=== PATIENT | male | born 1935 | race Caucasian/White ===

== ENCOUNTER 2021-05-23 14:28 | Emergency (ER) | payer MEDICARE ==
[2021-05-23] MEDS ORDERED: ACETAMINOPHEN TAB 500 MG TAB PO STA (16:02)
[2021-05-23 16:37] LABS: Basophils % (A) 0 %; Eosinophils % (A) 0 %; HCT 38.9 % (39.0-53.0); Lymphocytes # (A) 0.2 k/uL (1.0-4.8); Lymphocytes % (A) 3 %; MCH 31.2 pg (25.0-35.0); MCHC 33.5 g/dL (31.0-37.0); MCV 93.1 fL (80.0-100.0); Mean Platelet Volume 7.9; Monocytes # (A) 0.4 k/uL (0-1.0); Monocytes % (A) 5 %; Neutrophils # (A) 7.7 k/uL (1.3-7.7); Neutrophils % (A) 91 %; Platelet Count 190 k/uL (150-450); RBC 4.18 m/uL (4.30-5.90); RDW 13.5 % (11.5-15.5); WBC 8.5 k/uL (3.8-10.6)
--- NOTE | 2021-05-23 16:44 | XR ---
EXAMINATION TYPE: XR chest 2V DATE OF EXAM: 05/23/2021 COMPARISON: NONE TECHNIQUE: PA and lateral views submitted. HISTORY: Weakness and fever FINDINGS: Bilateral patchy infiltrates noted diffusely. Heart size mildly enlarged. Postoperative change involv ing the shoulders. No pneumothorax or pleural effusion. Curvature of the spine with degenerative vargas ges. Atherosclerotic change aorta. IMPRESSION: 1. Bilateral patchy infiltrate correlate for pneumonia
[2021-05-23 16:52] LABS: Appearance,Urine Cloudy (Clear); Bilirubin,Urine 1+ (Negative); Blood,Urine Small (Negative); Color,Urine Yellow; Glucose,Urine (UA) Negative (Negative); Granular Casts,Urine 9 /lpf (0); Hyaline Casts,Urine 4 /lpf (0-2); Ketones,Urine 1+ (Negative); Leukocyte Esterase,Urine Negative (Negative); Mucus,Urine Many /hpf; Nitrite,Urine Negative (Negative); PH, Urine 5.5 (5.0-8.0); Protein,Urine 2+ (Negative); RBC,Urine 2 /hpf (0-5); Squamous Epithelial Cell,Urine 3 /hpf (0-4); WBC,Urine 3 /hpf (0-5)
[2021-05-23 16:53] LABS: Albumin 3.4 g/dL (3.5-5.0); Calcium 9.4 mg/dL (8.4-10.2); Potassium 4.4 mmol/L (3.5-5.1); Total Bilirubin 0.7 mg/dL (0.2-1.3); Total Protein 6.1 g/dL (6.3-8.2)
--- NOTE | 2021-05-23 17:31 | ED ---
General Adult HPI - General Chief complaint: Fever Stated complaint: Weakness, Fever, congestion Source: patient Mode of arrival: wheelchair Limitations: no limitations - History of Present Illness Initial comments: 85-year-old male coming from home for cough, fevers and shortness of breath. Patient has had generalized fatigue over the past couple a days. Daughter states that today she had difficulty getting the patient up and out of bed. He did have recent covid exposure. Patient's is vaccinated in October of this year. He denies any chest pain. No vomiting. Denies diarrhea. No abdominal pain. No other alleviating, precipitating or modifying factors - Related Data Home Medications Medication Instructions Recorded Confirmed Aspirin EC [Ecotrin Low Dose] 81 mg PO DAILY 05/23/21 05/23/21 Atorvastatin [Lipitor] 80 mg PO HS 05/23/21 05/23/21 Cetirizine HCl [Zyrtec] 10 mg PO DAILY 05/23/21 05/23/21 Cholecalciferol (Vitamin D3) 125 mcg PO DAILY 05/23/21 05/23/21 [Vitamin D3 (125 MCG = 5,000 IU)] Clopidogrel [Plavix] 75 mg PO DAILY 05/23/21 05/23/21 Donepezil [Aricept] 10 mg PO HS 05/23/21 05/23/21 Finasteride [Proscar] 5 mg PO DAILY 05/23/21 05/23/21 Rehan Leg Cramp 2 tab PO HS 05/23/21 05/23/21 Pantoprazole [Protonix] 40 mg PO DAILY 05/23/21 05/23/21 Tamsulosin HCl [Flomax] 0.4 mg PO DAILY 05/23/21 05/23/21 Ubidecarenone [Co Q-10] 200 mg PO DAILY 05/23/21 05/23/21 atenoloL [Tenormin] 25 mg PO DAILY 05/23/21 05/23/21 lisinopriL [Zestril] 10 mg PO DAILY 05/23/21 05/23/21 Allergies Allergy/AdvReac Type Severity Reaction Status Date / Time cyclobenzaprine Allergy Anaphylaxis Verified 05/23/21 16:54 Review of Systems ROS Statement: Those systems with pertinent positive or pertinent negative responses have been documented in the HPI. ROS Other: All systems not noted in ROS Statement are negative. Past Medical History Past Medical History: Hyperlipidemia, Hypertension, Myocardial Infarction ([place]), Prostate Disorder History of Any Multi-Drug Resistant Organisms: None Reported Past Surgical History: Heart Catheterization With Stent Past Psychological History: No Psychological Hx Reported Smoking Status: Former smoker Past Alcohol Use History: None Reported Past Drug Use History: None Reported General Exam Limitations: no limitations Course Vital Signs 05/23/21 05/23/21 05/23/21 15:37 18:10 19:30 Temperature 99.5 F 97.7 F Pulse Rate 60 61 62 Respiratory 20 20 18 Rate Blood Pressure 131/58 124/67 111/48 O2 Sat by Pulse 92 L 92 L 90 L Oximetry Medical Decision Making - Medical Decision Making Upon arrival patient was placed in room 14. A thorough history and physical exam is performed. IV is established laboratory studies were conducted. Sodium 133. UA demonstrates 1+ ketones. Covid is detected. Chest x-ray demonstrates bilateral patchy infiltrate. Correlate with pneumonia. I did recommend antibody infusion for which the patient did agree to. He'll be discharged home and asked to follow up with his primary care doctor. Take Tylenol for fever control. Return for any new or worsening symptoms. Did recommend that they purchase a pulse ox machine and return for any O2 sats less than 90%. Patient did maintain his sats while evaluating the ER. He was discharged home in stable condition - Lab Data Result diagrams: 05/23/21 16:24 05/23/21 16:24 Lab Results 05/23/21 05/23/21 05/23/21 Range/Units 16:24 16:24 16:24 WBC 8.5 (3.8-10.6) k/uL RBC 4.18 L (4.30-5.90) m/uL Hgb 13.0 (13.0-17.5) gm/dL Hct 38.9 L (39.0-53.0) % MCV 93.1 (80.0-100.0) fL MCH 31.2 (25.0-35.0) pg MCHC 33.5 (31.0-37.0) g/dL RDW 13.5 (11.5-15.5) % Plt Count 190 (150-450) k/uL MPV 7.9 Neutrophils % 91 % Lymphocytes % 3 % Monocytes % 5 % Eosinophils % 0 % Basophils % 0 % Neutrophils # 7.7 (1.3-7.7) k/uL Lymphocytes # 0.2 L (1.0-4.8) k/uL Monocytes # 0.4 (0-1.0) k/uL Eosinophils # 0.0 (0-0.7) k/uL Basophils # 0.0 (0-0.2) k/uL Sodium (137-145) mmol/L Potassium (3.5-5.1) mmol/L Chloride (98-107) mmol/L Carbon Dioxide (22-30) mmol/L Anion Gap mmol/L BUN (9-20) mg/dL Creatinine (0.66-1.25) mg/dL Est GFR (CKD-EPI)AfAm (>60 ml/min/1.73 sqM) Est GFR (CKD-EPI)NonAf (>60 ml/min/1.73 sqM) Glucose (74-99) mg/dL Plasma Lactic Acid Osmar (0.7-2.0) mmol/L Calcium (8.4-10.2) mg/dL Total Bilirubin (0.2-1.3) mg/dL AST (17-59) U/L ALT (4-49) U/L Alkaline Phosphatase (38-126) U/L Total Protein (6.3-8.2) g/dL Albumin (3.5-5.0) g/dL Urine Color Yellow Urine Appearance Cloudy (Clear) Urine pH 5.5 (5.0-8.0) Ur Specific [place] 1.030 (1.001-1.035) Urine Protein 2+ H (Negative) Urine Glucose (UA) Negative (Negative) Urine Ketones 1+ H (Negative) Urine Blood Small H (Negative) Urine Nitrite Negative (Negative) Urine Bilirubin 1+ H (Negative) Urine Urobilinogen 3.0 (<2.0) mg/dL Ur Leukocyte Esterase Negative (Negative) Urine RBC 2 (0-5) /hpf Urine WBC 3 (0-5) /hpf Ur Squamous Epith Cells 3 (0-4) /hpf Hyaline Casts 4 H (0-2) /lpf Granular Casts 9 (0) /lpf Urine Mucus Many H (None) /hpf Coronavirus (PCR) Detected A (Not Detectd) 05/23/21 05/23/21 Range/Units 16:24 16:24 WBC (3.8-10.6) k/uL RBC (4.30-5.90) m/uL Hgb (13.0-17.5) gm/dL Hct (39.0-53.0) % MCV (80.0-100.0) fL MCH (25.0-35.0) pg MCHC (31.0-37.0) g/dL RDW (11.5-15.5) % Plt Count (150-450) k/uL MPV Neutrophils % % Lymphocytes % % Monocytes % % Eosinophils % % Basophils % % Neutrophils # (1.3-7.7) k/uL Lymphocytes # (1.0-4.8) k/uL Monocytes # (0-1.0) k/uL Eosinophils # (0-0.7) k/uL Basophils # (0-0.2) k/uL Sodium 133 L (137-145) mmol/L Potassium 4.4 (3.5-5.1) mmol/L Chloride 100 (98-107) mmol/L Carbon Dioxide 24 (22-30) mmol/L Anion Gap 9 mmol/L BUN 26 H (9-20) mg/dL Creatinine 1.09 (0.66-1.25) mg/dL Est GFR (CKD-EPI)AfAm 71 (>60 ml/min/1.73 sqM) Est GFR (CKD-EPI)NonAf 62 (>60 ml/min/1.73 sqM) Glucose 132 H (74-99) mg/dL Plasma Lactic Acid Osmar 1.4 (0.7-2.0) mmol/L Calcium 9.4 (8.4-10.2) mg/dL Total Bilirubin 0.7 (0.2-1.3) mg/dL AST 23 (17-59) U/L ALT 14 (4-49) U/L Alkaline Phosphatase 54 (38-126) U/L Total Protein 6.1 L (6.3-8.2) g/dL Albumin 3.4 L (3.5-5.0) g/dL Urine Color Urine Appearance (Clear) Urine pH (5.0-8.0) Ur Specific [place] (1.001-1.035) Urine Protein (Negative) Urine Glucose (UA) (Negative) Urine Ketones (Negative) Urine Blood (Negative) Urine Nitrite (Negative) Urine Bilirubin (Negative) Urine Urobilinogen (<2.0) mg/dL Ur Leukocyte Esterase (Negative) Urine RBC (0-5) /hpf Urine WBC (0-5) /hpf Ur Squamous Epith Cells (0-4) /hpf Hyaline Casts (0-2) /lpf Granular Casts (0) /lpf Urine Mucus (None) /hpf Coronavirus (PCR) (Not Detectd) Disposition Clinical Impression: COVID-19, Fatigue Disposition: HOME SELF-CARE Condition: Stable Instructions (If sedation given, give patient instructions): Coronavirus Disease 2019 (COVID-19) Additional Instructions: Please take Motrin and Tylenol alternating for fever control. Follow-up with your primary care doctor in 2-4 days. Return to the emergency room for any new or worsening symptoms. Please also return if your oxygen saturation falls less than 90% Is patient prescribed a controlled substance at d/c from ED?: No Referrals: Foster Dodd MD [Primary Care Provider] - 1-2 days Time of Disposition: 18:00
[2021-05-23] MEDS ORDERED: BAMLANIVIMAB (EUA) 700 MG, ETESEVIMAB (EUA) 1,400 MG in SODIUM CHLORIDE 0.9% 50 ML IVPB ONE (19:00)
[2021-05-23] MEDS ORDERED: SODIUM CHLORIDE 0.9% 50 ML IVPB ONE (19:00)
[2021-05-23 19:34] VITALS: BP 111/48; PULSE 62; RESP 18; TEMP 97.7
== END 2021-05-23 21:00 | disposition home or self-care (01) ==
LOC: EC 14:28
DX: U07.1 COVID-19 (principal); R53.83 Other fatigue; I10 Essential (primary) hypertension; E78.5 Hyperlipidemia, unspecified; I25.2 Old myocardial infarction; Z79.82 Long term (current) use of aspirin; Z79.02 Long term (current) use of antithrombotics/antiplatelets; Z87.891 Personal history of nicotine dependence
CPT/HCPCS: 99285; 96365; 36415; 80053; 83605; 85025; 81001; 87635; 71046; J3490

== ENCOUNTER 2021-05-24 12:21 | Inpatient (IN) | payer MEDICARE ==
--- NOTE | 2021-05-24 12:40 | ED ---
General Adult HPI - General Chief complaint: Recheck/Abnormal Lab/Rx Stated complaint: Low oxygen Time Seen by Provider: 05/24/21 12:25 Source: EMS Mode of arrival: EMS Limitations: no limitations - History of Present Illness Initial comments: Dictation was produced using tuul dictation software. please excuse any grammatical, word or spelling errors. Chief Complaint: 85-year-old male presents to the emergency department for COVID -19 History of Present Illness: Is a 85-year-old male he was brought in by emergency medical services. Patient was brought to the ER for worsening coronavirus symptoms. EMS reports that patient had no complaints. he reports that he believes he is here because he fell and couldn't get up. He states he fell last night and was too weak to get up. EMS was called by patient's son or [id number] Denies any shortness of breath. Patient states she's been feeling mildly fatigued for the last 3-4 days. Patient tested positive for coronavirus yesterday. He was given monoclonal antibodies and discharged home. Upon EMS arrival patient was hypoxic into the mid 80s on room air. Patient den ies any complaints at this time. He is vaccinated for coronavirus. The ROS documented in this emergency department record has been reviewed and confirmed by me. Those systems with pertinent positive or negative responses have been documented in the HPI. All other systems are other negative and/or noncontributory. PHYSICAL EXAM: General Impression: Alert and oriented x3, not in acute distress HEENT: Normocephalic atraumatic, extra-ocular movements intact, pupils equal and reactive to light bilaterally, mucous membranes moist. Cardiovascular: Heart regular rate and rhythm Chest: Able to complete full sentences, no retractions, no tachypnea Abdomen: abdomen soft, non-tender, non-distended, no organomegaly Musculoskeletal: Pulses present and equal in all extremities, no peripheral edema Motor: no focal deficits noted Neurological: CN II-XII grossly intact, no focal motor or sensory deficits noted Skin: Intact with no visualized rashes Psych: Normal affect and mood ED course: 85-year-old male tested positive for coronavirus yesterday presents to the emergency department for worsening COVID-19 symptoms. He did receive monoclonal antibodies yesterday. EMS reports that patient was hypoxic upon initial evaluation. Vital signs upon arrival shows temperature 100.5, O2 sat of 80% on room air. Patient placed on 4 L nasal cannula with a measurement of 91%. EKG interpretation: Ventricular rate 21, normal sinus rhythm, WI interval 154, QRS 80, QTC 449. No WI prolongation, no QTC prolongation, no ST or T-wave changes noted. No old EKG for comparison Overall, this EKG is unremarkable Laboratory evaluation obtained. CBC, coag panel is unremarkable. D-dimer is 1 .73. Metabolic panel is negative. Slight elevation in inflammatory markers. Trauma workups negative. Computed tomography scan of the head and C-spines unremarkable. Pelvis x-ray chest x-ray shows no acute traumatic injuries. Chest x-ray parenchyma does show interval worsening of lung infiltrates. D- dimer is elevated and CT angioma of the chest was obtained showing no pulmonary embolism. Patient satting well on 2-4 L of nasal cannula. He is reevaluated at bedside at 354. Vitamins stable medical condition. Patient will be admitted for COVID-19, acute hypoxic respiratory failure. Case discussed with Dr. Dodd. Pulmonology will be consulted. - Related Data Home Medications Medication Instructions Recorded Confirmed Aspirin EC [Ecotrin Low Dose] 81 mg PO DAILY 05/23/21 05/24/21 Atorvastatin [Lipitor] 80 mg PO HS 05/23/21 05/24/21 Cetirizine HCl [Zyrtec] 10 mg PO DAILY 05/23/21 05/24/21 Cholecalciferol (Vitamin D3) 125 mcg PO DAILY 05/23/21 05/24/21 [Vitamin D3 (125 MCG = 5,000 IU)] Clopidogrel [Plavix] 75 mg PO DAILY 05/23/21 05/24/21 Donepezil [Aricept] 10 mg PO HS 05/23/21 05/24/21 Finasteride [Proscar] 5 mg PO DAILY 05/23/21 05/24/21 Rehan Leg Cramp 2 tab PO HS 05/23/21 05/24/21 Pantoprazole [Protonix] 40 mg PO DAILY 05/23/21 05/24/21 Tamsulosin HCl [Flomax] 0.4 mg PO DAILY 05/23/21 05/24/21 Ubidecarenone [Co Q-10] 200 mg PO DAILY 05/23/21 05/24/21 atenoloL [Tenormin] 25 mg PO DAILY 05/23/21 05/24/21 lisinopriL [Zestril] 10 mg PO DAILY 05/23/21 05/24/21 Allergies Allergy/AdvReac Type Severity Reaction Status Date / Time cyclobenzaprine Allergy Anaphylaxis Verified 05/24/21 12:31 Review of Systems ROS Statement: Those systems with pertinent positive or pertinent negative responses have been documented in the HPI. ROS Other: All systems not noted in ROS Statement are negative. Past Medical History Past Medical History: Hyperlipidemia, Hypertension, Myocardial Infarction ([place]), Prostate Disorder History of Any Multi-Drug Resistant Organisms: None Reported Past Surgical History: Heart Catheterization With Stent Past Psychological History: No Psychological Hx Reported Smoking Status: Former smoker Past Alcohol Use History: None Reported Past Drug Use History: None Reported General Exam Limitations: no limitations Course Vital Signs 05/24/21 05/24/21 12:27 12:32 Temperature 100.5 F H Pulse Rate 78 Respiratory 18 Rate Blood Pressure 137/65 O2 Sat by Pulse 80 L 91 L Oximetry Medical Decision Making - Lab Data Result diagrams: 05/24/21 12:58 05/24/21 12:58 Lab Results 05/24/21 05/24/21 05/24/21 Range/Units 12:58 12:58 12:58 WBC 9.0 (3.8-10.6) k/uL RBC 4.04 L (4.30-5.90) m/uL Hgb 12.5 L (13.0-17.5) gm/dL Hct 37.6 L (39.0-53.0) % MCV 92.8 (80.0-100.0) fL MCH 30.8 (25.0-35.0) pg MCHC 33.2 (31.0-37.0) g/dL RDW 13.6 (11.5-15.5) % Plt Count 180 (150-450) k/uL MPV 7.9 Neutrophils % 91 % Lymphocytes % 2 % Monocytes % 5 % Eosinophils % 0 % Basophils % 0 % Neutrophils # 8.2 H (1.3-7.7) k/uL Lymphocytes # 0.2 L (1.0-4.8) k/uL Monocytes # 0.4 (0-1.0) k/uL Eosinophils # 0.0 (0-0.7) k/uL Basophils # 0.0 (0-0.2) k/uL PT 10.0 (9.0-12.0) sec INR 0.9 (<1.2) APTT 25.4 (22.0-30.0) sec D-Dimer 1.73 H (<0.60) mg/L FEU Sodium 134 L (137-145) mmol/L Potassium 4.5 (3.5-5.1) mmol/L Chloride 100 (98-107) mmol/L Carbon Dioxide 25 (22-30) mmol/L Anion Gap 9 mmol/L BUN 33 H (9-20) mg/dL Creatinine 1.08 (0.66-1.25) mg/dL Est GFR (CKD-EPI)AfAm 72 (>60 ml/min/1.73 sqM) Est GFR (CKD-EPI)NonAf 62 (>60 ml/min/1.73 sqM) Glucose 157 H (74-99) mg/dL Plasma Lactic Acid Osmar (0.7-2.0) mmol/L Calcium 9.4 (8.4-10.2) mg/dL Magnesium 2.2 (1.6-2.3) mg/dL Total Bilirubin 0.6 (0.2-1.3) mg/dL AST 31 (17-59) U/L ALT 14 (4-49) U/L Alkaline Phosphatase 56 (38-126) U/L Lactate Dehydrogenase 867 H (313-618) U/L C-Reactive Protein 18.4 H (<1.0) mg/dL Total Protein 6.1 L (6.3-8.2) g/dL Albumin 3.4 L (3.5-5.0) g/dL 05/24/21 Range/Units 12:58 WBC (3.8-10.6) k/uL RBC (4.30-5.90) m/uL Hgb (13.0-17.5) gm/dL Hct (39.0-53.0) % MCV (80.0-100.0) fL MCH (25.0-35.0) pg MCHC (31.0-37.0) g/dL RDW (11.5-15.5) % Plt Count (150-450) k/uL MPV Neutrophils % % Lymphocytes % % Monocytes % % Eosinophils % % Basophils % % Neutrophils # (1.3-7.7) k/uL Lymphocytes # (1.0-4.8) k/uL Monocytes # (0-1.0) k/uL Eosinophils # (0-0.7) k/uL Basophils # (0-0.2) k/uL PT (9.0-12.0) sec INR (<1.2) APTT (22.0-30.0) sec D-Dimer (<0.60) mg/L FEU Sodium (137-145) mmol/L Potassium (3.5-5.1) mmol/L Chloride (98-107) mmol/L Carbon Dioxide (22-30) mmol/L Anion Gap mmol/L BUN (9-20) mg/dL Creatinine (0.66-1.25) mg/dL Est GFR (CKD-EPI)AfAm (>60 ml/min/1.73 sqM) Est GFR (CKD-EPI)NonAf (>60 ml/min/1.73 sqM) Glucose (74-99) mg/dL Plasma Lactic Acid Osmar 1.3 (0.7-2.0) mmol/L Calcium (8.4-10.2) mg/dL Magnesium (1.6-2.3) mg/dL Total Bilirubin (0.2-1.3) mg/dL AST (17-59) U/L ALT (4-49) U/L Alkaline Phosphatase (38-126) U/L Lactate Dehydrogenase (313-618) U/L C-Reactive Protein (<1.0) mg/dL Total Protein (6.3-8.2) g/dL Albumin (3.5-5.0) g/dL Critical Care Time Critical Care Time: Yes Total Critical Care Time: 33 Disposition Clinical Impression: COVID-19 Disposition: ADMITTED IP TO THIS [facility] Condition: Critical Referrals: Foster Dodd MD [Primary Care Provider] - 1-2 days
[2021-05-24] MEDS ORDERED: SODIUM CHLORIDE 0.9% 1,000 ML IV STA (13:14)
[2021-05-24] MEDS ORDERED: ACETAMINOPHEN TAB 500 MG TAB PO STA (13:14)
[2021-05-24 13:18] LABS: Basophils % (A) 0 %; Eosinophils % (A) 0 %; HCT 37.6 % (39.0-53.0); HGB 12.5 gm/dL (13.0-17.5); Lymphocytes # (A) 0.2 k/uL (1.0-4.8); Lymphocytes % (A) 2 %; MCH 30.8 pg (25.0-35.0); MCHC 33.2 g/dL (31.0-37.0); MCV 92.8 fL (80.0-100.0); Mean Platelet Volume 7.9; Monocytes # (A) 0.4 k/uL (0-1.0); Monocytes % (A) 5 %; Neutrophils # (A) 8.2 k/uL (1.3-7.7); Neutrophils % (A) 91 %; Platelet Count 180 k/uL (150-450); RBC 4.04 m/uL (4.30-5.90); RDW 13.6 % (11.5-15.5)
[2021-05-24] MEDS ORDERED: DEXAMETHASONE SOD PHOSPHATE 10 MG/ML 1 ML VIAL IV STA (13:28)
--- NOTE | 2021-05-24 13:31 | XR ---
EXAMINATION TYPE: XR chest 1V portable DATE OF EXAM: 05/24/2021 COMPARISON: 05/23/2021 HISTORY: Suspected Covid pneumonia TECHNIQUE: Single frontal view of the chest is obtained. FINDINGS: There has been interval increase in the scattered partially consolidative opacities in bot h lungs consistent with an acute pneumonic infiltrate. The heart size is prominent but the pulmonary vasculature is not congested. There is no pneumothorax or large pleural effusion. There are bilateral shoulder prostheses. IMPRESSION: Interval worsening in the lung infiltrates consistent with an acute inflammatory process . Clinical correlation short-term follow-up to resolution is recommended.
--- NOTE | 2021-05-24 13:33 | XR ---
Pelvis. HISTORY: Fall. COMPARISON: None. TECHNIQUE: Single AP view the pelvis is obtained. FINDINGS: There is mild diffuse osteopenia. There is no fracture or focal intraosseous abnormality. There is mi ld degeneration of the hips bilaterally but no hip dislocation. IMPRESSION: No evidence of acute trauma.
[2021-05-24 13:36] LABS: Albumin 3.4 g/dL (3.5-5.0); Calcium 9.4 mg/dL (8.4-10.2); Magnesium 2.2 mg/dL (1.6-2.3); Potassium 4.5 mmol/L (3.5-5.1); Total Bilirubin 0.6 mg/dL (0.2-1.3); Total Protein 6.1 g/dL (6.3-8.2)
[2021-05-24 13:38] LABS: INR 0.9 (<1.2); Partial Thromboplastin Time 25.4 sec (22.0-30.0)
--- NOTE | 2021-05-24 13:41 | CT ---
EXAMINATION TYPE: CT brain [place] DATE OF EXAM: 05/24/2021 COMPARISON: None HISTORY: fall CT DLP: 1370.8 mGycm Automated exposure control for dose reduction was used. TECHNIQUE: CT scan of the head and cervical spine are performed without contrast. FINDINGS: The ventricles, basal cisterns and sulci over the convexities are markedly enlarged consist ent with marked generalized atrophy. There is no acute intra or extra-axial hemorrhage. No abnormal density is seen throughout the brain parenchyma. The posterior fossa is grossly intact. The intraorbital contents appear normal and symmetric. There are air-fluid levels in the maxillary sinuses and sphenoid sinus consistent with acute pansinus itis. The mastoid air cells are well aerated. The craniovertebral junction relationships are normal. The cervical vertebral segments are normal in height without evidence of compression fracture. There is a 3 to 4 mm anterolisthesis of C4 on C5 and there is marked degenerative disc disease at the C5-6 and C6-7 level. The bony cervical canal is wid tavo patent as are the neuroforamina. There is advanced degeneration of the uncovertebral joints the lower cervical spine. IMPRESSION: 1. There is no acute fracture or dislocation evident in the cervical spine. Significant degenerative changes as described above. 2. No acute intracranial hemorrhage, mass effect, or midline shift is seen. There is marked generaliz ed atrophy and acute sinusitis.
[2021-05-24 13:56] LABS: C Reactive Protein 18.4 mg/dL (<1.0)
--- NOTE | 2021-05-24 15:37 | CT ---
EXAMINATION TYPE: CT angio chest DATE OF EXAM: 05/24/2021 COMPARISON: None HISTORY: Positive d-dimer, Covid + low O2 CT DLP: 358.8 mGycm Automated exposure control for dose reduction was used. CONTRAST: Performed with IV Contrast, patient injected with 100 mL of Isovue 370. Images obtained from the thoracic inlet to the diaphragm with IV contrast. There are 3-D post process ed images. There is extensive interstitial infiltrates throughout both lungs. This is in a patchy distribution i n the upper and lower lobes bilaterally. Thoracic aorta is atheromatous. There is no aneurysm or dissection. Yes in the aorta measures 3.7 cm. There is no evidence of filling defect in the pulmonary arteries. There is no significant pleural flu id. Bony thorax shows some degenerative spur formation. There is mild wedging of T7 vertebra 15%. IMPRESSION: No evidence of pulmonary embolism. Cardiomegaly. Extensive pulmonary interstitial infiltrates. Small pleural effusions.
[2021-05-24] MEDS ORDERED: ONDANSETRON 4 MG/2 ML VIAL IVP PRN (15:47)
[2021-05-24] MEDS ORDERED: NALOXONE 0.4 MG/ML 1 ML VIAL IV PRN (15:47)
[2021-05-24] MEDS: SODIUM CHLORIDE 0.9% 1,000 ML IV SCH (16:49)
[2021-05-25] MEDS: SODIUM CHLORIDE 0.9% 1,000 ML IV SCH ×2 (04:28→13:49)
[2021-05-25] MEDS ORDERED: NON FORMULARY DRUG (Ubidecarenone [Co Q-10] 100 MG Capsule) PO SCH (09:00)
[2021-05-25] MEDS ORDERED: atenoloL 25 MG TAB PO SCH (09:00)
--- NOTE | 2021-05-25 09:37 | P.HPIM ---
History of Present Illness H&P Date: 05/25/21 Chief Complaint: COVID-19 HISTORY OF PRESENT ILLNESS: This is an 85-year-old white [place] male with a previous medical history significant for coronary artery disease status post PCI of the LCx back in 2019, hypertension and hypertensive cardio vascular disease, hyperlipidemia, ALLERGIC rhinitis, enlarged prostate, history of ALLERGIC rhinitis, vascular dementia, patient presented to the emergency department at [facility] yesterday after he was evaluated few days ago with positive Covid 19 infection and he was sent home with supportive care patient was not hypoxemic at that time, patient apparently fell last night and couldn't get up because of generalized weakness he ended up coming back to the hospital with increased shortness breath associated with increased and weakness he became quite hypoxemic with oxygen saturation at 89% on room air so he was admitted to the hospital for evaluation and treatment for COVID-19 pneumonia, patient underwent x-rays of the pelvis that did not show any evidence of acute fracture, patient underwent computed tomography scan of the head in the cervical spine that showed anterolisthesis of C4-C5 and severe degenerative disc disease of C5 C6 C6 and 7, without acute fracture, patient 12-lead EKG did not show evidence of acute ST-T wave changes, chest x-ray initially showed worsening infiltrate this was followed by CTA of the chest because of elevated d-dimer and elevated inflammatory markers and the patient was negative for pulmonary as well as a however it did show significant diffuse interstitial infiltrate suggestive of Covid 19 pneumonia, patient will be started on Remdesivir 200 mg loading dose followed by 100 mg daily for the next 5 days. REVIEW OF SYSTEMS: Constitutional: No documented fever, no chills, no night sweats. No weight change. positive for weakness,positive for fatigue no lethargy. No daytime sleepiness. HEENT: Positive for headache. No blurred vision or double vision, no loss of vision. No loss of Hearing, no ringing in the ears, no dizziness. No nasal drainage or congestion. No epistaxis. No sore throat. Lungs: positive for shortness of breath, positive for cough, no sputum production. No wheezing. Reports dyspnea with activity. Cardiovascular: No chest pain, no lower extremity edema. No palpitations. No paroxysmal nocturnal dyspnea. No orthopnea. No lightheadedness or dizziness. No syncopal episodes. Abdominal: Reports abdominal pain. No nausea, vomiting. No diarrhea. No constipation. No bloody or tarry stools reports loss of appetite. Genitourinary: No dysuria, increased frequency, urgency. No urinary retention. Musculoskeletal: positive for myalgias. No muscle weakness, no gait dysfunction, positive for falls. No back pain. positive for neck pain. Integumentary: No wounds, no lesions. No rash or pruritus. No unusual bruising. No change in hair or nails. Neurologic: No aphasia. No facial droop. No change in mentation. No head injury. No headache. No paralysis. No paresthesia. Psychiatric: No depression. No anxiety. No mood swings. Endocrine: No abnormal blood sugars. No weight change. PAST MEDICAL HISTORY: CAD post-PCI of the LCx in 2019 Hypertension and hypertensive cardio vascular disease. Hyperlipidemia. Enlarged prostate. ALLERGIC rhinitis. Vascular dementia. PAST SURGICAL HISTORY: Bilateral shoulder replacement. Left heart catheterization with PCI of the LCx in 2019 Bilateral cataract surgery. SOCIAL HISTORY: patient is a lifelong nonsmoker he denies any alcohol ingestion no jugular venous. FAMILY HISTORY: Father at age of 40 from gastric cancer mother at the age of 82 from congestive heart failure as well as diabetes mellitus type 2 patient had one brother who at age of 82 from COPD and heart disease one sister alive 75-year-old and patient has one son and one daughter both alive and well. PHYSICAL EXAMINATION: General: 85-year-old male laying down in bed in no apparent distress. HEENT: Head is atraumatic, normocephalic, pupils were equal round reactive to light and recommendation, extraocular muscle movement were intact, sclera nonicteric, conjunctivae were pale, mucous membranes of the mouth are somewhat dry. Neck: Supple, no JVP, normal carotid upstroke bilaterally, no lymphadenopathy. Chest: Decreased breath sounds at the bases, few rhonchi, no extremity wheezes, no chest wall tenderness, no intercostal retractions. Heart: First heart sound is normal, second heart sounds normal, there is systolic ejection murmur 2/6 located in the left sternal border. Abdomen: Soft, nontender, nondistended, positive bowel sounds, there is no hepatosplenomegaly. Extremities: There is no edema no calf tenderness DP +2 bilaterally. Neurologic examination: Patient is awake alert and oriented X 3, cranial nerves II-12 appear grossly intact, muscle power were 5 out of 5 in upper extremities and 5 out of 5 in bilateral lower extremities, deep tendon reflexes normal bilaterally. ASSESSMENT AND PLAN: 1. COVID-19 pneumonia associated with hypoxemia is presenting oxygen sufficient was 89% room air currently on 5 L nasal cannula is 93-94%, start the patient on Decadron 6 mg IV push every day, start the patient on vitamin C 1000 mg every day, start the patient on vitamin D 1000 units once every day as well as zinc 220 mg orally once every day, I will start the patient on Remdesivir 200 mg IV piggyback 1 followed by 100 mg daily for the next 5 days, pulmonary consultation, continue droplet precautions as well as eye protection. 2. Generalized weakness with fall likely related to COVID-19 pneumonia. We will continue with the treatment as in previous paragraph. Physical therapy evaluation. 3. CAD post-PCI of the LCx. Continue patient on aspirin 81 mg once every day, Plavix 75 mg orally once every day, continue atenolol 25 mg orally once every day, continue atorvastatin 80 mg once every day, cardiology consultation. 4. Hypertension and hypertensive cardio vascular disease. Continue patient on atenolol 25 mg orally once every day, lisinopril 10 mg orally once every day, monitor the patient very closely. 5. Hyperlipidemia. Continue patient on atorvastatin 80 mg orally once every day. 6. ALLERGIC rhinitis. Continue Zyrtec 10 mg once every day as well as Flonase nasal spray 1 puff in each nostril twice every day. 7. Vascular dementia. Continue donepezil 10 mg orally once every day. 8. Enlarged prostate. Continue Flomax 0.4 mg orally once every day as well as finasteride 5 mg once every day. 9. DVT prophylaxis. Continue Lovenox 40 mg subcutaneously every 24 hours. 10. GI prophylaxis. Continue Protonix 40 mg every day. 11. Admitted to inpatient. Estimate a length of stay 2 midnights 12. Patient is full code. Past Medical History Past Medical History: Dementia, Hyperlipidemia, Hypertension, Myocardial Infarction ([place]), Prostate Disorder Last Myocardial Infarction Date:: 2016 History of Any Multi-Drug Resistant Organisms: None Reported Past Surgical History: Heart Catheterization With Stent Past Anesthesia/Blood Transfusion Reactions: No Reported Reaction Date of Last Stent Placement:: 2016 Smoking Status: Former smoker Medications and Allergies Home Medications Medication Instructions Recorded Confirmed Type Aspirin EC [Ecotrin Low Dose] 81 mg PO DAILY 05/23/21 05/24/21 History Atorvastatin [Lipitor] 80 mg PO HS 05/23/21 05/24/21 History Cetirizine HCl [Zyrtec] 10 mg PO DAILY 05/23/21 05/24/21 History Cholecalciferol (Vitamin D3) 125 mcg PO DAILY 05/23/21 05/24/21 History [Vitamin D3 (125 MCG = 5,000 IU)] Clopidogrel [Plavix] 75 mg PO DAILY 05/23/21 05/24/21 History Donepezil [Aricept] 10 mg PO HS 05/23/21 05/24/21 History Finasteride [Proscar] 5 mg PO DAILY 05/23/21 05/24/21 History Rehan Leg Cramp 2 tab PO HS 05/23/21 05/24/21 History Pantoprazole [Protonix] 40 mg PO DAILY 05/23/21 05/24/21 History Tamsulosin HCl [Flomax] 0.4 mg PO DAILY 05/23/21 05/24/21 History Ubidecarenone [Co Q-10] 200 mg PO DAILY 05/23/21 05/24/21 History atenoloL [Tenormin] 25 mg PO DAILY 05/23/21 05/24/21 History lisinopriL [Zestril] 10 mg PO DAILY 05/23/21 05/24/21 History Allergies Allergy/AdvReac Type Severity Reaction Status Date / Time cyclobenzaprine Allergy Anaphylaxis Verified 05/24/21 12:31 Physical Exam Vitals: Vital Signs Temp Pulse Pulse Resp BP BP Pulse Ox 05/25/21 05:24 97.8 F 56 L 18 135/66 95 05/25/21 01:44 EDT 97.6 F 49 L 17 125/63 89 L 05/24/21 21:37 98.3 F 55 L 17 116/60 95 05/24/21 20:07 3 L 05/24/21 20:00 63 16 05/24/21 18:49 97.4 F L 51 L 16 103/50 91 L 05/24/21 12:32 91 L 05/24/21 12:27 100.5 F H 78 18 137/65 80 L Intake and Output 05/24/21 05/25/21 05/25/21 23:59 06:59 14:59 Other: Voiding Method # Voids Weight Results CBC & Chem 7: 05/24/21 12:58 05/24/21 12:58 Labs: Abnormal Lab Results - Last 24 Hours (Table) 05/24/21 05/24/21 05/24/21 Range/Units 12:58 12:58 12:58 RBC 4.04 L (4.30-5.90) m/uL Hgb 12.5 L (13.0-17.5) gm/dL Hct 37.6 L (39.0-53.0) % Neutrophils # 8.2 H (1.3-7.7) k/uL Lymphocytes # 0.2 L (1.0-4.8) k/uL D-Dimer 1.73 H (<0.60) mg/L FEU Sodium 134 L (137-145) mmol/L BUN 33 H (9-20) mg/dL Glucose 157 H (74-99) mg/dL Ferritin 472.0 H (22.0-322.0) ng/mL Lactate Dehydrogenase 867 H (313-618) U/L C-Reactive Protein 18.4 H (<1.0) mg/dL Total Protein 6.1 L (6.3-8.2) g/dL Albumin 3.4 L (3.5-5.0) g/dL Procalcitonin (0.02-0.09) ng/mL 05/24/21 Range/Units 12:58 RBC (4.30-5.90) m/uL Hgb (13.0-17.5) gm/dL Hct (39.0-53.0) % Neutrophils # (1.3-7.7) k/uL Lymphocytes # (1.0-4.8) k/uL D-Dimer (<0.60) mg/L FEU Sodium (137-145) mmol/L BUN (9-20) mg/dL Glucose (74-99) mg/dL Ferritin (22.0-322.0) ng/mL Lactate Dehydrogenase (313-618) U/L C-Reactive Protein (<1.0) mg/dL Total Protein (6.3-8.2) g/dL Albumin (3.5-5.0) g/dL Procalcitonin 0.96 H (0.02-0.09) ng/mL Thrombosis Risk Factor Assmnt - Choose All That Apply Any of the Below Risk Factors Present?: No Other Risk Factors: Yes Each Risk Factor Represents 3 Points: Age 75 years or older Other congenital or acquired thrombophilia - If yes, enter type in comment: No Thrombosis Risk Factor Assessment Total Risk Factor Score: 3 Thrombosis Risk Factor Assessment Level: Moderate Risk
[2021-05-25] MEDS: ENOXAPARIN 40 MG/0.4 ML SYRINGE SQ SCH (09:53)
[2021-05-25] MEDS: PANTOPRAZOLE 40 MG TABLET PO SCH (09:53)
[2021-05-25] MEDS: LORATADINE 10 MG TAB PO SCH (09:53)
[2021-05-25] MEDS: FINASTERIDE 5 MG TAB PO SCH (09:53)
[2021-05-25] MEDS: CHOLECALCIFEROL 25 MCG (1000 IU) TABLET PO SCH (09:53)
[2021-05-25] MEDS: lisinopriL 10 MG TAB PO SCH (09:53)
[2021-05-25] MEDS: TAMSULOSIN 0.4 MG CAP.ER.24H PO SCH (09:53)
[2021-05-25] MEDS: ASPIRIN 81 MG PO SCH (09:53)
[2021-05-25] MEDS: CLOPIDOGREL 75 MG TAB PO SCH (09:53)
[2021-05-25] MEDS: dexAMETHasone 2 MG TAB PO SCH (12:26)
[2021-05-25] MEDS ORDERED: REMDESIVIR 200 MG in SODIUM CHLORIDE 0.9% 250 ML IVPB ONE (13:00)
--- NOTE | 2021-05-25 14:44 | P.CNPUL ---
History of Present Illness Consult date: 05/25/21 Requesting physician: Foster Dodd Reason for consult: pneumonia, abnormal CXR/CT Chief complaint: Pneumonia. History of present illness: Pulmonary consultation dated 05/25/2021. 85-year-old male with a history of dementia, who was seen in the emergency department, on May 24. The patient apparently was brought to the emergency department, for worsening coronavirus symptoms. Apparently complaints were difficult to elicit, as the patient is quite demented but apparently it relates to either falling and/or feeling very weak. There was apparently no shortness of breath. The patient's grandson is currently in the hospital as well with severe coronavirus associated pneumonia. The patient tested positive for coronavirus on May 23. He was previously given monoclonal antibody, and discharged home. Upon EMS arrival, the patient was hypoxic, into the mid 80s, on room air. Again, the patient denied eating short of breath, but again, has underlying dementia. He has a history of hyperlipidemia, hypertension, myocardial infarction, BPH, and heart catheterization with stent placement. He is a former smoker. White count 9, hemoglobin 12.5, hematocrit 37.6, and platelet count was normal. D-dimer was 1.73. Sodium 134, potassium 4.5, chlorides 100, CO2 25, anion gap 9, BUN 33, and creatinine 1.08. LDH was 867 and C-reactive protein was 18.4. Pro-calcitonin level was 0.96. Chest x-ray showed diffuse bilateral infiltrates. CT angiogram was negative for pulmonary embolism but did show diffuse bilateral infiltrates consistent with coronavirus associated pneumonia. The patient is on 4 L nasal cannula, continuous to pull his oxygen off, and on room air, saturation is only 81%. Head CT was negative for anything acute. Review of Systems REVIEW OF SYSTEMS: CONSTITUTIONAL: Weakness, and falling. NEUROLOGIC: [ Negative.] HEENT: [ Negative.] CARDIAC: [Negative.] PULMONARY: Shortness of breath. GI: [Negative.] : [Negative.] RHEUMATOLOGIC: [ Negative.] IMMUNOLOGIC: [ Negative.] ENDOCRINE: [Negative. ] DERMATOLOGIC: [Negative.] Past Medical History Past Medical History: Dementia, Hyperlipidemia, Hypertension, Myocardial Infarction ([place]), Prostate Disorder Last Myocardial Infarction Date:: 2016 History of Any Multi-Drug Resistant Organisms: None Reported Past Surgical History: Heart Catheterization With Stent Past Anesthesia/Blood Transfusion Reactions: No Reported Reaction Date of Last Stent Placement:: 2016 Smoking Status: Former smoker Medications and Allergies Home Medications Medication Instructions Recorded Confirmed Type Aspirin EC [Ecotrin Low Dose] 81 mg PO DAILY 05/23/21 05/24/21 History Atorvastatin [Lipitor] 80 mg PO HS 05/23/21 05/24/21 History Cetirizine HCl [Zyrtec] 10 mg PO DAILY 05/23/21 05/24/21 History Cholecalciferol (Vitamin D3) 125 mcg PO DAILY 05/23/21 05/24/21 History [Vitamin D3 (125 MCG = 5,000 IU)] Clopidogrel [Plavix] 75 mg PO DAILY 05/23/21 05/24/21 History Donepezil [Aricept] 10 mg PO HS 05/23/21 05/24/21 History Finasteride [Proscar] 5 mg PO DAILY 05/23/21 05/24/21 History Rehan Leg Cramp 2 tab PO HS 05/23/21 05/24/21 History Pantoprazole [Protonix] 40 mg PO DAILY 05/23/21 05/24/21 History Tamsulosin HCl [Flomax] 0.4 mg PO DAILY 05/23/21 05/24/21 History Ubidecarenone [Co Q-10] 200 mg PO DAILY 05/23/21 05/24/21 History atenoloL [Tenormin] 25 mg PO DAILY 05/23/21 05/24/21 History lisinopriL [Zestril] 10 mg PO DAILY 05/23/21 05/24/21 History Allergies Allergy/AdvReac Type Severity Reaction Status Date / Time cyclobenzaprine Allergy Anaphylaxis Verified 05/24/21 12:31 Physical Exam Osteopathic Statement: *. No significant issues noted on an osteopathic structural exam other than those noted in the History and Physical/Consult. Vitals: Vital Signs Temp Pulse Resp BP Pulse Ox 05/25/21 10:22 97.6 F 67 20 145/73 92 L 05/25/21 05:24 97.8 F 56 L 18 135/66 95 05/25/21 01:44 EDT 97.6 F 49 L 17 125/63 89 L 05/24/21 21:37 98.3 F 55 L 17 116/60 95 05/24/21 20:07 3 L 05/24/21 20:00 63 16 05/24/21 18:49 97.4 F L 51 L 16 103/50 91 L Intake and Output 05/24/21 05/25/21 05/25/21 23:59 06:59 14:59 Other: Voiding Method Diaper Incontinent # Voids Weight No acute distress, confused, currently on 4 L nasal cannula. Room air saturations are 81%. HEENT examination is grossly unremarkable. Neck supple. Full range of motion. No adenopathy thyromegaly or neck vein distention. Cardiovascular examination reveals regular rhythm rate. S1-S2 normal. No S3 or S4. No discernible murmur noted. Heart sounds are distant. Heart rate 67 bpm. Lungs reveal diffuse bilateral rhonchi. No wheezes. No crackles. Breath sounds equal bilaterally. Saturations on room air 81%. On 4 L, his saturations between 92-95%. Abdomen soft bowel sounds are heard. No masses or tenderness. Extremities are intact. No cyanosis clubbing or edema. Skin is without rash or lesion. Neurologic examination is brief but nonfocal. Results - Laboratory Findings CBC and BMP: 05/24/21 12:58 05/24/21 12:58 PT/INR, D-dimer PT 10.0 sec (9.0-12.0) 05/24/21 12:58 INR 0.9 (<1.2) 05/24/21 12:58 D-Dimer 1.73 mg/L FEU (<0.60) H 05/24/21 12:58 Abnormal lab findings: Abnormal Labs 05/24/21 05/24/21 05/24/21 12:58 12:58 12:58 RBC 4.04 L Hgb 12.5 L Hct 37.6 L Neutrophils # 8.2 H Lymphocytes # 0.2 L D-Dimer 1.73 H Sodium 134 L BUN 33 H Glucose 157 H Ferritin 472.0 H Lactate Dehydrogenase 867 H C-Reactive Protein 18.4 H Total Protein 6.1 L Albumin 3.4 L Procalcitonin 05/24/21 12:58 RBC Hgb Hct Neutrophils # Lymphocytes # D-Dimer Sodium BUN Glucose Ferritin Lactate Dehydrogenase C-Reactive Protein Total Protein Albumin Procalcitonin 0.96 H - Diagnostic Findings Chest x-ray: image reviewed CT scan - chest: image reviewed Assessment and Plan Assessment: Acute hypoxemic respiratory failure secondary to coronavirus associated pneumonia. Elevated inflammatory markers secondary to coronavirus infection. History of hyperlipidemia. History of hypertension. History of myocardial infarction. BPH. CAD, status post cardiac catheterization with stent. Dementia. Plan: Plan dated 05/25/2021. The patient was given Decadron, and Lovenox, at usual doses. The patient is also given vitamin C, vitamin D3, and zinc. Because it appears that his symptoms have been present for less than 7 days, and he is on less than or equal to 6 L of nasal O2, the patient will be given REM. We'll continue to follow make recommendations where appropriate. The patient's prognosis is guarded. It's difficult to get any history from the patient as he is quite demented. The patient's grandson is in the hospital coronavirus associated pneumonia and much more severe hypoxemic respiratory failure. Time with Patient: Greater than 30
[2021-05-25] MEDS ORDERED: ALPRAZolam 0.25 MG TAB PO STA (17:41)
--- NOTE | 2021-05-25 19:14 | P.CRDCN ---
History of Present Illness History of present illness: HISTORY OF PRESENTING ILLNESS Patient is a pleasant 85-year-old male with history of dementia, coronary artery disease status post PCI 2017 apparently at [facility], hypertension, hyp erlipidemia, previous tobacco abuse and COVID-19 pneumonia who presents secondary to weakness and falling. Patient is a poor historian however per report patient had been feeling increased weakness and felt fatigued at home and apparently had fallen down. Patient is stating that he is following for some time however unclear if this is actually true. States he walks with a walker. He was found to have asymptomatic sinus bradycardia with heart rates 39-in the 40s mainly at night since been placed on telemetry. No pauses greater than 2 seconds. He is on atenolol 25 mg daily which is a home dose. He is also on Aricept 10 mg daily. Currently denies any chest pain, pressure and is relative ly comfortable on nasal cannula. Blood work shows white blood cell count 9.0, hemoglobin 12.5, d-dimer 1.7, BUN 33, creatinine 1.0, CRP 18, pro-calcitonin 0.9, CTA showed no PE, cardiomegaly, extensive pulmonary interstitial infiltrates, small pleural effusions. EKG shows normal sinus rhythm, no significant ST or T wave abnormalities. REVIEW OF SYSTEMS At the time of my exam: CONSTITUTIONAL: Denies fever or chills. CARDIOVASCULAR: Denies chest pain, +shortness of breath, no orthopnea, PND or palpitations. RESPIRATORY: Denies cough. GASTROINTESTINAL: Denies abdominal pain, diarrhea, constipation, nausea or vomiting. MUSCULOSKELETAL: Denies myalgias. NEUROLOGIC: Denies numbness, tingling or weakness. ENDOCRINE: Denies fatigue, weight change, polydipsia or polyurina. GENITOURINARY: Denies burning, hematuria or urgency with micturation. HEMATOLOGIC: Denies history of anemia or bleeding. PHYSICAL EXAMINATION Vital signs reviewed. Patient seen from outside room however not examined ASSESSMENT 1. Acute on chronic respiratory failure 2. Acute COVID-19 pneumonia 3. Asymptomatic sinus bradycardia, mainly at night 4. Reported history of falls, most recent appear related to COVID-19 5. Coronary artery disease status post PCI 6. Hypertension 7. Hyperlipidemia PLAN Patient with symptoms of fatigue and apparent falls at home. Suspect mainly related to COVID-19 and sepsis. May be related to bradycardia however has been asymptomatic with mild sinus bradycardia 39 up to 50s and this is mainly at night. We will stop his atenolol and monitor response. No current indication for permanent pacemaker. Continue to monitor. Further recommendations to follow. Past Medical History Past Medical History: Dementia, Hyperlipidemia, Hypertension, Myocardial Infarction ([place]), Prostate Disorder Last Myocardial Infarction Date:: 2016 History of Any Multi-Drug Resistant Organisms: None Reported Past Surgical History: Heart Catheterization With Stent Past Anesthesia/Blood Transfusion Reactions: No Reported Reaction Date of Last Stent Placement:: 2016 Smoking Status: Former smoker Medications and Allergies Home Medications Medication Instructions Recorded Confirmed Type Aspirin EC [Ecotrin Low Dose] 81 mg PO DAILY 05/23/21 05/24/21 History Atorvastatin [Lipitor] 80 mg PO HS 05/23/21 05/24/21 History Cetirizine HCl [Zyrtec] 10 mg PO DAILY 05/23/21 05/24/21 History Cholecalciferol (Vitamin D3) 125 mcg PO DAILY 05/23/21 05/24/21 History [Vitamin D3 (125 MCG = 5,000 IU)] Clopidogrel [Plavix] 75 mg PO DAILY 05/23/21 05/24/21 History Donepezil [Aricept] 10 mg PO HS 05/23/21 05/24/21 History Finasteride [Proscar] 5 mg PO DAILY 05/23/21 05/24/21 History Rehan Leg Cramp 2 tab PO HS 05/23/21 05/24/21 History Pantoprazole [Protonix] 40 mg PO DAILY 05/23/21 05/24/21 History Tamsulosin HCl [Flomax] 0.4 mg PO DAILY 05/23/21 05/24/21 History Ubidecarenone [Co Q-10] 200 mg PO DAILY 05/23/21 05/24/21 History atenoloL [Tenormin] 25 mg PO DAILY 05/23/21 05/24/21 History lisinopriL [Zestril] 10 mg PO DAILY 05/23/21 05/24/21 History Allergies Allergy/AdvReac Type Severity Reaction Status Date / Time cyclobenzaprine Allergy Anaphylaxis Verified 05/24/21 12:31 Physical Exam Vitals: Vital Signs Temp Pulse Resp BP Pulse Ox 05/25/21 18:58 97.6 F 82 20 168/77 92 L 05/25/21 14:00 97.7 F 45 L 18 146/68 94 L 05/25/21 10:22 97.6 F 67 20 145/73 92 L 05/25/21 05:24 97.8 F 56 L 18 135/66 95 05/25/21 01:44 EDT 97.6 F 49 L 17 125/63 89 L 05/24/21 21:37 98.3 F 55 L 17 116/60 95 Intake and Output 05/25/21 05/25/21 05/25/21 06:59 14:59 22:59 Other: Voiding Method Diaper Incontinent # Voids Results 05/24/21 12:58 05/24/21 12:58 Current Medications Generic Name Dose Route Start Last Admin Trade Name Freq PRN Reason Stop Dose Admin Acetaminophen 650 mg 05/24/21 15:47 Acetaminophen Tab 325 Mg Tab PO Q6HR PRN Mild Pain or Fever > 100.5 Ascorbic Acid 500 mg 05/25/21 21:00 Ascorbic Acid 500 Mg Tab PO BID SARAH Aspirin 81 mg 05/25/21 09:00 05/25/21 09:53 Aspirin 81 Mg PO 81 mg DAILY SARAH Administration Atenolol 25 mg 05/25/21 09:00 05/25/21 09:53 Atenolol 25 Mg Tab PO 25 mg DAILY SARAH Administration Atorvastatin Calcium 80 mg 05/25/21 21:00 Atorvastatin 80 Mg Tab PO HS SARAH Cholecalciferol 125 mcg 05/25/21 09:00 05/25/21 09:53 Cholecalciferol 25 Mcg (1000 Iu) Tablet PO 125 mcg DAILY SARAH Administration Clopidogrel Bisulfate 75 mg 05/25/21 09:00 05/25/21 09:53 Clopidogrel 75 Mg Tab PO 75 mg DAILY SARAH Administration Dexamethasone 6 mg 05/25/21 12:00 05/25/21 12:26 Dexamethasone 2 Mg Tab PO 6 mg DAILY SARAH Administration Donepezil HCl 10 mg 05/25/21 21:00 Donepezil 10 Mg Tab PO HS SARAH Enoxaparin Sodium 40 mg 05/25/21 09:00 05/25/21 09:53 Enoxaparin 40 Mg/0.4 Ml Syringe SQ 40 mg DAILY SARAH Administration Finasteride 5 mg 05/25/21 09:00 05/25/21 09:53 Finasteride 5 Mg Tab PO 5 mg DAILY SARAH Administration Sodium Chloride 1,000 mls @ 75 mls/hr 05/24/21 16:00 05/25/21 13:49 Saline 0.9% IV 75 mls/hr .[id number] SARAH Administration Remdesivir 100 mg/ Sodium 250 mls @ 250 mls/hr 05/26/21 12:00 Chloride IVPB 05/29/21 12:59 DAILY@1200 SARAH Lisinopril 10 mg 05/25/21 09:00 05/25/21 09:53 Lisinopril 10 Mg Tab PO 10 mg DAILY SARAH Administration Loratadine 10 mg 05/25/21 09:00 05/25/21 09:53 Loratadine 10 Mg Tab PO 10 mg DAILY SARAH Administration Naloxone HCl 0.2 mg 05/24/21 15:47 Naloxone 0.4 Mg/Ml 1 Ml Vial IV Q2M PRN Opioid Reversal Ondansetron HCl 4 mg 05/24/21 15:47 Ondansetron 4 Mg/2 Ml Vial IVP Q8HR PRN Nausea And Vomiting Pantoprazole Sodium 40 mg 05/25/21 09:00 05/25/21 09:53 Pantoprazole 40 Mg Tablet PO 40 mg [id number] SARAH Administration Tamsulosin HCl 0.4 mg 05/25/21 09:00 05/25/21 09:53 Tamsulosin 0.4 Mg Cap.Er.24h PO 0.4 mg DAILY SARAH Administration Zinc Sulfate 220 mg 05/26/21 09:00 Zinc Sulfate 220 Mg Cap PO DAILY SARAH Intake and Output 05/25/21 05/25/21 05/25/21 06:59 14:59 22:59 Other: Voiding Method Diaper Incontinent # Voids 05/24/21 12:58 05/24/21 12:58
[2021-05-25] MEDS: ATORVASTATIN 80 MG TAB PO SCH (19:41)
[2021-05-25] MEDS: ASCORBIC ACID 500 MG TAB PO SCH (19:41)
[2021-05-25] MEDS: DONEPEZIL 10 MG TAB PO SCH (19:42)
[2021-05-25] MEDS ORDERED: HYLAND LEG CRAMP PO SCH (21:00)
[2021-05-26] MEDS: ENOXAPARIN 40 MG/0.4 ML SYRINGE SQ SCH (08:05)
[2021-05-26] MEDS: dexAMETHasone 2 MG TAB PO SCH (08:06)
[2021-05-26] MEDS: LORATADINE 10 MG TAB PO SCH (08:06)
[2021-05-26] MEDS: lisinopriL 10 MG TAB PO SCH (08:06)
[2021-05-26] MEDS: ASPIRIN 81 MG PO SCH (08:06)
[2021-05-26] MEDS: FINASTERIDE 5 MG TAB PO SCH (08:06)
[2021-05-26] MEDS: CLOPIDOGREL 75 MG TAB PO SCH (08:06)
[2021-05-26] MEDS: CHOLECALCIFEROL 25 MCG (1000 IU) TABLET PO SCH (08:06)
[2021-05-26] MEDS: PANTOPRAZOLE 40 MG TABLET PO SCH (08:06)
[2021-05-26] MEDS: TAMSULOSIN 0.4 MG CAP.ER.24H PO SCH (08:06)
[2021-05-26] MEDS: ASCORBIC ACID 500 MG TAB PO SCH ×2 (08:06→21:50)
[2021-05-26] MEDS: ZINC SULFATE 220 MG CAP PO SCH (08:07)
[2021-05-26] MEDS: QUEtiapine 25 MG TAB PO SCH ×2 (08:16→21:50)
[2021-05-26 10:59] LABS: Basophils # (A) 0.01 X 10*3/uL (0.00-0.10); Basophils % (A) 0.1 %; Eosinophils # (A) 0 X 10*3/uL (0.04-0.35); Eosinophils % (A) 0 %; HCT 37.6 % (39.6-50.0); HGB 12.5 g/dL (13.0-17.0); Lymphocytes # (A) 0.21 X 10*3/uL (0.90-5.00); Lymphocytes % (A) 2.4 %; MCH 30.8 pg (27.0-32.0); MCHC 33.2 g/dL (32.0-37.0); MCV 92.6 fL (80.0-97.0); Monocytes # (A) 0.66 X 10*3/uL (0.20-1.00); Monocytes % (A) 7.5 %; Neutrophils # (A) 7.91 X 10*3/uL (1.80-7.70); Neutrophils % (A) 89.5 %; Platelet Count 244 X 10*3/uL (140-440); RBC 4.06 X 10*6/uL (4.40-5.60); RDW 13.5 % (11.5-14.5); WBC 8.83 X 10*3/uL (4.50-10.00)
[2021-05-26 11:03] LABS: African American GFR (CKD) 78.2 (60.0-200.0); Albumin 3.3 g/dL (3.8-4.9); Albumin/Globulin Ratio 1.53 (1.60-3.17); BUN/Creat Ratio 32.87 Ratio (12.00-20.00); Blood Urea Nitrogen 33.2 mg/dL (9.0-27.0); C Reactive Protein 7.3 mg/dL (0.00-0.80); Calcium 9.4 mg/dL (8.7-10.3); Carbon Dioxide 23.7 mmol/L (21.6-31.8); Globulin 2.1 g/dL (1.6-3.3); Non-African American GFR(CKD) 67.5 (60.0-200.0); Potassium 4.3 mmol/L (3.5-5.5); Total Bilirubin 0.2 mg/dL (0.30-1.20); Total Protein 5.4 g/dL (6.2-8.2)
--- NOTE | 2021-05-26 11:24 | P.PN ---
Subjective Patient is a pleasant 85-year-old male with history of dementia, coronary artery disease status post PCI 2017 apparently at [facility], hypertension, hyperlipidemia, previous tobacco abuse and COVID-19 pneumonia who presents secondary to weakness and falling. Cardiology was consulted for bradycardia. Patient is a poor historian however per report patient had been feeling increased weakness and felt fatigued at home and apparently had fallen down. He was found to have asymptomatic sinus bradycardia with heart rates 39-in the 40s mainly at night since been placed on telemetry. No pauses greater than 2 seconds. His atenolol has been held. Patient seen and examined at bedside, currently denies any chest pain, pressure and is relatively comfortable on nasal cannula. CTA showed no PE, cardiomegaly, extensive pulmonary interstitial i nfiltrates, small pleural effusions. EKG shows normal sinus rhythm, no significant ST or T wave abnormalities. Telemetry reviewed, patient in sinus mechanism HR has been in the 60s no pauses noted. PHYSICAL EXAMINATION Vital signs reviewed. Patient seen from outside room however not examined ASSESSMENT Acute on chronic respiratory failure Acute COVID-19 pneumonia Asymptomatic sinus bradycardia, mainly at night Reported history of falls, most recent appear related to COVID-19 Coronary artery disease status post PCI Hypertension Hyperlipidemia PLAN Patient with symptoms of fatigue and apparent falls at home. Suspect mainly related to COVID-19 and sepsis. Telemetry reviewed, patient in sinus mechanism HR mostly in the 60s, occasional 40s at night. We will continue to hold patient's atenolol. No current indication for permanent pacemaker. No further workup from a cardiology perspective. We will sign off at this time. Please reach out with any further questions or concerns. Objective - Vital Signs Vital signs: Vital Signs Temp 98.2 F 05/26/21 02:23 Pulse 68 05/26/21 02:23 Resp 19 05/26/21 07:35 BP 159/79 05/26/21 02:23 Pulse Ox 94 L 05/26/21 02:23 Intake & Output 05/25/21 05/26/21 05/26/21 18:59 06:59 18:59 Output Total 700 Balance -700 Output: Urine 700 Other: Voiding Method Diaper Urinal Incontinent Diaper # Voids 3 - Labs CBC & Chem 7: 05/26/21 08:02 05/26/21 08:02 Labs: Abnormal Lab Results - Last 24 Hours (Table) 05/26/21 05/26/21 Range/Units 08:02 08:02 RBC 4.06 L (4.40-5.60) X 10*6/uL Hgb 12.5 L (13.0-17.0) g/dL Hct 37.6 L (39.6-50.0) % Neutrophils # 7.91 H (1.80-7.70) X 10*3/uL Lymphocytes # 0.21 L (0.90-5.00) X 10*3/uL Eosinophils # 0 L (0.04-0.35) X 10*3/uL BUN 33.2 H (9.0-27.0) mg/dL BUN/Creatinine Ratio 32.87 H (12.00-20.00) Ratio Glucose 139 H (70-110) mg/dL Total Bilirubin 0.20 L (0.30-1.20) mg/dL C-Reactive Protein 7.30 H (0.00-0.80) mg/dL Total Protein 5.4 L (6.2-8.2) g/dL Albumin 3.3 L (3.8-4.9) g/dL Albumin/Globulin Ratio 1.53 L (1.60-3.17) g/dL Microbiology - Last 24 Hours (Table) 05/24/21 12:58 Blood Culture - Preliminary Blood No Growth after 24 hours 05/24/21 13:02 Blood Culture - Preliminary Blood No Growth after 24 hours
[2021-05-26] MEDS: REMDESIVIR 100 MG in SODIUM CHLORIDE 0.9% 250 ML IVPB SCH (12:21)
--- NOTE | 2021-05-26 13:20 | P.PN ---
Subjective Progress Note Date: 05/25/21 There is evaluation of 05/26/2021, I'm seeing this patient for a follow-up. Is an 85-year-old male patient with known history of dementia. He was hospitalized with Coumadin. Pneumonia the patient diffuse bilateral pulmonary infiltrates. He is currently on IV Decadron and the patient was started on of the severe associated his loading dose yesterday and today is day #2. He remains on oxygen at 4 L. His LDH level is low. Pro-calcitonin level is not elevated. Chest x- ray showing diffuse bilateral pulmonary infiltrates. He is also known to have comorbidities including hypertension, hyperlipidemia, CAD, BPH, previous history of PCI and stenting and he is a former smoker. He is afebrile. D-dimer is not elevated. White cell count at 8.8. Hemoglobin is at 12.5. No other significant abnormalities in his electrolytes. He was having some difficulties in falling sleep yesterday and the patient was given Seroquel 12.5 mg overnight and twice a day. Otherwise, no other significant events. He is confused. He is breathing is nonlabored. Pulse ox on room air is still under 90%. This is a vaccinated individual. Objective - Vital Signs Vital signs: Vital Signs Temp 97.6 F 05/25/21 18:58 Pulse 82 05/25/21 18:58 Resp 20 05/25/21 18:58 BP 168/77 05/25/21 18:58 Pulse Ox 92 L 05/25/21 18:58 Intake & Output 05/25/21 05/25/21 05/26/21 06:59 18:59 06:59 Output Total 350 Balance -350 Output: Urine 350 Other: Voiding Method Diaper Incontinent # Voids 1 - Exam No acute distress, confused, currently on 4 L nasal cannula pulse ox 92%92. Room air saturations are 81%. HEENT examination is grossly unremarkable. Neck supple. Full range of motion. No adenopathy thyromegaly or neck vein distention. Cardiovascular examination reveals regular rhythm rate. S1-S2 normal. No S3 or S4. No discernible murmur noted. Heart sounds are distant. Heart rate 67 bpm. Lungs reveal diffuse bilateral rhonchi. No wheezes. No crackles. Breath sounds equal bilaterally. Saturations on room air 81%. On 4 L, his saturations between 92-95%. Abdomen soft bowel sounds are heard. No masses or tenderness. Extremities are intact. No cyanosis clubbing or edema. Skin is without rash or lesion. Neurologic examination is brief but nonfocal. - Labs CBC & Chem 7: 05/26/21 08:02 05/26/21 08:02 Labs: Abnormal Lab Results - Last 24 Hours (Table) 05/24/21 Range/Units 12:58 Ferritin 472.0 H (22.0-322.0) ng/mL Microbiology - Last 24 Hours (Table) 05/24/21 12:58 Blood Culture - Preliminary Blood No Growth after 24 hours 05/24/21 13:02 Blood Culture - Preliminary Blood No Growth after 24 hours Assessment and Plan Plan: 1 Acute hypoxemic respiratory failure secondary to coronavirus associated pneumonia. The patient is currently on Decadron 6 mg IV every 24 hours on Remdesivir day #2. He received his loading dose yesterday. His oxidation is remains stable and the patient is currently on 4 L of oxygen by nasal cannula. In terms of his inflammatory markers, his LDH level was 867 from the time of admission and the pro-calcitonin level was 0.96. D-dimer level is at 1.73 and the patient is also on Lovenox. 2 Elevated inflammatory markers secondary to coronavirus infection. 3 History of hyperlipidemia. 4 History of hypertension. 5 History of myocardial infarction. 6 BPH. 7 CAD, status post cardiac catheterization with stent. 8 Dementia. Plan: Decadron 6 mg IV every 24 hours The patient is completing Remdesivir, currently on day #2 The patient on Lovenox vitamin C and vitamin D3 and zinc chest x-ray was reviewed and the patient was found to have diffuse bilateral pulmonary infiltrates along with some mild cardiomegaly
--- NOTE | 2021-05-26 13:22 | P.PN ---
Subjective Progress Note Date: 05/26/21 There is evaluation of 05/26/2021, I'm seeing this patient for a follow-up. Is an 85-year-old male patient with known history of dementia. He was hospitalized with Coumadin. Pneumonia the patient diffuse bilateral pulmonary infiltrates. He is currently on IV Decadron and the patient was started on of the severe associated his loading dose yesterday and today is day #2. He remains on oxygen at 4 L. His LDH level is low. Pro-calcitonin level is not elevated. Chest x- ray showing diffuse bilateral pulmonary infiltrates. He is also known to have comorbidities including hypertension, hyperlipidemia, CAD, BPH, previous history of PCI and stenting and he is a former smoker. He is afebrile. D-dimer is not elevated. White cell count at 8.8. Hemoglobin is at 12.5. No other significant abnormalities in his electrolytes. He was having some difficulties in falling sleep yesterday and the patient was given Seroquel 12.5 mg overnight and twice a day. Otherwise, no other significant events. He is confused. He is breathing is nonlabored. Pulse ox on room air is still under 90%. This is a vaccinated individual. Objective - Vital Signs Vital signs: Vital Signs Temp 97.1 F L 05/26/21 12:33 Pulse 68 05/26/21 02:23 Resp 18 05/26/21 12:33 BP 150/65 05/26/21 12:33 Pulse Ox 90 L 05/26/21 12:33 Intake & Output 05/25/21 05/26/21 05/26/21 18:59 06:59 18:59 Output Total 700 Balance -700 Output: Urine 700 Other: Voiding Method Diaper Urinal Incontinent Diaper # Voids 3 - Exam No acute distress, confused, currently on 4 L nasal cannula pulse ox 92%92. Room air saturations are 81%. HEENT examination is grossly unremarkable. Neck supple. Full range of motion. No adenopathy thyromegaly or neck vein distention. Cardiovascular examination reveals regular rhythm rate. S1-S2 normal. No S3 or S4. No discernible murmur noted. Heart sounds are distant. Heart rate 67 bpm. Lungs reveal diffuse bilateral rhonchi. No wheezes. No crackles. Breath sounds equal bilaterally. Saturations on room air 81%. On 4 L, his saturations between 92-95%. Abdomen soft bowel sounds are heard. No masses or tenderness. Extremities are intact. No cyanosis clubbing or edema. Skin is without rash or lesion. Neurologic examination is brief but nonfocal. - Labs CBC & Chem 7: 05/26/21 08:02 05/26/21 08:02 Labs: Abnormal Lab Results - Last 24 Hours (Table) 05/26/21 05/26/21 Range/Units 08:02 08:02 RBC 4.06 L (4.40-5.60) X 10*6/uL Hgb 12.5 L (13.0-17.0) g/dL Hct 37.6 L (39.6-50.0) % Neutrophils # 7.91 H (1.80-7.70) X 10*3/uL Lymphocytes # 0.21 L (0.90-5.00) X 10*3/uL Eosinophils # 0 L (0.04-0.35) X 10*3/uL BUN 33.2 H (9.0-27.0) mg/dL BUN/Creatinine Ratio 32.87 H (12.00-20.00) Ratio Glucose 139 H (70-110) mg/dL Total Bilirubin 0.20 L (0.30-1.20) mg/dL C-Reactive Protein 7.30 H (0.00-0.80) mg/dL Total Protein 5.4 L (6.2-8.2) g/dL Albumin 3.3 L (3.8-4.9) g/dL Albumin/Globulin Ratio 1.53 L (1.60-3.17) g/dL Microbiology - Last 24 Hours (Table) 05/24/21 12:58 Blood Culture - Preliminary Blood No Growth after 24 hours 05/24/21 13:02 Blood Culture - Preliminary Blood No Growth after 24 hours Assessment and Plan Plan: 1 Acute hypoxemic respiratory failure secondary to coronavirus associated pneumonia. The patient is currently on Decadron 6 mg IV every 24 hours on Remdesivir day #2. He received his loading dose yesterday. His oxidation is remains stable and the patient is currently on 4 L of oxygen by nasal cannula. In terms of his inflammatory markers, his LDH level was 867 from the time of admission and the pro-calcitonin level was 0.96. D-dimer level is at 1.73 and the patient is also on Lovenox. 2 Elevated inflammatory markers secondary to coronavirus infection. 3 History of hyperlipidemia. 4 History of hypertension. 5 History of myocardial infarction. 6 BPH. 7 CAD, status post cardiac catheterization with stent. 8 Dementia. Plan: Decadron 6 mg IV every 24 hours The patient is completing Remdesivir, currently on day #2 The patient on Lovenox vitamin C and vitamin D3 and zinc chest x-ray was reviewed and the patient was found to have diffuse bilateral pulmonary infiltrates along with some mild cardiomegaly
[2021-05-26] MEDS: SODIUM CHLORIDE 0.9% 1,000 ML IV SCH ×2 (14:13→22:01)
--- NOTE | 2021-05-26 14:26 | P.PN ---
Subjective Progress Note Date: 05/26/21 HISTORY OF PRESENT ILLNESS: This is an 85-year-old white [place] male with a previous medical history sig nificant for coronary artery disease status post PCI of the LCx back in 2019, hypertension and hypertensive cardio vascular disease, hyperlipidemia, ALLERGIC rhinitis, enlarged prostate, history of ALLERGIC rhinitis, vascular dementia, patient presented to the emergency department at [facility] yesterday after he was evaluated few days ago with positive Covid 19 infection and he was sent home with supportive care patient was not hypoxemic at that time, patient apparently fell last night and couldn't get up because of generalized weakness he ended up coming back to the hospital with increased shortness breath associated with increased and weakness he became quite hypoxemic with oxygen saturation at 89% on room air so he was admitted to the hospital for evaluation and treatment for COVID-19 pneumonia, patient underwent x-rays of the pelvis that did not show any evidence of acute fracture, patient underwent computed tomography scan of the head in the cervical spine that showed anterolisthesis of C4-C5 and severe degenerative disc disease of C5 C6 C6 and 7, without acute frac ture, patient 12-lead EKG did not show evidence of acute ST-T wave changes, chest x-ray initially showed worsening infiltrate this was followed by CTA of the chest because of elevated d-dimer and elevated inflammatory markers and the patient was negative for pulmonary as well as a however it did show significant diffuse interstitial infiltrate suggestive of Covid 19 pneumonia, patient will be started on Remdesivir 200 mg loading dose followed by 100 mg daily for the next 5 days. 05/26: Patient apparently didn't sleep last night despite use of Xanax. We will add in Seroquel 12.5 mg twice daily., Heart rate 68, blood pressure 150/65, pulse ox 90% on 4 L nasal cannula. WBC 8.8, hemoglobin 12.5, platelet count 244. Electrolytes are normal. BUN 33 creatinine 1. Blood sugar 139. C-reactive protein 7.3. Blood cultures no growth at 24 hours 2 specimens. Patient has been seen by pulmonary medicine and continued on Remdesivir, Decadron, Lovenox and vitamin supplements. Patient has also been seen and followed by cardiology, atenolol on hold his heart rate has been in the 60s and occasionally in the 40s at night, cardiology has signed off. REVIEW OF SYSTEMS: Constitutional: No documented fever, no chills, no night sweats. No weight change. positive for weakness,positive for fatigue no lethargy. No daytime sleepiness. HEENT: Positive for headache. No blurred vision or double vision, no loss of vision. No loss of Hearing, no ringing in the ears, no dizziness. No nasal drainage or congestion. No epistaxis. No sore throat. Lungs: positive for shortness of breath, positive for cough, no sputum production. No wheezing. Reports dyspnea with activity. Cardiovascular: No chest pain, no lower extremity edema. No palpitations. No paroxysmal nocturnal dyspnea. No orthopnea. No lightheadedness or dizziness. No syncopal episodes. Abdominal: Reports abdominal pain. No nausea, vomiting. No diarrhea. No constipation. No bloody or tarry stools reports loss of appetite. Genitourinary: No dysuria, increased frequency, urgency. No urinary retention. Musculoskeletal: positive for myalgias. No muscle weakness, no gait dysfunction, positive for falls. No back pain. positive for neck pain. Integumentary: No wounds, no lesions. No rash or pruritus. No unusual bruising. No change in hair or nails. Neurologic: No aphasia. No facial droop. No change in mentation. No head injury. No headache. No paralysis. No paresthesia. Psychiatric: No depression. No anxiety. Endocrine: No abnormal blood sugars. No weight change. PHYSICAL EXAMINATION: General: 85-year-old male laying down in bed in no apparent distress. HEENT: Head is atraumatic, normocephalic, pupils were equal round reactive to light and recommendation, extraocular muscle movement were intact, sclera nonicteric, conjunctivae were pale, mucous membranes of the mouth are somewhat dry. Neck: Supple, no JVP, normal carotid upstroke bilaterally, no lymphadenopathy. Chest: Decreased breath sounds at the bases, few rhonchi, no extremity wheezes, no chest wall tenderness, no intercostal retractions. Heart: First heart sound is normal, second heart sounds normal, there is systol ic ejection murmur 2/6 located in the left sternal border. Abdomen: Soft, nontender, nondistended, positive bowel sounds, there is no hepatosplenomegaly. Extremities: There is no edema no calf tenderness DP +2 bilaterally. Neurologic examination: Patient is awake and alert and oriented to person only, cranial nerves II-12 appear grossly intact, muscle power were 5 out of 5 in upper extremities and 5 out of 5 in bilateral lower extremities, deep tendon reflexes normal bilaterally. ASSESSMENT AND PLAN: 1. COVID-19 pneumonia associated with hypoxemia is presenting oxygen sufficient was 89% room air currently on 4 L nasal cannula is 93-94%, start the patient on Decadron 6 mg IV push every day, start the patient on vitamin C 1000 mg every day, start the patient on vitamin D 1000 units once every day as well as zinc 220 mg orally once every day, continue patient on Remdesivir 100 mg daily for the next 5 days, pulmonary consultation, continue droplet precautions as well as eye protection. 2. Generalized weakness with fall likely related to COVID-19 pneumonia. We will continue with the treatment as in previous paragraph. Physical therapy evaluation. 3. CAD post-PCI of the LCx. Continue patient on aspirin 81 mg once every day, Plavix 75 mg orally once every day, continue atenolol 25 mg orally once every day, continue atorvastatin 80 mg once every day, cardiology consultation. 4. Hypertension and hypertensive cardio vascular disease. Continue patient on atenolol 25 mg orally once every day, lisinopril 10 mg orally once every day, monitor the patient very closely. 5. Hyperlipidemia. Continue patient on atorvastatin 80 mg orally once every day. 6. ALLERGIC rhinitis. Continue Zyrtec 10 mg once every day as well as Flonase nasal spray 1 puff in each nostril twice every day. 7. Vascular dementia. Continue donepezil 10 mg orally once every day. 8. Enlarged prostate. Continue Flomax 0.4 mg orally once every day as well as finasteride 5 mg once every day. 9. DVT prophylaxis. Continue Lovenox 40 mg subcutaneously every 24 hours. 10. GI prophylaxis. Continue Protonix 40 mg every day. 11. Patient is full code. DISCHARGE PLAN Return home without home care Impression and plan of care have been directed as dictated by the signing physician. Rupali Brannon nurse practitioner acting as scribe for signing physician. Objective - Vital Signs Vital signs: Vital Signs Temp 98.2 F 05/26/21 02:23 Pulse 68 05/26/21 02:23 Resp 19 05/26/21 02:23 BP 159/79 05/26/21 02:23 Pulse Ox 94 L 05/26/21 02:23 Intake & Output 05/25/21 05/26/21 05/26/21 18:59 06:59 18:59 Output Total 700 Balance -700 Output: Urine 700 Other: Voiding Method Diaper Urinal Incontinent Diaper # Voids 3 - Labs CBC & Chem 7: 05/26/21 08:02 05/26/21 08:02 Labs: Microbiology - Last 24 Hours (Table) 05/24/21 12:58 Blood Culture - Preliminary Blood No Growth after 24 hours 05/24/21 13:02 Blood Culture - Preliminary Blood No Growth after 24 hours
[2021-05-26] MEDS: ATORVASTATIN 80 MG TAB PO SCH (21:50)
[2021-05-26] MEDS: DONEPEZIL 10 MG TAB PO SCH (21:50)
[2021-05-27] MEDS: ALBUTEROL HFA INHALER INHALATION PRN ×3 (08:17→15:07)
[2021-05-27] MEDS: LORATADINE 10 MG TAB PO SCH (09:16)
[2021-05-27] MEDS: QUEtiapine 25 MG TAB PO SCH ×2 (09:16→22:29)
[2021-05-27] MEDS: CHOLECALCIFEROL 25 MCG (1000 IU) TABLET PO SCH (09:16)
[2021-05-27] MEDS: TAMSULOSIN 0.4 MG CAP.ER.24H PO SCH (09:16)
[2021-05-27] MEDS: ZINC SULFATE 220 MG CAP PO SCH (09:16)
[2021-05-27] MEDS: ASPIRIN 81 MG PO SCH (09:16)
[2021-05-27] MEDS: FINASTERIDE 5 MG TAB PO SCH (09:18)
[2021-05-27] MEDS: CLOPIDOGREL 75 MG TAB PO SCH (09:18)
[2021-05-27] MEDS: dexAMETHasone 2 MG TAB PO SCH (09:18)
[2021-05-27] MEDS: ASCORBIC ACID 500 MG TAB PO SCH ×2 (09:18→22:29)
[2021-05-27] MEDS: lisinopriL 10 MG TAB PO SCH (09:18)
[2021-05-27] MEDS: PANTOPRAZOLE 40 MG TABLET PO SCH (09:19)
[2021-05-27] MEDS: ENOXAPARIN 40 MG/0.4 ML SYRINGE SQ SCH (09:19)
[2021-05-27] MEDS: SODIUM CHLORIDE 0.9% 1,000 ML IV SCH ×2 (09:26→11:30)
[2021-05-27] MEDS: REMDESIVIR 100 MG in SODIUM CHLORIDE 0.9% 250 ML IVPB SCH (12:08)
--- NOTE | 2021-05-27 12:52 | P.PN ---
Subjective Progress Note Date: 05/27/21 There is evaluation of 05/26/2021, I'm seeing this patient for a follow-up. Is an 85-year-old male patient with known history of dementia. He was hospitalized with Coumadin. Pneumonia the patient diffuse bilateral pulmonary infiltrates. He is currently on IV Decadron and the patient was started on of the severe associated his loading dose yesterday and today is day #2. He remains on oxygen at 4 L. His LDH level is low. Pro-calcitonin level is not elevated. Chest x- ray showing diffuse bilateral pulmonary infiltrates. He is also known to have comorbidities including hypertension, hyperlipidemia, CAD, BPH, previous history of PCI and stenting and he is a former smoker. He is afebrile. D-dimer is not elevated. White cell count at 8.8. Hemoglobin is at 12.5. No other significant abnormalities in his electrolytes. He was having some difficulties in falling sleep yesterday and the patient was given Seroquel 12.5 mg overnight and twice a day. Otherwise, no other significant events. He is confused. He is breathing is nonlabored. Pulse ox on room air is still under 90%. This is a vaccinated individual. 2020, the patient is being seen for a follow-up. The patient was hospitalized for overnight. His pneumonia and the patient had diffuse bilateral pulmonary infiltrates. The patient was treated with Decadron and Remdesivir and today is day #3 of treatment. He remains on oxygen and currently is on nonrebreather and his oxidation is gotten worse since yesterday. Note that yesterday during my earlier evaluation, he was only on 4 L of oxygen by nasal cannula. He remains afebrile. On 100% nonrebreather facemask, his pulse ox is up to 97%. Note that he had to be gradually increased on his oxygen flow. As stated he was on 4 L and he was brought up to 5 L and later on high flow oxygen and now is on a nonrebreather facemask. His LDH level from yesterday was 867. His blood work shows a sodium of 139 potassium of 4.3, bicarb of 23, normal renal function with a creatinine of 1.0. His white cell count is at 8.8 with a hemoglobin of 12.5. He is having occasional an ongoing dry cough. He remains on Decadron 6 mg daily. He is on third day of Remdesivir. Neurologically, there is confused. No agitation. His alert and oriented 1. His d-dimer was at 1.75 from 05/24/2021. Objective - Vital Signs Vital signs: Vital Signs Temp 98.4 F 05/27/21 10:00 Pulse 70 05/27/21 10:00 Resp 22 05/27/21 10:00 BP 134/68 05/27/21 10:00 Pulse Ox 97 05/27/21 10:00 Intake & Output 05/26/21 05/27/21 05/27/21 18:59 06:59 18:59 Other: Voiding Method Urinal Bedside Commode Diaper Urinal Incontinent # Voids 1 3 - Exam No acute distress, confused, currently on 4 L nasal cannula pulse ox 92%92. Room air saturations are 81%. e and as such once off, he desaturates. He is pleasantly confused. He is alert and oriented 1. He is unable to keep the nonrebreather facemask all the time HEENT examination is grossly unremarkable. Neck supple. Full range of motion. No adenopathy thyromegaly or neck vein distention. Cardiovascular examination reveals regular rhythm rate. S1-S2 normal. No S3 or S4. No discernible murmur noted. Heart sounds are distant. Heart rate 67 bpm. Lungs reveal diffuse bilateral rhonchi. No wheezes. No crackles. Breath sounds equal bilaterally. Saturations on room air 81%. On 4 L, his saturations between 92-95%. Abdomen soft bowel sounds are heard. No masses or tenderness. Extremities are intact. No cyanosis clubbing or edema. Skin is without rash or lesion. Neurologic examination is brief but nonfocal. she is confused, no agitation, moving all 4 extremities. He is lethargic and sleepy. - Labs CBC & Chem 7: 05/26/21 08:02 05/26/21 08:02 Labs: Microbiology - Last 24 Hours (Table) 05/24/21 13:02 Blood Culture - Preliminary Blood No Growth after 48 hours 05/24/21 12:58 Blood Culture - Preliminary Blood No Growth after 48 hours Assessment and Plan Plan: 1 Acute hypoxemic respiratory failure secondary to coronavirus associated pneumonia. The patient is currently on Decadron 6 mg IV every 24 hours on Remdesivir day #3. He received his loading dose yesterday. His oxidation is remains stable and the patient is currently on 4 L of oxygen by nasal cannula. In terms of his inflammatory markers, his LDH level was 867 from the time of admission and the pro-calcitonin level was 0.96. D-dimer level is at 1.73 and the patient is also on Lovenox. His evaluation, the patient was noted to be lethargic and sleepy and somewhat confused. He is alert and oriented 1. N evertheless, not absolutely sure there is any further decompensation in his oxygenation. On room air oxygen, his pulse ox was dropped down to 80%, currently is on 6 L and his pulse ox is up to 90%. I took off the nonrebreather facemask which she anyway he is unable to keep it on. I would suggest repeating inflammatory markers. I would suggest repeating a chest x-ray to get an objective evaluation on his clinical progress. Neurologically, he is lethargic and sleepy. He was started on Seroquel. He has underlying dementia. 2 Elevated inflammatory markers secondary to coronavirus infection. 3 History of hyperlipidemia. 4 History of hypertension. 5 History of myocardial infarction. 6 BPH. 7 CAD, status post cardiac catheterization with stent. 8 Dementia. Plan: Repeat inflammatory markers Repeat d-dimer Repeat chest x-ray Decadron 6 mg IV every 24 hours The patient is completing Remdesivir, currently on day #3 The patient on Lovenox vitamin C and vitamin D3 and zinc We'll continue to follow. We'll consider additional Baricitinib that there is any further decompensation his oxygenation. On 6 L he is up to 91% at this point in time.
--- NOTE | 2021-05-27 14:14 | P.PN ---
Subjective Progress Note Date: 05/27/21 HISTORY OF PRESENT ILLNESS: This is an 85-year-old white [place] male with a previous medical history sig nificant for coronary artery disease status post PCI of the LCx back in 2019, hypertension and hypertensive cardio vascular disease, hyperlipidemia, ALLERGIC rhinitis, enlarged prostate, history of ALLERGIC rhinitis, vascular dementia, patient presented to the emergency department at [facility] yesterday after he was evaluated few days ago with positive Covid 19 infection and he was sent home with supportive care patient was not hypoxemic at that time, patient apparently fell last night and couldn't get up because of generalized weakness he ended up coming back to the hospital with increased shortness breath associated with increased and weakness he became quite hypoxemic with oxygen saturation at 89% on room air so he was admitted to the hospital for evaluation and treatment for COVID-19 pneumonia, patient underwent x-rays of the pelvis that did not show any evidence of acute fracture, patient underwent computed tomography scan of the head in the cervical spine that showed anterolisthesis of C4-C5 and severe degenerative disc disease of C5 C6 C6 and 7, without acute frac ture, patient 12-lead EKG did not show evidence of acute ST-T wave changes, chest x-ray initially showed worsening infiltrate this was followed by CTA of the chest because of elevated d-dimer and elevated inflammatory markers and the patient was negative for pulmonary as well as a however it did show significant diffuse interstitial infiltrate suggestive of Covid 19 pneumonia, patient will be started on Remdesivir 200 mg loading dose followed by 100 mg daily for the next 5 days. 05/26: Patient apparently didn't sleep last night despite use of Xanax. We will add in Seroquel 12.5 mg twice daily., Heart rate 68, blood pressure 150/65, pulse ox 90% on 4 L nasal cannula. WBC 8.8, hemoglobin 12.5, platelet count 244. Electrolytes are normal. BUN 33 creatinine 1. Blood sugar 139. C-reactive protein 7.3. Blood cultures no growth at 24 hours 2 specimens. Patient has been seen by pulmonary medicine and continued on Remdesivir, Decadron, Lovenox and vitamin supplements. Patient has also been seen and followed by cardiology, atenolol on hold his heart rate has been in the 60s and occasionally in the 40s at night, cardiology has signed off. 05/27: Seen today in follow-up on the [facility] floor. His mental status is somewhat improved from yesterday after Seroquel was started. He is able to answer questions appropriately. He states that his breathing is better. He is on a nonrebreather with a pulse ox of 98% which will be weaned down today. Patient denies nausea or vomiting, not much appetite. colorectal surgeon has been sinus bradycardia with occasional trigeminy. Cardiology to be notified. Patient has been afebrile, heart rate 54, blood pressure 155/66. Patient's grandson is also hospitalized a few doors down from the patient. REVIEW OF SYSTEMS: Constitutional: No documented fever, no chills, no night sweats. No weight change. positive for weakness,positive for fatigue no lethargy. No daytime sleepiness. HEENT: Positive for headache. No blurred vision or double vision, no loss of vision. No loss of Hearing, no ringing in the ears, no dizziness. No nasal drainage or congestion. No epistaxis. No sore throat. Lungs: positive for shortness of breath, positive for cough, no sputum production. No wheezing. Reports dyspnea with activity. Cardiovascular: No chest pain, no lower extremity edema. No palpitations. No paroxysmal nocturnal dyspnea. No orthopnea. No lightheadedness or dizziness. No syncopal episodes. Abdominal: Reports abdominal pain. No nausea, vomiting. No diarrhea. No constipation. No bloody or tarry stools reports loss of appetite. Genitourinary: No dysuria, increased frequency, urgency. No urinary retention. Musculoskeletal: positive for myalgias. No muscle weakness, no gait dysfunction, positive for falls. No back pain. positive for neck pain. Integumentary: No wounds, no lesions. No rash or pruritus. No unusual bruising. No change in hair or nails. Neurologic: No aphasia. No facial droop. Noted change in mentation with underlying dementia. No head injury. No headache. No paralysis. No paresthesia. Psychiatric: No depression. No anxiety. Endocrine: No abnormal blood sugars. No weight change. PHYSICAL EXAMINATION: General: 85-year-old male laying down in bed in no apparent distress. HEENT: Head is atraumatic, normocephalic, pupils were equal round reactive to light and recommendation, extraocular muscle movement were intact, sclera nonicteric, conjunctivae were pale, mucous membranes of the mouth are somewhat dry. Neck: Supple, no JVP, normal carotid upstroke bilaterally, no lymphadenopathy. Chest: Decreased breath sounds at the bases, few rhonchi, no extremity wheezes, no chest wall tenderness, no intercostal retractions. Heart: First heart sound is normal, second heart sounds normal, there is systolic ejection murmur 2/6 located in the left sternal border. Abdomen: Soft, nontender, nondistended, positive bowel sounds, there is no hepatosplenomegaly. Extremities: There is no edema no calf tenderness DP +2 bilaterally. Neurologic examination: Patient is awake and alert and oriented to person only, patient is able to answer questions. ASSESSMENT AND PLAN: 1. COVID-19 pneumonia associated with hypoxemia is presenting oxygen sufficient was 89% room air currently on nonrebreather to be weaned off to nasal cannula, start the patient on Decadron 6 mg oral daily, start the patient on vitamin C 1000 mg every day, start the patient on vitamin D 1000 units once hunter ry day as well as zinc 220 mg orally once every day, continue patient on Remdesivir 100 mg daily for the next 5 days, pulmonary consultation, continue droplet precautions as well as eye protection. 2. Generalized weakness with fall likely related to COVID-19 pneumonia. We will continue with the treatment as in previous paragraph. Physical therapy evaluation. 3. CAD post-PCI of the LCx. Continue patient on aspirin 81 mg once every day, Plavix 75 mg orally once every day, continue atenolol 25 mg orally once every day, continue atorvastatin 80 mg once every day, cardiology consultation. 4. Hypertension and hypertensive cardio vascular disease. Continue patient on atenolol 25 mg orally once every day, lisinopril 10 mg orally once every day, monitor the patient very closely. 5. Hyperlipidemia. Continue patient on atorvastatin 80 mg orally once every day. 6. ALLERGIC rhinitis. Continue Zyrtec 10 mg once every day as well as Flonase nasal spray 1 puff in each nostril twice every day. 7. Vascular dementia. Continue donepezil 10 mg orally once every day. 8. Enlarged prostate. Continue Flomax 0.4 mg orally once every day as well as finasteride 5 mg once every day. 9. DVT prophylaxis. Continue Lovenox 40 mg subcutaneously every 24 hours. 10. GI prophylaxis. Continue Protonix 40 mg every day. 11. Patient is full code. DISCHARGE PLAN Return home without home care, TBD Impression and plan of care have been directed as dictated by the signing physician. Rupali Brannon nurse practitioner acting as scribe for signing physician.I will Objective - Vital Signs Vital signs: Vital Signs Temp 97.9 F 05/27/21 06:00 Pulse 54 L 05/27/21 06:00 Resp 19 05/27/21 06:00 BP 155/66 05/27/21 06:00 Pulse Ox 98 05/27/21 06:53 Intake & Output 05/26/21 05/27/21 05/27/21 18:59 06:59 18:59 Other: Voiding Method Urinal Diaper # Voids 1 3 - Labs CBC & Chem 7: 05/26/21 08:02 05/26/21 08:02 Labs: Abnormal Lab Results - Last 24 Hours (Table) 05/26/21 05/26/21 Range/Units 08:02 08:02 RBC 4.06 L (4.40-5.60) X 10*6/uL Hgb 12.5 L (13.0-17.0) g/dL Hct 37.6 L (39.6-50.0) % Neutrophils # 7.91 H (1.80-7.70) X 10*3/uL Lymphocytes # 0.21 L (0.90-5.00) X 10*3/uL Eosinophils # 0 L (0.04-0.35) X 10*3/uL BUN 33.2 H (9.0-27.0) mg/dL BUN/Creatinine Ratio 32.87 H (12.00-20.00) Ratio Glucose 139 H (70-110) mg/dL Total Bilirubin 0.20 L (0.30-1.20) mg/dL C-Reactive Protein 7.30 H (0.00-0.80) mg/dL Total Protein 5.4 L (6.2-8.2) g/dL Albumin 3.3 L (3.8-4.9) g/dL Albumin/Globulin Ratio 1.53 L (1.60-3.17) g/dL Microbiology - Last 24 Hours (Table) 05/24/21 13:02 Blood Culture - Preliminary Blood No Growth after 48 hours 05/24/21 12:58 Blood Culture - Preliminary Blood No Growth after 48 hours
--- NOTE | 2021-05-27 15:15 | XR ---
EXAMINATION TYPE: XR chest 1V portable DATE OF EXAM: 05/27/2021 CLINICAL HISTORY: Cough and congestion. COVID. TECHNIQUE: Single AP portable upright view of the chest is obtained. COMPARISON: Chest x-ray and CTA chest from 3 days earlier FINDINGS: Bilateral multifocal reticulonodular increased opacities greatest in the periphery remain present. Underlying cardiomegaly with atherosclerotic and ectatic thoracic aorta redemonstrated. Unde rlying scoliosis redemonstrated. Surgical changes to bilateral shoulders is partially imaged. IMPRESSION: Cardiomegaly and bilateral multifocal and confluent reticulonodular opacities consistent with covid-19 are redemonstrated. No significant change from most recent studies.
[2021-05-27] MEDS: DONEPEZIL 10 MG TAB PO SCH (22:29)
[2021-05-27] MEDS: ATORVASTATIN 80 MG TAB PO SCH (22:29)
[2021-05-28] MEDS: SODIUM CHLORIDE 0.9% 1,000 ML IV SCH ×2 (00:23→09:19)
[2021-05-28] MEDS ORDERED: DILTIAZEM DRIP BOLUS FROM BAG 1 MG SOLN IV ONE (04:58)
[2021-05-28] MEDS ORDERED: HEPARIN SODIUM 1,000 UN/ML (10ML VL) IV PRN (05:04)
[2021-05-28] MEDS ORDERED: HEPARIN SOD,PORK IN 0.45% NACL 25,000 UNIT in 0.45% NACL 1 250ML.BAG IV SCH (05:15)
[2021-05-28 05:31] LABS: Basophils % (A) 0 %; Eosinophils # (A) 0.1 k/uL (0-0.7); Eosinophils % (A) 1 %; HCT 37.4 % (39.0-53.0); HGB 12.5 gm/dL (13.0-17.5); Lymphocytes # (A) 0.3 k/uL (1.0-4.8); Lymphocytes % (A) 3 %; MCH 31.1 pg (25.0-35.0); MCHC 33.5 g/dL (31.0-37.0); MCV 92.7 fL (80.0-100.0); Mean Platelet Volume 8.1; Monocytes # (A) 0.3 k/uL (0-1.0); Monocytes % (A) 3 %; Neutrophils % (A) 92 %; Platelet Count 226 k/uL (150-450); Poikilocytosis Slight; RBC 4.03 m/uL (4.30-5.90); RDW 13.9 % (11.5-15.5); WBC 9.8 k/uL (3.8-10.6)
[2021-05-28 05:52] LABS: Partial Thromboplastin Time 23.3 sec (22.0-30.0)
[2021-05-28] MEDS: DILTIAZEM 125 MG in SODIUM CHLORIDE 0.9% 100 ML IV SCH (06:06)
[2021-05-28] MEDS: CHOLECALCIFEROL 25 MCG (1000 IU) TABLET PO SCH (09:17)
[2021-05-28] MEDS: FINASTERIDE 5 MG TAB PO SCH (09:18)
[2021-05-28] MEDS: QUEtiapine 25 MG TAB PO SCH ×2 (09:18→20:26)
[2021-05-28] MEDS: ASPIRIN 81 MG PO SCH (09:18)
[2021-05-28] MEDS: ZINC SULFATE 220 MG CAP PO SCH (09:18)
[2021-05-28] MEDS: PANTOPRAZOLE 40 MG TABLET PO SCH (09:18)
[2021-05-28] MEDS: ASCORBIC ACID 500 MG TAB PO SCH ×2 (09:18→20:26)
[2021-05-28] MEDS: dexAMETHasone 2 MG TAB PO SCH (09:18)
[2021-05-28] MEDS: lisinopriL 10 MG TAB PO SCH (09:19)
[2021-05-28] MEDS: LORATADINE 10 MG TAB PO SCH (09:19)
[2021-05-28] MEDS: CLOPIDOGREL 75 MG TAB PO SCH (09:19)
[2021-05-28] MEDS: TAMSULOSIN 0.4 MG CAP.ER.24H PO SCH (09:19)
[2021-05-28] MEDS: METOPROLOL TARTRATE 12.5 MG TAB PO SCH ×2 (12:32→20:26)
[2021-05-28] MEDS: APIXABAN 5 MG TAB PO SCH ×2 (12:32→20:26)
[2021-05-28] MEDS: REMDESIVIR 100 MG in SODIUM CHLORIDE 0.9% 250 ML IVPB SCH (12:33)
[2021-05-28 12:47] LABS: African American GFR (CKD) 86.1 (60.0-200.0); Albumin/Globulin Ratio 1.51 (1.60-3.17); Anion Gap 9.9 mmol/L (4.00-12.00); BUN/Creat Ratio 23.58 Ratio (12.00-20.00); C Reactive Protein 6.9 mg/dL (0.00-0.80); Carbon Dioxide 23.3 mmol/L (21.6-31.8); Non-African American GFR(CKD) 74.3 (60.0-200.0); Total Bilirubin 0.3 mg/dL (0.30-1.20); Total Protein 4.9 g/dL (6.2-8.2)
--- NOTE | 2021-05-28 13:01 | P.PN ---
Subjective Progress Note Date: 05/28/21 HISTORY OF PRESENT ILLNESS: Patient is a pleasant 85-year-old male with history of dementia, coronary artery disease status post PCI 2017 apparently at [facility], hypertension, hyperlipidemia, previous tobacco abuse and COVID-19 pneumonia who presents secondary to weakness and falling. Cardiology was consulted for bradycardia. Patient is a poor historian however per report patient had been feeling increased weakness and felt fatigued at home and apparently had fallen down. He was found to have asymptomatic sinus bradycardia with heart rates 39-in the 40s mainly at night since been placed on telemetry. No pauses greater than 2 seconds. His atenolol has been held. Patient seen and examined at bedside, currently denies any chest pain, pressure and is relatively comfortable on nasal cannula. CTA showed no PE, cardiomegaly, extensive pulmonary interstitial infiltrates, small pleural effusions. EKG shows normal sinus rhythm, no significant ST or T wave abnormalities. Telemetry reviewed, patient in sinus mechanism HR has been in the 60s no pauses noted. 05/28/2021 Cardiology was reconsulted to evaluate the patient secondary to new onset atrial fibrillation. The patient does not have a history of atrial fibrillation. He currently is an atrial fibrillation with heart rate in the 110s. Cardizem drip is infusing at 5 mg an hour. He has also been started on IV heparin. PHYSICAL EXAM: Thorough physical exam not completed secondary to limited evaluation/examination due to Covid19 ASSESSMENT: Acute on chronic respiratory failure Acute COVID-19 pneumonia Asymptomatic sinus bradycardia, mainly at night Reported history of falls, most recent appear related to COVID-19 Coronary artery disease status post PCI Hypertension Hyperlipidemia New onset atrial fibrillation with RVR PLAN: Discontinue IV heparin Begin Eliquis 5mg BID Case management consulted for insurance coverage Begin low dose metoprolol Wean off cardizem drip Check TSH Further recommendations pending patient course Nurse practitioner note has been reviewed by physician. Signing provider agrees with the documented findings, assessment, and plan of care. Objective - Vital Signs Vital signs: Vital Signs Temp 97 F L 05/28/21 10:00 Pulse 89 05/28/21 10:00 Resp 16 05/28/21 10:00 BP 128/71 05/28/21 06:46 Pulse Ox 93 L 05/28/21 10:00 Intake & Output 05/27/21 05/28/21 05/28/21 18:59 06:59 18:59 Intake Total 118 Output Total 150 Balance -150 118 Intake: Oral 118 Output: Urine 150 Other: Voiding Method Bedside Commode Bedside Commode Bedside Commode Urinal Urinal Urinal Incontinent Incontinent Incontinent # Voids 3 2 1 # Bowel Movements 1 - Labs CBC & Chem 7: 05/28/21 05:17 05/28/21 05:17 Labs: Abnormal Lab Results - Last 24 Hours (Table) 05/28/21 05/28/21 05/28/21 Range/Units 05:17 05:17 05:17 RBC 4.03 L (4.30-5.90) m/uL Hgb 12.5 L (13.0-17.5) gm/dL Hct 37.4 L (39.0-53.0) % Neutrophils # 9.0 H (1.3-7.7) k/uL Lymphocytes # 0.3 L (1.0-4.8) k/uL D-Dimer 7.50 H (<0.60) mg/L FEU BUN/Creatinine Ratio 23.58 H (12.00-20.00) Ratio Glucose 117 H (70-110) mg/dL Lactate Dehydrogenase 345 H (120-246) U/L C-Reactive Protein 6.90 H (0.00-0.80) mg/dL Total Protein 4.9 L (6.2-8.2) g/dL Albumin 3.0 L (3.8-4.9) g/dL Albumin/Globulin Ratio 1.51 L (1.60-3.17) g/dL Microbiology - Last 24 Hours (Table) 05/24/21 13:02 Blood Culture - Preliminary Blood No Growth after 72 hours 05/24/21 12:58 Blood Culture - Preliminary Blood No Growth after 72 hours
--- NOTE | 2021-05-28 15:13 | P.PN ---
Subjective Progress Note Date: 05/28/21 Principal diagnosis: Dyspnea, hypoxia, COVID-19 pneumonia There is evaluation of 05/26/2021, I'm seeing this patient for a follow-up. Is an 85-year-old male patient with known history of dementia. He was hospitalized with Coumadin. Pneumonia the patient diffuse bilateral pulmonary infiltrates. He is currently on IV Decadron and the patient was started on of the severe ass ociated his loading dose yesterday and today is day #2. He remains on oxygen at 4 L. His LDH level is low. Pro-calcitonin level is not elevated. Chest x-ray showing diffuse bilateral pulmonary infiltrates. He is also known to have comorbidities including hypertension, hyperlipidemia, CAD, BPH, previous history of PCI and stenting and he is a former smoker. He is afebrile. D-dimer is not elevated. White cell count at 8.8. Hemoglobin is at 12.5. No other significant abnormalities in his electrolytes. He was having some difficulties in falling sleep yesterday and the patient was given Seroquel 12.5 mg overnight and twice a day. Otherwise, no other significant events. He is confused. He is breathing is nonlabored. Pulse ox on room air is still under 90%. This is a vaccinated individual. 05/27/2021, the patient is being seen for a follow-up. The patient was hospitalized for overnight. His pneumonia and the patient had diffuse bilateral pulmonary infiltrates. The patient was treated with Decadron and Remdesivir and today is day #3 of treatment. He remains on oxygen and currently is on nonrebreather and his oxidation is gotten worse since yesterday. Note that yesterday during my earlier evaluation, he was only on 4 L of oxygen by nasal cannula. He remains afebrile. On 100% nonrebreather facemask, his pulse ox is up to 97%. Note that he had to be gradually increased on his oxygen flow. As stated he was on 4 L and he was brought up to 5 L and later on high flow oxygen and now is on a nonrebreather facemask. His LDH level from yesterday was 867. His blood work shows a sodium of 139 potassium of 4.3, bicarb of 23, normal renal function with a creatinine of 1.0. His white cell count is at 8.8 with a hemoglobin of 12.5. He is having occasional an ongoing dry cough. He remains on Decadron 6 mg daily. He is on third day of Remdesivir. Neurologically, there is confused. No agitation. His alert and oriented 1. His d-dimer was at 1.75 from 05/24/2021. On 05/28/2021 patient seen in follow-up on selective care unit, patient has been transferred to 3 . related to going into [facility] with RVR, he was started on Cardizem infusion for rate control, and heparin infusion for anticoagulation. Patient is currently resting comfortably in bed, mildly dyspneic, he has removed his oxygen, and his from her pulse ox is 81%. He was placed back on 2 L of oxygen, and his pulse ox came up to 88-90%. He is afebrile, lung sounds reveal bibasilar crackles, today's chest x-ray shows bilateral multifocal confluent reticulonodular opacities, with no significant change from most recent studies. Patient remains on Decadron 6 mg daily, heparin infusion is being converted to oral anticoagulation in the form of Eliquis, and she is on Remdesivir, day 4 of treatment Objective - Vital Signs Vital signs: Vital Signs Temp 97 F L 05/28/21 10:00 Pulse 89 05/28/21 10:00 Resp 16 05/28/21 10:00 BP 128/71 05/28/21 06:46 Pulse Ox 93 L 05/28/21 10:00 Intake & Output 05/27/21 05/28/21 05/28/21 18:59 06:59 18:59 Intake Total 118 Output Total 150 Balance -150 118 Intake: Oral 118 Output: Urine 150 Other: Voiding Method Bedside Commode Bedside Commode Bedside Commode Urinal Urinal Urinal Incontinent Incontinent Incontinent # Voids 3 2 1 # Bowel Movements 1 - Exam GENERAL EXAM: Alert, very pleasant 85-year-old white male, on room air, mild dyspneic with a pulse ox of 81% comfortable in no apparent distress. HEAD: Normocephalic/atraumatic. EYES: Normal reaction of pupils, equal size. Conjunctiva pink, sclera white. NOSE: Clear with pink turbinates. THROAT: No erythema or exudates. NECK: No masses, no JVD, no thyroid enlargement, no adenopathy. CHEST: No chest wall deformity. Symmetrical expansion. LUNGS: Equal air entry with basilar crackles CVS: Irregular rate and rhythm, normal S1 and S2, no gallops, no murmurs, no rubs ABDOMEN: Soft, nontender. No hepatosplenomegaly, normal bowel sounds, no guarding or rigidity. EXTREMITIES: No clubbing, no edema, no cyanosis, 2+ pulses and upper and lower extremities. MUSCULOSKELETAL: Muscle strength and tone normal. SPINE: No scoliosis or deformity SKIN: No rashes CENTRAL NERVOUS SYSTEM: Alert and oriented -3. No focal deficits, tone is normal in all 4 extremities. PSYCHIATRIC: Alert and oriented -3. Appropriate affect. Intact judgment and insight. - Labs CBC & Chem 7: 05/28/21 05:17 05/28/21 05:17 Labs: Abnormal Lab Results - Last 24 Hours (Table) 05/28/21 05/28/21 05/28/21 Range/Units 05:17 05:17 05:17 RBC 4.03 L (4.30-5.90) m/uL Hgb 12.5 L (13.0-17.5) gm/dL Hct 37.4 L (39.0-53.0) % Neutrophils # 9.0 H (1.3-7.7) k/uL Lymphocytes # 0.3 L (1.0-4.8) k/uL APTT (22.0-30.0) sec D-Dimer 7.50 H (<0.60) mg/L FEU BUN/Creatinine Ratio 23.58 H (12.00-20.00) Ratio Glucose 117 H (70-110) mg/dL Lactate Dehydrogenase 345 H (120-246) U/L C-Reactive Protein 6.90 H (0.00-0.80) mg/dL Total Protein 4.9 L (6.2-8.2) g/dL Albumin 3.0 L (3.8-4.9) g/dL Albumin/Globulin Ratio 1.51 L (1.60-3.17) g/dL 05/28/21 Range/Units 13:21 RBC (4.30-5.90) m/uL Hgb (13.0-17.5) gm/dL Hct (39.0-53.0) % Neutrophils # (1.3-7.7) k/uL Lymphocytes # (1.0-4.8) k/uL APTT 54.7 H (22.0-30.0) sec D-Dimer (<0.60) mg/L FEU BUN/Creatinine Ratio (12.00-20.00) Ratio Glucose (70-110) mg/dL Lactate Dehydrogenase (120-246) U/L C-Reactive Protein (0.00-0.80) mg/dL Total Protein (6.2-8.2) g/dL Albumin (3.8-4.9) g/dL Albumin/Globulin Ratio (1.60-3.17) g/dL Microbiology - Last 24 Hours (Table) 05/24/21 13:02 Blood Culture - Preliminary Blood No Growth after 72 hours 05/24/21 12:58 Blood Culture - Preliminary Blood No Growth after 72 hours Assessment and Plan Plan: #1. Acute hypoxemic respiratory failure secondary to coronavirus associated pneumonia. The patient is currently on Decadron 6 mg IV every 24 hours on Remdesivir day #3. He received his loading dose yesterday. His oxidation is remains stable and the patient is currently on 4 L of oxygen by nasal cannula. In terms of his inflammatory markers, his LDH level was 867 from the time of admission and the pro-calcitonin level was 0.96. D-dimer level is at 1.73 and the patient is also on Lovenox. His evaluation, the patient was noted to be lethargic and sleepy and somewhat confused. He is alert and oriented 1. Nevertheless, not absolutely sure there is any further decompensation in his oxygenation. On room air oxygen, his pulse ox was dropped down to 80%, currently is on 6 L and his pulse ox is up to 90%. I took off the nonrebreather facemask which she anyway he is unable to keep it on. I would suggest repeating inflammatory markers. I would suggest repeating a chest x-ray to get an objective evaluation on his clinical progress. #2. Elevated inflammatory markers secondary to coronavirus infection. #3. History of hyperlipidemia. #4. History of hypertension. #5. History of myocardial infarction. #6. BPH. #7. CAD, status post cardiac catheterization with stent. #8. Dementia. #9. A. fib with RVR, patient has been started on Cardizem and heparin infusion Plan: Continue current medical treatment Continue Decadron, patient is on day 4 of Remdesivir he is being placed on Eliquis for anticoagulation for A. fib Maintaining safety precautions Continue multivitamins We'll continue to follow I performed a history & physical examination of the patient and discussed their management with my nurse practitioner, Bre De Leon. I reviewed the nurse practitioner's note and agree with the documented findings and plan of care. Lung sounds are positive fordiminished breath sounds throughout the lung montaño. The findings and the impression was discussed with the patient. I attest to the documentation by the nurse practitioner. Time with Patient: Less than 30
[2021-05-28] MEDS ORDERED: FUROSEMIDE 10 MG/ML 2 ML VIAL IV ONE (15:14)
--- NOTE | 2021-05-28 15:33 | P.PN ---
Subjective Progress Note Date: 05/28/21 HISTORY OF PRESENT ILLNESS: This is an 85-year-old white [place] male with a previous medical history sig nificant for coronary artery disease status post PCI of the LCx back in 2019, hypertension and hypertensive cardio vascular disease, hyperlipidemia, ALLERGIC rhinitis, enlarged prostate, history of ALLERGIC rhinitis, vascular dementia, patient presented to the emergency department at [facility] yesterday after he was evaluated few days ago with positive Covid 19 infection and he was sent home with supportive care patient was not hypoxemic at that time, patient apparently fell last night and couldn't get up because of generalized weakness he ended up coming back to the hospital with increased shortness breath associated with increased and weakness he became quite hypoxemic with oxygen saturation at 89% on room air so he was admitted to the hospital for evaluation and treatment for COVID-19 pneumonia, patient underwent x-rays of the pelvis that did not show any evidence of acute fracture, patient underwent computed tomography scan of the head in the cervical spine that showed anterolisthesis of C4-C5 and severe degenerative disc disease of C5 C6 C6 and 7, without acute frac ture, patient 12-lead EKG did not show evidence of acute ST-T wave changes, chest x-ray initially showed worsening infiltrate this was followed by CTA of the chest because of elevated d-dimer and elevated inflammatory markers and the patient was negative for pulmonary as well as a however it did show significant diffuse interstitial infiltrate suggestive of Covid 19 pneumonia, patient will be started on Remdesivir 200 mg loading dose followed by 100 mg daily for the next 5 days. 05/26: Patient apparently didn't sleep last night despite use of Xanax. We will add in Seroquel 12.5 mg twice daily., Heart rate 68, blood pressure 150/65, pulse ox 90% on 4 L nasal cannula. WBC 8.8, hemoglobin 12.5, platelet count 244. Electrolytes are normal. BUN 33 creatinine 1. Blood sugar 139. C-reactive protein 7.3. Blood cultures no growth at 24 hours 2 specimens. Patient has been seen by pulmonary medicine and continued on Remdesivir, Decadron, Lovenox and vitamin supplements. Patient has also been seen and followed by cardiology, atenolol on hold his heart rate has been in the 60s and occasionally in the 40s at night, cardiology has signed off. 05/27: [facility] His mental status is somewhat improved from yesterday after Seroquel was started. He is able to answer questions appropriately. He states that his breathing is better. He is on a nonrebreather with a pulse ox of 98% which will be weaned down today. Patient denies nausea or vomiting, not much appetite. manager monitoring has been sinus bradycardia with occasional trigeminy. Cardiology to be notified. Patient has been afebrile, heart rate 54, blood pressure 155/66. Patient's grandson is also hospitalized a few doors down from the patient. 05/28: A is seen today in follow-up. His mental status seems to be improved today. Patient went into A. fib with RVR with heart rate in the 110s and 120s, transferred to the cardiac stepdown unit. Cardizem drip currently at 5 mg per hour and patient has been started on heparin drip as well. Cardiology has plans for eliquis 5 mg twice daily and begin metoprolol to wean off Cardizem. TSH normal at 2.490. Patient remains afebrile. Pulse ox is 89 and 93% on 5 L nasal cannula. Repeat blood work reveals WBC 9.8, hemoglobin 12.5, platelet count 223. D-dimer 7.5. Electrolytes and renal function normal. LDH 345. REVIEW OF SYSTEMS: Constitutional: No documented fever, no chills, no night sweats. No weight change. positive for weakness,positive for fatigue no lethargy. No daytime sleepiness. HEENT: Positive for headache. No blurred vision or double vision, no loss of vision. No loss of Hearing, no ringing in the ears, no dizziness. No nasal drainage or congestion. No epistaxis. No sore throat. Lungs: positive for shortness of breath, positive for cough, no sputum production. No wheezing. Reports dyspnea with activity. Cardiovascular: No chest pain, no lower extremity edema. No palpitations. No paroxysmal nocturnal dyspnea. No orthopnea. No lightheadedness or dizziness. No syncopal episodes. New onset atrial fibrillation Abdominal: Reports abdominal pain. No nausea, vomiting. No diarrhea. No co nstipation. No bloody or tarry stools reports loss of appetite. Genitourinary: No dysuria, increased frequency, urgency. No urinary retention. Musculoskeletal: positive for myalgias. No muscle weakness, no gait dysfunction, positive for falls. No back pain. positive for neck pain. Integumentary: No wounds, no lesions. No rash or pruritus. No unusual bruising. No change in hair or nails. Neurologic: No aphasia. No facial droop. Noted change in mentation with underlying dementia. No head injury. No headache. No paralysis. No paresthesia. Psychiatric: No depression. No anxiety. Endocrine: No abnormal blood sugars. No weight change. PHYSICAL EXAMINATION: General: 85-year-old male sitting up in bed and appears to be in no acute distress.. HEENT: Head is atraumatic, normocephalic, pupils were equal round reactive to light and recommendation, extraocular muscle movement were intact, sclera nonicteric, conjunctivae were pale, mucous membranes of the mouth are somewhat dry. Neck: Supple, no JVP, normal carotid upstroke bilaterally, no lymphadenopathy. Chest: Decreased breath sounds at the bases, few rhonchi, no extremity wheezes, no chest wall tenderness, no intercostal retractions. Heart: First heart sound is normal, second heart sounds normal, irregular rhythm , there is systolic ejection murmur 2/6 located in the left sternal border. Abdomen: Soft, nontender, nondistended, positive bowel sounds, there is no hepatosplenomegaly. Extremities: There is no edema no calf tenderness DP +2 bilaterally. Neurologic examination: Patient is awake and alert and oriented to person only, patient is able to answer questions. ASSESSMENT AND PLAN: 1. COVID-19 pneumonia associated with hypoxemia is presenting oxygen sufficient was 89% room air currently on nonrebreather to be weaned off to nasal cannula, start the patient on Decadron 6 mg oral daily, start the patient on vitamin C 1000 mg every day, start the patient on vitamin D 1000 units once every day as well as zinc 220 mg orally once every day, continue patient on Remdesivir 100 mg daily for the next 5 days, pulmonary consultation, continue droplet precautions as well as eye protection. 2. Generalized weakness with fall likely related to COVID-19 pneumonia. We will continue with the treatment as in previous paragraph. Physical therapy evaluation. 3. New onset atrial fibrillation, paroxysmal atrial fibrillation. Patient transferred to the cardiac stepdown unit, cardiology consult. Patient has been started on heparin drip with plan to transition to eliquis, currently on Cardizem drip and started on metoprolol 12.5 mg twice daily. 4. CAD post-PCI of the LCx. Continue patient on aspirin 81 mg once every day, Plavix 75 mg orally once every day, continue atenolol 25 mg orally once every day, continue atorvastatin 80 mg once every day, cardiology consultation. 5. Hypertension and hypertensive cardio vascular disease. Continue patient on metoprolol, lisinopril 10 mg orally once every day, monitor the patient very closely. 6. Hyperlipidemia. Continue patient on atorvastatin 80 mg orally once every day. 7. ALLERGIC rhinitis. Continue Zyrtec 10 mg once every day as well as Flonase nasal spray 1 puff in each nostril twice every day. 8. Vascular dementia. Continue donepezil 10 mg orally once every day. 9. Enlarged prostate. Continue Flomax 0.4 mg orally once every day as well as finasteride 5 mg once every day. 10. DVT prophylaxis. Heparin drip. 11. GI prophylaxis. Continue Protonix 40 mg every day. 12. Patient is full code. DISCHARGE PLAN Return home without home care, TBD Impression and plan of care have been directed as dictated by the signing physician. Rupali Brannon nurse practitioner acting as scribe for signing physician.I will Objective - Vital Signs Vital signs: Vital Signs Temp 99.5 F 05/28/21 06:10 Pulse 90 05/28/21 06:46 Resp 22 05/28/21 06:46 BP 128/71 05/28/21 06:46 Pulse Ox 90 L 05/28/21 06:46 Intake & Output 05/27/21 05/28/21 05/28/21 18:59 06:59 18:59 Output Total 150 Balance -150 Output: Urine 150 Other: Voiding Method Bedside Commode Bedside Commode Urinal Urinal Incontinent Incontinent # Voids 3 2 - Labs CBC & Chem 7: 05/28/21 05:17 05/28/21 05:17 Labs: Abnormal Lab Results - Last 24 Hours (Table) 05/28/21 05/28/21 Range/Units 05:17 05:17 RBC 4.03 L (4.30-5.90) m/uL Hgb 12.5 L (13.0-17.5) gm/dL Hct 37.4 L (39.0-53.0) % Neutrophils # 9.0 H (1.3-7.7) k/uL Lymphocytes # 0.3 L (1.0-4.8) k/uL D-Dimer 7.50 H (<0.60) mg/L FEU Microbiology - Last 24 Hours (Table) 05/24/21 13:02 Blood Culture - Preliminary Blood No Growth after 72 hours 05/24/21 12:58 Blood Culture - Preliminary Blood No Growth after 72 hours
[2021-05-28] MEDS: ALBUTEROL HFA INHALER INHALATION PRN (17:07)
[2021-05-28] MEDS: ATORVASTATIN 80 MG TAB PO SCH (20:26)
[2021-05-28] MEDS: DONEPEZIL 10 MG TAB PO SCH (20:26)
[2021-05-29] MEDS: DILTIAZEM 125 MG in SODIUM CHLORIDE 0.9% 100 ML IV SCH (06:28)
[2021-05-29] MEDS: PANTOPRAZOLE 40 MG TABLET PO SCH (06:30)
[2021-05-29 07:47] LABS: Basophils % (A) 0 %; Eosinophils % (A) 0 %; HCT 38.2 % (39.0-53.0); HGB 12.5 gm/dL (13.0-17.5); Lymphocytes # (A) 0.2 k/uL (1.0-4.8); Lymphocytes % (A) 2 %; MCH 30.6 pg (25.0-35.0); MCHC 32.7 g/dL (31.0-37.0); MCV 93.8 fL (80.0-100.0); Mean Platelet Volume 7.7; Monocytes # (A) 0.2 k/uL (0-1.0); Monocytes % (A) 2 %; Neutrophils # (A) 11.6 k/uL (1.3-7.7); Neutrophils % (A) 96 %; Platelet Count 220 k/uL (150-450); RBC 4.07 m/uL (4.30-5.90); RDW 13.4 % (11.5-15.5)
[2021-05-29] MEDS: ALBUTEROL HFA INHALER INHALATION PRN ×2 (09:13→21:17)
[2021-05-29] MEDS: ASCORBIC ACID 500 MG TAB PO SCH ×2 (09:35→21:09)
[2021-05-29] MEDS: FINASTERIDE 5 MG TAB PO SCH (09:35)
[2021-05-29] MEDS: LORATADINE 10 MG TAB PO SCH (09:35)
[2021-05-29] MEDS: METOPROLOL TARTRATE 12.5 MG TAB PO SCH ×2 (09:35→21:09)
[2021-05-29] MEDS: CLOPIDOGREL 75 MG TAB PO SCH (09:36)
[2021-05-29] MEDS: lisinopriL 10 MG TAB PO SCH (09:36)
[2021-05-29] MEDS: QUEtiapine 25 MG TAB PO SCH ×2 (09:36→21:09)
[2021-05-29] MEDS: CHOLECALCIFEROL 25 MCG (1000 IU) TABLET PO SCH (09:36)
[2021-05-29] MEDS: APIXABAN 5 MG TAB PO SCH ×2 (09:36→21:09)
[2021-05-29] MEDS: TAMSULOSIN 0.4 MG CAP.ER.24H PO SCH (09:36)
[2021-05-29] MEDS: dexAMETHasone 2 MG TAB PO SCH (09:36)
[2021-05-29] MEDS: ZINC SULFATE 220 MG CAP PO SCH (09:42)
--- NOTE | 2021-05-29 12:22 | P.PN ---
Subjective Progress Note Date: 05/29/21 HISTORY OF PRESENT ILLNESS: Patient is a pleasant 85-year-old male with history of dementia, coronary artery disease status post PCI 2017 apparently at [facility], hypertension, hyperlipidemia, previous tobacco abuse and COVID-19 pneumonia who presents secondary to weakness and falling. Cardiology was consulted for bradycardia. Patient is a poor historian however per report patient had been feeling increased weakness and felt fatigued at home and apparently had fallen down. He was found to have asymptomatic sinus bradycardia with heart rates 39-in the 40s mainly at night since been placed on telemetry. No pauses greater than 2 seconds. His atenolol has been held. Patient seen and examined at bedside, currently denies any chest pain, pressure and is relatively comfortable on nasal cannula. CTA showed no PE, cardiomegaly, extensive pulmonary interstitial infiltrates, small pleural effusions. EKG shows normal sinus rhythm, no significant ST or T wave abnormalities. Telemetry reviewed, patient in sinus mechanism HR has been in the 60s no pauses noted. 05/28/2021 Cardiology was reconsulted to evaluate the patient secondary to new onset atrial fibrillation. The patient does not have a history of atrial fibrillation. He currently is an atrial fibrillation with heart rate in the 110s. Cardizem drip is infusing at 5 mg an hour. He has also been started on IV heparin. 05/29/2021 Patient has converted to sinus mechanism with a heart rate in the 70s. Blood pressure 140/63. Temperature 9.2. He is on 6 L nasal cannula with oxygen saturations greater than 92%. He has been started on Eliquis. PHYSICAL EXAM: Thorough physical exam not completed secondary to limited evaluation/examination due to Covid19 ASSESSMENT: Acute on chronic respiratory failure Acute COVID-19 pneumonia Asymptomatic sinus bradycardia, mainly at night Reported history of falls, most recent appear related to COVID-19 Coronary artery disease status post PCI Hypertension Hyperlipidemia New onset atrial fibrillation with RVR PLAN: Continue Eliquis and metoprolol No further inpatient recommendations from a cardiac standpoint We will sign off. Please reconsult if needed. Nurse practitioner note has been reviewed by physician. Signing provider agrees with the documented findings, assessment, and plan of care. Objective - Vital Signs Vital signs: Vital Signs Temp 99.2 F 05/29/21 08:00 Pulse 75 05/29/21 08:00 Resp 16 05/29/21 08:00 BP 140/63 05/29/21 08:00 Pulse Ox 94 L 05/29/21 08:00 Intake & Output 05/28/21 05/29/21 05/29/21 18:59 06:59 18:59 Intake Total 236 Output Total 350 Balance -114 Intake: Oral 236 Output: Urine 350 Other: Voiding Method Bedside Commode Bedside Commode Bedside Commode Urinal Urinal Urinal Incontinent Incontinent Incontinent # Voids 1 1 1 # Bowel Movements 1 - Labs CBC & Chem 7: 05/29/21 07:21 05/28/21 05:17 Labs: Abnormal Lab Results - Last 24 Hours (Table) 05/28/21 05/28/21 05/29/21 Range/Units 05:17 13:21 07:21 WBC 12.0 H (3.8-10.6) k/uL RBC 4.07 L (4.30-5.90) m/uL Hgb 12.5 L (13.0-17.5) gm/dL Hct 38.2 L (39.0-53.0) % Neutrophils # 11.6 H (1.3-7.7) k/uL Lymphocytes # 0.2 L (1.0-4.8) k/uL APTT 54.7 H (22.0-30.0) sec BUN/Creatinine Ratio 23.58 H (12.00-20.00) Ratio Glucose 117 H (70-110) mg/dL Lactate Dehydrogenase 345 H (120-246) U/L C-Reactive Protein 6.90 H (0.00-0.80) mg/dL Total Protein 4.9 L (6.2-8.2) g/dL Albumin 3.0 L (3.8-4.9) g/dL Albumin/Globulin Ratio 1.51 L (1.60-3.17) g/dL Microbiology - Last 24 Hours (Table) 05/24/21 13:02 Blood Culture - Preliminary Blood No Growth after 96 hours 05/24/21 12:58 Blood Culture - Preliminary Blood No Growth after 96 hours
[2021-05-29] MEDS: REMDESIVIR 100 MG in SODIUM CHLORIDE 0.9% 250 ML IVPB SCH (12:38)
--- NOTE | 2021-05-29 12:44 | P.PN ---
Subjective Progress Note Date: 05/29/21 Principal diagnosis: Dyspnea, hypoxia, COVID-19 pneumonia There is evaluation of 05/26/2021, I'm seeing this patient for a follow-up. Is an 85-year-old male patient with known history of dementia. He was hospitalized with Coumadin. Pneumonia the patient diffuse bilateral pulmonary infiltrates. He is currently on IV Decadron and the patient was started on of the severe ass ociated his loading dose yesterday and today is day #2. He remains on oxygen at 4 L. His LDH level is low. Pro-calcitonin level is not elevated. Chest x-ray showing diffuse bilateral pulmonary infiltrates. He is also known to have comorbidities including hypertension, hyperlipidemia, CAD, BPH, previous history of PCI and stenting and he is a former smoker. He is afebrile. D-dimer is not elevated. White cell count at 8.8. Hemoglobin is at 12.5. No other significant abnormalities in his electrolytes. He was having some difficulties in falling sleep yesterday and the patient was given Seroquel 12.5 mg overnight and twice a day. Otherwise, no other significant events. He is confused. He is breathing is nonlabored. Pulse ox on room air is still under 90%. This is a vaccinated individual. 05/27/2021, the patient is being seen for a follow-up. The patient was hospitalized for overnight. His pneumonia and the patient had diffuse bilateral pulmonary infiltrates. The patient was treated with Decadron and Remdesivir and today is day #3 of treatment. He remains on oxygen and currently is on nonrebreather and his oxidation is gotten worse since yesterday. Note that yesterday during my earlier evaluation, he was only on 4 L of oxygen by nasal cannula. He remains afebrile. On 100% nonrebreather facemask, his pulse ox is up to 97%. Note that he had to be gradually increased on his oxygen flow. As stated he was on 4 L and he was brought up to 5 L and later on high flow oxygen and now is on a nonrebreather facemask. His LDH level from yesterday was 867. His blood work shows a sodium of 139 potassium of 4.3, bicarb of 23, normal renal function with a creatinine of 1.0. His white cell count is at 8.8 with a hemoglobin of 12.5. He is having occasional an ongoing dry cough. He remains on Decadron 6 mg daily. He is on third day of Remdesivir. Neurologically, there is confused. No agitation. His alert and oriented 1. His d-dimer was at 1.75 from 05/24/2021. On 05/28/2021 patient seen in follow-up on selective care unit, patient has been transferred to [facility]. related to going into [facility] with RVR, he was started on Cardizem infusion for rate control, and heparin infusion for anticoagulation. Patient is currently resting comfortably in bed, mildly dyspneic, he has removed his oxygen, and his from her pulse ox is 81%. He was placed back on 2 L of oxygen, and his pulse ox came up to 88-90%. He is afebrile, lung sounds reveal bibasilar crackles, today's chest x-ray shows bilateral multifocal confluent reticulonodular opacities, with no significant change from most recent studies. Patient remains on Decadron 6 mg daily, heparin infusion is being converted to oral anticoagulation in the form of Eliquis, and she is on Remdesivir, day 4 of treatment On today's evaluation on 05/29/2021 patient seen in follow-up on selective care unit, he is sitting comfortably in bed, he is currently on 6 L of oxygen pulse ox is 94%, breathing comfortably, vital signs have been stable, patient has converted to sinus rhythm, heparin drip has been discontinued, patient has been started on Eliquis for anticoagulation, and metoprolol 12.5 mg twice daily. Cardiology is following, as given a dose of Lasix yesterday, his IV fluids have been stopped to KVO, patient has been tolerating oral intake, no nausea or vomiting. No new chest x-ray today, he will be completing his Remdesivir course today, he also remains on Decadron and COVID-19 vitamins. His lab 7 reviewed, blood blood cell count is 12, hemoglobin is 12.5, BMP results are still pending today, inflammatory markers were improving on yesterday's labs. Pro-calcitonin level was 0.96, suggesting possibility of underlying bacterial infection. Occasional cough, no phlegm production. Blood culture has shown no growth. Objective - Vital Signs Vital signs: Vital Signs Temp 99.2 F 05/29/21 08:00 Pulse 75 05/29/21 08:00 Resp 16 05/29/21 08:00 BP 140/63 05/29/21 08:00 Pulse Ox 94 L 05/29/21 08:00 Intake & Output 05/28/21 05/29/21 05/29/21 18:59 06:59 18:59 Intake Total 236 Output Total 350 Balance -114 Intake: Oral 236 Output: Urine 350 Other: Voiding Method Bedside Commode Bedside Commode Bedside Commode Urinal Urinal Urinal Incontinent Incontinent Incontinent # Voids 1 1 1 # Bowel Movements 1 - Exam GENERAL EXAM: Alert, very pleasant 85-year-old white male, on room air, mild dyspneic with a pulse ox of 96% comfortable in no apparent distress. HEAD: Normocephalic/atraumatic. EYES: Normal reaction of pupils, equal size. Conjunctiva pink, sclera white. NOSE: Clear with pink turbinates. THROAT: No erythema or exudates. NECK: No masses, no JVD, no thyroid enlargement, no adenopathy. CHEST: No chest wall deformity. Symmetrical expansion. LUNGS: Equal air entry with basilar crackles CVS: Irregular rate and rhythm, normal S1 and S2, no gallops, no murmurs, no rubs ABDOMEN: Soft, nontender. No hepatosplenomegaly, normal bowel sounds, no guarding or rigidity. EXTREMITIES: No clubbing, no edema, no cyanosis, 2+ pulses and upper and lower extremities. MUSCULOSKELETAL: Muscle strength and tone normal. SPINE: No scoliosis or deformity SKIN: No rashes CENTRAL NERVOUS SYSTEM: Alert and oriented -3. No focal deficits, tone is normal in all 4 extremities. PSYCHIATRIC: Alert and oriented -3. Appropriate affect. Intact judgment and insight. - Labs CBC & Chem 7: 05/29/21 07:21 05/28/21 05:17 Labs: Abnormal Lab Results - Last 24 Hours (Table) 05/28/21 05/28/21 05/29/21 Range/Units 05:17 13: 07:21 WBC 12.0 H (3.8-10.6) k/uL RBC 4.07 L (4.30-5.90) m/uL Hgb 12.5 L (13.0-17.5) gm/dL Hct 38.2 L (39.0-53.0) % Neutrophils # 11.6 H (1.3-7.7) k/uL Lymphocytes # 0.2 L (1.0-4.8) k/uL APTT 54.7 H (22.0-30.0) sec BUN/Creatinine Ratio 23.58 H (12.00-20.00) Ratio Glucose 117 H (70-110) mg/dL Lactate Dehydrogenase 345 H (120-246) U/L C-Reactive Protein 6.90 H (0.00-0.80) mg/dL Total Protein 4.9 L (6.2-8.2) g/dL Albumin 3.0 L (3.8-4.9) g/dL Albumin/Globulin Ratio 1.51 L (1.60-3.17) g/dL Microbiology - Last 24 Hours (Table) 05/24/21 13:02 Blood Culture - Preliminary Blood No Growth after 96 hours 05/24/21 12:58 Blood Culture - Preliminary Blood No Growth after 96 hours Assessment and Plan Plan: #1. Acute hypoxemic respiratory failure secondary to coronavirus associated pneumonia. The patient is currently on Decadron 6 mg IV every 24 hours on Remdesivir day #3. He received his loading dose yesterday. His oxidation is remains stable and the patient is currently on 4 L of oxygen by nasal cannula. In terms of his inflammatory markers, his LDH level was 867 from the time of admission and the pro-calcitonin level was 0.96. D-dimer level is at 1.73 and the patient is also on Lovenox. His evaluation, the patient was noted to be lethargic and sleepy and somewhat confused. He is alert and oriented 1. Nevertheless, not absolutely sure there is any further decompensation in his oxygenation. On room air oxygen, his pulse ox was dropped down to 80%, currently is on 6 L and his pulse ox is up to 90%. I took off the nonrebreather facemask which she anyway he is unable to keep it on. I would suggest repeating inflammatory markers. I would suggest repeating a chest x-ray to get an objective evaluation on his clinical progress. #2. Elevated inflammatory markers secondary to coronavirus infection. #3. History of hyperlipidemia. #4. History of hypertension. #5. History of myocardial infarction. #6. BPH. #7. CAD, status post cardiac catheterization with stent. #8. Dementia. #9. A. fib with RVR, patient has been started on Cardizem and heparin infusion, has converted to sinus rhythm Plan: Continue current medical treatment Continue Decadron, patient will be completing his Remdesivir today He is back in sinus rhythm, on Eliquis and metoprolol Sounds congested today, will obtain a follow up CXR Procal elevated, will obtain sputum if able, and UA Maintain aspiration precautions Will continue to follow I performed a history & physical examination of the patient and discussed their management with my nurse practitioner, Bre De Leon. I reviewed the nurse practitioner's note and agree with the documented findings and plan of care. Lung sounds are positive fordiminished breath sounds throughout the lung montaño. The findings and the impression was discussed with the patient. I attest to the documentation by the nurse practitioner. Time with Patient: Less than 30
[2021-05-29] MEDS ORDERED: FUROSEMIDE 10 MG/ML 2 ML VIAL IV STA (13:04)
--- NOTE | 2021-05-29 13:34 | XR ---
EXAMINATION TYPE: XR chest 1V portable DATE OF EXAM: 05/29/2021 COMPARISON: 05/27/2021 INDICATION: Covid TECHNIQUE: Single frontal view of the chest is obtained. FINDINGS: The heart size is upper limits of normal. The pulmonary vasculature is normal. Peripheral infiltrates are present bilaterally. This is nonspecific but can be related to atypical pn eumonia. Findings are worsened over the interval IMPRESSION: 1. Worsening peripheral infiltrates. Correlate for atypical pneumonia.
--- NOTE | 2021-05-29 14:31 | P.PN ---
Subjective Progress Note Date: 05/29/21 HISTORY OF PRESENT ILLNESS: This is an 85-year-old white [place] male with a previous medical history sig nificant for coronary artery disease status post PCI of the LCx back in 2019, hypertension and hypertensive cardio vascular disease, hyperlipidemia, ALLERGIC rhinitis, enlarged prostate, history of ALLERGIC rhinitis, vascular dementia, patient presented to the emergency department at [facility] yesterday after he was evaluated few days ago with positive Covid 19 infection and he was sent home with supportive care patient was not hypoxemic at that time, patient apparently fell last night and couldn't get up because of generalized weakness he ended up coming back to the hospital with increased shortness breath associated with increased and weakness he became quite hypoxemic with oxygen saturation at 89% on room air so he was admitted to the hospital for evaluation and treatment for COVID-19 pneumonia, patient underwent x-rays of the pelvis that did not show any evidence of acute fracture, patient underwent computed tomography scan of the head in the cervical spine that showed anterolisthesis of C4-C5 and severe degenerative disc disease of C5 C6 C6 and 7, without acute frac ture, patient 12-lead EKG did not show evidence of acute ST-T wave changes, chest x-ray initially showed worsening infiltrate this was followed by CTA of the chest because of elevated d-dimer and elevated inflammatory markers and the patient was negative for pulmonary as well as a however it did show significant diffuse interstitial infiltrate suggestive of Covid 19 pneumonia, patient will be started on Remdesivir 200 mg loading dose followed by 100 mg daily for the next 5 days. 05/26: Patient apparently didn't sleep last night despite use of Xanax. We will add in Seroquel 12.5 mg twice daily., Heart rate 68, blood pressure 150/65, pulse ox 90% on 4 L nasal cannula. WBC 8.8, hemoglobin 12.5, platelet count 244. Electrolytes are normal. BUN 33 creatinine 1. Blood sugar 139. C-reactive protein 7.3. Blood cultures no growth at 24 hours 2 specimens. Patient has been seen by pulmonary medicine and continued on Remdesivir, Decadron, Lovenox and vitamin supplements. Patient has also been seen and followed by cardiology, atenolol on hold his heart rate has been in the 60s and occasionally in the 40s at night, cardiology has signed off. 05/27: Seen today in follow-up on the Medr floor. His mental status is somewhat improved from yesterday after Seroquel was started. He is able to answer questions appropriately. He states that his breathing is better. He is on a nonrebreather with a pulse ox of 98% which will be weaned down today. Patient denies nausea or vomiting, not much appetite. monitor tech has been sinus bradycardia with occasional trigeminy. Cardiology to be notified. Patient has been afebrile, heart rate 54, blood pressure 155/66. Patient's grandson is also hospitalized a few doors down from the patient. 05/28: A is seen today in follow-up. His mental status seems to be improved today. Patient went into A. fib with RVR with heart rate in the 110s and 120s, transferred to the cardiac stepdown unit. Cardizem drip currently at 5 mg per hour and patient has been started on heparin drip as well. Cardiology has plans for eliquis 5 mg twice daily and begin metoprolol to wean off Cardizem. TSH normal at 2.490. Patient remains afebrile. Pulse ox is 89 and 93% on 5 L nasal cannula. Repeat blood work reveals WBC 9.8, hemoglobin 12.5, platelet count 223. D-dimer 7.5. Electrolytes and renal function normal. LDH 345. 05/29: Patient is on 6 L nasal cannula with pulse ox 94%. He has been afebrile, heart rate 75, blood pressure 140/63, patient transition to sinus rhythm around midnight. Repeat blood work reveals WBC 12, hemoglobin 12.5, platelet count 220. Cardiology has started the patient on eliquis and continued Lopressor 12.5 g twice daily. Patient is continued on Remdesivir which will be completed today, dexamethasone 6 mg oral daily, vitamin supplements and eliquis. One dose of IV Lasix 20 mg ordered. REVIEW OF SYSTEMS: Constitutional: No documented fever, no chills, no night sweats. No weight change. positive for weakness,positive for fatigue no lethargy. No daytime sleepiness. HEENT: Positive for headache. No blurred vision or double vision, no loss of vision. No loss of Hearing, no ringing in the ears, no dizziness. No nasal drainage or congestion. No epistaxis. No sore throat. Lungs: positive for shortness of breath, positive for cough, no sputum production. No wheezing. Reports dyspnea with activity. Cardiovascular: No chest pain, no lower extremity edema. No palpitations. No paroxysmal nocturnal dyspnea. No orthopnea. No lightheadedness or dizziness. No syncopal episodes. New onset atrial fibrillation Abdominal: Reports abdominal pain. No nausea, vomiting. No diarrhea. No constipation. No bloody or tarry stools reports loss of appetite. Genitourinary: No dysuria, increased frequency, urgency. No urinary retention. Musculoskeletal: positive for myalgias. No muscle weakness, no gait dysfunction, positive for falls. No back pain. positive for neck pain. Integumentary: No wounds, no lesions. No rash or pruritus. No unusual bruising. No change in hair or nails. Neurologic: No aphasia. No facial droop. Noted change in mentation with underlying dementia. No head injury. No headache. No paralysis. No paresthesia. Psychiatric: No depression. No anxiety. Endocrine: No abnormal blood sugars. PHYSICAL EXAMINATION: General: 85-year-old male sitting up in bed and appears to be in no acute distress.. HEENT: Head is atraumatic, normocephalic, pupils were equal round reactive to light and recommendation, extraocular muscle movement were intact, sclera nonicteric, conjunctivae were pale, mucous membranes of the mouth are somewhat dry. Neck: Supple, no JVP, normal carotid upstroke bilaterally, no lymphadenopathy. Chest: Decreased breath sounds at the bases, few rhonchi, no extremity wheezes, no chest wall tenderness, no intercostal retractions. Heart: First heart sound is normal, second heart sounds normal, regular rhythm, there is systolic ejection murmur 2/6 located in the left sternal border. Abdomen: Soft, nontender, nondistended, positive bowel sounds, there is no hepatosplenomegaly. Extremities: There is no edema no calf tenderness DP +2 bilaterally. Neurologic examination: Patient is awake and alert and oriented x3. ASSESSMENT AND PLAN: 1. COVID-19 pneumonia associated with hypoxemia is presenting oxygen sufficient was 89% room air currently on nonrebreather to be weaned off to nasal cannula, start the patient on Decadron 6 mg oral daily, start the patient on vitamin C 1000 mg every day, start the patient on vitamin D 1000 units once every day as well as zinc 220 mg orally once every day, continue patient on Remdesivir course completed, pulmonary consultation appreciated, continue droplet precautions as well as eye protection. 2. Generalized weakness with fall likely related to COVID-19 pneumonia. We will continue with the treatment as in previous paragraph. Physical therapy evaluation. 3. New onset atrial fibrillation, paroxysmal atrial fibrillation. Patient transferred to the cardiac stepdown unit, cardiology consult appreciated. Heparin drip transitioned to eliquis, Cardizem drip has been discontinued, continue metoprolol 12.5 mg twice daily. 4. CAD post-PCI of the LCx. Continue patient on aspirin 81 mg once every day, Plavix 75 mg orally once every day, continue atenolol 25 mg orally once every day, continue atorvastatin 80 mg once every day, cardiology consultation. 5. Hypertension and hypertensive cardiovascular disease. Continue patient on metoprolol, lisinopril 10 mg orally once every day, monitor the patient very closely. 6. Hyperlipidemia. Continue patient on atorvastatin 80 mg orally once every day. 7. ALLERGIC rhinitis. Continue Zyrtec 10 mg once every day as well as Flonase nasal spray 1 puff in each nostril twice every day. 8. Vascular dementia. Continue donepezil 10 mg orally once every day. 9. Enlarged prostate. Continue Flomax 0.4 mg orally once every day as well as finasteride 5 mg once every day. 10. DVT prophylaxis. Heparin drip. 11. GI prophylaxis. Continue Protonix 40 mg every day. 12. Patient is full code. DISCHARGE PLAN Return home without home care Impression and plan of care have been directed as dictated by the signing physician. Rupali Brannon nurse practitioner acting as scribe for signing physician.I will Objective - Vital Signs Vital signs: Vital Signs Temp 99.2 F 05/29/21 08:00 Pulse 75 05/29/21 08:00 Resp 16 05/29/21 08:00 BP 140/63 05/29/21 08:00 Pulse Ox 94 L 05/29/21 08:00 Intake & Output 05/28/21 05/29/21 05/29/21 18:59 06:59 18:59 Intake Total 236 Output Total 350 Balance -114 Intake: Oral 236 Output: Urine 350 Other: Voiding Method Bedside Commode Bedside Commode Bedside Commode Urinal Urinal Urinal Incontinent Incontinent Incontinent # Voids 1 1 1 # Bowel Movements 1 - Labs CBC & Chem 7: 05/29/21 07:21 05/28/21 05:17 Labs: Abnormal Lab Results - Last 24 Hours (Table) 05/28/21 05/28/21 05/29/21 Range/Units 05:17 13:21 07:21 WBC 12.0 H (3.8-10.6) k/uL RBC 4.07 L (4.30-5.90) m/uL Hgb 12.5 L (13.0-17.5) gm/dL Hct 38.2 L (39.0-53.0) % Neutrophils # 11.6 H (1.3-7.7) k/uL Lymphocytes # 0.2 L (1.0-4.8) k/uL APTT 54.7 H (22.0-30.0) sec BUN/Creatinine Ratio 23.58 H (12.00-20.00) Ratio Glucose 117 H (70-110) mg/dL Lactate Dehydrogenase 345 H (120-246) U/L C-Reactive Protein 6.90 H (0.00-0.80) mg/dL Total Protein 4.9 L (6.2-8.2) g/dL Albumin 3.0 L (3.8-4.9) g/dL Albumin/Globulin Ratio 1.51 L (1.60-3.17) g/dL Microbiology - Last 24 Hours (Table) 05/24/21 13:02 Blood Culture - Preliminary Blood No Growth after 96 hours 05/24/21 12:58 Blood Culture - Preliminary Blood No Growth after 96 hours
[2021-05-29] MEDS: SODIUM CHLORIDE 0.9% 1,000 ML IV SCH (19:45)
[2021-05-29] MEDS: DONEPEZIL 10 MG TAB PO SCH (21:09)
[2021-05-29] MEDS: ATORVASTATIN 80 MG TAB PO SCH (21:09)
[2021-05-30] MEDS: PANTOPRAZOLE 40 MG TABLET PO SCH (06:35)
[2021-05-30] MEDS: ALBUTEROL HFA INHALER INHALATION PRN (08:04)
[2021-05-30] MEDS: ZINC SULFATE 220 MG CAP PO SCH (09:19)
[2021-05-30] MEDS: METOPROLOL TARTRATE 12.5 MG TAB PO SCH ×2 (09:19→21:15)
[2021-05-30] MEDS: dexAMETHasone 2 MG TAB PO SCH (09:19)
[2021-05-30] MEDS: APIXABAN 5 MG TAB PO SCH ×2 (09:19→21:16)
[2021-05-30] MEDS: CHOLECALCIFEROL 25 MCG (1000 IU) TABLET PO SCH (09:19)
[2021-05-30] MEDS: FINASTERIDE 5 MG TAB PO SCH (09:19)
[2021-05-30] MEDS: CLOPIDOGREL 75 MG TAB PO SCH (09:19)
[2021-05-30] MEDS: TAMSULOSIN 0.4 MG CAP.ER.24H PO SCH (09:19)
[2021-05-30] MEDS: ASCORBIC ACID 500 MG TAB PO SCH ×2 (09:20→21:16)
[2021-05-30] MEDS: lisinopriL 10 MG TAB PO SCH (09:20)
[2021-05-30] MEDS: QUEtiapine 25 MG TAB PO SCH ×2 (09:20→21:16)
[2021-05-30] MEDS: LORATADINE 10 MG TAB PO SCH (09:21)
[2021-05-30] MEDS ORDERED: FUROSEMIDE 10 MG/ML 2 ML VIAL IV STA (13:34)
--- NOTE | 2021-05-30 14:41 | P.PN ---
Subjective Progress Note Date: 05/30/21 Principal diagnosis: Dyspnea, hypoxia, COVID-19 pneumonia There is evaluation of 05/26/2021, I'm seeing this patient for a follow-up. Is an 85-year-old male patient with known history of dementia. He was hospitalized with Coumadin. Pneumonia the patient diffuse bilateral pulmonary infiltrates. He is currently on IV Decadron and the patient was started on of the severe ass ociated his loading dose yesterday and today is day #2. He remains on oxygen at 4 L. His LDH level is low. Pro-calcitonin level is not elevated. Chest x-ray showing diffuse bilateral pulmonary infiltrates. He is also known to have comorbidities including hypertension, hyperlipidemia, CAD, BPH, previous history of PCI and stenting and he is a former smoker. He is afebrile. D-dimer is not elevated. White cell count at 8.8. Hemoglobin is at 12.5. No other significant abnormalities in his electrolytes. He was having some difficulties in falling sleep yesterday and the patient was given Seroquel 12.5 mg overnight and twice a day. Otherwise, no other significant events. He is confused. He is breathing is nonlabored. Pulse ox on room air is still under 90%. This is a vaccinated individual. 05/27/2021, the patient is being seen for a follow-up. The patient was hospitalized for overnight. His pneumonia and the patient had diffuse bilateral pulmonary infiltrates. The patient was treated with Decadron and Remdesivir and today is day #3 of treatment. He remains on oxygen and currently is on nonrebreather and his oxidation is gotten worse since yesterday. Note that yesterday during my earlier evaluation, he was only on 4 L of oxygen by nasal cannula. He remains afebrile. On 100% nonrebreather facemask, his pulse ox is up to 97%. Note that he had to be gradually increased on his oxygen flow. As stated he was on 4 L and he was brought up to 5 L and later on high flow oxygen and now is on a nonrebreather facemask. His LDH level from yesterday was 867. His blood work shows a sodium of 139 potassium of 4.3, bicarb of 23, normal renal function with a creatinine of 1.0. His white cell count is at 8.8 with a hemoglobin of 12.5. He is having occasional an ongoing dry cough. He remains on Decadron 6 mg daily. He is on third day of Remdesivir. Neurologically, there is confused. No agitation. His alert and oriented 1. His d-dimer was at 1.75 from 05/24/2021. On 05/28/2021 patient seen in follow-up on selective care unit, patient has been transferred to [facility]. related to going into [facility] with RVR, he was started on Cardizem infusion for rate control, and heparin infusion for anticoagulation. Patient is currently resting comfortably in bed, mildly dyspneic, he has removed his oxygen, and his from her pulse ox is 81%. He was placed back on 2 L of oxygen, and his pulse ox came up to 88-90%. He is afebrile, lung sounds reveal bibasilar crackles, today's chest x-ray shows bilateral multifocal confluent reticulonodular opacities, with no significant change from most recent studies. Patient remains on Decadron 6 mg daily, heparin infusion is being converted to oral anticoagulation in the form of Eliquis, and she is on Remdesivir, day 4 of treatment On today's evaluation on 05/29/2021 patient seen in follow-up on selective care unit, he is sitting comfortably in bed, he is currently on 6 L of oxygen pulse ox is 94%, breathing comfortably, vital signs have been stable, patient has converted to sinus rhythm, heparin drip has been discontinued, patient has been started on Eliquis for anticoagulation, and metoprolol 12.5 mg twice daily. Cardiology is following, as given a dose of Lasix yesterday, his IV fluids have been stopped to KVO, patient has been tolerating oral intake, no nausea or vomiting. No new chest x-ray today, he will be completing his Remdesivir course today, he also remains on Decadron and COVID-19 vitamins. His lab 7 reviewed, blood blood cell count is 12, hemoglobin is 12.5, BMP results are still pending today, inflammatory markers were improving on yesterday's labs. Pro-calcitonin level was 0.96, suggesting possibility of underlying bacterial infection. Occasional cough, no phlegm production. Blood culture has shown no growth. On 05/30/2021 patient seen in follow-up on selective care unit, he is resting comfortably in bed, in no acute distress, he is currently on 6 L of oxygen his pulse ox is 90%, denies any respiratory difficulty, occasional cough, no complaint of chest discomfort, yesterday he received a dose of IV Lasix 20 mg, and -190 mL net fluid balance over the last 24 hours, the exact Balance is not available to us as the patient has been using the urinal, and has been incontinent as well. No new chest x-ray, his last chest x-ray from yesterday showed worsening peripheral infiltrates. Today we will give the patient another dose of Lasix, his proBNP level came back elevated at 6730. No lower extremity edema, patient has converted to sinus mechanism, he is currently on Eliquis for anticoagulation, and has been started on Lopressor 12.5 milligram twice daily. Decadron is at 6 mg daily. He is also on Zosyn for empiric antibiotic coverage view of elevated pro-calcitonin of 0.96. Objective - Vital Signs Vital signs: Vital Signs Temp 98.1 F 05/30/21 08:00 Pulse 71 05/30/21 08:00 Resp 16 05/30/21 08:00 BP 114/59 05/30/21 08:00 Pulse Ox 91 L 05/30/21 08:00 Intake & Output 05/29/21 05/30/21 05/30/21 18:59 06:59 18:59 Intake Total 240 220 360 Output Total 650 Balance 240 -430 360 Weight 79.379 kg Intake: Intake, IV Titration 120 Amount Sodium Chloride 0.9% 1, 120 000 ml @ 20 mls/hr IV . Q24H [facility] Rx#:[id number] Oral 240 100 360 Output: Urine 650 Other: Voiding Method Bedside Commode Bedside Commode Bedside Commode Urinal Urinal Urinal Incontinent Incontinent Incontinent # Voids 1 - Exam GENERAL EXAM: Alert, very pleasant 85-year-old white male, 6 L of oxygen mild dyspneic with a pulse ox of 91% comfortable in no apparent distress. HEAD: Normocephalic/atraumatic. EYES: Normal reaction of pupils, equal size. Conjunctiva pink, sclera white. NOSE: Clear with pink turbinates. THROAT: No erythema or exudates. NECK: No masses, no JVD, no thyroid enlargement, no adenopathy. CHEST: No chest wall deformity. Symmetrical expansion. LUNGS: Equal air entry with basilar crackles CVS: Irregular rate and rhythm, normal S1 and S2, no gallops, no murmurs, no rubs ABDOMEN: Soft, nontender. No hepatosplenomegaly, normal bowel sounds, no guarding or rigidity. EXTREMITIES: No clubbing, no edema, no cyanosis, 2+ pulses and upper and lower extremities. MUSCULOSKELETAL: Muscle strength and tone normal. SPINE: No scoliosis or deformity SKIN: No rashes CENTRAL NERVOUS SYSTEM: Alert and oriented -3. No focal deficits, tone is normal in all 4 extremities. PSYCHIATRIC: Alert and oriented -3. Appropriate affect. Intact judgment and insight. - Labs CBC & Chem 7: 05/29/21 07:21 05/28/21 05:17 Labs: Microbiology - Last 24 Hours (Table) 05/24/21 12:58 Blood Culture - Preliminary Blood No Growth after 120 hours 05/24/21 13:02 Blood Culture - Preliminary Blood No Growth after 120 hours Assessment and Plan Plan: #1. Acute hypoxemic respiratory failure secondary to coronavirus associated pneumonia. The patient is currently on Decadron 6 mg IV every 24 hours on Remdesivir day #3. He received his loading dose yesterday. His oxidation is remains stable and the patient is currently on 4 L of oxygen by nasal cannula. In terms of his inflammatory markers, his LDH level was 867 from the time of admission and the pro-calcitonin level was 0.96. D-dimer level is at 1.73 and the patient is also on Lovenox. His evaluation, the patient was noted to be lethargic and sleepy and somewhat confused. He is alert and oriented 1. Nevertheless, not absolutely sure there is any further decompensation in his oxygenation. On room air oxygen, his pulse ox was dropped down to 80%, currently is on 6 L and his pulse ox is up to 90%. I took off the nonrebreather facemask which she anyway he is unable to keep it on. I would suggest repeating inflammatory markers. I would suggest repeating a chest x-ray to get an objecti ve evaluation on his clinical progress. #2. Elevated inflammatory markers secondary to coronavirus infection. Improving #3. History of hyperlipidemia. #4. History of hypertension. #5. History of myocardial infarction. #6. BPH. #7. CAD, status post cardiac catheterization with stent. #8. Dementia. #9. A. fib with RVR, patient has been started on Cardizem and heparin infusion, has converted to sinus rhythm #10. Acute exacerbation of CHF, fluid overload, EF is unknown #11. Rule out possibility of underlying secondary bacterial infection, in view of elevated pro-calcitonin, possibly related to aspiration, patient has been empirically covered with Zosyn Plan: Continue current medical treatment Continue Decadron One more dose of Lasix 20 mg IV push Follow-up chest x-ray tomorrow Follow-up inflammatory markers, follow-up calcitonin Continue oral anticoagulation Continue empiric antibiotics Maintain aspiration precautions Follow-up electrolytes and renal profile We'll continue to follow I performed a history & physical examination of the patient and discussed their management with my nurse practitioner, Bre De Leon. I reviewed the nurse practitioner's note and agree with the documented findings and plan of care. Lung sounds are positive fordiminished breath sounds throughout the lung montaño. The findings and the impression was discussed with the patient. I attest to the documentation by the nurse practitioner. Time with Patient: Less than 30
[2021-05-30] MEDS: PIPERACILLIN-TAZOBACTAM 3.375 GM in SODIUM CHLORIDE 0.9% 100 ML IVPB SCH (17:36)
--- NOTE | 2021-05-30 17:37 | P.PN ---
Subjective Progress Note Date: 05/30/21 Progress Note Date: 05/30/21 HISTORY OF PRESENT ILLNESS: This is an 85-year-old white [place] male with a previous medical history significant for coronary artery disease status post PCI of the LCx back in 2019, hypertension and hypertensive cardio vascular disease, hyperlipidemia, ALLERGIC rhinitis, enlarged prostate, history of ALLERGIC rhinitis, vascular dementia, patient presented to the emergency department at [facility] yesterday after he was evaluated few days ago with positive Covid 19 infection and he was sent home with supportive care patient was not hypoxemic at that time, patient apparently fell last night and couldn't get up because of generalized weakness he ended up coming back to the hospital with increased shortness breath associated with increased and weakness he became quite hypoxemic with oxygen saturation at 89% on room air so he was admitted to the hospital for evaluation and treatment for COVID-19 pneumonia, patient underwent x-rays of the pelvis that did not show any evidence of acute fracture, patient underwent computed tomography scan of the head in the cervical spine that showed anterolisthesis of C4-C5 and severe degenerative disc disease of C5 C6 C6 and 7, without acute fracture, patient 12-lead EKG did not show evidence of acute ST-T wave changes, chest x-ray initially showed worsening infiltrate this was followed by CTA of the chest because of elevated d-dimer and elevated inflammatory markers and the patient was negative for pulmonary as well as a however it did show significant diffuse interstitial infiltrate suggestive of Covid 19 pneumonia, patient will be started on Remdesivir 200 mg loading dose followed by 100 mg daily for the next 5 days. 05/26: Patient apparently didn't sleep last night despite use of Xanax. We will add in Seroquel 12.5 mg twice daily., Heart rate 68, blood pressure 150/65, pul se ox 90% on 4 L nasal cannula. WBC 8.8, hemoglobin 12.5, platelet count 244. Electrolytes are normal. BUN 33 creatinine 1. Blood sugar 139. C-reactive protein 7.3. Blood cultures no growth at 24 hours 2 specimens. Patient has been seen by pulmonary medicine and continued on Remdesivir, Decadron, Lovenox and vitamin supplements. Patient has also been seen and followed by cardiology, atenolol on hold his heart rate has been in the 60s and occasionally in the 40s at night, cardiology has signed off. 05/27: Seen today in follow-up on the [facility] floor. His mental status is somewhat improved from yesterday after Seroquel was started. He is able to answer questions appropriately. He states that his breathing is better. He is on a nonrebreather with a pulse ox of 98% which will be weaned down today. Patient denies nausea or vomiting, not much appetite. mixer pigment has been sinus bradycardia with occasional trigeminy. Cardiology to be notified. Patient has been afebrile, heart rate 54, blood pressure 155/66. Patient's grandson is also hospitalized a few doors down from the patient. 05/28: A is seen today in follow-up. His mental status seems to be improved today. Patient went into A. fib with RVR with heart rate in the 110s and 120s, transferred to the cardiac stepdown unit. Cardizem drip currently at 5 mg per hour and patient has been started on heparin drip as well. Cardiology has plans for eliquis 5 mg twice daily and begin metoprolol to wean off Cardizem. TSH normal at 2.490. Patient remains afebrile. Pulse ox is 89 and 93% on 5 L nasal cannula. Repeat blood work reveals WBC 9.8, hemoglobin 12.5, platelet count 223. D-dimer 7.5. Electrolytes and renal function normal. LDH 345. 05/29: Patient is on 6 L nasal cannula with pulse ox 94%. He has been afebrile, heart rate 75, blood pressure 140/63, patient transition to sinus rhythm around midnight. Repeat blood work reveals WBC 12, hemoglobin 12.5, platelet count 220. Cardiology has started the patient on eliquis and continued Lopressor 12.5 g twice daily. Patient is continued on Remdesivir which will be completed today, dexamethasone 6 mg oral daily, vitamin supplements and eliquis. One dose of IV Lasix 20 mg ordered. 05/30: Patient is laying down in bed he is requiring about 5 L nasal cannula his current oxygenation is 94%, uses chest x-ray that did show worsening infiltrate, I started the patient on Zosyn 3.375 g IV piggyback every 6 hours, continue current pulmonary toileting, continue to monitor the patient, patient did respond to the Lasix yesterday and he is feeling much better today than yesterday he has no audible wheezes at this time, and he continues to be REVIEW OF SYSTEMS: Constitutional: No documented fever, no chills, no night sweats. No weight vargas ge. positive for weakness,positive for fatigue no lethargy. No daytime sleepiness. HEENT: Positive for headache. No blurred vision or double vision, no loss of vision. No loss of Hearing, no ringing in the ears, no dizziness. No nasal drainage or congestion. No epistaxis. No sore throat. Lungs: positive for shortness of breath, positive for cough, no sputum production. No wheezing. Reports dyspnea with activity. Cardiovascular: No chest pain, no lower extremity edema. No palpitations. No paroxysmal nocturnal dyspnea. No orthopnea. No lightheadedness or dizziness. No syncopal episodes. New onset atrial fibrillation Abdominal: Reports abdominal pain. No nausea, vomiting. No diarrhea. No constipation. No bloody or tarry stools reports loss of appetite. Genitourinary: No dysuria, increased frequency, urgency. No urinary retention. Musculoskeletal: positive for myalgias. No muscle weakness, no gait dysfunction, positive for falls. No back pain. positive for neck pain. Integumentary: No wounds, no lesions. No rash or pruritus. No unusual bruising. No change in hair or nails. Neurologic: No aphasia. No facial droop. Noted change in mentation with underlying dementia. No head injury. No headache. No paralysis. No paresthesia. Psychiatric: No depression. No anxiety. Endocrine: No abnormal blood sugars. PHYSICAL EXAMINATION: General: 85-year-old male sitting up in bed and appears to be in no acute distress.. HEENT: Head is atraumatic, normocephalic, pupils were equal round reactive to light and recommendation, extraocular muscle movement were intact, sclera nonicteric, conjunctivae were pale, mucous membranes of the mouth are somewhat dry. Neck: Supple, no JVP, normal carotid upstroke bilaterally, no lymphadenopathy. Chest: Decreased breath sounds at the bases, few rhonchi, no extremity wheezes, no chest wall tenderness, no intercostal retractions. Heart: First heart sound is normal, second heart sounds normal, regular rhythm, there is systolic ejection murmur 2/6 located in the left sternal border. Abdomen: Soft, nontender, nondistended, positive bowel sounds, there is no hepatosplenomegaly. Extremities: There is no edema no calf tenderness DP +2 bilaterally. Neurologic examination: Patient is awake and alert and oriented x3. ASSESSMENT AND PLAN: 1. COVID-19 pneumonia associated with hypoxemia is presenting oxygen suf ficient was 89% room air currently on 5 L nasal cannula, Decadron 6 mg oral daily, vitamin C 1000 mg every day, vitamin D 1000 units once every day as well as zinc 220 mg orally once every day, Remdesivir course completed, pulmonary consultation appreciated, continue droplet precautions as well as eye protection, start Zosyn 3.375 g IV piggyback every 6 hours. 2. Generalized weakness with fall likely related to COVID-19 pneumonia. We will continue with the treatment as in previous paragraph. Physical therapy evaluation. 3. New onset atrial fibrillation, paroxysmal atrial fibrillation. Patient transferred to the cardiac stepdown unit, cardiology consult appreciated. Heparin drip transitioned to eliquis, Cardizem drip has been discontinued, continue metoprolol 12.5 mg twice daily. 4. CAD post-PCI of the LCx. Continue patient on aspirin 81 mg once every day, Plavix 75 mg orally once every day, continue atenolol 25 mg orally once every day, continue atorvastatin 80 mg once every day, cardiology consultation. 5. Hypertension and hypertensive cardiovascular disease. Continue patient on metoprolol, lisinopril 10 mg orally once every day, monitor the patient very closely. 6. Hyperlipidemia. Continue patient on atorvastatin 80 mg orally once every day. 7. ALLERGIC rhinitis. Continue Zyrtec 10 mg once every day as well as Flonase nasal spray 1 puff in each nostril twice every day. 8. Vascular dementia. Continue donepezil 10 mg orally once every day. 9. Enlarged prostate. Continue Flomax 0.4 mg orally once every day as well as finasteride 5 mg once every day. 10. DVT prophylaxis. Heparin drip. 11. GI prophylaxis. Continue Protonix 40 mg every day. 12. Patient is full code. Objective - Vital Signs Vital signs: Vital Signs Temp 98.0 F 05/30/21 05:34 Pulse 67 05/30/21 05:34 Resp 20 05/30/21 05:34 BP 139/67 05/30/21 05:34 Pulse Ox 88 L 05/30/21 05:34 Intake & Output 05/29/21 05/30/21 05/30/21 18:59 06:59 18:59 Intake Total 240 220 Output Total 650 Balance 240 -430 Weight 79.379 kg Intake: Intake, IV Titration 120 Amount Sodium Chloride 0.9% 1, 120 000 ml @ 20 mls/hr IV . Q24H [facility] Rx#:[id number] Oral 240 100 Output: Urine 650 Other: Voiding Method Bedside Commode Bedside Commode Urinal Urinal Incontinent Incontinent # Voids 1 - Labs CBC & Chem 7: 05/29/21 07:21 05/28/21 05:17 Labs: Abnormal Lab Results - Last 24 Hours (Table) 05/29/21 Range/Units 07:21 WBC 12.0 H (3.8-10.6) k/uL RBC 4.07 L (4.30-5.90) m/uL Hgb 12.5 L (13.0-17.5) gm/dL Hct 38.2 L (39.0-53.0) % Neutrophils # 11.6 H (1.3-7.7) k/uL Lymphocytes # 0.2 L (1.0-4.8) k/uL Microbiology - Last 24 Hours (Table) 05/24/21 12:58 Blood Culture - Preliminary Blood No Growth after 120 hours 05/24/21 13:02 Blood Culture - Preliminary Blood No Growth after 120 hours
[2021-05-30] MEDS: SODIUM CHLORIDE 0.9% 1,000 ML IV SCH (19:37)
[2021-05-30] MEDS: ATORVASTATIN 80 MG TAB PO SCH (21:16)
[2021-05-30] MEDS: DONEPEZIL 10 MG TAB PO SCH (21:16)
[2021-05-30] MEDS: ACETAMINOPHEN TAB 325 MG TAB PO PRN (21:19)
[2021-05-30 21:28] LABS: Glucose,Whole Blood 265 mg/dL (75-99)
[2021-05-30 22:38] LABS: Basophils % (A) 0 %; Eosinophils % (A) 0 %; HCT 37.6 % (39.0-53.0); HGB 12.8 gm/dL (13.0-17.5); Lymphocytes # (A) 0.1 k/uL (1.0-4.8); Lymphocytes % (A) 1 %; MCH 30.7 pg (25.0-35.0); MCV 90.5 fL (80.0-100.0); Mean Platelet Volume 8.2; Monocytes # (A) 0.3 k/uL (0-1.0); Monocytes % (A) 2 %; Neutrophils # (A) 12.6 k/uL (1.3-7.7); Neutrophils % (A) 96 %; Platelet Count 262 k/uL (150-450); RBC 4.16 m/uL (4.30-5.90); RDW 13.9 % (11.5-15.5); WBC 13.1 k/uL (3.8-10.6)
[2021-05-30 22:49] LABS: Albumin 2.3 g/dL (3.5-5.0); Calcium 8.5 mg/dL (8.4-10.2); Magnesium 1.9 mg/dL (1.6-2.3); Total Bilirubin 0.4 mg/dL (0.2-1.3); Total Protein 4.6 g/dL (6.3-8.2)
[2021-05-31] MEDS: PIPERACILLIN-TAZOBACTAM 3.375 GM in SODIUM CHLORIDE 0.9% 100 ML IVPB SCH ×4 (00:06→23:55)
[2021-05-31] MEDS: ACETAMINOPHEN TAB 325 MG TAB PO PRN ×2 (03:56→20:40)
[2021-05-31] MEDS: PANTOPRAZOLE 40 MG TABLET PO SCH (06:24)
[2021-05-31] MEDS: ALBUTEROL HFA INHALER INHALATION PRN ×4 (08:51→19:49)
[2021-05-31] MEDS: ASCORBIC ACID 500 MG TAB PO SCH ×2 (08:55→20:40)
[2021-05-31] MEDS: CLOPIDOGREL 75 MG TAB PO SCH (08:55)
[2021-05-31] MEDS: LORATADINE 10 MG TAB PO SCH (08:55)
[2021-05-31] MEDS: dexAMETHasone 2 MG TAB PO SCH (08:55)
[2021-05-31] MEDS: METOPROLOL TARTRATE 12.5 MG TAB PO SCH ×2 (08:55→20:40)
[2021-05-31] MEDS: APIXABAN 5 MG TAB PO SCH ×2 (08:56→20:40)
[2021-05-31] MEDS: lisinopriL 10 MG TAB PO SCH (08:56)
[2021-05-31] MEDS: TAMSULOSIN 0.4 MG CAP.ER.24H PO SCH (08:56)
[2021-05-31] MEDS: ZINC SULFATE 220 MG CAP PO SCH (08:56)
[2021-05-31] MEDS: CHOLECALCIFEROL 25 MCG (1000 IU) TABLET PO SCH (08:56)
[2021-05-31] MEDS: FINASTERIDE 5 MG TAB PO SCH (08:56)
[2021-05-31] MEDS: QUEtiapine 25 MG TAB PO SCH ×2 (08:56→20:40)
--- NOTE | 2021-05-31 09:37 | P.PN ---
Subjective Progress Note Date: 05/31/21 Progress Note Date: 05/31/21 HISTORY OF PRESENT ILLNESS: This is an 85-year-old white [place] male with a previous medical history significant for coronary artery disease status post PCI of the LCx back in 2019, hypertension and hypertensive cardio vascular disease, hyperlipidemia, ALLERGIC rhinitis, enlarged prostate, history of ALLERGIC rhinitis, vascular dementia, patient presented to the emergency department at [facility] yesterday after he was evaluated few days ago with positive Covid 19 infection and he was sent home with supportive care patient was not hypoxemic at that time, patient apparently fell last night and couldn't get up because of generalized weakness he ended up coming back to the hospital with increased shortness breath associated with increased and weakness he became quite hypoxemic with oxygen saturation at 89% on room air so he was admitted to the hospital for evaluation and treatment for COVID-19 pneumonia, patient underwent x-rays of the pelvis that did not show any evidence of acute fracture, patient underwent computed tomography scan of the head in the cervical spine that showed anterolisthesis of C4-C5 and severe degenerative disc disease of C5 C6 C6 and 7, without acute fracture, patient 12-lead EKG did not show evidence of acute ST-T wave changes, chest x-ray initially showed worsening infiltrate this was followed by CTA of the chest because of elevated d-dimer and elevated inflammatory markers and the patient was negative for pulmonary as well as a however it did show significant diffuse interstitial infiltrate suggestive of Covid 19 pneumonia, patient will be started on Remdesivir 200 mg loading dose followed by 100 mg daily for the next 5 days. 05/26: Patient apparently didn't sleep last night despite use of Xanax. We will add in Seroquel 12.5 mg twice daily., Heart rate 68, blood pressure 150/65, pul se ox 90% on 4 L nasal cannula. WBC 8.8, hemoglobin 12.5, platelet count 244. Electrolytes are normal. BUN 33 creatinine 1. Blood sugar 139. C-reactive protein 7.3. Blood cultures no growth at 24 hours 2 specimens. Patient has been seen by pulmonary medicine and continued on Remdesivir, Decadron, Lovenox and vitamin supplements. Patient has also been seen and followed by cardiology, atenolol on hold his heart rate has been in the 60s and occasionally in the 40s at night, cardiology has signed off. 05/27: Seen today in follow-up on the [facility] floor. His mental status is somewhat improved from yesterday after Seroquel was started. He is able to answer questions appropriately. He states that his breathing is better. He is on a nonrebreather with a pulse ox of 98% which will be weaned down today. Patient denies nausea or vomiting, not much appetite. teletypesetter monitor has been sinus bradycardia with occasional trigeminy. Cardiology to be notified. Patient has been afebrile, heart rate 54, blood pressure 155/66. Patient's grandson is also hospitalized a few doors down from the patient. 05/28: A is seen today in follow-up. His mental status seems to be improved today. Patient went into A. fib with RVR with heart rate in the 110s and 120s, transferred to the cardiac stepdown unit. Cardizem drip currently at 5 mg per hour and patient has been started on heparin drip as well. Cardiology has plans for eliquis 5 mg twice daily and begin metoprolol to wean off Cardizem. TSH normal at 2.490. Patient remains afebrile. Pulse ox is 89 and 93% on 5 L nasal cannula. Repeat blood work reveals WBC 9.8, hemoglobin 12.5, platelet count 223. D-dimer 7.5. Electrolytes and renal function normal. LDH 345. 05/29: Patient is on 6 L nasal cannula with pulse ox 94%. He has been afebrile, heart rate 75, blood pressure 140/63, patient transition to sinus rhythm around midnight. Repeat blood work reveals WBC 12, hemoglobin 12.5, platelet count 220. Cardiology has started the patient on eliquis and continued Lopressor 12.5 g twice daily. Patient is continued on Remdesivir which will be completed today, dexamethasone 6 mg oral daily, vitamin supplements and eliquis. One dose of IV Lasix 20 mg ordered. 05/30: Patient is laying down in bed he is requiring about 5 L nasal cannula his current oxygenation is 94%, uses chest x-ray that did show worsening infiltrate, I started the patient on Zosyn 3.375 g IV piggyback every 6 hours, continue current pulmonary toileting, continue to monitor the patient, patient did respond to the Lasix yesterday and he is feeling much better today than yesterday he has no audible wheezes at this time. 05/31: Patient is sitting up in bed in no apparent distress, he continues to be on a nonrebreather mask, his oxygen above 93%, he denies any chest pain he denies any coughing of phlegm production, his monitor showing H her fibrillation with controlled rate, continue with the patient on Eliquis, continue patient on metoprolol, monitor the patient very closely continue IV antibiotic in the form of Zosyn, physical therapy evaluation, patient will likely require subacute rehabilitation. REVIEW OF SYSTEMS: Constitutional: No documented fever, no chills, no night sweats. No weight change. positive for weakness,positive for fatigue no lethargy. No daytime sleepiness. HEENT: Positive for headache. No blurred vision or double vision, no loss of vision. No loss of Hearing, no ringing in the ears, no dizziness. No nasal drainage or congestion. No epistaxis. No sore throat. Lungs: positive for shortness of breath, positive for cough, no sputum production. No wheezing. Reports dyspnea with activity. Cardiovascular: No chest pain, no lower extremity edema. No palpitations. No paroxysmal nocturnal dyspnea. No orthopnea. No lightheadedness or dizziness. No syncopal episodes. New onset atrial fibrillation Abdominal: Reports abdominal pain. No nausea, vomiting. No diarrhea. No constipation. No bloody or tarry stools reports loss of appetite. Genitourinary: No dysuria, increased frequency, urgency. No urinary retention. Musculoskeletal: positive for myalgias. No muscle weakness, no gait dys function, positive for falls. No back pain. positive for neck pain. Integumentary: No wounds, no lesions. No rash or pruritus. No unusual bruising. No change in hair or nails. Neurologic: No aphasia. No facial droop. Noted change in mentation with underlying dementia. No head injury. No headache. No paralysis. No paresthesia. Psychiatric: No depression. No anxiety. Endocrine: No abnormal blood sugars. PHYSICAL EXAMINATION: General: 85-year-old male sitting up in bed and appears to be in no acute distress.. HEENT: Head is atraumatic, normocephalic, pupils were equal round reactive to light and recommendation, extraocular muscle movement were intact, sclera nonicteric, conjunctivae were pale, mucous membranes of the mouth are somewhat dry. Neck: Supple, no JVP, normal carotid upstroke bilaterally, no lymphadenopathy. Chest: Decreased breath sounds at the bases, few rhonchi, no extremity wheezes, no chest wall tenderness, no intercostal retractions. Heart: First heart sound is normal, second heart sounds normal, regular rhythm, there is systolic ejection murmur 2/6 located in the left sternal border, irregularly irregular due to atrial fibrillation. Abdomen: Soft, nontender, nondistended, positive bowel sounds, there is no hepatosplenomegaly. Extremities: There is no edema no calf tenderness DP +2 bilaterally. Neurologic examination: Patient is awake and alert and oriented x2, patient moves all his extremities, muscle power 4/5 in upper and lower extremities bilaterally. ASSESSMENT AND PLAN: 1. COVID-19 pneumonia associated with hypoxemia is presenting oxygen sufficient was 89% room air currently on 15 L nasal cannula, Decadron 6 mg oral daily, vitamin C 1000 mg every day, vitamin D 1000 units once every day as well as zinc 220 mg orally once every day, Remdesivir course completed, pulmonary consultation appreciated, continue droplet precautions as well as eye protection, continue Zosyn 3.375 g IV piggyback every 6 hours. 2. Generalized weakness with fall likely related to COVID-19 pneumonia. We will continue with the treatment as in previous paragraph. Physical therapy evaluation. 3. New onset atrial fibrillation, paroxysmal atrial fibrillation. Patient transferred to the cardiac stepdown unit, cardiology consult appreciated. . continue patient on metoprolol 12.5 mg orally twice every day as well as Eliquis 5 mg orally twice every day. 4. CAD post-PCI of the LCx. Plavix 75 mg orally once every day, continue metoprolol 12.5 mg orally twice every day, continue atorvastatin 80 mg once every day. 5. Hypertension and hypertensive cardiovascular disease. Continue patient on metoprolol, lisinopril 10 mg orally once every day, continue metoprolol 12.5 mg orally twice every day. 6. Hyperlipidemia. Continue patient on atorvastatin 80 mg orally once every day. 7. ALLERGIC rhinitis. Continue Zyrtec 10 mg once every day as well as Flonase nasal spray 1 puff in each nostril twice every day. 8. Vascular dementia. Continue donepezil 10 mg orally once every day. 9. Enlarged prostate. Continue Flomax 0.4 mg orally once every day as well as finasteride 5 mg once every day. 10. DVT prophylaxis. continue patient on Eliquis 5 mg orally twice every day. 11. GI prophylaxis. Continue Protonix 40 mg every day. 12. Patient is full code. 13. Likely will require subacute rehabilitation. Objective - Vital Signs Vital signs: Vital Signs Temp 100.3 F H 05/31/21 04:00 Pulse 80 05/31/21 04:00 Resp 19 05/31/21 04:00 BP 114/54 05/31/21 04:00 Pulse Ox 92 L 05/31/21 08:53 Intake & Output 05/30/21 05/31/21 05/31/21 18:59 06:59 18:59 Intake Total 360 Balance 360 Intake: Oral 360 Other: Voiding Method Bedside Commode Bedside Commode Urinal Urinal Incontinent Incontinent # Voids 2 - Labs CBC & Chem 7: 05/30/21 22:19 05/30/21 22:19 Labs: Abnormal Lab Results - Last 24 Hours (Table) 05/30/21 05/30/21 05/30/21 Range/Units 21:27 22:19 22:19 WBC 13.1 H (3.8-10.6) k/uL RBC 4.16 L (4.30-5.90) m/uL Hgb 12.8 L (13.0-17.5) gm/dL Hct 37.6 L (39.0-53.0) % Neutrophils # 12.6 H (1.3-7.7) k/uL Lymphocytes # 0.1 L (1.0-4.8) k/uL Sodium 134 L (137-145) mmol/L BUN 38 H (9-20) mg/dL Glucose 284 H (74-99) mg/dL POC Glucose (mg/dL) 265 H (75-99) mg/dL Total Protein 4.6 L (6.3-8.2) g/dL Albumin 2.3 L (3.5-5.0) g/dL Microbiology - Last 24 Hours (Table) 05/24/21 13:02 Blood Culture - Final Blood No Growth after 144 hours 05/24/21 12:58 Blood Culture - Final Blood No Growth after 144 hours
[2021-05-31] MEDS ORDERED: FUROSEMIDE 10 MG/ML 2 ML VIAL IV ONE (10:51)
--- NOTE | 2021-05-31 10:51 | P.PN ---
Subjective Progress Note Date: 05/31/21 There is evaluation of 05/26/2021, I'm seeing this patient for a follow-up. Is an 85-year-old male patient with known history of dementia. He was hospitalized with Coumadin. Pneumonia the patient diffuse bilateral pulmonary infiltrates. He is currently on IV Decadron and the patient was started on of the severe associated his loading dose yesterday and today is day #2. He remains on oxygen at 4 L. His LDH level is low. Pro-calcitonin level is not elevated. Chest x- ray showing diffuse bilateral pulmonary infiltrates. He is also known to have comorbidities including hypertension, hyperlipidemia, CAD, BPH, previous history of PCI and stenting and he is a former smoker. He is afebrile. D-dimer is not elevated. White cell count at 8.8. Hemoglobin is at 12.5. No other significant abnormalities in his electrolytes. He was having some difficulties in falling sleep yesterday and the patient was given Seroquel 12.5 mg overnight and twice a day. Otherwise, no other significant events. He is confused. He is breathing is nonlabored. Pulse ox on room air is still under 90%. This is a vaccinated individual. 05/27/2021, the patient is being seen for a follow-up. The patient was h ospitalized for overnight. His pneumonia and the patient had diffuse bilateral pulmonary infiltrates. The patient was treated with Decadron and Remdesivir and today is day #3 of treatment. He remains on oxygen and currently is on nonrebreather and his oxidation is gotten worse since yesterday. Note that yesterday during my earlier evaluation, he was only on 4 L of oxygen by nasal cannula. He remains afebrile. On 100% nonrebreather facemask, his pulse ox is up to 97%. Note that he had to be gradually increased on his oxygen flow. As stated he was on 4 L and he was brought up to 5 L and later on high flow oxygen and now is on a nonrebreather facemask. His LDH level from yesterday was 867. His blood work shows a sodium of 139 potassium of 4.3, bicarb of 23, normal renal function with a creatinine of 1.0. His white cell count is at 8.8 with a hemoglobin of 12.5. He is having occasional an ongoing dry cough. He remains on Decadron 6 mg daily. He is on third day of Remdesivir. Neurologically, there is confused. No agitation. His alert and oriented 1. His d-dimer was at 1.75 from 05/24/2021. On 05/28/2021 patient seen in follow-up on selective care unit, patient has been transferred to [facility]. related to going into [facility] with RVR, he was started on Cardizem infusion for rate control, and heparin infusion for anticoagulation. Patient is currently resting comfortably in bed, mildly dyspneic, he has removed his oxygen, and his from her pulse ox is 81%. He was placed back on 2 L of oxygen, and his pulse ox came up to 88-90%. He is afebrile, lung sounds reveal bibasilar crackles, today's chest x-ray shows bilateral multifocal confluent reticulonodular opacities, with no significant change from most recent studies. Patient remains on Decadron 6 mg daily, heparin infusion is being converted to oral anticoagulation in the form of Eliquis, and she is on Remdesivir, day 4 of treatment On today's evaluation on 05/29/2021 patient seen in follow-up on selective care unit, he is sitting comfortably in bed, he is currently on 6 L of oxygen pulse ox is 94%, breathing comfortably, vital signs have been stable, patient has converted to sinus rhythm, heparin drip has been discontinued, patient has been started on Eliquis for anticoagulation, and metoprolol 12.5 mg twice daily. Cardiology is following, as given a dose of Lasix yesterday, his IV fluids have been stopped to KVO, patient has been tolerating oral intake, no nausea or vomiting. No new chest x-ray today, he will be completing his Remdesivir course today, he also remains on Decadron and COVID-19 vitamins. His lab 7 reviewed, blood blood cell count is 12, hemoglobin is 12.5, BMP results are still pending today, inflammatory markers were improving on yesterday's labs. Pro-calcitonin level was 0.96, suggesting possibility of underlying bacterial infection. Occasional cough, no phlegm production. Blood culture has shown no growth. On 05/30/2021 patient seen in follow-up on selective care unit, he is resting comfortably in bed, in no acute distress, he is currently on 6 L of oxygen his pulse ox is 90%, denies any respiratory difficulty, occasional cough, no complaint of chest discomfort, yesterday he received a dose of IV Lasix 20 mg, and -190 mL net fluid balance over the last 24 hours, the exact Balance is not available to us as the patient has been using the urinal, and has been incontinent as well. No new chest x-ray, his last chest x-ray from yesterday showed worsening peripheral infiltrates. Today we will give the patient another dose of Lasix, his proBNP level came back elevated at 6730. No lower extremity edema, patient has converted to sinus mechanism, he is currently on Eliquis for anticoagulation, and has been started on Lopressor 12.5 milligram twice daily. Decadron is at 6 mg daily. He is also on Zosyn for empiric antibiotic coverage view of elevated pro-calcitonin of 0.96. 05/31/2021, the patient is resting comfortably in bed. He had to be placed on a nonrebreather facemask and his pulse ox is currently around 93%. Despite the switch, the patient's breathing is nonlabored. She is resting comfortably in bed. Noted earlier to this, the patient was on 5 L of Oxymizer by nasal cannula. I was told that he took his oxygen overnight and he desaturated significantly and following that he was placed on nonrebreather facemask. A repeat chest x-ray was done today and this was completed. Earlier chest x-rays and I feel that the findings or worsen worsening consolidation of the right lateral chest area and left perihilar area and this goes along with his worsening in his oxygenation. Hemodynamically, the patient remains stable. He did have a temperature of 100.3 yesterday and currently is afebrile. His respiratory rate is in the mid tens and the patient is not having any labored breathing at this point in time. His communicating. He has occasional cough. The patient remains on Zosyn as empiric antibiotic coverage. The patient rem ains on Decadron 6 mg by mouth daily. The patient remains on Eliquis for long- term anticoagulation. Objective - Vital Signs Vital signs: Vital Signs Temp 98.0 F 05/31/21 10:00 Pulse 89 05/31/21 10:00 Resp 18 05/31/21 10:00 BP 93/54 05/31/21 10:00 Pulse Ox 88 L 05/31/21 10:00 Intake & Output 05/30/21 05/31/21 05/31/21 18:59 06:59 18:59 Intake Total 360 Balance 360 Intake: Oral 360 Other: Voiding Method Bedside Commode Bedside Commode Bedside Commode Urinal Urinal Urinal Incontinent Incontinent Incontinent # Voids 2 - Exam No acute distress, confused, breathing is nonlabored and the patient remains in the 100% nonrebreather facemask at this point in time HEENT examination is grossly unremarkable. Neck supple. Full range of motion. No adenopathy thyromegaly or neck vein distention. Cardiovascular examination reveals regular rhythm rate. S1-S2 normal. No S3 or S4. No discernible murmur noted. Heart sounds are distant. bpm. Lungs reveal diffuse bilateral rhonchi. No wheezes. No crackles. Breath sounds equal bilaterally. Abdomen soft bowel sounds are heard. No masses or tenderness. Extremities are intact. No cyanosis clubbing or edema. Skin is without rash or lesion. Neurologic examination is brief but nonfocal. she is confused, no agitation, moving all 4 extremities. He is lethargic and sleepy. - Labs CBC & Chem 7: 05/30/21 22:19 05/30/21 22:19 Labs: Abnormal Lab Results - Last 24 Hours (Table) 05/30/21 05/30/21 05/30/21 Range/Units 21:27 22:19 22:19 WBC 13.1 H (3.8-10.6) k/uL RBC 4.16 L (4.30-5.90) m/uL Hgb 12.8 L (13.0-17.5) gm/dL Hct 37.6 L (39.0-53.0) % Neutrophils # 12.6 H (1.3-7.7) k/uL Lymphocytes # 0.1 L (1.0-4.8) k/uL Sodium 134 L (137-145) mmol/L BUN 38 H (9-20) mg/dL Glucose 284 H (74-99) mg/dL POC Glucose (mg/dL) 265 H (75-99) mg/dL Total Protein 4.6 L (6.3-8.2) g/dL Albumin 2.3 L (3.5-5.0) g/dL Microbiology - Last 24 Hours (Table) 05/24/21 13:02 Blood Culture - Final Blood No Growth after 144 hours 05/24/21 12:58 Blood Culture - Final Blood No Growth after 144 hours Assessment and Plan Plan: 1 Acute hypoxemic respiratory failure secondary to coronavirus associated pneumonia. The patient is currently on Decadron 6 mg po every 24 and the patient also completed Remdesivir course and he completed a total of 5 days. He was on 4 L of oxygen by nasal cannula. This morning, his condition is worse and the patient is currently on the percent nonrebreather facemask. The chest x-ray shows interval worsening of the bilateral pulmonary infiltrates. There is obviously concern. The patient is covered empirically with IV Zosyn. He remains on Decadron. Blood work including thyroid and markers are pending from today. His breathing is nonlabored. . Neurologically, he is lethargic and sleepy. He was started on Seroquel. He has underlying dementia. 2 Elevated inflammatory markers secondary to coronavirus infection. 3 History of hyperlipidemia. 4 History of hypertension. 5 History of myocardial infarction. 6 BPH. 7 CAD, status post cardiac catheterization with stent. 8 Dementia. Plan: Repeat inflammatory markers Repeat d-dimer Repeat chest x-ray noted and there is obvious worsening of the chest x-ray findings Continue Decadron 6 mg IV every 24 hours The patient is completed Remdesivir The patient on anticoagulation with vitamin C and vitamin D3 and zinc We'll continue to follow. Condition of his is getting worse. We'll continue monitoring his progress. He remains a full code. Repeat chest x-ray in the morning. Attempt to titrate FiO2 as possible to maintain a saturation above 90%.
[2021-05-31 12:46] LABS: Basophils % (A) 0 %; Eosinophils % (A) 0 %; HCT 39.4 % (39.0-53.0); HGB 13.5 gm/dL (13.0-17.5); Lymphocytes # (A) 0.2 k/uL (1.0-4.8); Lymphocytes % (A) 2 %; MCH 31.3 pg (25.0-35.0); MCHC 34.3 g/dL (31.0-37.0); MCV 91.3 fL (80.0-100.0); Mean Platelet Volume 8.1; Monocytes # (A) 0.2 k/uL (0-1.0); Monocytes % (A) 2 %; Neutrophils % (A) 95 %; Platelet Count 251 k/uL (150-450); RBC 4.32 m/uL (4.30-5.90); WBC 10.5 k/uL (3.8-10.6)
[2021-05-31 13:03] LABS: Albumin 2.3 g/dL (3.5-5.0); C Reactive Protein 7.8 mg/dL (<1.0); Calcium 8.5 mg/dL (8.4-10.2); Potassium 3.7 mmol/L (3.5-5.1); Total Bilirubin 0.3 mg/dL (0.2-1.3); Total Protein 4.7 g/dL (6.3-8.2)
--- NOTE | 2021-05-31 15:26 | XR ---
EXAMINATION TYPE: XR chest 1V portable DATE OF EXAM: 05/31/2021 COMPARISON: 05/29/2021 INDICATION: Covid TECHNIQUE: Single frontal view of the chest is obtained. FINDINGS: The heart size is probably prominent. The pulmonary vasculature is normal. Patchy bilateral lung infiltrates are present. These are in the periphery and are nonspecific but can be compatible with atypical pneumonia. Bilateral shoulder prostheses are present. IMPRESSION: 1. Diffuse bilateral lung infiltrates in the periphery, worsening from comparison. Findings can be co mpatible with atypical pneumonia.
[2021-05-31] MEDS: SODIUM CHLORIDE 0.9% 1,000 ML IV SCH (17:35)
[2021-05-31] MEDS: ATORVASTATIN 80 MG TAB PO SCH (20:40)
[2021-05-31] MEDS: DONEPEZIL 10 MG TAB PO SCH (20:40)
[2021-06-01] MEDS: PANTOPRAZOLE 40 MG TABLET PO SCH (06:40)
[2021-06-01] MEDS: ALBUTEROL HFA INHALER INHALATION PRN ×2 (08:14→12:37)
--- NOTE | 2021-06-01 08:31 | P.PN ---
Subjective Progress Note Date: 06/01/21 Progress Note Date: 06/01/21 HISTORY OF PRESENT ILLNESS: This is an 85-year-old white [place] male with a previous medical history significant for coronary artery disease status post PCI of the LCx back in 2019, hypertension and hypertensive cardio vascular disease, hyperlipidemia, ALLERGIC rhinitis, enlarged prostate, history of ALLERGIC rhinitis, vascular dementia, patient presented to the emergency department at [facility] yesterday after he was evaluated few days ago with positive Covid 19 infection and he was sent home with supportive care patient was not hypoxemic at that time, patient apparently fell last night and couldn't get up because of generalized weakness he ended up coming back to the hospital with increased shortness breath associated with increased and weakness he became quite hypoxemic with oxygen saturation at 89% on room air so he was admitted to the hospital for evaluation and treatment for COVID-19 pneumonia, patient underwent x-rays of the pelvis that did not show any evidence of acute fracture, patient underwent computed tomography scan of the head in the cervical spine that showed anterolisthesis of C4-C5 and severe degenerative disc disease of C5 C6 C6 and 7, without acute fracture, patient 12-lead EKG did not show evidence of acute ST-T wave changes, chest x-ray initially showed worsening infiltrate this was followed by CTA of the chest because of elevated d-dimer and elevated inflammatory markers and the patient was negative for pulmonary as well as a however it did show significant diffuse interstitial infiltrate suggestive of Covid 19 pneumonia, patient will be started on Remdesivir 200 mg loading dose followed by 100 mg daily for the next 5 days. 05/26: Patient apparently didn't sleep last night despite use of Xanax. We will add in Seroquel 12.5 mg twice daily., Heart rate 68, blood pressure 150/65, pul se ox 90% on 4 L nasal cannula. WBC 8.8, hemoglobin 12.5, platelet count 244. Electrolytes are normal. BUN 33 creatinine 1. Blood sugar 139. C-reactive protein 7.3. Blood cultures no growth at 24 hours 2 specimens. Patient has been seen by pulmonary medicine and continued on Remdesivir, Decadron, Lovenox and vitamin supplements. Patient has also been seen and followed by cardiology, atenolol on hold his heart rate has been in the 60s and occasionally in the 40s at night, cardiology has signed off. 05/27: Seen today in follow-up on the [facility] floor. His mental status is somewhat improved from yesterday after Seroquel was started. He is able to answer questions appropriately. He states that his breathing is better. He is on a nonrebreather with a pulse ox of 98% which will be weaned down today. Patient denies nausea or vomiting, not much appetite. communication center coordinator has been sinus bradycardia with occasional trigeminy. Cardiology to be notified. Patient has been afebrile, heart rate 54, blood pressure 155/66. Patient's grandson is also hospitalized a few doors down from the patient. 05/28: A is seen today in follow-up. His mental status seems to be improved today. Patient went into A. fib with RVR with heart rate in the 110s and 120s, transferred to the cardiac stepdown unit. Cardizem drip currently at 5 mg per hour and patient has been started on heparin drip as well. Cardiology has plans for eliquis 5 mg twice daily and begin metoprolol to wean off Cardizem. TSH normal at 2.490. Patient remains afebrile. Pulse ox is 89 and 93% on 5 L nasal cannula. Repeat blood work reveals WBC 9.8, hemoglobin 12.5, platelet count 223. D-dimer 7.5. Electrolytes and renal function normal. LDH 345. 05/29: Patient is on 6 L nasal cannula with pulse ox 94%. He has been afebrile, heart rate 75, blood pressure 140/63, patient transition to sinus rhythm around midnight. Repeat blood work reveals WBC 12, hemoglobin 12.5, platelet count 220. Cardiology has started the patient on eliquis and continued Lopressor 12.5 g twice daily. Patient is continued on Remdesivir which will be completed today, dexamethasone 6 mg oral daily, vitamin supplements and eliquis. One dose of IV Lasix 20 mg ordered. 05/30: Patient is laying down in bed he is requiring about 5 L nasal cannula his current oxygenation is 94%, uses chest x-ray that did show worsening infiltrate, I started the patient on Zosyn 3.375 g IV piggyback every 6 hours, continue current pulmonary toileting, continue to monitor the patient, patient did respond to the Lasix yesterday and he is feeling much better today than yesterday he has no audible wheezes at this time. 05/31: Patient is sitting up in bed in no apparent distress, he continues to be on a nonrebreather mask, his oxygen above 93%, he denies any chest pain he denies any coughing of phlegm production, his monitor showing H her fibrillation with controlled rate, continue with the patient on Eliquis, continue patient on metoprolol, monitor the patient very closely continue IV antibiotic in the form of Zosyn, physical therapy evaluation, patient will likely require subacute rehabilitation. 06/01: Patient is laying down in bed in moderate respiratory distress he continues to require 15L , continues to be on Zosyn 3.375 g IV piggyback every 8 hours, for which is interested continue them dictation, [facility], monitor the patient very closely, spoke with his son-in-law over the phone as his daughter was asleep, and updated of the current situation of the patient plan of care. REVIEW OF SYSTEMS: Constitutional: No documented fever, no chills, no night sweats. No weight change. positive for weakness,positive for fatigue no lethargy. No daytime sleepiness. HEENT: Positive for headache. No blurred vision or double vision, no loss of vision. No loss of Hearing, no ringing in the ears, no dizziness. No nasal drainage or congestion. No epistaxis. No sore throat. Lungs: positive for shortness of breath, positive for cough, no sputum production. No wheezing. Reports dyspnea with activity. Cardiovascular: No chest pain, no lower extremity edema. No palpitations. No p aroxysmal nocturnal dyspnea. No orthopnea. No lightheadedness or dizziness. No syncopal episodes. New onset atrial fibrillation Abdominal: Reports abdominal pain. No nausea, vomiting. No diarrhea. No constipation. No bloody or tarry stools reports loss of appetite. Genitourinary: No dysuria, increased frequency, urgency. No urinary retention. Musculoskeletal: positive for myalgias. No muscle weakness, no gait dysfunction, positive for falls. No back pain. positive for neck pain. Integumentary: No wounds, no lesions. No rash or pruritus. No unusual bruising. No change in hair or nails. Neurologic: No aphasia. No facial droop. Noted change in mentation with underlying dementia. No head injury. No headache. No paralysis. No paresthesia. Psychiatric: No depression. No anxiety. Endocrine: No abnormal blood sugars. PHYSICAL EXAMINATION: General: 85-year-old male sitting up in bed and appears to be in no acute distress.. HEENT: Head is atraumatic, normocephalic, pupils were equal round reactive to light and recommendation, extraocular muscle movement were intact, sclera nonicteric, conjunctivae were pale, mucous membranes of the mouth are somewhat dry. Neck: Supple, no JVP, normal carotid upstroke bilaterally, no lymphadenopathy. Chest: Decreased breath sounds at the bases, few rhonchi, no extremity wheezes, no chest wall tenderness, no intercostal retractions. Heart: First heart sound is normal, second heart sounds normal, regular rhythm, there is systolic ejection murmur 2/6 located in the left sternal border, irregularly irregular due to atrial fibrillation. Abdomen: Soft, nontender, nondistended, positive bowel sounds, there is no hepatosplenomegaly. Extremities: There is no edema no calf tenderness DP +2 bilaterally. Neurologic examination: Patient is awake and alert and oriented x2, patient moves all his extremities, muscle power 4/5 in upper and lower extremities bilaterally. ASSESSMENT AND PLAN: 1. COVID-19 pneumonia associated with hypoxemia is presenting oxygen sufficient was 89% room air currently on 15 L nasal cannula, Decadron 6 mg oral daily, vitamin C 1000 mg every day, vitamin D 1000 units once every day as well as zinc 220 mg orally once every day, Remdesivir course completed, pulmonary consultation appreciated, continue droplet precautions as well as eye protection, continue Zosyn 3.375 g IV piggyback every 8 hours, check portable chest x-ray. 2. Generalized weakness with fall likely related to COVID-19 pneumonia. We will continue with the treatment as in previous paragraph. Physical therapy evaluation. 3. New onset atrial fibrillation, paroxysmal atrial fibrillation. Patient transferred to the cardiac stepdown unit, cardiology consult appreciated. . continue patient on metoprolol 12.5 mg orally twice every day as well as Eliquis 5 mg orally twice every day. 4. CAD post-PCI of the LCx. Plavix 75 mg orally once every day, continue metoprolol 12.5 mg orally twice every day, continue atorvastatin 80 mg once every day. 5. Hypertension and hypertensive cardiovascular disease. Continue patient on metoprolol, lisinopril 10 mg orally once every day, continue metoprolol 12.5 mg orally twice every day. 6. Hyperlipidemia. Continue patient on atorvastatin 80 mg orally once every day. 7. ALLERGIC rhinitis. Continue Zyrtec 10 mg once every day as well as Flonase nasal spray 1 puff in each nostril twice every day. 8. Vascular dementia. Continue donepezil 10 mg orally once every day. 9. Enlarged prostate. Continue Flomax 0.4 mg orally once every day as well as finasteride 5 mg once every day. 10. DVT prophylaxis. continue patient on Eliquis 5 mg orally twice every day. 11. GI prophylaxis. Continue Protonix 40 mg every day. 12. Patient is full code. 13. Likely will require subacute rehabilitation. Objective - Vital Signs Vital signs: Vital Signs Temp 98.0 F 06/01/21 05:32 Pulse 71 06/01/21 05:32 Resp 19 06/01/21 05:32 BP 128/69 06/01/21 05:32 Pulse Ox 91 L 06/01/21 05:32 Intake & Output 05/31/21 06/01/21 06/01/21 18:59 06:59 18:59 Intake Total 180 Output Total 375 Balance -195 Intake: Oral 180 Output: Urine 375 Straight 375 Other: Voiding Method Bedside Commode Bedside Commode Urinal Urinal Incontinent Incontinent # Voids 2 1 - Labs CBC & Chem 7: 05/31/21 12:26 05/31/21 12:26 Labs: Abnormal Lab Results - Last 24 Hours (Table) 05/31/21 05/31/21 05/31/21 Range/Units 12:26 12:26 12:26 Neutrophils # 10.0 H (1.3-7.7) k/uL Lymphocytes # 0.2 L (1.0-4.8) k/uL Sodium 135 L (137-145) mmol/L BUN 42 H (9-20) mg/dL Glucose 298 H (74-99) mg/dL Lactate Dehydrogenase 763 H (313-618) U/L C-Reactive Protein 7.8 H (<1.0) mg/dL Total Protein 4.7 L (6.3-8.2) g/dL Albumin 2.3 L (3.5-5.0) g/dL Procalcitonin 1.49 H (0.02-0.09) ng/mL
[2021-06-01] MEDS: ASCORBIC ACID 500 MG TAB PO SCH ×2 (09:06→20:26)
[2021-06-01] MEDS: APIXABAN 5 MG TAB PO SCH ×2 (09:06→20:26)
[2021-06-01] MEDS: lisinopriL 10 MG TAB PO SCH (09:07)
[2021-06-01] MEDS: CHOLECALCIFEROL 25 MCG (1000 IU) TABLET PO SCH (09:07)
[2021-06-01] MEDS: CLOPIDOGREL 75 MG TAB PO SCH (09:07)
[2021-06-01] MEDS: LORATADINE 10 MG TAB PO SCH (09:07)
[2021-06-01] MEDS: QUEtiapine 25 MG TAB PO SCH ×2 (09:07→20:48)
[2021-06-01] MEDS: METOPROLOL TARTRATE 12.5 MG TAB PO SCH ×2 (09:07→20:26)
[2021-06-01] MEDS: FINASTERIDE 5 MG TAB PO SCH (09:07)
[2021-06-01] MEDS: PIPERACILLIN-TAZOBACTAM 3.375 GM in SODIUM CHLORIDE 0.9% 100 ML IVPB SCH ×2 (09:08→15:19)
[2021-06-01] MEDS: TAMSULOSIN 0.4 MG CAP.ER.24H PO SCH (09:08)
[2021-06-01] MEDS: ZINC SULFATE 220 MG CAP PO SCH (09:08)
[2021-06-01] MEDS: dexAMETHasone 2 MG TAB PO SCH (09:08)
--- NOTE | 2021-06-01 09:56 | P.PN ---
Subjective Progress Note Date: 06/01/21 There is evaluation of 05/26/2021, I'm seeing this patient for a follow-up. Is an 85-year-old male patient with known history of dementia. He was hospitalized with Coumadin. Pneumonia the patient diffuse bilateral pulmonary infiltrates. He is currently on IV Decadron and the patient was started on of the severe associated his loading dose yesterday and today is day #2. He remains on oxygen at 4 L. His LDH level is low. Pro-calcitonin level is not elevated. Chest x- ray showing diffuse bilateral pulmonary infiltrates. He is also known to have comorbidities including hypertension, hyperlipidemia, CAD, BPH, previous history of PCI and stenting and he is a former smoker. He is afebrile. D-dimer is not elevated. White cell count at 8.8. Hemoglobin is at 12.5. No other significant abnormalities in his electrolytes. He was having some difficulties in falling sleep yesterday and the patient was given Seroquel 12.5 mg overnight and twice a day. Otherwise, no other significant events. He is confused. He is breathing is nonlabored. Pulse ox on room air is still under 90%. This is a vaccinated individual. 05/27/2021, the patient is being seen for a follow-up. The patient was h ospitalized for overnight. His pneumonia and the patient had diffuse bilateral pulmonary infiltrates. The patient was treated with Decadron and Remdesivir and today is day #3 of treatment. He remains on oxygen and currently is on nonrebreather and his oxidation is gotten worse since yesterday. Note that yesterday during my earlier evaluation, he was only on 4 L of oxygen by nasal cannula. He remains afebrile. On 100% nonrebreather facemask, his pulse ox is up to 97%. Note that he had to be gradually increased on his oxygen flow. As stated he was on 4 L and he was brought up to 5 L and later on high flow oxygen and now is on a nonrebreather facemask. His LDH level from yesterday was 867. His blood work shows a sodium of 139 potassium of 4.3, bicarb of 23, normal renal function with a creatinine of 1.0. His white cell count is at 8.8 with a hemoglobin of 12.5. He is having occasional an ongoing dry cough. He remains on Decadron 6 mg daily. He is on third day of Remdesivir. Neurologically, there is confused. No agitation. His alert and oriented 1. His d-dimer was at 1.75 from 05/24/2021. On 05/28/2021 patient seen in follow-up on selective care unit, patient has been transferred to [facility]. related to going into [facility] with RVR, he was started on Cardizem infusion for rate control, and heparin infusion for anticoagulation. Patient is currently resting comfortably in bed, mildly dyspneic, he has removed his oxygen, and his from her pulse ox is 81%. He was placed back on 2 L of oxygen, and his pulse ox came up to 88-90%. He is afebrile, lung sounds reveal bibasilar crackles, today's chest x-ray shows bilateral multifocal confluent reticulonodular opacities, with no significant change from most recent studies. Patient remains on Decadron 6 mg daily, heparin infusion is being converted to oral anticoagulation in the form of Eliquis, and she is on Remdesivir, day 4 of treatment On today's evaluation on 05/29/2021 patient seen in follow-up on selective care unit, he is sitting comfortably in bed, he is currently on 6 L of oxygen pulse ox is 94%, breathing comfortably, vital signs have been stable, patient has converted to sinus rhythm, heparin drip has been discontinued, patient has been started on Eliquis for anticoagulation, and metoprolol 12.5 mg twice daily. Cardiology is following, as given a dose of Lasix yesterday, his IV fluids have been stopped to KVO, patient has been tolerating oral intake, no nausea or vomiting. No new chest x-ray today, he will be completing his Remdesivir course today, he also remains on Decadron and COVID-19 vitamins. His lab 7 reviewed, blood blood cell count is 12, hemoglobin is 12.5, BMP results are still pending today, inflammatory markers were improving on yesterday's labs. Pro-calcitonin level was 0.96, suggesting possibility of underlying bacterial infection. Occasional cough, no phlegm production. Blood culture has shown no growth. On 05/30/2021 patient seen in follow-up on selective care unit, he is resting comfortably in bed, in no acute distress, he is currently on 6 L of oxygen his pulse ox is 90%, denies any respiratory difficulty, occasional cough, no complaint of chest discomfort, yesterday he received a dose of IV Lasix 20 mg, and -190 mL net fluid balance over the last 24 hours, the exact Balance is not available to us as the patient has been using the urinal, and has been incontinent as well. No new chest x-ray, his last chest x-ray from yesterday showed worsening peripheral infiltrates. Today we will give the patient another dose of Lasix, his proBNP level came back elevated at 6730. No lower extremity edema, patient has converted to sinus mechanism, he is currently on Eliquis for anticoagulation, and has been started on Lopressor 12.5 milligram twice daily. Decadron is at 6 mg daily. He is also on Zosyn for empiric antibiotic coverage view of elevated pro-calcitonin of 0.96. 05/31/2021, the patient is resting comfortably in bed. He had to be placed on a nonrebreather facemask and his pulse ox is currently around 93%. Despite the switch, the patient's breathing is nonlabored. She is resting comfortably in bed. Noted earlier to this, the patient was on 5 L of Oxymizer by nasal cannula. I was told that he took his oxygen overnight and he desaturated significantly and following that he was placed on nonrebreather facemask. A repeat chest x-ray was done today and this was completed. Earlier chest x-rays and I feel that the findings or worsen worsening consolidation of the right lateral chest area and left perihilar area and this goes along with his worsening in his oxygenation. Hemodynamically, the patient remains stable. He did have a temperature of 100.3 yesterday and currently is afebrile. His respiratory rate is in the mid tens and the patient is not having any labored breathing at this point in time. His communicating. He has occasional cough. The patient remains on Zosyn as empiric antibiotic coverage. The patient rem ains on Decadron 6 mg by mouth daily. The patient remains on Eliquis for long- term anticoagulation. On 06/01/2021, I'm seeing this patient for a follow-up. The patient is confused. The patient is hallucinating. He is restless. He continues to follow of his 100% on a beta facemask which is at 15 L. His breathing is comfortable. He is not labored in his breathing. Nevertheless, while off the oxygen, he desaturates. He is quite lethargic yet arousable and he communicates. Denies having any chest pain. No reported fever. No labs from today and the labs are all pending from now. In terms of treatment, the patient remains on Decadron 6 mg by mouth daily. The patient remains on IV Zosyn as empiric antibiotic coverage. The patient remains on long-term and to coagulation with Eliquis at a dose of 5 mg by mouth twice a day. The patient has dementia and the patient is currently on Aricept. Repeat chest x-ray shows progressive worsening in his COVID 19 related pneumonia with dense consolidations bilaterally more so on the right. There is a progressive worsening in his x-ray findings since 05/29/2021. This coincides or correlates with his worsening clinical status and worsening oxygenation. I was informed by the nursing staff that the primary care physician is O discussed CODE STATUS with the family including the daughter and the CODE STATUS has remained full at this point in time. Objective - Vital Signs Vital signs: Vital Signs Temp 98.0 F 06/01/21 05:32 Pulse 71 06/01/21 05:32 Resp 19 06/01/21 05:32 BP 128/69 06/01/21 05:32 Pulse Ox 91 L 06/01/21 05:32 Intake & Output 05/31/21 06/01/21 06/01/21 18:59 06:59 18:59 Intake Total 180 236 Output Total 375 Balance -195 236 Intake: Oral 180 236 Output: Urine 375 Straight 375 Other: Voiding Method Bedside Commode Bedside Commode Urinal Urinal Incontinent Incontinent # Voids 2 1 - Exam No acute distress, confused, breathing is nonlabored and the patient remains in the 100% nonrebreather facemask at this point in time HEENT examination is grossly unremarkable. Neck supple. Full range of motion. No adenopathy thyromegaly or neck vein distention. Cardiovascular examination reveals regular rhythm rate. S1-S2 normal. No S3 or S4. No discernible murmur noted. Heart sounds are distant. bpm. Lungs reveal diffuse bilateral rhonchi. No wheezes. No crackles. Breath sounds equal bilaterally. Abdomen soft bowel sounds are heard. No masses or tenderness. Extremities are intact. No cyanosis clubbing or edema. Skin is without rash or lesion. Neurologic examination is brief but nonfocal. she is confused, no agitation, moving all 4 extremities. He is lethargic and sleepy. - Labs CBC & Chem 7: 05/31/21 12:26 05/31/21 12:26 Labs: Abnormal Lab Results - Last 24 Hours (Table) 05/31/21 05/31/21 05/31/21 Range/Units 12:26 12:26 12:26 Neutrophils # 10.0 H (1.3-7.7) k/uL Lymphocytes # 0.2 L (1.0-4.8) k/uL Sodium 135 L (137-145) mmol/L BUN 42 H (9-20) mg/dL Glucose 298 H (74-99) mg/dL Lactate Dehydrogenase 763 H (313-618) U/L C-Reactive Protein 7.8 H (<1.0) mg/dL Total Protein 4.7 L (6.3-8.2) g/dL Albumin 2.3 L (3.5-5.0) g/dL Procalcitonin 1.49 H (0.02-0.09) ng/mL Assessment and Plan Plan: 1 Acute hypoxemic respiratory failure secondary to coronavirus associated pneumonia. The patient is currently on Decadron 6 mg po every 24 and the patient also completed Remdesivir course and he completed a total of 5 days. The patient's condition has been progressively getting worse over this past 3 days. I've noticed worsening chest x-ray findings in his oxygenation. His oxygenation is poor and currently is on the percent nonrebreather facemask and due to his underlying confusion and altered mentation, the patient is not keeping the mask on and is having episodes of desaturations. He also had a follow-up chest x-ray that showed worsening in infiltration bilaterally and the patient has advanced consolidation of the right lung. IV Zosyn as empiric for now. He remains on Decadron and the dose will be modified. Not a candidate for Baricitinib. He has completed Remdesivir. 2 Elevated inflammatory markers secondary to coronavirus infection. 3 History of hyperlipidemia. 4 History of hypertension. 5 History of myocardial infarction. 6 BPH. 7 CAD, status post cardiac catheterization with stent. 8 Dementia. 9 paroxysmal atrial fibrillation, controlled rate and the patient is on long- term medical evaluation with [facility]. Plan: Unfortunately, the patient's condition is decompensating. The patient is confused. He is unable to keep the mask on. I'm going to transition into the intensive care unit for more monitoring. His CODE STATUS is full. I'm going to increase his Decadron to 6 mg every 12 hours. I'm going to check inflammatory markers. All of the blood work from today still pending. Chest x-rays obviously worse. He has completed Remdesivir course. Not a candidate for Baricitinib as the patient is currently on IV Zosyn. I'll take the opportunity also to check the patient's pro-calcitonin level. Repeat d-dimer Repeat chest x-ray noted and there is obvious worsening of the chest x-ray findings Continue Decadron 6 mg IV every 12 hours The patient is completed Remdesivir The patient on anticoagulation with vitamin C and vitamin D3 and zinc We'll continue to follow. Condition of his is getting worse. Transfer the patient to the ICU. We'll continue to followEliquis
--- NOTE | 2021-06-01 10:12 | XR ---
EXAMINATION TYPE: XR chest 1V portable DATE OF EXAM: 06/01/2021 COMPARISON: 05/31/2021 INDICATION: Shortness of breath, covid TECHNIQUE: Single frontal view of the chest is obtained. FINDINGS: The heart size is enlarged. The pulmonary vasculature is indistinct. Patchy peripheral consolidation is on the left. There is a more focal consolidation in the mid to low er right lateral lung. Findings could be compatible with atypical pneumonia IMPRESSION: 1. Worsening bilateral lung infiltrates.
[2021-06-01 10:56] LABS: Glucose,Whole Blood 206 mg/dL (75-99)
[2021-06-01 11:53] LABS: INR 1.2 (<1.2); Partial Thromboplastin Time 23.6 sec (22.0-30.0); Prothrombin Time 12.4 sec (9.0-12.0)
[2021-06-01 11:57] LABS: Calcium 8.5 mg/dL (8.4-10.2)
[2021-06-01 11:58] LABS: HCT 36.8 % (39.0-53.0); HGB 12.9 gm/dL (13.0-17.5); MCH 31.8 pg (25.0-35.0); MCV 90.6 fL (80.0-100.0); Mean Platelet Volume 8.4; Platelet Count 234 k/uL (150-450); RBC 4.06 m/uL (4.30-5.90); WBC 11.2 k/uL (3.8-10.6)
[2021-06-01 12:21] LABS: Appearance,Urine Clear (Clear); Bacteria,Urine Rare /hpf; Bilirubin,Urine Negative (Negative); Blood,Urine Moderate (Negative); Color,Urine Yellow; Glucose,Urine (UA) Negative (Negative); Ketones,Urine Negative (Negative); Leukocyte Esterase,Urine Moderate (Negative); Mucus,Urine Rare /hpf; Nitrite,Urine Negative (Negative); Protein,Urine 1+ (Negative); RBC,Urine 16 /hpf (0-5); Specific Gravity,Urine 1.033 (1.001-1.035); Urobilinogen,Urine <2.0 mg/dL (<2.0); WBC,Urine 36 /hpf (0-5)
[2021-06-01 12:37] LABS: Potassium 3.4 mmol/L (3.5-5.1)
[2021-06-01] MEDS: INSULIN ASPART (NovoLOG) 100 UNIT/ML VIAL SQ SCH ×3 (12:41→20:26)
[2021-06-01] MEDS ORDERED: Potassium Replacement Protocol 1 EACH MISC MISCELLANE PRN (12:45)
[2021-06-01] MEDS: ACETAMINOPHEN TAB 325 MG TAB PO PRN (12:51)
[2021-06-01] MEDS: POTASSIUM CHLORIDE ER 20 MEQ TAB.ER PO SCH ×2 (12:51→14:35)
[2021-06-01] MEDS: SODIUM CHLORIDE 0.9% 1,000 ML IV SCH (15:19)
[2021-06-01 16:17] LABS: Glucose,Whole Blood 154 mg/dL (75-99)
[2021-06-01 19:46] LABS: Glucose,Whole Blood 153 mg/dL (75-99)
[2021-06-01] MEDS: DEXAMETHASONE SOD PHOSPHATE 10 MG/ML 1 ML VIAL IVP SCH (20:26)
[2021-06-01] MEDS: ATORVASTATIN 80 MG TAB PO SCH (20:26)
[2021-06-01] MEDS: DONEPEZIL 10 MG TAB PO SCH (20:48)
[2021-06-02] MEDS: PIPERACILLIN-TAZOBACTAM 3.375 GM in SODIUM CHLORIDE 0.9% 100 ML IVPB SCH ×4 (00:05→23:41)
[2021-06-02 06:37] LABS: Glucose,Whole Blood 142 mg/dL (75-99)
[2021-06-02] MEDS: PANTOPRAZOLE 40 MG TABLET PO SCH (06:38)
[2021-06-02] MEDS: INSULIN ASPART (NovoLOG) 100 UNIT/ML VIAL SQ SCH ×4 (06:38→20:07)
[2021-06-02 06:57] LABS: Basophils % (A) 0 %; Eosinophils % (A) 0 %; HCT 39.2 % (39.0-53.0); HGB 12.6 gm/dL (13.0-17.5); Lymphocytes # (A) 0.3 k/uL (1.0-4.8); Lymphocytes % (A) 3 %; MCH 30.2 pg (25.0-35.0); MCHC 32.1 g/dL (31.0-37.0); MCV 93.8 fL (80.0-100.0); Mean Platelet Volume 8.4; Monocytes # (A) 0.3 k/uL (0-1.0); Monocytes % (A) 3 %; Neutrophils # (A) 10.4 k/uL (1.3-7.7); Neutrophils % (A) 93 %; Platelet Count 233 k/uL (150-450); RBC 4.17 m/uL (4.30-5.90); RDW 13.5 % (11.5-15.5); WBC 11.1 k/uL (3.8-10.6)
[2021-06-02 07:26] LABS: Albumin 2.4 g/dL (3.5-5.0); Calcium 8.8 mg/dL (8.4-10.2); Magnesium 2.1 mg/dL (1.6-2.3); Potassium 4.2 mmol/L (3.5-5.1); Total Bilirubin 0.6 mg/dL (0.2-1.3); Total Protein 4.9 g/dL (6.3-8.2)
--- NOTE | 2021-06-02 07:53 | XR ---
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 Heart mildly enlarged. Bilateral pat swapnil confluent peripheral airspace opacities, right greater than left persist. There may be minimal ea rly improvement on the left. Impression: Continued bilateral COVID pneumonia. Minimal improvement on the left.
[2021-06-02 08:25] LABS: C Reactive Protein 16.2 mg/dL (<1.0)
--- NOTE | 2021-06-02 08:52 | P.PN ---
Subjective Progress Note Date: 06/02/21 HISTORY OF PRESENT ILLNESS: This is an 85-year-old white [place] male with a previous medical history sig nificant for coronary artery disease status post PCI of the LCx back in 2019, hypertension and hypertensive cardio vascular disease, hyperlipidemia, ALLERGIC rhinitis, enlarged prostate, history of ALLERGIC rhinitis, vascular dementia, patient presented to the emergency department at [facility] yesterday after he was evaluated few days ago with positive Covid 19 infection and he was sent home with supportive care patient was not hypoxemic at that time, patient apparently fell last night and couldn't get up because of generalized weakness he ended up coming back to the hospital with increased shortness breath associated with increased and weakness he became quite hypoxemic with oxygen saturation at 89% on room air so he was admitted to the hospital for evaluation and treatment for COVID-19 pneumonia, patient underwent x-rays of the pelvis that did not show any evidence of acute fracture, patient underwent computed tomography scan of the head in the cervical spine that showed anterolisthesis of C4-C5 and severe degenerative disc disease of C5 C6 C6 and 7, without acute frac ture, patient 12-lead EKG did not show evidence of acute ST-T wave changes, chest x-ray initially showed worsening infiltrate this was followed by CTA of the chest because of elevated d-dimer and elevated inflammatory markers and the patient was negative for pulmonary as well as a however it did show significant diffuse interstitial infiltrate suggestive of Covid 19 pneumonia, patient will be started on Remdesivir 200 mg loading dose followed by 100 mg daily for the next 5 days. 05/26: Patient apparently didn't sleep last night despite use of Xanax. We will add in Seroquel 12.5 mg twice daily., Heart rate 68, blood pressure 150/65, pulse ox 90% on 4 L nasal cannula. WBC 8.8, hemoglobin 12.5, platelet count 244. Electrolytes are normal. BUN 33 creatinine 1. Blood sugar 139. C-reactive protein 7.3. Blood cultures no growth at 24 hours 2 specimens. Patient has been seen by pulmonary medicine and continued on Remdesivir, Decadron, Lovenox and vitamin supplements. Patient has also been seen and followed by cardiology, atenolol on hold his heart rate has been in the 60s and occasionally in the 40s at night, cardiology has signed off. 05/27: Seen today in follow-up on the [facility] floor. His mental status is somewhat improved from yesterday after Seroquel was started. He is able to answer questions appropriately. He states that his breathing is better. He is on a nonrebreather with a pulse ox of 98% which will be weaned down today. Patient denies nausea or vomiting, not much appetite. 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 Cardiology to be notified. Patient has been afebrile, heart rate 54, blood pressure 155/66. Patient's grandson is also hospitalized a few doors down from the patient. 05/28: A is seen today in follow-up. His mental status seems to be improved today. Patient went into A. fib with RVR with heart rate in the 110s and 120s, transferred to the cardiac stepdown unit. Cardizem drip currently at 5 mg per hour and patient has been started on heparin drip as well. Cardiology has plans for eliquis 5 mg twice daily and begin metoprolol to wean off Cardizem. TSH normal at 2.490. Patient remains afebrile. Pulse ox is 89 and 93% on 5 L nasal cannula. Repeat blood work reveals WBC 9.8, hemoglobin 12.5, platelet count 223. D-dimer 7.5. Electrolytes and renal function normal. LDH 345. 05/29: Patient is on 6 L nasal cannula with pulse ox 94%. He has been afebrile, heart rate 75, blood pressure 140/63, patient transition to sinus rhythm around midnight. Repeat blood work reveals WBC 12, hemoglobin 12.5, platelet count 220. Cardiology has started the patient on eliquis and continued Lopressor 12.5 g twice daily. Patient is continued on Remdesivir which will be completed today, dexamethasone 6 mg oral daily, vitamin supplements and eliquis. One dose of IV Lasix 20 mg ordered. 05/30: Patient is laying down in bed he is requiring about 5 L nasal cannula his current oxygenation is 94%, uses chest x-ray that did show worsening infiltrate, I started the patient on Zosyn 3.375 g IV piggyback every 6 hours, continue current pulmonary toileting, continue to monitor the patient, patient did r espond to the Lasix yesterday and he is feeling much better today than yesterday he has no audible wheezes at this time. 05/31: Patient is sitting up in bed in no apparent distress, he continues to be on a nonrebreather mask, his oxygen above 93%, he denies any chest pain he denies any coughing of phlegm production, his monitor showing H her fibrillation with controlled rate, continue with the patient on Eliquis, continue patient on metoprolol, monitor the patient very closely continue IV antibiotic in the form of Zosyn, physical therapy evaluation, patient will likely require subacute rehabilitation. 06/01: Patient is laying down in bed in moderate respiratory distress he continues to require 15L , continues to be on Zosyn 3.375 g IV piggyback every 8 hours, for which is interested continue them dictation, he has been seeing pulmonary medicine as well, monitor the patient very closely, spoke with his son-in-law over the phone as his daughter was asleep, and updated of the current situation of the patient plan of care. 06/02: Patient was transferred into the intensive care unit, he has a sitter at the bedside. Patient is currently on 15 L high flow nasal cannula and nonrebreather which she has been pulling off. Pulse ox 94% and drops down to 85 with eating. Temperature max 100.1, heart rate 64, blood pressure 160/53. Respiratory rate 29. Patient continues to be confused. His poor appetite and protein supplement added. Repeat blood work reveals WBC 11.1, hemoglobin 12.6. Electrolytes are normal, creatinine 0.91. Blood sugars are running between 142 and 154. Liver function tests are normal. C-reactive protein 16.2. D-dimer 4.14. REVIEW OF SYSTEMS: Constitutional: No documented fever, no chills, no night sweats. No weight change. positive for weakness,positive for fatigue no lethargy. No daytime sleepiness. HEENT: Denies headache. No blurred vision or double vision, no loss of vision. No loss of Hearing, no ringing in the ears, no dizziness. No nasal drainage or congestion. No epistaxis. No sore throat. Lungs: positive for shortness of breath, positive for cough, no sputum production. No wheezing. Reports dyspnea with activity. Cardiovascular: No chest pain, no lower extremity edema. No palpitations. No paroxysmal nocturnal dyspnea. No orthopnea. No lightheadedness or dizziness. No syncopal episodes. New onset atrial fibrillation Abdominal: Reports abdominal pain. No nausea, vomiting. No diarrhea. No constipation. No bloody or tarry stools reports loss of appetite. Genitourinary: No dysuria, increased frequency, urgency. No urinary retention. Musculoskeletal: positive for myalgias. No muscle weakness, no gait dys function, positive for falls. No back pain. positive for neck pain. Integumentary: No wounds, no lesions. No rash or pruritus. No unusual bruising. No change in hair or nails. Neurologic: No aphasia. No facial droop. Noted change in mentation with underlying dementia. No head injury. No headache. No paralysis. No paresthesia. Psychiatric: No depression. No anxiety. Endocrine: No abnormal blood sugars. PHYSICAL EXAMINATION: General: 85-year-old male sitting up in bed and appears to be in no acute distress. Patient's sitter is at bedside. HEENT: Head is atraumatic, normocephalic, pupils were equal round reactive to light and recommendation, sclera nonicteric, conjunctivae were pale, mucous membranes of the mouth are somewhat dry. Neck: Supple, no JVP, normal carotid upstroke bilaterally, no lymphadenopathy. Chest: Decreased breath sounds at the bases, few rhonchi, no extremity wheezes, no chest wall tenderness, no intercostal retractions. Heart: First heart sound is normal, second heart sounds normal, regular rhythm, there is systolic ejection murmur 2/6 located in the left sternal border, irregularly irregular due to atrial fibrillation. Abdomen: Soft, nontender, nondistended, positive bowel sounds, there is no hepatosplenomegaly. Extremities: There is no edema no calf tenderness DP +2 bilaterally. Neurologic examination: Patient is awake and alert and oriented x2, patient moves all his extremities, muscle power 4/5 in upper and lower extremities bilaterally. ASSESSMENT AND PLAN: 1. COVID-19 pneumonia possible bacterial pneumonia with acute hypoxic respiratory failure. Patient is currently on 15 L high flow nasal cannula and nonrebreather. Continue Decadron 6 mg IV push every 12 hours, vitamin C 1000 mg every day, vitamin D 1000 units once every day as well as zinc 220 mg orally once every day, Remdesivir course completed, pulmonary consultation appreciated, continue droplet precautions as well as eye protection, continue Zosyn 3.375 g IV piggyback every 8 hours, check portable chest x-ray. 2. Generalized weakness with fall likely related to COVID-19 pneumonia. We will continue with the treatment as in previous paragraph. Physical therapy evaluation. 3. New onset atrial fibrillation, paroxysmal atrial fibrillation. Continue patient on metoprolol 12.5 mg orally twice every day as well as Eliquis 5 mg orally twice every day. 4. CAD post-PCI of the LCx. Plavix 75 mg orally once every day, continue metoprolol 12.5 mg orally twice every day, continue atorvastatin 80 mg once every day. 5. Hypertension and hypertensive cardiovascular disease. Continue patient on lisinopril 10 mg orally once every day, continue metoprolol 12.5 mg orally twice every day. 6. Hyperlipidemia. Continue patient on atorvastatin 80 mg orally once every day. 7. ALLERGIC rhinitis. Continue Zyrtec 10 mg once every day as well as Flonase nasal spray 1 puff in each nostril twice every day. 8. Vascular dementia. Continue donepezil 10 mg orally once every day. 9. Enlarged prostate. Continue Flomax 0.4 mg orally once every day as well as finasteride 5 mg once every day. 10. DVT prophylaxis. continue patient on Eliquis 5 mg orally twice every day. 11. GI prophylaxis. Continue Protonix 40 mg every day. 12. Patient is full code. 13. Likely will require subacute rehabilitation. Impression and plan of care have been directed as dictated by the signing physician. Rupali Brannon nurse practitioner acting as scribe for signing physician. Objective - Vital Signs Vital signs: Vital Signs Temp 97.8 F 06/02/21 04:00 Pulse 64 06/02/21 07:00 Resp 19 06/02/21 07:00 BP 160/53 06/02/21 07:00 Pulse Ox 94 L 06/02/21 07:00 Intake & Output 06/01/21 06/02/21 06/02/21 18:59 06:59 18:59 Intake Total 396 300 0 Output Total 125 Balance 271 300 0 Weight 73.5 kg Intake: IV 160 300 0 Piperacillin-Tazobactam 3 100 .375 gm In Sodium Chloride 0.9% 100 ml @ 25 mls/hr IVPB Q8HR [facility] Rx# :[id number] Sodium Chloride 0.9% 1, 160 200 0 000 ml @ 20 mls/hr IV . Q24H [facility] Rx#:[id number] Oral 236 Output: Urine 125 Other: Voiding Method Urinal Urinal Diaper Incontinent # Voids 1 1 - Labs CBC & Chem 7: 06/02/21 06:21 06/02/21 06:21 Labs: Abnormal Lab Results - Last 24 Hours (Table) 06/01/21 06/01/21 06/01/21 Range/Units 10:53 11:20 11:20 WBC (3.8-10.6) k/uL RBC (4.30-5.90) m/uL Hgb (13.0-17.5) gm/dL Hct (39.0-53.0) % Neutrophils # (1.3-7.7) k/uL Lymphocytes # (1.0-4.8) k/uL PT (9.0-12.0) sec INR (<1.2) D-Dimer (<0.60) mg/L FEU Sodium 135 L (137-145) mmol/L Potassium 3.4 L (3.5-5.1) mmol/L BUN 37 H (9-20) mg/dL Glucose 232 H (74-99) mg/dL POC Glucose (mg/dL) 206 H (75-99) mg/dL Lactate Dehydrogenase 805 H (313-618) U/L C-Reactive Protein 8.0 H (<1.0) mg/dL Total Protein (6.3-8.2) g/dL Albumin (3.5-5.0) g/dL Procalcitonin 1.00 H (0.02-0.09) ng/mL Urine Protein (Negative) Urine Blood (Negative) Ur Leukocyte Esterase (Negative) Urine RBC (0-5) /hpf Urine WBC (0-5) /hpf Urine Bacteria (None) /hpf Urine Mucus (None) /hpf 06/01/21 06/01/21 06/01/21 Range/Units 11:20 11:20 11:20 WBC 11.2 H (3.8-10.6) k/uL RBC 4.06 L (4.30-5.90) m/uL Hgb 12.9 L (13.0-17.5) gm/dL Hct 36.8 L (39.0-53.0) % Neutrophils # (1.3-7.7) k/uL Lymphocytes # (1.0-4.8) k/uL PT 12.4 H (9.0-12.0) sec INR 1.2 H (<1.2) D-Dimer 4.14 H (<0.60) mg/L FEU Sodium (137-145) mmol/L Potassium (3.5-5.1) mmol/L BUN (9-20) mg/dL Glucose (74-99) mg/dL POC Glucose (mg/dL) (75-99) mg/dL Lactate Dehydrogenase (313-618) U/L C-Reactive Protein (<1.0) mg/dL Total Protein (6.3-8.2) g/dL Albumin (3.5-5.0) g/dL Procalcitonin (0.02-0.09) ng/mL Urine Protein (Negative) Urine Blood (Negative) Ur Leukocyte Esterase (Negative) Urine RBC (0-5) /hpf Urine WBC (0-5) /hpf Urine Bacteria (None) /hpf Urine Mucus (None) /hpf 06/01/21 06/01/21 06/01/21 Range/Units 11:30 16:16 19:44 WBC (3.8-10.6) k/uL RBC (4.30-5.90) m/uL Hgb (13.0-17.5) gm/dL Hct (39.0-53.0) % Neutrophils # (1.3-7.7) k/uL Lymphocytes # (1.0-4.8) k/uL PT (9.0-12.0) sec INR (<1.2) D-Dimer (<0.60) mg/L FEU Sodium (137-145) mmol/L Potassium (3.5-5.1) mmol/L BUN (9-20) mg/dL Glucose (74-99) mg/dL POC Glucose (mg/dL) 154 H 153 H (75-99) mg/dL Lactate Dehydrogenase (313-618) U/L C-Reactive Protein (<1.0) mg/dL Total Protein (6.3-8.2) g/dL Albumin (3.5-5.0) g/dL Procalcitonin (0.02-0.09) ng/mL Urine Protein 1+ H (Negative) Urine Blood Moderate H (Negative) Ur Leukocyte Esterase Moderate H (Negative) Urine RBC 16 H (0-5) /hpf Urine WBC 36 H (0-5) /hpf Urine Bacteria Rare H (None) /hpf Urine Mucus Rare H (None) /hpf 06/02/21 06/02/21 06/02/21 Range/Units 06:21 06:21 06:21 WBC 11.1 H (3.8-10.6) k/uL RBC 4.17 L (4.30-5.90) m/uL Hgb 12.6 L (13.0-17.5) gm/dL Hct (39.0-53.0) % Neutrophils # 10.4 H (1.3-7.7) k/uL Lymphocytes # 0.3 L (1.0-4.8) k/uL PT (9.0-12.0) sec INR (<1.2) D-Dimer 4.14 H (<0.60) mg/L FEU Sodium (137-145) mmol/L Potassium (3.5-5.1) mmol/L BUN 39 H (9-20) mg/dL Glucose 145 H (74-99) mg/dL POC Glucose (mg/dL) (75-99) mg/dL Lactate Dehydrogenase (313-618) U/L C-Reactive Protein (<1.0) mg/dL Total Protein 4.9 L (6.3-8.2) g/dL Albumin 2.4 L (3.5-5.0) g/dL Procalcitonin (0.02-0.09) ng/mL Urine Protein (Negative) Urine Blood (Negative) Ur Leukocyte Esterase (Negative) Urine RBC (0-5) /hpf Urine WBC (0-5) /hpf Urine Bacteria (None) /hpf Urine Mucus (None) /hpf 06/02/21 Range/Units 06:35 WBC (3.8-10.6) k/uL RBC (4.30-5.90) m/uL Hgb (13.0-17.5) gm/dL Hct (39.0-53.0) % Neutrophils # (1.3-7.7) k/uL Lymphocytes # (1.0-4.8) k/uL PT (9.0-12.0) sec INR (<1.2) D-Dimer (<0.60) mg/L FEU Sodium (137-145) mmol/L Potassium (3.5-5.1) mmol/L BUN (9-20) mg/dL Glucose (74-99) mg/dL POC Glucose (mg/dL) 142 H (75-99) mg/dL Lactate Dehydrogenase (313-618) U/L C-Reactive Protein (<1.0) mg/dL Total Protein (6.3-8.2) g/dL Albumin (3.5-5.0) g/dL Procalcitonin (0.02-0.09) ng/mL Urine Protein (Negative) Urine Blood (Negative) Ur Leukocyte Esterase (Negative) Urine RBC (0-5) /hpf Urine WBC (0-5) /hpf Urine Bacteria (None) /hpf Urine Mucus (None) /hpf
[2021-06-02] MEDS ORDERED: SODIUM BICARB 8.4% 50 ML SYR (1 MEQ/ML) ONE (09:19)
[2021-06-02] MEDS: CHOLECALCIFEROL 25 MCG (1000 IU) TABLET PO SCH (10:12)
[2021-06-02] MEDS: lisinopriL 10 MG TAB PO SCH (10:12)
[2021-06-02] MEDS: APIXABAN 5 MG TAB PO SCH ×2 (10:12→20:07)
[2021-06-02] MEDS: DEXAMETHASONE SOD PHOSPHATE 10 MG/ML 1 ML VIAL IVP SCH ×2 (10:13→20:07)
[2021-06-02] MEDS: TAMSULOSIN 0.4 MG CAP.ER.24H PO SCH (10:13)
[2021-06-02] MEDS: ASCORBIC ACID 500 MG TAB PO SCH ×2 (10:13→20:07)
[2021-06-02] MEDS: ZINC SULFATE 220 MG CAP PO SCH (10:13)
[2021-06-02] MEDS: LORATADINE 10 MG TAB PO SCH (10:13)
[2021-06-02] MEDS: METOPROLOL TARTRATE 12.5 MG TAB PO SCH ×2 (10:13→20:10)
[2021-06-02] MEDS: CLOPIDOGREL 75 MG TAB PO SCH (10:13)
[2021-06-02] MEDS: QUEtiapine 25 MG TAB PO SCH ×2 (10:15→20:25)
[2021-06-02] MEDS: FINASTERIDE 5 MG TAB PO SCH (10:15)
[2021-06-02 11:22] LABS: Glucose,Whole Blood 200 mg/dL (75-99)
--- NOTE | 2021-06-02 12:16 | P.PN ---
Subjective Progress Note Date: 06/02/21 Principal diagnosis: Acute hypoxic respiratory failure secondary to COVID-19 pneumonia 05/31/2021, the patient is resting comfortably in bed. He had to be placed on a nonrebreather facemask and his pulse ox is currently around 93%. Despite the switch, the patient's breathing is nonlabored. She is resting comfortably in bed. Noted earlier to this, the patient was on 5 L of Oxymizer by nasal cannula. I was told that he took his oxygen overnight and he desaturated significantly and following that he was placed on nonrebreather facemask. A repeat chest x-ray was done today and this was completed. Earlier chest x-rays and I feel that the findings or worsen worsening consolidation of the right lateral chest area and left perihilar area and this goes along with his wor sening in his oxygenation. Hemodynamically, the patient remains stable. He did have a temperature of 100.3 yesterday and currently is afebrile. His respiratory rate is in the mid tens and the patient is not having any labored breathing at this point in time. His communicating. He has occasional cough. The patient remains on Zosyn as empiric antibiotic coverage. The patient remains on Decadron 6 mg by mouth daily. The patient remains on Eliquis for long-term anticoagulation. On 06/01/2021, I'm seeing this patient for a follow-up. The patient is confused. The patient is hallucinating. He is restless. He continues to follow of his 100% on a beta facemask which is at 15 L. His breathing is comfortable. He is not labored in his breathing. Nevertheless, while off the oxygen, he desaturates. He is quite lethargic yet arousable and he communicates. Denies having any chest pain. No reported fever. No labs from today and the labs are all pending from now. In terms of treatment, the patient remains on Decadron 6 mg by mouth daily. The patient remains on IV Zosyn as empiric antibiotic coverage. The patient remains on long-term and to coagulation with Eliquis at a dose of 5 mg by mouth twice a day. The patient has dementia and the patient is currently on Aricept. Repeat chest x-ray shows progressive worsening in his COVID 19 related pneumonia with dense consolidatio ns bilaterally more so on the right. There is a progressive worsening in his x- ray findings since 05/29/2021. This coincides or correlates with his worsening clinical status and worsening oxygenation. I was informed by the nursing staff that the primary care physician is O discussed CODE STATUS with the family including the daughter and the CODE STATUS has remained full at this point in time. Reevaluated today on 06/02/2021, patient remains in the ICU, patient is confused, he is on 15 L high flow nasal cannula and nonrebreather mask. O2 saturation is marginal. Remains on Decadron, he is also on Zosyn and on Eliquis. Patient is complaining of difficulty breathing, but he seems to be in no form of distress, he is quite confused, WBC count is 11.1 hemoglobin is 12.6, d-dimer is 4.14. Electrolytes are normal renal profile is normal. Chest x-ray continues to show scattered areas of infiltrates and consolidations bilaterally. C-reactive protein is 16.2. Objective - Vital Signs Vital signs: Vital Signs Temp 98.5 F 06/02/21 10:00 Pulse 82 06/02/21 10:00 Resp 22 06/02/21 10:00 BP 111/98 06/02/21 10:00 Pulse Ox 94 L 06/02/21 11:53 Intake & Output 06/01/21 06/02/21 06/02/21 18:59 06:59 18:59 Intake Total 396 300 50 Output Total 125 250 Balance 271 300 -200 Weight 73.5 kg Intake: IV 160 300 50 Piperacillin-Tazobactam 3 100 50 .375 gm In Sodium Chloride 0.9% 100 ml @ 25 mls/hr IVPB Q8HR [facility] Rx# :[id number] Sodium Chloride 0.9% 1, 160 200 0 000 ml @ 20 mls/hr IV . Q24H [facility] Rx#:[id number] Oral 236 Output: Urine 125 250 Other: Voiding Method Urinal Urinal Diaper Incontinent # Voids 1 1 # Bowel Movements 1 - Exam Physical Exam: Revealed an 85-year-old white male confused, in no distress, on high flow nasal cannula and nonrebreather mask. Head: Atraumatic, normocephalic. HEENT:[Neck is supple.] [No neck masses.] [No thyromegaly.] [No JVD.] Chest: [Symmetrical chest expansion, crackles at the bases, no rhonchi no whee zes. Cardiac Exam: Irregular irregular rhythm. [Normal S1 and S2, no S3 gallop, 2/6 systolic murmur thought the precordium. Abdomen: [Soft, nontender, no megaly, no rebound, no guarding, normal bowel sounds.] Extremities: [No clubbing, no edema, no cyanosis.] Good pulses bilaterally. Neurological Exam: Awake, follows simple instructions, intermittently confused according to the nurses. At times could be hallucinating. Psychiatric: Confused, could not fully assess mental status. Patient is o riented 2 - Labs CBC & Chem 7: 06/02/21 06:21 06/02/21 06:21 Labs: Abnormal Lab Results - Last 24 Hours (Table) 06/01/21 06/01/21 06/01/21 Range/Units 11:20 11:20 11:20 WBC (3.8-10.6) k/uL RBC (4.30-5.90) m/uL Hgb (13.0-17.5) gm/dL Neutrophils # (1.3-7.7) k/uL Lymphocytes # (1.0-4.8) k/uL D-Dimer 4.14 H (<0.60) mg/L FEU Sodium 135 L (137-145) mmol/L Potassium 3.4 L (3.5-5.1) mmol/L BUN 37 H (9-20) mg/dL Glucose 232 H (74-99) mg/dL POC Glucose (mg/dL) (75-99) mg/dL Lactate Dehydrogenase 805 H (313-618) U/L C-Reactive Protein 8.0 H (<1.0) mg/dL Total Protein (6.3-8.2) g/dL Albumin (3.5-5.0) g/dL Procalcitonin 1.00 H (0.02-0.09) ng/mL Urine Protein (Negative) Urine Blood (Negative) Ur Leukocyte Esterase (Negative) Urine RBC (0-5) /hpf Urine WBC (0-5) /hpf Urine Bacteria (None) /hpf Urine Mucus (None) /hpf 06/01/21 06/01/21 06/01/21 Range/Units 11:30 16:16 19:44 WBC (3.8-10.6) k/uL RBC (4.30-5.90) m/uL Hgb (13.0-17.5) gm/dL Neutrophils # (1.3-7.7) k/uL Lymphocytes # (1.0-4.8) k/uL D-Dimer (<0.60) mg/L FEU Sodium (137-145) mmol/L Potassium (3.5-5.1) mmol/L BUN (9-20) mg/dL Glucose (74-99) mg/dL POC Glucose (mg/dL) 154 H 153 H (75-99) mg/dL Lactate Dehydrogenase (313-618) U/L C-Reactive Protein (<1.0) mg/dL Total Protein (6.3-8.2) g/dL Albumin (3.5-5.0) g/dL Procalcitonin (0.02-0.09) ng/mL Urine Protein 1+ H (Negative) Urine Blood Moderate H (Negative) Ur Leukocyte Esterase Moderate H (Negative) Urine RBC 16 H (0-5) /hpf Urine WBC 36 H (0-5) /hpf Urine Bacteria Rare H (None) /hpf Urine Mucus Rare H (None) /hpf 06/02/21 06/02/21 06/02/21 Range/Units 06:21 06:21 06:21 WBC 11.1 H (3.8-10.6) k/uL RBC 4.17 L (4.30-5.90) m/uL Hgb 12.6 L (13.0-17.5) gm/dL Neutrophils # 10.4 H (1.3-7.7) k/uL Lymphocytes # 0.3 L (1.0-4.8) k/uL D-Dimer 4.14 H (<0.60) mg/L FEU Sodium (137-145) mmol/L Potassium (3.5-5.1) mmol/L BUN 39 H (9-20) mg/dL Glucose 145 H (74-99) mg/dL POC Glucose (mg/dL) (75-99) mg/dL Lactate Dehydrogenase (313-618) U/L C-Reactive Protein 16.2 H (<1.0) mg/dL Total Protein 4.9 L (6.3-8.2) g/dL Albumin 2.4 L (3.5-5.0) g/dL Procalcitonin (0.02-0.09) ng/mL Urine Protein (Negative) Urine Blood (Negative) Ur Leukocyte Esterase (Negative) Urine RBC (0-5) /hpf Urine WBC (0-5) /hpf Urine Bacteria (None) /hpf Urine Mucus (None) /hpf 06/02/21 06/02/21 Range/Units 06:35 11:21 WBC (3.8-10.6) k/uL RBC (4.30-5.90) m/uL Hgb (13.0-17.5) gm/dL Neutrophils # (1.3-7.7) k/uL Lymphocytes # (1.0-4.8) k/uL D-Dimer (<0.60) mg/L FEU Sodium (137-145) mmol/L Potassium (3.5-5.1) mmol/L BUN (9-20) mg/dL Glucose (74-99) mg/dL POC Glucose (mg/dL) 142 H 200 H (75-99) mg/dL Lactate Dehydrogenase (313-618) U/L C-Reactive Protein (<1.0) mg/dL Total Protein (6.3-8.2) g/dL Albumin (3.5-5.0) g/dL Procalcitonin (0.02-0.09) ng/mL Urine Protein (Negative) Urine Blood (Negative) Ur Leukocyte Esterase (Negative) Urine RBC (0-5) /hpf Urine WBC (0-5) /hpf Urine Bacteria (None) /hpf Urine Mucus (None) /hpf Assessment and Plan Assessment: Impression: Acute hypoxic respiratory failure secondary to COVID-19 pneumonia remains on the COVID-19 cocktail. Remains on vitamin D, zinc, finished a course of remdesivir, not a candidate for baricitinib, patient is receiving Zosyn. Coronary artery disease Hypertension Dyslipidemia Vascular dementia History of enlarged prostate/BPH. Paroxysmal atrial fibrillation. Elevated inflammatory markers secondary to COVID-19 infection Recommendation: Continue to monitor the patient in the ICU. Continue oxygen and titrate accordingly. Continue Zosyn. Pro-calcitonin level was elevated. Continue the COVID-19 cocktail. Patient completed a full course of remdesivir We will continue to follow in the ICU. Time with Patient: Less than 30
[2021-06-02] MEDS: SODIUM CHLORIDE 0.9% 1,000 ML IV SCH (16:05)
[2021-06-02 16:32] LABS: Glucose,Whole Blood 262 mg/dL (75-99)
[2021-06-02 19:56] LABS: Glucose,Whole Blood 210 mg/dL (75-99)
[2021-06-02] MEDS: ATORVASTATIN 80 MG TAB PO SCH (20:07)
[2021-06-02] MEDS: DONEPEZIL 10 MG TAB PO SCH (20:25)
[2021-06-03 05:09] LABS: Basophils % (A) 0 %; Eosinophils % (A) 0 %; HCT 40.9 % (39.0-53.0); HGB 12.8 gm/dL (13.0-17.5); Lymphocytes # (A) 0.5 k/uL (1.0-4.8); Lymphocytes % (A) 4 %; MCH 29.7 pg (25.0-35.0); MCHC 31.3 g/dL (31.0-37.0); MCV 94.9 fL (80.0-100.0); Mean Platelet Volume 8.6; Monocytes # (A) 0.3 k/uL (0-1.0); Monocytes % (A) 2 %; Neutrophils # (A) 12.3 k/uL (1.3-7.7); Neutrophils % (A) 93 %; Platelet Count 233 k/uL (150-450); RBC 4.31 m/uL (4.30-5.90); RDW 13.5 % (11.5-15.5); WBC 13.2 k/uL (3.8-10.6)
[2021-06-03 05:52] LABS: Calcium 8.9 mg/dL (8.4-10.2); Potassium 4.5 mmol/L (3.5-5.1)
--- NOTE | 2021-06-03 06:47 | XR ---
EXAMINATION TYPE: XR chest 1V portable DATE OF EXAM: 06/03/2021 CLINICAL HISTORY: Difficulty breathing progress study. COVID. TECHNIQUE: Single AP portable upright view of the chest is obtained. COMPARISON: Chest x-ray from one day earlier and older studies. FINDINGS: Bilateral multifocal and confluent opacities redemonstrated. Stable mild cardiomegaly with atherosclerotic thoracic aorta. Surgical changes bilateral shoulders is partially imaged. Underlying scoliosis and degenerative changes redemonstrated. IMPRESSION: Bilateral multifocal and confluent opacities consistent with covid-19 infection are redem onstrated. No significant change from one day earlier.
[2021-06-03 06:55] LABS: Glucose,Whole Blood 192 mg/dL (75-99)
[2021-06-03] MEDS: INSULIN ASPART (NovoLOG) 100 UNIT/ML VIAL SQ SCH ×4 (06:55→20:24)
[2021-06-03] MEDS: PANTOPRAZOLE 40 MG TABLET PO SCH (06:58)
[2021-06-03] MEDS: ASCORBIC ACID 500 MG TAB PO SCH ×2 (08:17→19:55)
[2021-06-03] MEDS: LORATADINE 10 MG TAB PO SCH (08:17)
[2021-06-03] MEDS: APIXABAN 5 MG TAB PO SCH ×2 (08:17→19:55)
[2021-06-03] MEDS: lisinopriL 10 MG TAB PO SCH (08:17)
[2021-06-03] MEDS: TAMSULOSIN 0.4 MG CAP.ER.24H PO SCH (08:17)
[2021-06-03] MEDS: ZINC SULFATE 220 MG CAP PO SCH (08:17)
[2021-06-03] MEDS: METOPROLOL TARTRATE 12.5 MG TAB PO SCH ×2 (08:17→19:55)
[2021-06-03] MEDS: CLOPIDOGREL 75 MG TAB PO SCH (08:17)
[2021-06-03] MEDS: CHOLECALCIFEROL 25 MCG (1000 IU) TABLET PO SCH (08:18)
[2021-06-03] MEDS: PIPERACILLIN-TAZOBACTAM 3.375 GM in SODIUM CHLORIDE 0.9% 100 ML IVPB SCH ×3 (08:19→23:25)
[2021-06-03] MEDS: DEXAMETHASONE SOD PHOSPHATE 10 MG/ML 1 ML VIAL IVP SCH ×2 (09:02→19:55)
[2021-06-03] MEDS: FINASTERIDE 5 MG TAB PO SCH (10:18)
[2021-06-03] MEDS: QUEtiapine 25 MG TAB PO SCH ×2 (10:18→19:56)
[2021-06-03 11:14] LABS: Glucose,Whole Blood 158 mg/dL (75-99)
--- NOTE | 2021-06-03 11:26 | P.PN ---
Subjective Progress Note Date: 06/03/21 HISTORY OF PRESENT ILLNESS: This is an 85-year-old white Brazilian male with a previous medical history sig nificant for coronary artery disease status post PCI of the LCx back in 2019, hypertension and hypertensive cardio vascular disease, hyperlipidemia, ALLERGIC rhinitis, enlarged prostate, history of ALLERGIC rhinitis, vascular dementia, patient presented to the emergency department at [facility] yesterday after he was evaluated few days ago with positive Covid 19 infection and he was sent home with supportive care patient was not hypoxemic at that time, patient apparently fell last night and couldn't get up because of generalized weakness he ended up coming back to the hospital with increased shortness breath associated with increased and weakness he became quite hypoxemic with oxygen saturation at 89% on room air so he was admitted to the hospital for evaluation and treatment for COVID-19 pneumonia, patient underwent x-rays of the pelvis that did not show any evidence of acute fracture, patient underwent computed tomography scan of the head in the cervical spine that showed anterolisthesis of C4-C5 and severe degenerative disc disease of C5 C6 C6 and 7, without acute frac ture, patient 12-lead EKG did not show evidence of acute ST-T wave changes, chest x-ray initially showed worsening infiltrate this was followed by CTA of the chest because of elevated d-dimer and elevated inflammatory markers and the patient was negative for pulmonary as well as a however it did show significant diffuse interstitial infiltrate suggestive of Covid 19 pneumonia, patient will be started on Remdesivir 200 mg loading dose followed by 100 mg daily for the next 5 days. 05/26: Patient apparently didn't sleep last night despite use of Xanax. We will add in Seroquel 12.5 mg twice daily., Heart rate 68, blood pressure 150/65, pulse ox 90% on 4 L nasal cannula. WBC 8.8, hemoglobin 12.5, platelet count 244. Electrolytes are normal. BUN 33 creatinine 1. Blood sugar 139. C-reactive protein 7.3. Blood cultures no growth at 24 hours 2 specimens. Patient has been seen by pulmonary medicine and continued on Remdesivir, Decadron, Lovenox and vitamin supplements. Patient has also been seen and followed by cardiology, atenolol on hold his heart rate has been in the 60s and occasionally in the 40s at night, cardiology has signed off. 05/27: Seen today in follow-up on the [facility] floor. His mental status is somewhat improved from yesterday after Seroquel was started. He is able to answer questions appropriately. He states that his breathing is better. He is on a nonrebreather with a pulse ox of 98% which will be weaned down today. Patient denies nausea or vomiting, not much appetite. nuclear monitoring technician has been sinus bradycardia with occasional trigeminy. Cardiology to be notified. Patient has been afebrile, heart rate 54, blood pressure 155/66. Patient's grandson is also hospitalized a few doors down from the patient. 05/28: A is seen today in follow-up. His mental status seems to be improved today. Patient went into A. fib with RVR with heart rate in the 110s and 120s, transferred to the cardiac stepdown unit. Cardizem drip currently at 5 mg per hour and patient has been started on heparin drip as well. Cardiology has plans for eliquis 5 mg twice daily and begin metoprolol to wean off Cardizem. TSH normal at 2.490. Patient remains afebrile. Pulse ox is 89 and 93% on 5 L nasal cannula. Repeat blood work reveals WBC 9.8, hemoglobin 12.5, platelet count 223. D-dimer 7.5. Electrolytes and renal function normal. LDH 345. 05/29: Patient is on 6 L nasal cannula with pulse ox 94%. He has been afebrile, heart rate 75, blood pressure 140/63, patient transition to sinus rhythm around midnight. Repeat blood work reveals WBC 12, hemoglobin 12.5, platelet count 220. Cardiology has started the patient on eliquis and continued Lopressor 12.5 g twice daily. Patient is continued on Remdesivir which will be completed today, dexamethasone 6 mg oral daily, vitamin supplements and eliquis. One dose of IV Lasix 20 mg ordered. 05/30: Patient is laying down in bed he is requiring about 5 L nasal cannula his current oxygenation is 94%, uses chest x-ray that did show worsening infiltrate, I started the patient on Zosyn 3.375 g IV piggyback every 6 hours, continue current pulmonary toileting, continue to monitor the patient, patient did r espond to the Lasix yesterday and he is feeling much better today than yesterday he has no audible wheezes at this time. 05/31: Patient is sitting up in bed in no apparent distress, he continues to be on a nonrebreather mask, his oxygen above 93%, he denies any chest pain he denies any coughing of phlegm production, his monitor showing H her fibrillation with controlled rate, continue with the patient on Eliquis, continue patient on metoprolol, monitor the patient very closely continue IV antibiotic in the form of Zosyn, physical therapy evaluation, patient will likely require subacute rehabilitation. 06/01: Patient is laying down in bed in moderate respiratory distress he continues to require 15L , continues to be on Zosyn 3.375 g IV piggyback every 8 hours, for which is interested continue them dictation, he has been seeing pulmonary medicine as well, monitor the patient very closely, spoke with his son-in-law over the phone as his daughter was asleep, and updated of the current situation of the patient plan of care. 06/02: Patient was transferred into the intensive care unit, he has a sitter at the bedside. Patient is currently on 15 L high flow nasal cannula and nonrebreather which she has been pulling off. Pulse ox 94% and drops down to 85 with eating. Temperature max 100.1, heart rate 64, blood pressure 160/53. Respiratory rate 29. Patient continues to be confused. His poor appetite and protein supplement added. Repeat blood work reveals WBC 11.1, hemoglobin 12.6. Electrolytes are normal, creatinine 0.91. Blood sugars are running between 142 and 154. Liver function tests are normal. C-reactive protein 16.2. D-dimer 4.14. 06/03: Patient remains in the intensive care unit. He is currently on oxygen high flow nasal cannula 10-12 L without nonrebreather and maintaining pulse ox of 89-92%. Patient is afebrile, heart rate in the 60s and 70s, blood pressure 134/76. Repeat blood work reveals WBC 13.2, hemoglobin 12.8. Electrolytes normal. BUN 39 creatinine 0.93. Blood sugars are running between 158 and 262 with improvement this morning. Repeat chest x-ray reveals bilateral multifocal and confluent opacities consistent with Coban 19. No significant change. REVIEW OF SYSTEMS: Constitutional: No documented fever, no chills, no night sweats. No weight change. positive for weakness,positive for fatigue no lethargy. No daytime sleepiness. HEENT: Denies headache. No blurred vision or double vision, no loss of vision. No loss of Hearing, no ringing in the ears, no dizziness. No nasal drainage or congestion. No epistaxis. No sore throat. Lungs: positive for shortness of breath, positive for cough, no sputum production. No wheezing. Reports dyspnea with activity. Cardiovascular: No chest pain, no lower extremity edema. No palpitations. No paroxysmal nocturnal dyspnea. No orthopnea. No lightheadedness or dizziness. No syncopal episodes. New onset atrial fibrillation Abdominal: Denies abdominal pain. No nausea, vomiting. No diarrhea. No constipation. No bloody or tarry stools reports loss of appetite. Genitourinary: No dysuria, increased frequency, urgency. No urinary retention. Musculoskeletal: positive for myalgias. No muscle weakness, no gait dysfunction, positive for falls. No back pain. positive for neck pain. Integumentary: No wounds, no lesions. No rash or pruritus. No unusual bruising. No change in hair or nails. Neurologic: No aphasia. No facial droop. Noted change in mentation with und erlying dementia. No head injury. No headache. No paralysis. No paresthesia. Psychiatric: No depression. No anxiety. Endocrine: No abnormal blood sugars. PHYSICAL EXAMINATION: General: 85-year-old male sitting up in bed and appears to be in no acute distress. HEENT: Head is atraumatic, normocephalic, pupils were equal round, sclera nonicteric, conjunctivae were pale, mucous membranes of the mouth are somewhat dry. Neck: Supple, no JVP, normal carotid upstroke bilaterally, no lymphadenopathy. Chest: Decreased breath sounds at the bases, few rhonchi, no extremity wheezes, no chest wall tenderness, no intercostal retractions. Heart: First heart sound is normal, second heart sounds normal, regular rhythm, there is systolic ejection murmur 2/6 located in the left sternal border, irregularly irregular due to atrial fibrillation. Abdomen: Soft, nontender, nondistended, positive bowel sounds, there is no hepatosplenomegaly. Extremities: There is no edema no calf tenderness DP +2 bilaterally. Neurologic examination: Patient is awake and alert and oriented x2, patient moves all his extremities, muscle power 4/5 in upper and lower extremities bilaterally. ASSESSMENT AND PLAN: 1. COVID-19 pneumonia possible bacterial pneumonia with acute hypoxic respiratory failure. Patient is currently on 10 L high flow nasal cannula. Continue Decadron 6 mg IV push every 12 hours, vitamin C 1000 mg every day, vitamin D 1000 units once every day as well as zinc 220 mg orally once every day, Remdesivir course completed, pulmonary consultation appreciated, continue droplet precautions as well as eye protection, continue Zosyn 3.375 g IV piggyback every 8 hours, check portable chest x-ray. 2. Generalized weakness with fall likely related to COVID-19 pneumonia. We will continue with the treatment as in previous paragraph. Physical therapy evaluation. 3. New onset atrial fibrillation, paroxysmal atrial fibrillation. Continue patient on metoprolol 12.5 mg orally twice every day as well as Eliquis 5 mg orally twice every day. 4. CAD post-PCI of the LCx. Plavix 75 mg orally once every day, continue metoprolol 12.5 mg orally twice every day, continue atorvastatin 80 mg once every day. 5. Hypertension and hypertensive cardiovascular disease. Continue patient on lisinopril 10 mg orally once every day, continue metoprolol 12.5 mg orally twice every day. 6. Hyperlipidemia. Continue patient on atorvastatin 80 mg orally once every day. 7. ALLERGIC rhinitis. Continue Zyrtec 10 mg once every day as well as Flonase nasal spray 1 puff in each nostril twice every day. 8. Vascular dementia. Continue donepezil 10 mg orally once every day. 9. Enlarged prostate. Continue Flomax 0.4 mg orally once every day as well as finasteride 5 mg once every day. 10. DVT prophylaxis. continue patient on Eliquis 5 mg orally twice every day. 11. GI prophylaxis. Continue Protonix 40 mg every day. 12. Patient is full code. 13. Likely will require subacute rehabilitation. Impression and plan of care have been directed as dictated by the signing katie pascual. Rupali Brannon nurse practitioner acting as scribe for signing physician. Objective - Vital Signs Vital signs: Vital Signs Temp 98.1 F 06/03/21 04:00 Pulse 69 06/03/21 10:00 Resp 18 06/03/21 10:00 BP 124/70 06/03/21 10:00 Pulse Ox 89 L 06/03/21 10:00 Intake & Output 06/02/21 06/03/21 06/03/21 18:59 06:59 18:59 Intake Total 195 240 60 Output Total 350 500 200 Balance -155 -260 -140 Weight 73.5 kg 73.7 kg Intake: IV 195 240 60 Piperacillin-Tazobactam 3 75 .375 gm In Sodium Chloride 0.9% 100 ml @ 25 mls/hr IVPB Q8HR [facility] Rx# :[id number] Sodium Chloride 0.9% 1, 120 240 60 000 ml @ 20 mls/hr IV . Q24H [facility] Rx#:[id number] Output: Urine 350 500 200 Other: Voiding Method Urinal External Catheter External Catheter # Voids 1 # Bowel Movements 1 - Labs CBC & Chem 7: 06/03/21 04:28 06/03/21 04:28 Labs: Abnormal Lab Results - Last 24 Hours (Table) 06/02/21 06/02/21 06/03/21 Range/Units 16:29 19:55 04:28 WBC 13.2 H (3.8-10.6) k/uL Hgb 12.8 L (13.0-17.5) gm/dL Neutrophils # 12.3 H (1.3-7.7) k/uL Lymphocytes # 0.5 L (1.0-4.8) k/uL BUN (9-20) mg/dL Glucose (74-99) mg/dL POC Glucose (mg/dL) 262 H 210 H (75-99) mg/dL 06/03/21 06/03/21 06/03/21 Range/Units 04:28 06:53 11:12 WBC (3.8-10.6) k/uL Hgb (13.0-17.5) gm/dL Neutrophils # (1.3-7.7) k/uL Lymphocytes # (1.0-4.8) k/uL BUN 39 H (9-20) mg/dL Glucose 177 H (74-99) mg/dL POC Glucose (mg/dL) 192 H 158 H (75-99) mg/dL
--- NOTE | 2021-06-03 11:52 | P.PN ---
Subjective Progress Note Date: 06/03/21 Principal diagnosis: Acute hypoxic respiratory failure secondary to COVID-19 pneumonia 05/31/2021, the patient is resting comfortably in bed. He had to be placed on a nonrebreather facemask and his pulse ox is currently around 93%. Despite the switch, the patient's breathing is nonlabored. She is resting comfortably in bed. Noted earlier to this, the patient was on 5 L of Oxymizer by nasal cannula. I was told that he took his oxygen overnight and he desaturated significantly and following that he was placed on nonrebreather facemask. A repeat chest x-ray was done today and this was completed. Earlier chest x-rays and I feel that the findings or worsen worsening consolidation of the right lateral chest area and left perihilar area and this goes along with his wor sening in his oxygenation. Hemodynamically, the patient remains stable. He did have a temperature of 100.3 yesterday and currently is afebrile. His respiratory rate is in the mid tens and the patient is not having any labored breathing at this point in time. His communicating. He has occasional cough. The patient remains on Zosyn as empiric antibiotic coverage. The patient remains on Decadron 6 mg by mouth daily. The patient remains on Eliquis for long-term anticoagulation. On 06/01/2021, I'm seeing this patient for a follow-up. The patient is confused. The patient is hallucinating. He is restless. He continues to follow of his 100% on a beta facemask which is at 15 L. His breathing is comfortable. He is not labored in his breathing. Nevertheless, while off the oxygen, he desaturates. He is quite lethargic yet arousable and he communicates. Denies having any chest pain. No reported fever. No labs from today and the labs are all pending from now. In terms of treatment, the patient remains on Decadron 6 mg by mouth daily. The patient remains on IV Zosyn as empiric antibiotic coverage. The patient remains on long-term and to coagulation with Eliquis at a dose of 5 mg by mouth twice a day. The patient has dementia and the patient is currently on Aricept. Repeat chest x-ray shows progressive worsening in his COVID 19 related pneumonia with dense consolidatio ns bilaterally more so on the right. There is a progressive worsening in his x- ray findings since 05/29/2021. This coincides or correlates with his worsening clinical status and worsening oxygenation. I was informed by the nursing staff that the primary care physician is O discussed CODE STATUS with the family including the daughter and the CODE STATUS has remained full at this point in time. Reevaluated today on 06/02/2021, patient remains in the ICU, patient is confused, he is on 15 L high flow nasal cannula and nonrebreather mask. O2 saturation is marginal. Remains on Decadron, he is also on Zosyn and on Eliquis. Patient is complaining of difficulty breathing, but he seems to be in no form of distress, he is quite confused, WBC count is 11.1 hemoglobin is 12.6, d-dimer is 4.14. Electrolytes are normal renal profile is normal. Chest x-ray continues to show scattered areas of infiltrates and consolidations bilaterally. C-reactive protein is 16.2. Reevaluated today on 06/03/2021, patient remains in the ICU, on 10 L high flow nasal cannula, patient is basically about the same. Does not seem to be in distress, however his O2 saturation is marginal, patient is quite confused, and I believe he has profound underlying dementia. Remains on the COVID-19 cocktail, remains on Decadron, he is also on Eliquis, BC is relatively normal electrolytes are normal renal profile is normal, chest x-ray continues show bilateral interstitial infiltrates. Consistent with COVID-19 pneumonia. Patient actually has multifocal confluent opacities Objective - Vital Signs Vital signs: Vital Signs Temp 98.1 F 06/03/21 04:00 Pulse 69 06/03/21 10:00 Resp 18 06/03/21 10:00 BP 124/70 06/03/21 10:00 Pulse Ox 89 L 06/03/21 10:00 Intake & Output 06/02/21 06/03/21 06/03/21 18:59 06:59 18:59 Intake Total 195 240 60 Output Total 350 500 200 Balance -155 -260 -140 Weight 73.5 kg 73.7 kg Intake: IV 195 240 60 Piperacillin-Tazobactam 3 75 .375 gm In Sodium Chloride 0.9% 100 ml @ 25 mls/hr IVPB Q8HR [facility] Rx# :[id number] Sodium Chloride 0.9% 1, 120 240 60 000 ml @ 20 mls/hr IV . Q24H [facility] Rx#:[id number] Output: Urine 350 500 200 Other: Voiding Method Urinal External Catheter External Catheter # Voids 1 # Bowel Movements 1 - Exam Physical Exam: Revealed an 85-year-old white male confused, in no distress, on 10 L high flow nasal cannula Head: Atraumatic, normocephalic. HEENT:[Neck is supple.] [No neck masses.] [No thyromegaly.] [No JVD.] Chest: [Symmetrical chest expansion, crackles at the bases, no rhonchi no wheezes. Cardiac Exam: Irregular irregular rhythm. [Normal S1 and S2, no S3 gallop, 2/6 systolic murmur thought the precordium. Abdomen: [Soft, nontender, no megaly, no rebound, no guarding, normal bowel sounds.] Extremities: [No clubbing, no edema, no cyanosis.] Good pulses bilaterally. Neurological Exam: Awake, follows simple instructions, confused. Psychiatric: Confused, could not fully assess mental status. Patient is oriente d 2 - Labs CBC & Chem 7: 06/03/21 04:28 06/03/21 04:28 Labs: Abnormal Lab Results - Last 24 Hours (Table) 06/02/21 06/02/21 06/03/21 Range/Units 16:29 19:55 04:28 WBC 13.2 H (3.8-10.6) k/uL Hgb 12.8 L (13.0-17.5) gm/dL Neutrophils # 12.3 H (1.3-7.7) k/uL Lymphocytes # 0.5 L (1.0-4.8) k/uL BUN (9-20) mg/dL Glucose (74-99) mg/dL POC Glucose (mg/dL) 262 H 210 H (75-99) mg/dL 06/03/21 06/03/21 06/03/21 Range/Units 04:28 06:53 11:12 WBC (3.8-10.6) k/uL Hgb (13.0-17.5) gm/dL Neutrophils # (1.3-7.7) k/uL Lymphocytes # (1.0-4.8) k/uL BUN 39 H (9-20) mg/dL Glucose 177 H (74-99) mg/dL POC Glucose (mg/dL) 192 H 158 H (75-99) mg/dL Assessment and Plan Assessment: Impression: Acute hypoxic respiratory failure secondary to COVID-19 pneumonia remains on the COVID-19 cocktail. Remains on vitamin D, zinc, finished a course of remdesivir, not a candidate for baricitinib, patient is receiving Zosyn. Coronary artery disease Hypertension Dyslipidemia Vascular dementia History of enlarged prostate/BPH. Paroxysmal atrial fibrillation. Elevated inflammatory markers secondary to COVID-19 infection Recommendation: Continue to monitor the patient in the ICU. Considering transferring the patient out of the ICU in the next 24 hours. Continue oxygen and titrate accordingly. Continue Zosyn. Pro-calcitonin level was elevated. Continue the COVID-19 cocktail. Patient completed a full course of remdesivir We will continue to follow Time with Patient: Less than 30
[2021-06-03 13:52] LABS: Glucose,Whole Blood 163 mg/dL (75-99)
[2021-06-03 16:52] LABS: Glucose,Whole Blood 127 mg/dL (75-99)
[2021-06-03] MEDS: SODIUM CHLORIDE 0.9% 1,000 ML IV SCH (19:49)
[2021-06-03] MEDS: ATORVASTATIN 80 MG TAB PO SCH (19:55)
[2021-06-03] MEDS: DONEPEZIL 10 MG TAB PO SCH (19:56)
[2021-06-03 20:24] LABS: Glucose,Whole Blood 159 mg/dL (75-99)
[2021-06-03 23:01] LABS: Glucose,Whole Blood 127 mg/dL (75-99)
[2021-06-04 05:09] LABS: Basophils % (A) 0 %; Eosinophils % (A) 0 %; HCT 38.6 % (39.0-53.0); HGB 12.9 gm/dL (13.0-17.5); Lymphocytes # (A) 0.9 k/uL (1.0-4.8); Lymphocytes % (A) 6 %; MCH 30.8 pg (25.0-35.0); MCHC 33.4 g/dL (31.0-37.0); MCV 92.2 fL (80.0-100.0); Mean Platelet Volume 8.8; Monocytes # (A) 0.4 k/uL (0-1.0); Monocytes % (A) 3 %; Neutrophils # (A) 13.2 k/uL (1.3-7.7); Neutrophils % (A) 90 %; Platelet Count 260 k/uL (150-450); RBC 4.19 m/uL (4.30-5.90); RDW 13.9 % (11.5-15.5); WBC 14.6 k/uL (3.8-10.6)
[2021-06-04 05:34] LABS: Calcium 8.7 mg/dL (8.4-10.2); Potassium 4.2 mmol/L (3.5-5.1)
[2021-06-04] MEDS: INSULIN ASPART (NovoLOG) 100 UNIT/ML VIAL SQ SCH ×4 (06:44→21:12)
[2021-06-04] MEDS: PANTOPRAZOLE 40 MG TABLET PO SCH (06:44)
[2021-06-04 06:47] LABS: Glucose,Whole Blood 118 mg/dL (75-99)
[2021-06-04] MEDS: ALBUTEROL HFA INHALER INHALATION PRN (07:53)
--- NOTE | 2021-06-04 07:59 | XR ---
EXAMINATION TYPE: XR chest 1V portable DATE OF EXAM: 06/04/2021 Comparison: 06/03/2021 Clinical History: 85-year-old male assess lungs Findings: Reverse left shoulder arthroplasty partially visualized. Heart is enlarged. Bilateral airspace opacit ies persists with a peripheral predominance. No pneumothorax or pleural effusion. Impression: 1. Similar mild cardiomegaly. 2. Continued bilateral, predominantly peripheral airspace disease, suspected COVID pneumonia.
[2021-06-04] MEDS: TAMSULOSIN 0.4 MG CAP.ER.24H PO SCH (08:25)
[2021-06-04] MEDS: PIPERACILLIN-TAZOBACTAM 3.375 GM in SODIUM CHLORIDE 0.9% 100 ML IVPB SCH ×3 (08:25→23:48)
[2021-06-04] MEDS: CHOLECALCIFEROL 25 MCG (1000 IU) TABLET PO SCH (08:25)
[2021-06-04] MEDS: ASCORBIC ACID 500 MG TAB PO SCH ×2 (08:26→21:51)
[2021-06-04] MEDS: LORATADINE 10 MG TAB PO SCH (08:26)
[2021-06-04] MEDS: ZINC SULFATE 220 MG CAP PO SCH (08:26)
[2021-06-04] MEDS: QUEtiapine 25 MG TAB PO SCH ×2 (08:27→21:52)
[2021-06-04] MEDS: DEXAMETHASONE SOD PHOSPHATE 10 MG/ML 1 ML VIAL IVP SCH ×2 (08:27→21:51)
[2021-06-04] MEDS: CLOPIDOGREL 75 MG TAB PO SCH (08:27)
[2021-06-04] MEDS: lisinopriL 10 MG TAB PO SCH (08:27)
[2021-06-04] MEDS: FINASTERIDE 5 MG TAB PO SCH (08:27)
[2021-06-04] MEDS: APIXABAN 5 MG TAB PO SCH ×2 (08:27→21:51)
[2021-06-04] MEDS: METOPROLOL TARTRATE 12.5 MG TAB PO SCH ×2 (08:27→21:51)
[2021-06-04] MEDS: ACETAMINOPHEN TAB 325 MG TAB PO PRN (08:36)
--- NOTE | 2021-06-04 09:06 | P.PN ---
Subjective Progress Note Date: 06/04/21 HISTORY OF PRESENT ILLNESS: This is an 85-year-old white [place] male with a previous medical history sig nificant for coronary artery disease status post PCI of the LCx back in 2019, hypertension and hypertensive cardio vascular disease, hyperlipidemia, ALLERGIC rhinitis, enlarged prostate, history of ALLERGIC rhinitis, vascular dementia, patient presented to the emergency department at [facility] yesterday after he was evaluated few days ago with positive Covid 19 infection and he was sent home with supportive care patient was not hypoxemic at that time, patient apparently fell last night and couldn't get up because of generalized weakness he ended up coming back to the hospital with increased shortness breath associated with increased and weakness he became quite hypoxemic with oxygen saturation at 89% on room air so he was admitted to the hospital for evaluation and treatment for COVID-19 pneumonia, patient underwent x-rays of the pelvis that did not show any evidence of acute fracture, patient underwent computed tomography scan of the head in the cervical spine that showed anterolisthesis of C4-C5 and severe degenerative disc disease of C5 C6 C6 and 7, without acute frac ture, patient 12-lead EKG did not show evidence of acute ST-T wave changes, chest x-ray initially showed worsening infiltrate this was followed by CTA of the chest because of elevated d-dimer and elevated inflammatory markers and the patient was negative for pulmonary as well as a however it did show significant diffuse interstitial infiltrate suggestive of Covid 19 pneumonia, patient will be started on Remdesivir 200 mg loading dose followed by 100 mg daily for the next 5 days. 05/26: Patient apparently didn't sleep last night despite use of Xanax. We will add in Seroquel 12.5 mg twice daily., Heart rate 68, blood pressure 150/65, pulse ox 90% on 4 L nasal cannula. WBC 8.8, hemoglobin 12.5, platelet count 244. Electrolytes are normal. BUN 33 creatinine 1. Blood sugar 139. C-reactive protein 7.3. Blood cultures no growth at 24 hours 2 specimens. Patient has been seen by pulmonary medicine and continued on Remdesivir, Decadron, Lovenox and vitamin supplements. Patient has also been seen and followed by cardiology, atenolol on hold his heart rate has been in the 60s and occasionally in the 40s at night, cardiology has signed off. 05/27: Seen today in follow-up on the [facility] floor. His mental status is somewhat improved from yesterday after Seroquel was started. He is able to answer questions appropriately. He states that his breathing is better. He is on a nonrebreather with a pulse ox of 98% which will be weaned down today. Patient denies nausea or vomiting, not much appetite. plate former has been sinus bradycardia with occasional trigeminy. Cardiology to be notified. Patient has been afebrile, heart rate 54, blood pressure 155/66. Patient's grandson is also hospitalized a few doors down from the patient. 05/28: A is seen today in follow-up. His mental status seems to be improved today. Patient went into A. fib with RVR with heart rate in the 110s and 120s, transferred to the cardiac stepdown unit. Cardizem drip currently at 5 mg per hour and patient has been started on heparin drip as well. Cardiology has plans for eliquis 5 mg twice daily and begin metoprolol to wean off Cardizem. TSH normal at 2.490. Patient remains afebrile. Pulse ox is 89 and 93% on 5 L nasal cannula. Repeat blood work reveals WBC 9.8, hemoglobin 12.5, platelet count 223. D-dimer 7.5. Electrolytes and renal function normal. LDH 345. 05/29: Patient is on 6 L nasal cannula with pulse ox 94%. He has been afebrile, heart rate 75, blood pressure 140/63, patient transition to sinus rhythm around midnight. Repeat blood work reveals WBC 12, hemoglobin 12.5, platelet count 220. Cardiology has started the patient on eliquis and continued Lopressor 12.5 g twice daily. Patient is continued on Remdesivir which will be completed today, dexamethasone 6 mg oral daily, vitamin supplements and eliquis. One dose of IV Lasix 20 mg ordered. 05/30: Patient is laying down in bed he is requiring about 5 L nasal cannula his current oxygenation is 94%, uses chest x-ray that did show worsening infiltrate, I started the patient on Zosyn 3.375 g IV piggyback every 6 hours, continue current pulmonary toileting, continue to monitor the patient, patient did r espond to the Lasix yesterday and he is feeling much better today than yesterday he has no audible wheezes at this time. 05/31: Patient is sitting up in bed in no apparent distress, he continues to be on a nonrebreather mask, his oxygen above 93%, he denies any chest pain he denies any coughing of phlegm production, his monitor showing H her fibrillation with controlled rate, continue with the patient on Eliquis, continue patient on metoprolol, monitor the patient very closely continue IV antibiotic in the form of Zosyn, physical therapy evaluation, patient will likely require subacute rehabilitation. 06/01: Patient is laying down in bed in moderate respiratory distress he continues to require 15L , continues to be on Zosyn 3.375 g IV piggyback every 8 hours, for which is interested continue them dictation, he has been seeing pulmonary medicine as well, monitor the patient very closely, spoke with his son-in-law over the phone as his daughter was asleep, and updated of the current situation of the patient plan of care. 06/02: Patient was transferred into the intensive care unit, he has a sitter at the bedside. Patient is currently on 15 L high flow nasal cannula and nonrebreather which she has been pulling off. Pulse ox 94% and drops down to 85 with eating. Temperature max 100.1, heart rate 64, blood pressure 160/53. Respiratory rate 29. Patient continues to be confused. His poor appetite and protein supplement added. Repeat blood work reveals WBC 11.1, hemoglobin 12.6. Electrolytes are normal, creatinine 0.91. Blood sugars are running between 142 and 154. Liver function tests are normal. C-reactive protein 16.2. D-dimer 4.14. 06/03: Patient remains in the intensive care unit. He is currently on oxygen high flow nasal cannula 10-12 L without nonrebreather and maintaining pulse ox of 89-92%. Patient is afebrile, heart rate in the 60s and 70s, blood pressure 134/76. Repeat blood work reveals WBC 13.2, hemoglobin 12.8. Electrolytes normal. BUN 39 creatinine 0.93. Blood sugars are running between 158 and 262 with improvement this morning. Repeat chest x-ray reveals bilateral multifocal and confluent opacities consistent with Covid19. No significant change. 06/04: Patient continues to be maintained in the intensive care unit. He is currently on nasal cannula with pulse ox of 89%, high flow nasal cannula 15 L. He is also on nonrebreather when this remains on. Patient does take off his oxygen he desaturates quickly. He is complaining of generalized pain and Tylenol is being evident. plate former is sinus rhythm with bigeminy. Repeat blood work reveals WBC 14.6, hemoglobin 12.9. Creatinine 0.94. Blood sugars are running between 118 and 159. He is continued on eliquis, vitamin supplements, dexamethasone and Zosyn. REVIEW OF SYSTEMS: Constitutional: No documented fever, no chills, no night sweats. No weight change. positive for weakness,positive for fatigue no lethargy. No daytime sleepiness. HEENT: Denies headache. No blurred vision or double vision, no loss of vision. No loss of Hearing, no ringing in the ears, no dizziness. No nasal drainage or congestion. No epistaxis. No sore throat. Lungs: positive for shortness of breath, positive for cough, no sputum production. No wheezing. Reports dyspnea with activity. Cardiovascular: No chest pain, no lower extremity edema. No palpitations. No paroxysmal nocturnal dyspnea. No orthopnea. No lightheadedness or dizziness. No syncopal episodes. New onset atrial fibrillation Abdominal: Denies abdominal pain. No nausea, vomiting. No diarrhea. No constipation. No bloody or tarry stools reports loss of appetite. Genitourinary: No dysuria, increased frequency, urgency. No urinary retention. Musculoskeletal: positive for myalgias. No muscle weakness, no gait dysfunction, positive for falls. No back pain. positive for neck pain. Integumentary: No wounds, no lesions. No rash or pruritus. No unusual bruising. Neurologic: No aphasia. No facial droop. Noted change in mentation with underlying dementia. No head injury. No headache. No paralysis. No paresthesia. Psychiatric: No depression. No anxiety. Endocrine: No abnormal blood sugars. PHYSICAL EXAMINATION: General: 85-year-old male sitting up in bed and appears to be in no acute distress at rest. HEENT: Head is atraumatic, normocephalic, pupils were equal round, sclera nonicteric, conjunctivae were pale, mucous membranes of the mouth are somewhat dry. Neck: Supple, no JVP, normal carotid upstroke bilaterally, no lymphadenopathy. Chest: Decreased breath sounds at the bases, few rhonchi, no extremity wheezes, no chest wall tenderness, no intercostal retractions. Heart: First heart sound is normal, second heart sounds normal, regular rhythm, there is systolic ejection murmur 2/6 located in the left sternal border, irregularly irregular due to atrial fibrillation. Abdomen: Soft, nontender, nondistended, positive bowel sounds, there is no hepatosplenomegaly. Extremities: There is no edema no calf tenderness DP +2 bilaterally. Neurologic examination: Patient is awake and alert and oriented x2, patient moves all his extremities, muscle power 4/5 in upper and lower extremities bilaterally. ASSESSMENT AND PLAN: 1. COVID-19 pneumonia possible bacterial pneumonia with acute hypoxic respiratory failure. Patient is currently on 15 L high flow nasal cannula and also nonrebreather when patient will maintain. Continue Decadron 6 mg IV push every 12 hours, vitamin C 1000 mg every day, vitamin D 1000 units once every day as well as zinc 220 mg orally once every day, Remdesivir course completed, pulmonary consultation appreciated, continue droplet precautions as well as eye protection, continue Zosyn 3.375 g IV piggyback every 8 hours, check portable chest x-ray. 2. Generalized weakness with fall likely related to COVID-19 pneumonia. We w ill continue with the treatment as in previous paragraph. Physical therapy evaluation. 3. New onset atrial fibrillation, paroxysmal atrial fibrillation. Continue patient on metoprolol 12.5 mg orally twice every day as well as Eliquis 5 mg orally twice every day. 4. CAD post-PCI of the LCx. Plavix 75 mg orally once every day, continue metoprolol 12.5 mg orally twice every day, continue atorvastatin 80 mg once every day. 5. Hypertension and hypertensive cardiovascular disease. Continue patient on lisinopril 10 mg orally once every day, continue metoprolol 12.5 mg orally twice every day. 6. Hyperlipidemia. Continue patient on atorvastatin 80 mg orally once every day. 7. ALLERGIC rhinitis. Continue Zyrtec 10 mg once every day as well as Flonase nasal spray 1 puff in each nostril twice every day. 8. Vascular dementia. Continue donepezil 10 mg orally once every day. 9. Enlarged prostate. Continue Flomax 0.4 mg orally once every day as well as finasteride 5 mg once every day. 10. DVT prophylaxis. continue patient on Eliquis 5 mg orally twice every day. 11. GI prophylaxis. Continue Protonix 40 mg every day. 12. Patient is full code. 13. Likely will require subacute rehabilitation. Impression and plan of care have been directed as dictated by the signing physician. Rupali Brannon nurse practitioner acting as scribe for signing physician. Objective - Vital Signs Vital signs: Vital Signs Temp 98.1 F 06/04/21 04:00 Pulse 64 06/04/21 07:00 Resp 16 06/04/21 07:00 BP 137/71 06/04/21 07:00 Pulse Ox 85 L 06/04/21 07:00 Intake & Output 06/03/21 06/04/21 06/04/21 18:59 06:59 18:59 Intake Total 320 340 20 Output Total 400 500 Balance -80 -160 20 Weight 73.5 kg Intake: IV 320 340 20 Piperacillin-Tazobactam 3 100 100 .375 gm In Sodium Chloride 0.9% 100 ml @ 25 mls/hr IVPB Q8HR SARAH Rx# :[id number] Sodium Chloride 0.9% 1, 220 240 20 000 ml @ 20 mls/hr IV . Q24H SARAH Rx#:[id number] Output: Urine 400 500 Other: Voiding Method External Catheter External Catheter # Voids 1 0 # Bowel Movements 1 - Labs CBC & Chem 7: 06/04/21 04:33 06/04/21 04:33 Labs: Abnormal Lab Results - Last 24 Hours (Table) 06/03/21 06/03/21 06/03/21 Range/Units 11:12 13:51 16:51 WBC (3.8-10.6) k/uL RBC (4.30-5.90) m/uL Hgb (13.0-17.5) gm/dL Hct (39.0-53.0) % Neutrophils # (1.3-7.7) k/uL Lymphocytes # (1.0-4.8) k/uL Carbon Dioxide (22-30) mmol/L BUN (9-20) mg/dL Glucose (74-99) mg/dL POC Glucose (mg/dL) 158 H 163 H 127 H (75-99) mg/dL 06/03/21 06/03/21 06/04/21 Range/Units 20:12 22:58 04:33 WBC 14.6 H (3.8-10.6) k/uL RBC 4.19 L (4.30-5.90) m/uL Hgb 12.9 L (13.0-17.5) gm/dL Hct 38.6 L (39.0-53.0) % Neutrophils # 13.2 H (1.3-7.7) k/uL Lymphocytes # 0.9 L (1.0-4.8) k/uL Carbon Dioxide (22-30) mmol/L BUN (9-20) mg/dL Glucose (74-99) mg/dL POC Glucose (mg/dL) 159 H 127 H (75-99) mg/dL 06/04/21 06/04/21 Range/Units 04:33 06:35 WBC (3.8-10.6) k/uL RBC (4.30-5.90) m/uL Hgb (13.0-17.5) gm/dL Hct (39.0-53.0) % Neutrophils # (1.3-7.7) k/uL Lymphocytes # (1.0-4.8) k/uL Carbon Dioxide 31 H (22-30) mmol/L BUN 35 H (9-20) mg/dL Glucose 135 H (74-99) mg/dL POC Glucose (mg/dL) 118 H (75-99) mg/dL
[2021-06-04 11:55] LABS: Glucose,Whole Blood 216 mg/dL (75-99)
--- NOTE | 2021-06-04 12:57 | P.PN ---
Subjective Progress Note Date: 06/04/21 Principal diagnosis: Acute hypoxic respiratory failure secondary to COVID-19 pneumonia 05/31/2021, the patient is resting comfortably in bed. He had to be placed on a nonrebreather facemask and his pulse ox is currently around 93%. Despite the switch, the patient's breathing is nonlabored. She is resting comfortably in bed. Noted earlier to this, the patient was on 5 L of Oxymizer by nasal cannula. I was told that he took his oxygen overnight and he desaturated significantly and following that he was placed on nonrebreather facemask. A repeat chest x-ray was done today and this was completed. Earlier chest x-rays and I feel that the findings or worsen worsening consolidation of the right lateral chest area and left perihilar area and this goes along with his wor sening in his oxygenation. Hemodynamically, the patient remains stable. He did have a temperature of 100.3 yesterday and currently is afebrile. His respiratory rate is in the mid tens and the patient is not having any labored breathing at this point in time. His communicating. He has occasional cough. The patient remains on Zosyn as empiric antibiotic coverage. The patient remains on Decadron 6 mg by mouth daily. The patient remains on Eliquis for long-term anticoagulation. On 06/01/2021, I'm seeing this patient for a follow-up. The patient is confused. The patient is hallucinating. He is restless. He continues to follow of his 100% on a beta facemask which is at 15 L. His breathing is comfortable. He is not labored in his breathing. Nevertheless, while off the oxygen, he desaturates. He is quite lethargic yet arousable and he communicates. Denies having any chest pain. No reported fever. No labs from today and the labs are all pending from now. In terms of treatment, the patient remains on Decadron 6 mg by mouth daily. The patient remains on IV Zosyn as empiric antibiotic coverage. The patient remains on long-term and to coagulation with Eliquis at a dose of 5 mg by mouth twice a day. The patient has dementia and the patient is currently on Aricept. Repeat chest x-ray shows progressive worsening in his COVID 19 related pneumonia with dense consolidatio ns bilaterally more so on the right. There is a progressive worsening in his x- ray findings since 05/29/2021. This coincides or correlates with his worsening clinical status and worsening oxygenation. I was informed by the nursing staff that the primary care physician is O discussed CODE STATUS with the family including the daughter and the CODE STATUS has remained full at this point in time. Reevaluated today on 06/02/2021, patient remains in the ICU, patient is confused, he is on 15 L high flow nasal cannula and nonrebreather mask. O2 saturation is marginal. Remains on Decadron, he is also on Zosyn and on Eliquis. Patient is complaining of difficulty breathing, but he seems to be in no form of distress, he is quite confused, WBC count is 11.1 hemoglobin is 12.6, d-dimer is 4.14. Electrolytes are normal renal profile is normal. Chest x-ray continues to show scattered areas of infiltrates and consolidations bilaterally. C-reactive protein is 16.2. Reevaluated today on 06/03/2021, patient remains in the ICU, on 10 L high flow nasal cannula, patient is basically about the same. Does not seem to be in distress, however his O2 saturation is marginal, patient is quite confused, and I believe he has profound underlying dementia. Remains on the COVID-19 cocktail, remains on Decadron, he is also on Eliquis, BC is relatively normal electrolytes are normal renal profile is normal, chest x-ray continues show bilateral interstitial infiltrates. Consistent with COVID-19 pneumonia. Patient actually has multifocal confluent opacities Reevaluated today on 06/04/21, patient remains in the ICU, remains on 10 L high flow nasal cannula, and he is also on a nonrebreather mask. He desaturates easily upon removing his non-rebreather mask. Patient remains confused intermittently. Labs were basically unremarkable. CBC showed a bit of leukocytosis with WBC count of 14.6 hemoglobin 12.9 electrolytes are normal renal profile is normal blood sugar is 216. Remains empirically on Zosyn. Patient remains on the COVID-19 cocktail, not a candidate for remdesivir or baricitinib Objective - Vital Signs Vital signs: Vital Signs Temp 98.1 F 06/04/21 04:00 Pulse 67 06/04/21 10:00 Resp 20 06/04/21 10:00 BP 135/63 06/04/21 09:00 Pulse Ox 98 06/04/21 10:00 Intake & Output 06/03/21 06/04/21 06/04/21 18:59 06:59 18:59 Intake Total 320 340 200 Output Total 400 500 50 Balance -80 -160 150 Weight 73.5 kg 73.5 kg Intake: IV 320 340 80 Piperacillin-Tazobactam 3 100 100 .375 gm In Sodium Chloride 0.9% 100 ml @ 25 mls/hr IVPB Q8HR SARAH Rx# :[id number] Sodium Chloride 0.9% 1, 220 240 80 000 ml @ 20 mls/hr IV . Q24H SARAH Rx#:[id number] Oral 120 Output: Urine 400 500 50 Other: Voiding Method External Catheter External Catheter External Catheter # Voids 1 0 # Bowel Movements 1 - Exam Physical Exam: Revealed an 85-year-old white male confused, in no distress, on 10 L high flow nasal cannula Head: Atraumatic, normocephalic. HEENT:[Neck is supple.] [No neck masses.] [No thyromegaly.] [No JVD.] Chest: [Symmetrical chest expansion, crackles at the bases, no rhonchi no wheezes. Cardiac Exam: Irregular irregular rhythm. [Normal S1 and S2, no S3 gallop, 2/6 systolic murmur thought the precordium. Abdomen: [Soft, nontender, no megaly, no rebound, no guarding, normal bowel sounds.] Extremities: [No clubbing, no edema, no cyanosis.] Good pulses bilaterally. Neurological Exam: Awake, follows simple instructions, confused. Psychiatric: Confused, could not fully assess mental status. Patient is oriented 2 - Labs CBC & Chem 7: 06/04/21 04:33 06/04/21 04:33 Labs: Abnormal Lab Results - Last 24 Hours (Table) 06/03/21 06/03/21 06/03/21 Range/Units 13:51 16:51 20:12 WBC (3.8-10.6) k/uL RBC (4.30-5.90) m/uL Hgb (13.0-17.5) gm/dL Hct (39.0-53.0) % Neutrophils # (1.3-7.7) k/uL Lymphocytes # (1.0-4.8) k/uL Carbon Dioxide (22-30) mmol/L BUN (9-20) mg/dL Glucose (74-99) mg/dL POC Glucose (mg/dL) 163 H 127 H 159 H (75-99) mg/dL 06/03/21 06/04/21 06/04/21 Range/Units 22:58 04:33 04:33 WBC 14.6 H (3.8-10.6) k/uL RBC 4.19 L (4.30-5.90) m/uL Hgb 12.9 L (13.0-17.5) gm/dL Hct 38.6 L (39.0-53.0) % Neutrophils # 13.2 H (1.3-7.7) k/uL Lymphocytes # 0.9 L (1.0-4.8) k/uL Carbon Dioxide 31 H (22-30) mmol/L BUN 35 H (9-20) mg/dL Glucose 135 H (74-99) mg/dL POC Glucose (mg/dL) 127 H (75-99) mg/dL 06/04/21 06/04/21 Range/Units 06:35 11:54 WBC (3.8-10.6) k/uL RBC (4.30-5.90) m/uL Hgb (13.0-17.5) gm/dL Hct (39.0-53.0) % Neutrophils # (1.3-7.7) k/uL Lymphocytes # (1.0-4.8) k/uL Carbon Dioxide (22-30) mmol/L BUN (9-20) mg/dL Glucose (74-99) mg/dL POC Glucose (mg/dL) 118 H 216 H (75-99) mg/dL Assessment and Plan Assessment: Impression: Acute hypoxic respiratory failure secondary to COVID-19 pneumonia remains on the COVID-19 cocktail. Remains on vitamin D, zinc, finished a course of remdesivir, not a candidate for baricitinib Coronary artery disease Hypertension Dyslipidemia Vascular dementia History of enlarged prostate/BPH. Paroxysmal atrial fibrillation. Elevated inflammatory markers secondary to COVID-19 infection Recommendation: Continue to monitor the patient in the ICU. Continue Zosyn. Pro-calcitonin level was elevated. Continue the COVID-19 cocktail. Patient completed a full course of remdesivir We will continue to follow Time with Patient: Less than 30
[2021-06-04 16:53] LABS: Glucose,Whole Blood 240 mg/dL (75-99)
[2021-06-04] MEDS: SODIUM CHLORIDE 0.9% 1,000 ML IV SCH (17:33)
[2021-06-04 21:12] LABS: Glucose,Whole Blood 216 mg/dL (75-99)
[2021-06-04] MEDS: ATORVASTATIN 80 MG TAB PO SCH (21:51)
[2021-06-04] MEDS: DONEPEZIL 10 MG TAB PO SCH (21:52)
[2021-06-05 04:41] LABS: Basophils % (A) 0 %; Eosinophils % (A) 0 %; HCT 38.6 % (39.0-53.0); HGB 12.4 gm/dL (13.0-17.5); Lymphocytes # (A) 0.5 k/uL (1.0-4.8); Lymphocytes % (A) 4 %; MCHC 32.2 g/dL (31.0-37.0); MCV 93.1 fL (80.0-100.0); Mean Platelet Volume 8.9; Monocytes # (A) 0.3 k/uL (0-1.0); Monocytes % (A) 2 %; Neutrophils # (A) 13.6 k/uL (1.3-7.7); Neutrophils % (A) 94 %; Platelet Count 223 k/uL (150-450); RBC 4.15 m/uL (4.30-5.90); RDW 13.3 % (11.5-15.5); WBC 14.5 k/uL (3.8-10.6)
[2021-06-05 04:56] LABS: African American GFR (CKD) >90 (>60 ml/min/1.73 sqM); Anion Gap 2 mmol/L; Blood Urea Nitrogen 35 mg/dL (9-20); Calcium 8.3 mg/dL (8.4-10.2); Carbon Dioxide 29 mmol/L (22-30); Chloride 104 mmol/L (98-107); Glucose 179 mg/dL (74-99); Non-African American GFR(CKD) 82 (>60 ml/min/1.73 sqM); Potassium 4.1 mmol/L (3.5-5.1); Sodium 135 mmol/L (137-145)
[2021-06-05 06:55] LABS: Glucose,Whole Blood 173 mg/dL (75-99)
[2021-06-05] MEDS: INSULIN ASPART (NovoLOG) 100 UNIT/ML VIAL SQ SCH ×4 (06:56→20:02)
[2021-06-05] MEDS: PANTOPRAZOLE 40 MG TABLET PO SCH (06:56)
--- NOTE | 2021-06-05 08:03 | XR ---
EXAMINATION TYPE: XR chest 1V portable DATE OF EXAM: 06/05/2021 HISTORY: Shortness of breath. COMPARISON: 06/04/2021 TECHNIQUE: Single view of the chest is submitted. FINDINGS: Demonstrated are scattered senescent parenchymal change. Scattered bilateral airspace infiltrates persist without significant change. The heart is stable. Hilar and mediastinal structures are within normal limits. Degenerative changes are seen of the dorsal spine. IMPRESSION: 1. Scattered bilateral airspace infiltrates persist without significant change.
[2021-06-05] MEDS: FINASTERIDE 5 MG TAB PO SCH (09:10)
[2021-06-05] MEDS: METOPROLOL TARTRATE 12.5 MG TAB PO SCH ×2 (09:10→20:02)
[2021-06-05] MEDS: TAMSULOSIN 0.4 MG CAP.ER.24H PO SCH (09:10)
[2021-06-05] MEDS: QUEtiapine 25 MG TAB PO SCH ×2 (09:10→20:03)
[2021-06-05] MEDS: ZINC SULFATE 220 MG CAP PO SCH (09:10)
[2021-06-05] MEDS: lisinopriL 10 MG TAB PO SCH (09:11)
[2021-06-05] MEDS: APIXABAN 5 MG TAB PO SCH ×2 (09:11→20:03)
[2021-06-05] MEDS: CLOPIDOGREL 75 MG TAB PO SCH (09:11)
[2021-06-05] MEDS: DEXAMETHASONE SOD PHOSPHATE 10 MG/ML 1 ML VIAL IVP SCH ×2 (09:12→20:03)
[2021-06-05] MEDS: ASCORBIC ACID 500 MG TAB PO SCH ×2 (09:12→20:03)
[2021-06-05] MEDS: CHOLECALCIFEROL 25 MCG (1000 IU) TABLET PO SCH (09:12)
[2021-06-05] MEDS: PIPERACILLIN-TAZOBACTAM 3.375 GM in SODIUM CHLORIDE 0.9% 100 ML IVPB SCH ×3 (09:14→23:28)
[2021-06-05] MEDS: LORATADINE 10 MG TAB PO SCH (09:16)
--- NOTE | 2021-06-05 12:24 | P.PN ---
Subjective Progress Note Date: 06/05/21 Principal diagnosis: Acute hypoxic respiratory failure secondary to COVID-19 pneumonia 05/31/2021, the patient is resting comfortably in bed. He had to be placed on a nonrebreather facemask and his pulse ox is currently around 93%. Despite the switch, the patient's breathing is nonlabored. She is resting comfortably in bed. Noted earlier to this, the patient was on 5 L of Oxymizer by nasal cannula. I was told that he took his oxygen overnight and he desaturated significantly and following that he was placed on nonrebreather facemask. A repeat chest x-ray was done today and this was completed. Earlier chest x-rays and I feel that the findings or worsen worsening consolidation of the right lateral chest area and left perihilar area and this goes along with his wor sening in his oxygenation. Hemodynamically, the patient remains stable. He did have a temperature of 100.3 yesterday and currently is afebrile. His respiratory rate is in the mid tens and the patient is not having any labored breathing at this point in time. His communicating. He has occasional cough. The patient remains on Zosyn as empiric antibiotic coverage. The patient remains on Decadron 6 mg by mouth daily. The patient remains on Eliquis for long-term anticoagulation. On 06/01/2021, I'm seeing this patient for a follow-up. The patient is confused. The patient is hallucinating. He is restless. He continues to follow of his 100% on a beta facemask which is at 15 L. His breathing is comfortable. He is not labored in his breathing. Nevertheless, while off the oxygen, he desaturates. He is quite lethargic yet arousable and he communicates. Denies having any chest pain. No reported fever. No labs from today and the labs are all pending from now. In terms of treatment, the patient remains on Decadron 6 mg by mouth daily. The patient remains on IV Zosyn as empiric antibiotic coverage. The patient remains on long-term and to coagulation with Eliquis at a dose of 5 mg by mouth twice a day. The patient has dementia and the patient is currently on Aricept. Repeat chest x-ray shows progressive worsening in his COVID 19 related pneumonia with dense consolidatio ns bilaterally more so on the right. There is a progressive worsening in his x- ray findings since 05/29/2021. This coincides or correlates with his worsening clinical status and worsening oxygenation. I was informed by the nursing staff that the primary care physician is O discussed CODE STATUS with the family including the daughter and the CODE STATUS has remained full at this point in time. Reevaluated today on 06/02/2021, patient remains in the ICU, patient is confused, he is on 15 L high flow nasal cannula and nonrebreather mask. O2 saturation is marginal. Remains on Decadron, he is also on Zosyn and on Eliquis. Patient is complaining of difficulty breathing, but he seems to be in no form of distress, he is quite confused, WBC count is 11.1 hemoglobin is 12.6, d-dimer is 4.14. Electrolytes are normal renal profile is normal. Chest x-ray continues to show scattered areas of infiltrates and consolidations bilaterally. C-reactive protein is 16.2. Reevaluated today on 06/03/2021, patient remains in the ICU, on 10 L high flow nasal cannula, patient is basically about the same. Does not seem to be in distress, however his O2 saturation is marginal, patient is quite confused, and I believe he has profound underlying dementia. Remains on the COVID-19 cocktail, remains on Decadron, he is also on Eliquis, BC is relatively normal electrolytes are normal renal profile is normal, chest x-ray continues show bilateral interstitial infiltrates. Consistent with COVID-19 pneumonia. Patient actually has multifocal confluent opacities Reevaluated today on 06/04/21, patient remains in the ICU, remains on 10 L high flow nasal cannula, and he is also on a nonrebreather mask. He desaturates easily upon removing his non-rebreather mask. Patient remains confused intermittently. Labs were basically unremarkable. CBC showed a bit of leukocytosis with WBC count of 14.6 hemoglobin 12.9 electrolytes are normal renal profile is normal blood sugar is 216. Remains empirically on Zosyn. Patient remains on the COVID-19 cocktail, not a candidate for remdesivir or baricitinib Reevaluated today on 06/05/2021, patient remains in the ICU, he is sitting at a bedside chair, on 12 L high flow nasal cannula, seems to be a bit more appropriate today, less confused. Patient denies being short of breath, denies any chest pain, denies any cough or wheezing. Chest x-ray continues to show diffuse bilateral infiltrates. Not much of the changes noted on the chest x- ray. His basic metabolic profile is normal. CBC is normal. No inflammatory markers were ordered today. Objective - Vital Signs Vital signs: Vital Signs Temp 98.3 F 06/05/21 08:00 Pulse 69 06/05/21 12:00 Resp 23 06/05/21 12:00 BP 132/60 06/05/21 12:00 Pulse Ox 88 L 06/05/21 12:00 Intake & Output 06/04/21 06/05/21 06/05/21 18:59 06:59 18:59 Intake Total 600 320 220 Output Total 350 425 50 Balance 250 -105 170 Weight 73.5 kg 73.3 kg Intake: IV 220 320 220 Piperacillin-Tazobactam 3 100 100 .375 gm In Sodium Chloride 0.9% 100 ml @ 25 mls/hr IVPB Q8HR [facility] Rx# :[id number] Sodium Chloride 0.9% 1, 220 220 120 000 ml @ 20 mls/hr IV . Q24H [facility] Rx#:[id number] Intake, IV Titration 20 Amount Sodium Chloride 0.9% 1, 20 000 ml @ 20 mls/hr IV . Q24H [facility] Rx#:[id number] Oral 360 Output: Urine 350 425 50 Other: Voiding Method External Catheter External Catheter External Catheter # Voids 1 1 - Exam Physical Exam: Revealed an 85-year-old white male, in no distress, on 12 L high flow cannula. Less confused today. Head: Atraumatic, normocephalic. HEENT:[Neck is supple.] [No neck masses.] [No thyromegaly.] [No JVD.] Chest: [Symmetrical chest expansion, crackles at the bases, no rhonchi no wheezes. Cardiac Exam: Irregular irregular rhythm. [Normal S1 and S2, no S3 gallop, 2/6 systolic murmur thought the precordium. Abdomen: [Soft, nontender, no megaly, no rebound, no guarding, normal bowel sounds.] Extremities: [No clubbing, no edema, no cyanosis.] Good pulses bilaterally. Neurological Exam: Awake, follows simple instructions, less confusion noted today, patient is alert and oriented 3. Psychiatric: Normal mood, affect, much better mental status confusion noted today. - Labs CBC & Chem 7: 06/05/21 04:28 06/05/21 04:28 Labs: Abnormal Lab Results - Last 24 Hours (Table) 06/04/21 06/04/21 06/05/21 Range/Units 16:51 21:10 04:28 WBC 14.5 H (3.8-10.6) k/uL RBC 4.15 L (4.30-5.90) m/uL Hgb 12.4 L (13.0-17.5) gm/dL Hct 38.6 L (39.0-53.0) % Neutrophils # 13.6 H (1.3-7.7) k/uL Lymphocytes # 0.5 L (1.0-4.8) k/uL Sodium (137-145) mmol/L BUN (9-20) mg/dL Glucose (74-99) mg/dL POC Glucose (mg/dL) 240 H 216 H (75-99) mg/dL Calcium (8.4-10.2) mg/dL 06/05/21 06/05/21 Range/Units 04:28 06:53 WBC (3.8-10.6) k/uL RBC (4.30-5.90) m/uL Hgb (13.0-17.5) gm/dL Hct (39.0-53.0) % Neutrophils # (1.3-7.7) k/uL Lymphocytes # (1.0-4.8) k/uL Sodium 135 L (137-145) mmol/L BUN 35 H (9-20) mg/dL Glucose 179 H (74-99) mg/dL POC Glucose (mg/dL) 173 H (75-99) mg/dL Calcium 8.3 L (8.4-10.2) mg/dL Assessment and Plan Assessment: Impression: Acute hypoxic respiratory failure secondary to COVID-19 pneumonia remains on the COVID-19 cocktail. Remains on vitamin D, zinc, finished a course of remdesivir, not a candidate for baricitinib Coronary artery disease Hypertension Dyslipidemia Vascular dementia History of enlarged prostate/BPH. Paroxysmal atrial fibrillation. Elevated inflammatory markers secondary to COVID-19 infection Recommendation: Continue to monitor the patient in the ICU. Continue Zosyn. Pro-calcitonin level was elevated. Continue the COVID-19 cocktail. Patient completed a full course of remdesivir We will continue to follow Time with Patient: Less than 30
[2021-06-05 12:26] LABS: Glucose,Whole Blood 146 mg/dL (75-99)
--- NOTE | 2021-06-05 15:31 | P.PN ---
Subjective Progress Note Date: 06/05/21 HISTORY OF PRESENT ILLNESS: This is an 85-year-old white [place] male with a previous medical history sig nificant for coronary artery disease status post PCI of the LCx back in 2019, hypertension and hypertensive cardio vascular disease, hyperlipidemia, ALLERGIC rhinitis, enlarged prostate, history of ALLERGIC rhinitis, vascular dementia, patient presented to the emergency department at [facility] yesterday after he was evaluated few days ago with positive Covid 19 infection and he was sent home with supportive care patient was not hypoxemic at that time, patient apparently fell last night and couldn't get up because of generalized weakness he ended up coming back to the hospital with increased shortness breath associated with increased and weakness he became quite hypoxemic with oxygen saturation at 89% on room air so he was admitted to the hospital for evaluation and treatment for COVID-19 pneumonia, patient underwent x-rays of the pelvis that did not show any evidence of acute fracture, patient underwent computed tomography scan of the head in the cervical spine that showed anterolisthesis of C4-C5 and severe degenerative disc disease of C5 C6 C6 and 7, without acute frac ture, patient 12-lead EKG did not show evidence of acute ST-T wave changes, chest x-ray initially showed worsening infiltrate this was followed by CTA of the chest because of elevated d-dimer and elevated inflammatory markers and the patient was negative for pulmonary as well as a however it did show significant diffuse interstitial infiltrate suggestive of Covid 19 pneumonia, patient will be started on Remdesivir 200 mg loading dose followed by 100 mg daily for the next 5 days. 05/26: Patient apparently didn't sleep last night despite use of Xanax. We will add in Seroquel 12.5 mg twice daily., Heart rate 68, blood pressure 150/65, pulse ox 90% on 4 L nasal cannula. WBC 8.8, hemoglobin 12.5, platelet count 244. Electrolytes are normal. BUN 33 creatinine 1. Blood sugar 139. C-reactive protein 7.3. Blood cultures no growth at 24 hours 2 specimens. Patient has been seen by pulmonary medicine and continued on Remdesivir, Decadron, Lovenox and vitamin supplements. Patient has also been seen and followed by cardiology, atenolol on hold his heart rate has been in the 60s and occasionally in the 40s at night, cardiology has signed off. 05/27: Seen today in follow-up on the [facility] floor. His mental status is somewhat improved from yesterday after Seroquel was started. He is able to answer questions appropriately. He states that his breathing is better. He is on a nonrebreather with a pulse ox of 98% which will be weaned down today. Patient denies nausea or vomiting, not much appetite. cafeteria monitor has been sinus bradycardia with occasional trigeminy. Cardiology to be notified. Patient has been afebrile, heart rate 54, blood pressure 155/66. Patient's grandson is also hospitalized a few doors down from the patient. 05/28: A is seen today in follow-up. His mental status seems to be improved today. Patient went into A. fib with RVR with heart rate in the 110s and 120s, transferred to the cardiac stepdown unit. Cardizem drip currently at 5 mg per hour and patient has been started on heparin drip as well. Cardiology has plans for eliquis 5 mg twice daily and begin metoprolol to wean off Cardizem. TSH normal at 2.490. Patient remains afebrile. Pulse ox is 89 and 93% on 5 L nasal cannula. Repeat blood work reveals WBC 9.8, hemoglobin 12.5, platelet count 223. D-dimer 7.5. Electrolytes and renal function normal. LDH 345. 05/29: Patient is on 6 L nasal cannula with pulse ox 94%. He has been afebrile, heart rate 75, blood pressure 140/63, patient transition to sinus rhythm around midnight. Repeat blood work reveals WBC 12, hemoglobin 12.5, platelet count 220. Cardiology has started the patient on eliquis and continued Lopressor 12.5 g twice daily. Patient is continued on Remdesivir which will be completed today, dexamethasone 6 mg oral daily, vitamin supplements and eliquis. One dose of IV Lasix 20 mg ordered. 05/30: Patient is laying down in bed he is requiring about 5 L nasal cannula his current oxygenation is 94%, uses chest x-ray that did show worsening infiltrate, I started the patient on Zosyn 3.375 g IV piggyback every 6 hours, continue current pulmonary toileting, continue to monitor the patient, patient did r espond to the Lasix yesterday and he is feeling much better today than yesterday he has no audible wheezes at this time. 05/31: Patient is sitting up in bed in no apparent distress, he continues to be on a nonrebreather mask, his oxygen above 93%, he denies any chest pain he denies any coughing of phlegm production, his monitor showing H her fibrillation with controlled rate, continue with the patient on Eliquis, continue patient on metoprolol, monitor the patient very closely continue IV antibiotic in the form of Zosyn, physical therapy evaluation, patient will likely require subacute rehabilitation. 06/01: Patient is laying down in bed in moderate respiratory distress he continues to require 15L , continues to be on Zosyn 3.375 g IV piggyback every 8 hours, for which is interested continue them dictation, he has been seeing pulmonary medicine as well, monitor the patient very closely, spoke with his son-in-law over the phone as his daughter was asleep, and updated of the current situation of the patient plan of care. 06/02: Patient was transferred into the intensive care unit, he has a sitter at the bedside. Patient is currently on 15 L high flow nasal cannula and nonrebreather which she has been pulling off. Pulse ox 94% and drops down to 85 with eating. Temperature max 100.1, heart rate 64, blood pressure 160/53. Respiratory rate 29. Patient continues to be confused. His poor appetite and protein supplement added. Repeat blood work reveals WBC 11.1, hemoglobin 12.6. Electrolytes are normal, creatinine 0.91. Blood sugars are running between 142 and 154. Liver function tests are normal. C-reactive protein 16.2. D-dimer 4.14. 06/03: Patient remains in the intensive care unit. He is currently on oxygen high flow nasal cannula 10-12 L without nonrebreather and maintaining pulse ox of 89-92%. Patient is afebrile, heart rate in the 60s and 70s, blood pressure 134/76. Repeat blood work reveals WBC 13.2, hemoglobin 12.8. Electrolytes normal. BUN 39 creatinine 0.93. Blood sugars are running between 158 and 262 with improvement this morning. Repeat chest x-ray reveals bilateral multifocal and confluent opacities consistent with Covid19. No significant change. 06/04: Patient continues to be maintained in the intensive care unit. He is currently on nasal cannula with pulse ox of 89%, high flow nasal cannula 15 L. He is also on nonrebreather when this remains on. Patient does take off his oxygen he desaturates quickly. He is complaining of generalized pain and Tylenol is being evident. cafeteria monitor is sinus rhythm with bigeminy. Repeat blood work reveals WBC 14.6, hemoglobin 12.9. Creatinine 0.94. Blood sugars are running between 118 and 159. He is continued on eliquis, vitamin supplements, dexamethasone and Zosyn. 06/05: Patient remains in intensive care unit, currently on high flow nasal cannula at 15 L. He is not requiring nonrebreather but pulse ox is dropped when nasal cannula was not in place. Patient remains confused but seems to be more alert today and interactive. He denies having any chest pain or shortness of breath. He is afebrile, heart rate 69, blood pressure 132/60, pulse ox 88-95% on 15 L nasal cannula. WBC 14.5, hemoglobin 12.4. Creatinine 0.79. Blood sugars are running between 173 and 240. REVIEW OF SYSTEMS: Constitutional: No documented fever, no chills, no night sweats. No weight c hange. positive for weakness,positive for fatigue no lethargy. No daytime sleepiness. HEENT: Denies headache. No blurred vision or double vision, no loss of vision. No loss of Hearing, no ringing in the ears, no dizziness. No nasal drainage or congestion. No epistaxis. No sore throat. Lungs: positive for shortness of breath, positive for cough, no sputum production. No wheezing. Reports dyspnea with activity. Cardiovascular: No chest pain, no lower extremity edema. No palpitations. No paroxysmal nocturnal dyspnea. No orthopnea. No lightheadedness or dizziness. No syncopal episodes. New onset atrial fibrillation Abdominal: Denies abdominal pain. No nausea, vomiting. No diarrhea. No constipation. No bloody or tarry stools reports loss of appetite. Genitourinary: No dysuria, increased frequency, urgency. No urinary retention. Musculoskeletal: positive for myalgias. Noted generalized muscle weakness, no gait dysfunction, positive for falls. No back pain. positive for neck pain. Integumentary: No wounds, no lesions. No rash or pruritus. No unusual bruising. Neurologic: No aphasia. No facial droop. Noted change in mentation with underlying dementia. No head injury. No headache. No paralysis. No paresthesia. Psychiatric: No depression. No anxiety. Endocrine: No abnormal blood sugars. PHYSICAL EXAMINATION: General: 85-year-old male sitting up in bed and appears to be in no acute distress at rest. Patient is on 15 L high flow nasal cannula. HEENT: Head is atraumatic, normocephalic, pupils were equal round, sclera nonicteric, conjunctivae were pale, mucous membranes of the mouth are somewhat dry. Neck: Supple, no JVP, normal carotid upstroke bilaterally, no lymphadenopathy. Chest: Decreased breath sounds at the bases, few rhonchi, no extremity wheezes, no chest wall tenderness, no intercostal retractions. Heart: First heart sound is normal, second heart sounds normal, regular rhythm, there is systolic ejection murmur 2/6 located in the left sternal border, irregularly irregular due to atrial fibrillation. Abdomen: Soft, nontender, nondistended, positive bowel sounds, there is no hepatosplenomegaly. Extremities: There is no edema no calf tenderness DP +2 bilaterally. Neurologic examination: Patient is awake and alert and oriented x2, patient moves all his extremities, muscle power 4/5 in upper and lower extremities bilaterally. ASSESSMENT AND PLAN: 1. COVID-19 pneumonia possible bacterial pneumonia with acute hypoxic respiratory failure. Patient is currently on 15 L high flow nasal cannula without nonrebreather. Continue Decadron 6 mg IV push every 12 hours, vitamin C 1000 mg every day, vitamin D 1000 units once every day as well as zinc 220 mg orally once every day, Remdesivir course completed, pulmonary consultation appreciated, continue droplet precautions as well as eye protection, continue Zosyn 3.375 g IV piggyback every 8 hours, check portable chest x-ray. 2. Generalized weakness with fall likely related to COVID-19 pneumonia. We will continue with the treatment as in previous paragraph. Physical therapy evaluation. 3. New onset atrial fibrillation, paroxysmal atrial fibrillation. Continue patient on metoprolol 12.5 mg orally twice every day as well as Eliquis 5 mg orally twice every day. 4. CAD post-PCI of the LCx. Plavix 75 mg orally once every day, continue metoprolol 12.5 mg orally twice every day, continue atorvastatin 80 mg once every day. 5. Hypertension and hypertensive cardiovascular disease. Continue patient on lisinopril 10 mg orally once every day, continue metoprolol 12.5 mg orally twice every day. 6. Hyperlipidemia. Continue patient on atorvastatin 80 mg orally once every day. 7. ALLERGIC rhinitis. Continue Zyrtec 10 mg once every day as well as Flonase nasal spray 1 puff in each nostril twice every day. 8. Vascular dementia. Continue donepezil 10 mg orally once every day. 9. Enlarged prostate. Continue Flomax 0.4 mg orally once every day as well as finasteride 5 mg once every day. 10. DVT prophylaxis. continue patient on Eliquis 5 mg orally twice every day. 11. GI prophylaxis. Continue Protonix 40 mg every day. 12. Patient is full code with no intubation. 13. Likely will require subacute rehabilitation. Impression and plan of care have been directed as dictated by the signing physician. Rupali Brannon nurse practitioner acting as scribe for signing physician. Objective - Vital Signs Vital signs: Vital Signs Temp 97.5 F L 06/05/21 04:00 Pulse 71 06/05/21 07:00 Resp 11 L 06/05/21 07:00 BP 151/69 06/05/21 07:00 Pulse Ox 90 L 06/05/21 07:00 Intake & Output 06/04/21 06/05/21 06/05/21 18:59 06:59 18:59 Intake Total 600 320 20 Output Total 350 425 Balance 250 -105 20 Weight 73.5 kg 73.3 kg Intake: IV 220 320 20 Piperacillin-Tazobactam 3 100 .375 gm In Sodium Chloride 0.9% 100 ml @ 25 mls/hr IVPB Q8HR [facility] Rx# :[id number] Sodium Chloride 0.9% 1, 220 220 20 000 ml @ 20 mls/hr IV . Q24H [facility] Rx#:[id number] Intake, IV Titration 20 Amount Sodium Chloride 0.9% 1, 20 000 ml @ 20 mls/hr IV . Q24H [facility] Rx#:[id number] Oral 360 Output: Urine 350 425 Other: Voiding Method External Catheter External Catheter # Voids 1 1 - Labs CBC & Chem 7: 06/05/21 04:28 06/05/21 04:28 Labs: Abnormal Lab Results - Last 24 Hours (Table) 06/04/21 06/04/21 06/04/21 Range/Units 11:54 16:51 21:10 WBC (3.8-10.6) k/uL RBC (4.30-5.90) m/uL Hgb (13.0-17.5) gm/dL Hct (39.0-53.0) % Neutrophils # (1.3-7.7) k/uL Lymphocytes # (1.0-4.8) k/uL Sodium (137-145) mmol/L BUN (9-20) mg/dL Glucose (74-99) mg/dL POC Glucose (mg/dL) 216 H 240 H 216 H (75-99) mg/dL Calcium (8.4-10.2) mg/dL 06/05/21 06/05/21 06/05/21 Range/Units 04:28 04:28 06:53 WBC 14.5 H (3.8-10.6) k/uL RBC 4.15 L (4.30-5.90) m/uL Hgb 12.4 L (13.0-17.5) gm/dL Hct 38.6 L (39.0-53.0) % Neutrophils # 13.6 H (1.3-7.7) k/uL Lymphocytes # 0.5 L (1.0-4.8) k/uL Sodium 135 L (137-145) mmol/L BUN 35 H (9-20) mg/dL Glucose 179 H (74-99) mg/dL POC Glucose (mg/dL) 173 H (75-99) mg/dL Calcium 8.3 L (8.4-10.2) mg/dL
[2021-06-05] MEDS: SODIUM CHLORIDE 0.9% 1,000 ML IV SCH (16:04)
[2021-06-05 16:59] LABS: Glucose,Whole Blood 170 mg/dL (75-99)
[2021-06-05 19:51] LABS: Glucose,Whole Blood 155 mg/dL (75-99)
[2021-06-05] MEDS: DONEPEZIL 10 MG TAB PO SCH (20:03)
[2021-06-05] MEDS: SERTRALINE 25 MG TAB PO SCH (20:03)
[2021-06-05] MEDS: ATORVASTATIN 80 MG TAB PO SCH (20:03)
[2021-06-06 04:08] LABS: HCT 38.3 % (39.0-53.0); HGB 12.5 gm/dL (13.0-17.5); MCH 30.3 pg (25.0-35.0); MCHC 32.6 g/dL (31.0-37.0); MCV 92.9 fL (80.0-100.0); Mean Platelet Volume 8.6; Platelet Count 237 k/uL (150-450); RBC 4.13 m/uL (4.30-5.90); RDW 13.1 % (11.5-15.5); WBC 16.6 k/uL (3.8-10.6)
[2021-06-06 04:43] LABS: African American GFR (CKD) >90 (>60 ml/min/1.73 sqM); Anion Gap 3 mmol/L; Blood Urea Nitrogen 30 mg/dL (9-20); Calcium 8.4 mg/dL (8.4-10.2); Carbon Dioxide 26 mmol/L (22-30); Chloride 105 mmol/L (98-107); Glucose 161 mg/dL (74-99); Non-African American GFR(CKD) 84 (>60 ml/min/1.73 sqM); Sodium 134 mmol/L (137-145)
[2021-06-06 06:36] LABS: Glucose,Whole Blood 141 mg/dL (75-99)
[2021-06-06] MEDS: INSULIN ASPART (NovoLOG) 100 UNIT/ML VIAL SQ SCH ×4 (06:38→21:09)
[2021-06-06] MEDS: PANTOPRAZOLE 40 MG TABLET PO SCH (06:38)
--- NOTE | 2021-06-06 08:05 | P.PN ---
Subjective Progress Note Date: 06/06/21 HISTORY OF PRESENT ILLNESS: This is an 85-year-old white [place] male with a previous medical history sig nificant for coronary artery disease status post PCI of the LCx back in 2019, hypertension and hypertensive cardio vascular disease, hyperlipidemia, ALLERGIC rhinitis, enlarged prostate, history of ALLERGIC rhinitis, vascular dementia, patient presented to the emergency department at [facility] yesterday after he was evaluated few days ago with positive Covid 19 infection and he was sent home with supportive care patient was not hypoxemic at that time, patient apparently fell last night and couldn't get up because of generalized weakness he ended up coming back to the hospital with increased shortness breath associated with increased and weakness he became quite hypoxemic with oxygen saturation at 89% on room air so he was admitted to the hospital for evaluation and treatment for COVID-19 pneumonia, patient underwent x-rays of the pelvis that did not show any evidence of acute fracture, patient underwent computed tomography scan of the head in the cervical spine that showed anterolisthesis of C4-C5 and severe degenerative disc disease of C5 C6 C6 and 7, without acute frac ture, patient 12-lead EKG did not show evidence of acute ST-T wave changes, chest x-ray initially showed worsening infiltrate this was followed by CTA of the chest because of elevated d-dimer and elevated inflammatory markers and the patient was negative for pulmonary as well as a however it did show significant diffuse interstitial infiltrate suggestive of Covid 19 pneumonia, patient will be started on Remdesivir 200 mg loading dose followed by 100 mg daily for the next 5 days. 05/26: Patient apparently didn't sleep last night despite use of Xanax. We will add in Seroquel 12.5 mg twice daily., Heart rate 68, blood pressure 150/65, pulse ox 90% on 4 L nasal cannula. WBC 8.8, hemoglobin 12.5, platelet count 244. Electrolytes are normal. BUN 33 creatinine 1. Blood sugar 139. C-reactive protein 7.3. Blood cultures no growth at 24 hours 2 specimens. Patient has been seen by pulmonary medicine and continued on Remdesivir, Decadron, Lovenox and vitamin supplements. Patient has also been seen and followed by cardiology, atenolol on hold his heart rate has been in the 60s and occasionally in the 40s at night, cardiology has signed off. 05/27: Seen today in follow-up on the [facility] floor. His mental status is somewhat improved from yesterday after Seroquel was started. He is able to answer questions appropriately. He states that his breathing is better. He is on a nonrebreather with a pulse ox of 98% which will be weaned down today. Patient denies nausea or vomiting, not much appetite. cardiac monitor has been sinus bradycardia with occasional trigeminy. Cardiology to be notified. Patient has been afebrile, heart rate 54, blood pressure 155/66. Patient's grandson is also hospitalized a few doors down from the patient. 05/28: A is seen today in follow-up. His mental status seems to be improved today. Patient went into A. fib with RVR with heart rate in the 110s and 120s, transferred to the cardiac stepdown unit. Cardizem drip currently at 5 mg per hour and patient has been started on heparin drip as well. Cardiology has plans for eliquis 5 mg twice daily and begin metoprolol to wean off Cardizem. TSH normal at 2.490. Patient remains afebrile. Pulse ox is 89 and 93% on 5 L nasal cannula. Repeat blood work reveals WBC 9.8, hemoglobin 12.5, platelet count 223. D-dimer 7.5. Electrolytes and renal function normal. LDH 345. 05/29: Patient is on 6 L nasal cannula with pulse ox 94%. He has been afebrile, heart rate 75, blood pressure 140/63, patient transition to sinus rhythm around midnight. Repeat blood work reveals WBC 12, hemoglobin 12.5, platelet count 220. Cardiology has started the patient on eliquis and continued Lopressor 12.5 g twice daily. Patient is continued on Remdesivir which will be completed today, dexamethasone 6 mg oral daily, vitamin supplements and eliquis. One dose of IV Lasix 20 mg ordered. 05/30: Patient is laying down in bed he is requiring about 5 L nasal cannula his current oxygenation is 94%, uses chest x-ray that did show worsening infiltrate, I started the patient on Zosyn 3.375 g IV piggyback every 6 hours, continue current pulmonary toileting, continue to monitor the patient, patient did r espond to the Lasix yesterday and he is feeling much better today than yesterday he has no audible wheezes at this time. 05/31: Patient is sitting up in bed in no apparent distress, he continues to be on a nonrebreather mask, his oxygen above 93%, he denies any chest pain he denies any coughing of phlegm production, his monitor showing H her fibrillation with controlled rate, continue with the patient on Eliquis, continue patient on metoprolol, monitor the patient very closely continue IV antibiotic in the form of Zosyn, physical therapy evaluation, patient will likely require subacute rehabilitation. 06/01: Patient is laying down in bed in moderate respiratory distress he continues to require 15L , continues to be on Zosyn 3.375 g IV piggyback every 8 hours, for which is interested continue them dictation, he has been seeing pulmonary medicine as well, monitor the patient very closely, spoke with his son-in-law over the phone as his daughter was asleep, and updated of the current situation of the patient plan of care. 06/02: Patient was transferred into the intensive care unit, he has a sitter at the bedside. Patient is currently on 15 L high flow nasal cannula and nonrebreather which she has been pulling off. Pulse ox 94% and drops down to 85 with eating. Temperature max 100.1, heart rate 64, blood pressure 160/53. Respiratory rate 29. Patient continues to be confused. His poor appetite and protein supplement added. Repeat blood work reveals WBC 11.1, hemoglobin 12.6. Electrolytes are normal, creatinine 0.91. Blood sugars are running between 142 and 154. Liver function tests are normal. C-reactive protein 16.2. D-dimer 4.14. 06/03: Patient remains in the intensive care unit. He is currently on oxygen high flow nasal cannula 10-12 L without nonrebreather and maintaining pulse ox of 89-92%. Patient is afebrile, heart rate in the 60s and 70s, blood pressure 134/76. Repeat blood work reveals WBC 13.2, hemoglobin 12.8. Electrolytes normal. BUN 39 creatinine 0.93. Blood sugars are running between 158 and 262 with improvement this morning. Repeat chest x-ray reveals bilateral multifocal and confluent opacities consistent with Covid19. No significant change. 06/04: Patient continues to be maintained in the intensive care unit. He is currently on nasal cannula with pulse ox of 89%, high flow nasal cannula 15 L. He is also on nonrebreather when this remains on. Patient does take off his oxygen he desaturates quickly. He is complaining of generalized pain and Tylenol is being evident. cardiac monitor is sinus rhythm with bigeminy. Repeat blood work reveals WBC 14.6, hemoglobin 12.9. Creatinine 0.94. Blood sugars are running between 118 and 159. He is continued on eliquis, vitamin supplements, dexamethasone and Zosyn. 06/05: Patient remains in intensive care unit, currently on high flow nasal cannula at 15 L. He is not requiring nonrebreather but pulse ox is dropped when nasal cannula was not in place. Patient remains confused but seems to be more alert today and interactive. He denies having any chest pain or shortness of breath. He is afebrile, heart rate 69, blood pressure 132/60, pulse ox 88-95% on 15 L nasal cannula. WBC 14.5, hemoglobin 12.4. Creatinine 0.79. Blood sugars are running between 173 and 240. 06/06: Patient has been afebrile, heart rate 71, respiratory rate 14-30. Blood pressure 160/87. Repeat blood work reveals WBC 16.6, hemoglobin 12.5, creatinine 0.75. Blood sugars are running between 141 and 170. Patient remains in the intensive care unit. Pulse ox is 90% on 12 L high flow nasal cannula. Patient is eating well including taking protein drinks. Patient remains confused but is awake and alert. Patient is continued on eliquis, dexamethasone, vitamin supplements, IV Zosyn and followed closely by pulmonary medicine REVIEW OF SYSTEMS: Constitutional: No documented fever, no chills, no night sweats. No weight change. positive for weakness,positive for fatigue no lethargy. No daytime sleepiness. HEENT: Denies headache. No blurred vision or double vision, no loss of vision. No loss of Hearing, no ringing in the ears, no dizziness. No nasal drainage or congestion. No epistaxis. No sore throat. Lungs: positive for shortness of breath, positive for cough, no sputum production. No wheezing. Reports dyspnea with activity. Cardiovascular: No chest pain, no lower extremity edema. No palpitations. No paroxysmal nocturnal dyspnea. No orthopnea. No lightheadedness or dizziness. No syncopal episodes. New onset atrial fibrillation Abdominal: Denies abdominal pain. No nausea, vomiting. No diarrhea. No constipation. No bloody or tarry stools reports loss of appetite. Genitourinary: No dysuria, increased frequency, urgency. No urinary retention. Musculoskeletal: positive for myalgias. Noted generalized muscle weakness, no gait dysfunction, positive for falls. No back pain. positive for neck pain. Integumentary: No wounds, no lesions. No rash or pruritus. No unusual bruising. Neurologic: No aphasia. No facial droop. Noted change in mentation but is at baseline due to underlying dementia. No head injury. No headache. No paralysis. No paresthesia. Psychiatric: No depression. No anxiety. Endocrine: No abnormal blood sugars. PHYSICAL EXAMINATION: General: 85-year-old male sitting up in ICU bed and appears to be in no acute distress at rest. Patient is on 12 L high flow nasal cannula. HEENT: Head is atraumatic, normocephalic, pupils were equal round, sclera nonicteric, conjunctivae were pale, mucous membranes of the mouth are somewhat dry. Neck: Supple, no JVP, normal carotid upstroke bilaterally, no lymphadenopathy. Chest: Decreased breath sounds at the bases, few rhonchi, no extremity wheezes, no chest wall tenderness, no intercostal retractions. Heart: First heart sound is normal, second heart sounds normal, regular rhythm, there is systolic ejection murmur 2/6 located in the left sternal border, irregu larly irregular due to atrial fibrillation. Abdomen: Soft, nontender, nondistended, positive bowel sounds, there is no hepatosplenomegaly. Extremities: There is no edema no calf tenderness DP +2 bilaterally. Neurologic examination: Patient is awake and alert and oriented x2, patient moves all his extremities, muscle power 4/5 in upper and lower extremities bilaterally. ASSESSMENT AND PLAN: 1. COVID-19 pneumonia possible bacterial pneumonia with acute hypoxic respiratory failure. Patient is currently on 12 L high flow nasal cannula without nonrebreather. Continue Decadron 6 mg IV push every 12 hours, vitamin C 1000 mg every day, vitamin D 1000 units once every day as well as zinc 220 mg orally once every day, Remdesivir course completed, pulmonary consultation appreciated, continue droplet precautions as well as eye protection, continue Zosyn 3.375 g IV piggyback every 8 hours, check portable chest x-ray. 2. Generalized weakness with fall likely related to COVID-19 pneumonia. We will continue with the treatment as in previous paragraph. Physical therapy evaluation. 3. New onset atrial fibrillation, paroxysmal atrial fibrillation. Continue patient on metoprolol 12.5 mg orally twice every day as well as Eliquis 5 mg orally twice every day. 4. CAD post-PCI of the LCx. Plavix 75 mg orally once every day, continue metoprolol 12.5 mg orally twice every day, continue atorvastatin 80 mg once every day. 5. Hypertension and hypertensive cardiovascular disease. Continue patient on lisinopril 10 mg orally once every day, continue metoprolol 12.5 mg orally twice every day. 6. Hyperlipidemia. Continue patient on atorvastatin 80 mg orally once every day. 7. ALLERGIC rhinitis. Continue Zyrtec 10 mg once every day as well as Flonase nasal spray 1 puff in each nostril twice every day. 8. Vascular dementia. Continue donepezil 10 mg orally once every day. 9. Enlarged prostate. Continue Flomax 0.4 mg orally once every day as well as finasteride 5 mg once every day. 10. DVT prophylaxis. continue patient on Eliquis 5 mg orally twice every day. 11. GI prophylaxis. Continue Protonix 40 mg every day. 12. Patient is full code with no intubation. 13. Likely will require subacute rehabilitation. Impression and plan of care have been directed as dictated by the signing physician. Rupali Brannon nurse practitioner acting as scribe for signing physician. Objective - Vital Signs Vital signs: Vital Signs Temp 98.2 F 06/06/21 04:00 Pulse 71 06/06/21 07:00 Resp 30 H 06/06/21 07:00 BP 160/87 06/06/21 05:00 Pulse Ox 88 L 06/06/21 07:00 Intake & Output 06/05/21 06/06/21 06/06/21 18:59 06:59 18:59 Intake Total 440 280 0 Output Total 100 475 Balance 340 -195 0 Weight 72.6 kg Intake: IV 440 280 0 Piperacillin-Tazobactam 3 200 100 .375 gm In Sodium Chloride 0.9% 100 ml @ 25 mls/hr IVPB Q8HR SARAH Rx# :[id number] Sodium Chloride 0.9% 1, 240 180 0 000 ml @ 20 mls/hr IV . Q24H SARAH Rx#:[id number] Output: Urine 100 475 Other: Voiding Method Urinal Urinal # Voids 1 1 # Bowel Movements 1 - Labs CBC & Chem 7: 06/06/21 03:54 06/06/21 03:54 Labs: Abnormal Lab Results - Last 24 Hours (Table) 06/05/21 06/05/21 06/05/21 Range/Units 12:25 16:57 19:49 WBC (3.8-10.6) k/uL RBC (4.30-5.90) m/uL Hgb (13.0-17.5) gm/dL Hct (39.0-53.0) % Sodium (137-145) mmol/L BUN (9-20) mg/dL Glucose (74-99) mg/dL POC Glucose (mg/dL) 146 H 170 H 155 H (75-99) mg/dL 06/06/21 06/06/21 06/06/21 Range/Units 03:54 03:54 06:34 WBC 16.6 H (3.8-10.6) k/uL RBC 4.13 L (4.30-5.90) m/uL Hgb 12.5 L (13.0-17.5) gm/dL Hct 38.3 L (39.0-53.0) % Sodium 134 L (137-145) mmol/L BUN 30 H (9-20) mg/dL Glucose 161 H (74-99) mg/dL POC Glucose (mg/dL) 141 H (75-99) mg/dL
--- NOTE | 2021-06-06 08:07 | XR ---
EXAMINATION TYPE: XR chest 1V portable DATE OF EXAM: 06/06/2021 Comparison: 06/05/2021 Clinical History: 85-year-old male COVID Findings: Bilateral reverse shoulder arthroplasties. Heart is enlarged. Patchy confluent bilateral airspace opa cities especially in the periphery of the lungs without significant change. Impression: 1. Stable cardiomegaly. 2. Stable bilateral COVID pneumonia.
[2021-06-06] MEDS: DEXAMETHASONE SOD PHOSPHATE 10 MG/ML 1 ML VIAL IVP SCH ×2 (10:50→21:27)
[2021-06-06] MEDS: PIPERACILLIN-TAZOBACTAM 3.375 GM in SODIUM CHLORIDE 0.9% 100 ML IVPB SCH ×2 (10:50→19:11)
[2021-06-06] MEDS: QUEtiapine 25 MG TAB PO SCH ×2 (10:51→22:02)
[2021-06-06] MEDS: APIXABAN 5 MG TAB PO SCH ×2 (10:51→21:27)
[2021-06-06] MEDS: METOPROLOL TARTRATE 12.5 MG TAB PO SCH ×2 (10:51→21:27)
[2021-06-06] MEDS: lisinopriL 10 MG TAB PO SCH (10:51)
[2021-06-06] MEDS: ASCORBIC ACID 500 MG TAB PO SCH ×2 (10:52→21:27)
[2021-06-06] MEDS: ZINC SULFATE 220 MG CAP PO SCH (10:52)
[2021-06-06] MEDS: FINASTERIDE 5 MG TAB PO SCH (10:52)
[2021-06-06] MEDS: LORATADINE 10 MG TAB PO SCH (10:52)
[2021-06-06] MEDS: CLOPIDOGREL 75 MG TAB PO SCH (10:52)
[2021-06-06] MEDS: TAMSULOSIN 0.4 MG CAP.ER.24H PO SCH (10:52)
[2021-06-06] MEDS: CHOLECALCIFEROL 25 MCG (1000 IU) TABLET PO SCH (10:52)
--- NOTE | 2021-06-06 11:10 | P.PN ---
Subjective Progress Note Date: 06/06/21 Principal diagnosis: Acute hypoxic respiratory failure secondary COVID-19 pneumonia 05/31/2021, the patient is resting comfortably in bed. He had to be placed on a nonrebreather facemask and his pulse ox is currently around 93%. Despite the switch, the patient's breathing is nonlabored. She is resting comfortably in bed. Noted earlier to this, the patient was on 5 L of Oxymizer by nasal cannula. I was told that he took his oxygen overnight and he desaturated significantly and following that he was placed on nonrebreather facemask. A repeat chest x-ray was done today and this was completed. Earlier chest x-rays and I feel that the findings or worsen worsening consolidation of the right lateral chest area and left perihilar area and this goes along with his worsen ing in his oxygenation. Hemodynamically, the patient remains stable. He did have a temperature of 100.3 yesterday and currently is afebrile. His respiratory rate is in the mid tens and the patient is not having any labored breathing at this point in time. His communicating. He has occasional cough. The patient remains on Zosyn as empiric antibiotic coverage. The patient remains on Decadron 6 mg by mouth daily. The patient remains on Eliquis for long-term anticoagulation. On 06/01/2021, I'm seeing this patient for a follow-up. The patient is confused. The patient is hallucinating. He is restless. He continues to follow of his 100% on a beta facemask which is at 15 L. His breathing is comfortable. He is not labored in his breathing. Nevertheless, while off the oxygen, he desaturates. He is quite lethargic yet arousable and he communicates. Denies having any chest pain. No reported fever. No labs from today and the labs are all pending from now. In terms of treatment, the patient remains on Decadron 6 mg by mouth daily. The patient remains on IV Zosyn as empiric antibiotic coverage. The patient remains on long-term and to coagulation with Eliquis at a dose of 5 mg by mouth twice a day. The patient has dementia and the patient is currently on Aricept. Repeat chest x-ray shows progressive worsening in his COVID 19 related pneumonia with dense consolidations bilaterally more so on the right. There is a progressive worsening in his x-ray findings since 05/29/2021. This coincides or correlates with his worsening clinical status and worsening oxygenation. I was informed by the nursing staff that the primary care physician is O discussed CODE STATUS with the family including the daughter and the CODE STATUS has remained full at this point in time. Reevaluated today on 06/02/2021, patient remains in the ICU, patient is confused, he is on 15 L high flow nasal cannula and nonrebreather mask. O2 saturation is marginal. Remains on Decadron, he is also on Zosyn and on Eliquis. Patient is complaining of difficulty breathing, but he seems to be in no form of distress, he is quite confused, WBC count is 11.1 hemoglobin is 12.6, d-dimer is 4.14. Electrolytes are normal renal profile is normal. Chest x-ray continues to show scattered areas of infiltrates and consolidations bilaterally. C-reactive protein is 16.2. Reevaluated today on 06/03/2021, patient remains in the ICU, on 10 L high flow nasal cannula, patient is basically about the same. Does not seem to be in distress, however his O2 saturation is marginal, patient is quite confused, and I believe he has profound underlying dementia. Remains on the COVID-19 cocktail, remains on Decadron, he is also on Eliquis, BC is relatively normal electrolytes are normal renal profile is normal, chest x-ray continues show bilateral interstitial infiltrates. Consistent with COVID-19 pneumonia. Patient actually has multifocal confluent opacities Reevaluated today on 06/04/21, patient remains in the ICU, remains on 10 L high flow nasal cannula, and he is also on a nonrebreather mask. He desaturates easily upon removing his non-rebreather mask. Patient remains confused intermittently. Labs were basically unremarkable. CBC showed a bit of leukocytosis with WBC count of 14.6 hemoglobin 12.9 electrolytes are normal renal profile is normal blood sugar is 216. Remains empirically on Zosyn. Patient remains on the COVID-19 cocktail, not a candidate for remdesivir or baricitinib Reevaluated today on 06/05/2021, patient remains in the ICU, he is sitting at a bedside chair, on 12 L high flow nasal cannula, seems to be a bit more appropriate today, less confused. Patient denies being short of breath, denies any chest pain, denies any cough or wheezing. Chest x-ray continues to show diffuse bilateral infiltrates. Not much of the changes noted on the chest x- ray. His basic metabolic profile is normal. CBC is normal. No inflammatory markers were ordered today. The patient is seen today 06/06/2021 in follow-up in the intensive care unit. He remains awake and alert. He is on 12 L high flow nasal cannula with O2 saturations at 93%. Dry nonproductive cough. Using a bit easier today compared to yesterday. Less confused. Chest x-ray reveals stable cardiomegaly. Stable bilateral CoVID pneumonia. Blood cultures revealed no growth. White count 16.6. Hemoglobin 12.5. Sodium 134. Potassium 4.0. Creatinine 0.75. He remains on Decadron, Eliquis, vitamin supplements. Antibiotics in the form of Zosyn. Objective - Vital Signs Vital signs: Vital Signs Temp 98.2 F 06/06/21 04:00 Pulse 71 06/06/21 07:00 Resp 30 H 06/06/21 07:00 BP 160/87 06/06/21 05:00 Pulse Ox 88 L 06/06/21 07:00 Intake & Output 06/05/21 06/06/21 06/06/21 18:59 06:59 18:59 Intake Total 440 280 0 Output Total 100 475 Balance 340 -195 0 Weight 72.6 kg Intake: IV 440 280 0 Piperacillin-Tazobactam 3 200 100 .375 gm In Sodium Chloride 0.9% 100 ml @ 25 mls/hr IVPB Q8HR [facility] Rx# :[id number] Sodium Chloride 0.9% 1, 240 180 0 000 ml @ 20 mls/hr IV . Q24H SARAH Rx#:[id number] Output: Urine 100 475 Other: Voiding Method Urinal Urinal # Voids 1 1 # Bowel Movements 1 - Exam GENERAL EXAM: Alert, pleasant 85-year-old gentleman, on 12 L high flow nasal cannula, fairly comfortable in no apparent distress. HEAD: Normocephalic. EYES: Normal reaction of pupils, equal size. NOSE: Clear with pink turbinates. THROAT: No erythema or exudates. NECK: No masses, no JVD. CHEST: No chest wall deformity. LUNGS: Equal air entry with crackles in the bilateral posterior bases. CVS: S1 and S2 normal with no audible murmur, regular rhythm. ABDOMEN: No hepatosplenomegaly, normal bowel sounds, no guarding or rigidity. SPINE: No scoliosis or deformity SKIN: No rashes CENTRAL NERVOUS SYSTEM: No focal deficits, tone is normal in all 4 extremities. EXTREMITIES: There is no peripheral edema. No clubbing, no cyanosis. Peripheral pulses are intact. - Labs CBC & Chem 7: 06/06/21 03:54 06/06/21 03:54 Labs: Abnormal Lab Results - Last 24 Hours (Table) 06/05/21 06/05/21 06/05/21 Range/Units 12:25 16:57 19:49 WBC (3.8-10.6) k/uL RBC (4.30-5.90) m/uL Hgb (13.0-17.5) gm/dL Hct (39.0-53.0) % Sodium (137-145) mmol/L BUN (9-20) mg/dL Glucose (74-99) mg/dL POC Glucose (mg/dL) 146 H 170 H 155 H (75-99) mg/dL 06/06/21 06/06/21 06/06/21 Range/Units 03:54 03:54 06:34 WBC 16.6 H (3.8-10.6) k/uL RBC 4.13 L (4.30-5.90) m/uL Hgb 12.5 L (13.0-17.5) gm/dL Hct 38.3 L (39.0-53.0) % Sodium 134 L (137-145) mmol/L BUN 30 H (9-20) mg/dL Glucose 161 H (74-99) mg/dL POC Glucose (mg/dL) 141 H (75-99) mg/dL Assessment and Plan Assessment: 1 Acute hypoxemic respiratory failure secondary to coronavirus associated pneumonia. The patient completed Remdesivir. 2 Elevated inflammatory markers secondary to coronavirus infection. 3 History of hyperlipidemia. 4 History of hypertension. 5 History of myocardial infarction. 6 BPH. 7 CAD, status post cardiac catheterization with stent. 8 Dementia. 9 Paroxysmal atrial fibrillation, controlled rate and the patient is on long- term medical evaluation with Elilizz. Plan: The patient was seen and evaluated by Dr. Smith Chest x-ray and labs reviewed Titrate down the FiO2 as tolerated Transferred to the regular medical floor with telemetry Continue Decadron, Eliquis, vitamin supplements Remains on Zosyn DO NOT INTUBATE CODE STATUS We will continue to follow I, the cosigning physician, performed a history & physical examination of the patient. Lungs sounds with crackles in the bilateral bases. Maintaining O2 saturations in the 90s on 12 L high flow nasal cannula. I discussed the assessment and plan of care with my nurse practitioner, Argenis Spear. I attest to the above note as dictated by her.
[2021-06-06] MEDS: SODIUM CHLORIDE 0.9% 1,000 ML IV SCH (19:11)
[2021-06-06 20:56] LABS: Glucose,Whole Blood 172 mg/dL (75-99)
[2021-06-06] MEDS: ATORVASTATIN 80 MG TAB PO SCH (21:27)
[2021-06-06] MEDS: DONEPEZIL 10 MG TAB PO SCH (21:28)
[2021-06-06] MEDS: SERTRALINE 25 MG TAB PO SCH (21:28)
[2021-06-07 07:08] LABS: Glucose,Whole Blood 148 mg/dL (75-99)
[2021-06-07 07:10] LABS: Glucose,Whole Blood 150 mg/dL (75-99)
[2021-06-07] MEDS: INSULIN ASPART (NovoLOG) 100 UNIT/ML VIAL SQ SCH ×4 (07:13→20:56)
[2021-06-07] MEDS: PANTOPRAZOLE 40 MG TABLET PO SCH (07:13)
[2021-06-07] MEDS: APIXABAN 5 MG TAB PO SCH ×2 (09:27→21:00)
[2021-06-07] MEDS: ASCORBIC ACID 500 MG TAB PO SCH ×2 (09:28→21:00)
[2021-06-07] MEDS: CHOLECALCIFEROL 25 MCG (1000 IU) TABLET PO SCH (09:29)
[2021-06-07] MEDS: DEXAMETHASONE SOD PHOSPHATE 10 MG/ML 1 ML VIAL IVP SCH ×2 (09:30→21:00)
[2021-06-07] MEDS: CLOPIDOGREL 75 MG TAB PO SCH (09:30)
[2021-06-07] MEDS: FINASTERIDE 5 MG TAB PO SCH (09:30)
[2021-06-07] MEDS: lisinopriL 10 MG TAB PO SCH (09:31)
[2021-06-07] MEDS: METOPROLOL TARTRATE 12.5 MG TAB PO SCH ×2 (09:32→21:00)
[2021-06-07] MEDS: LORATADINE 10 MG TAB PO SCH (09:32)
[2021-06-07] MEDS: TAMSULOSIN 0.4 MG CAP.ER.24H PO SCH (09:33)
[2021-06-07] MEDS: QUEtiapine 25 MG TAB PO SCH ×2 (09:33→21:00)
[2021-06-07] MEDS: ZINC SULFATE 220 MG CAP PO SCH (09:34)
--- NOTE | 2021-06-07 10:13 | P.PN ---
Subjective Progress Note Date: 06/07/21 Principal diagnosis: Acute hypoxic respiratory failure secondary COVID-19 pneumonia 05/31/2021, the patient is resting comfortably in bed. He had to be placed on a nonrebreather facemask and his pulse ox is currently around 93%. Despite the switch, the patient's breathing is nonlabored. She is resting comfortably in bed. Noted earlier to this, the patient was on 5 L of Oxymizer by nasal cannula. I was told that he took his oxygen overnight and he desaturated significantly and following that he was placed on nonrebreather facemask. A repeat chest x-ray was done today and this was completed. Earlier chest x-rays and I feel that the findings or worsen worsening consolidation of the right lateral chest area and left perihilar area and this goes along with his worsen ing in his oxygenation. Hemodynamically, the patient remains stable. He did have a temperature of 100.3 yesterday and currently is afebrile. His respiratory rate is in the mid tens and the patient is not having any labored breathing at this point in time. His communicating. He has occasional cough. The patient remains on Zosyn as empiric antibiotic coverage. The patient remains on Decadron 6 mg by mouth daily. The patient remains on Eliquis for long-term anticoagulation. On 06/01/2021, I'm seeing this patient for a follow-up. The patient is confused. The patient is hallucinating. He is restless. He continues to follow of his 100% on a beta facemask which is at 15 L. His breathing is comfortable. He is not labored in his breathing. Nevertheless, while off the oxygen, he desaturates. He is quite lethargic yet arousable and he communicates. Denies having any chest pain. No reported fever. No labs from today and the labs are all pending from now. In terms of treatment, the patient remains on Decadron 6 mg by mouth daily. The patient remains on IV Zosyn as empiric antibiotic coverage. The patient remains on long-term and to coagulation with Eliquis at a dose of 5 mg by mouth twice a day. The patient has dementia and the patient is currently on Aricept. Repeat chest x-ray shows progressive worsening in his COVID 19 related pneumonia with dense consolidations bilaterally more so on the right. There is a progressive worsening in his x-ray findings since 05/29/2021. This coincides or correlates with his worsening clinical status and worsening oxygenation. I was informed by the nursing staff that the primary care physician is O discussed CODE STATUS with the family including the daughter and the CODE STATUS has remained full at this point in time. Reevaluated today on 06/02/2021, patient remains in the ICU, patient is confused, he is on 15 L high flow nasal cannula and nonrebreather mask. O2 saturation is marginal. Remains on Decadron, he is also on Zosyn and on Eliquis. Patient is complaining of difficulty breathing, but he seems to be in no form of distress, he is quite confused, WBC count is 11.1 hemoglobin is 12.6, d-dimer is 4.14. Electrolytes are normal renal profile is normal. Chest x-ray continues to show scattered areas of infiltrates and consolidations bilaterally. C-reactive protein is 16.2. Reevaluated today on 06/03/2021, patient remains in the ICU, on 10 L high flow nasal cannula, patient is basically about the same. Does not seem to be in distress, however his O2 saturation is marginal, patient is quite confused, and I believe he has profound underlying dementia. Remains on the COVID-19 cocktail, remains on Decadron, he is also on Eliquis, BC is relatively normal electrolytes are normal renal profile is normal, chest x-ray continues show bilateral interstitial infiltrates. Consistent with COVID-19 pneumonia. Patient actually has multifocal confluent opacities Reevaluated today on 06/04/21, patient remains in the ICU, remains on 10 L high flow nasal cannula, and he is also on a nonrebreather mask. He desaturates easily upon removing his non-rebreather mask. Patient remains confused intermittently. Labs were basically unremarkable. CBC showed a bit of leukocytosis with WBC count of 14.6 hemoglobin 12.9 electrolytes are normal renal profile is normal blood sugar is 216. Remains empirically on Zosyn. Patient remains on the COVID-19 cocktail, not a candidate for remdesivir or baricitinib Reevaluated today on 06/05/2021, patient remains in the ICU, he is sitting at a bedside chair, on 12 L high flow nasal cannula, seems to be a bit more appropriate today, less confused. Patient denies being short of breath, denies any chest pain, denies any cough or wheezing. Chest x-ray continues to show diffuse bilateral infiltrates. Not much of the changes noted on the chest x- ray. His basic metabolic profile is normal. CBC is normal. No inflammatory markers were ordered today. The patient is seen today 06/06/2021 in follow-up in the intensive care unit. He remains awake and alert. He is on 12 L high flow nasal cannula with O2 saturations at 93%. Dry nonproductive cough. Using a bit easier today compared to yesterday. Less confused. Chest x-ray reveals stable cardiomegaly. Stable bilateral CoVID pneumonia. Blood cultures revealed no growth. White count 16.6. Hemoglobin 12.5. Sodium 134. Potassium 4.0. Creatinine 0.75. He remains on Decadron, Eliquis, vitamin supplements. Antibiotics in the form of Zosyn. The patient is seen today 06/07/2021 in follow-up in the intensive care unit. He is currently resting fairly comfortably in bed. He is more confused at night. Still confused this morning. No IV fluids running. He is still on 15 L high flow nasal cannula. Being titrated down as tolerated. Afebrile. Hemodynamically stable. The glucose 150. He remains anticoagulated with Eliquis, continue on Decadron, vitamin supplements. Zosyn discontinued per medicine. Objective - Vital Signs Vital signs: Vital Signs Temp 98.1 F 06/07/21 06:00 Pulse 61 06/07/21 06:00 Resp 23 06/07/21 02:00 BP 136/66 06/07/21 02:00 Pulse Ox 92 L 06/07/21 08:10 Intake & Output 06/06/21 06/07/21 06/07/21 18:59 06:59 18:59 Intake Total 0 Balance 0 Intake: IV 0 Sodium Chloride 0.9% 1, 0 000 ml @ 20 mls/hr IV . Q24H [facility] Rx#:[id number] Other: Voiding Method Urinal # Voids 0 - Exam GENERAL EXAM: Alert, confused 85-year-old gentleman, on 15 L high flow nasal cannula, fairly comfortable in no apparent distress. HEAD: Normocephalic. EYES: Normal reaction of pupils, equal size. NOSE: Clear with pink turbinates. THROAT: No erythema or exudates. NECK: No masses, no JVD. CHEST: No chest wall deformity. LUNGS: Equal air entry with crackles in the bilateral posterior bases. CVS: S1 and S2 normal with no audible murmur, regular rhythm. ABDOMEN: No hepatosplenomegaly, normal bowel sounds, no guarding or rigidity. SPINE: No scoliosis or deformity SKIN: No rashes CENTRAL NERVOUS SYSTEM: No focal deficits, tone is normal in all 4 extremities. EXTREMITIES: There is no peripheral edema. No clubbing, no cyanosis. Peripheral pulses are intact. - Labs CBC & Chem 7: 06/06/21 03:54 06/06/21 03:54 Labs: Abnormal Lab Results - Last 24 Hours (Table) 06/06/21 06/07/21 06/07/21 Range/Units 20:54 07:05 07:09 POC Glucose (mg/dL) 172 H 148 H 150 H (75-99) mg/dL Assessment and Plan Assessment: 1 Acute hypoxemic respiratory failure secondary to coronavirus associated pneumonia. The patient completed Remdesivir. 2 Elevated inflammatory markers secondary to coronavirus infection. 3 History of hyperlipidemia. 4 History of hypertension. 5 History of myocardial infarction. 6 BPH. 7 CAD, status post cardiac catheterization with stent. 8 Dementia. 9 Paroxysmal atrial fibrillation, controlled rate and the patient is on long- term medical evaluation with Eliquis. Plan: The patient was seen and evaluated by Dr. Smith Titrate down the FiO2 as tolerated Med/surg overflow Continue Decadron, Eliquis, vitamin supplements DO NOT INTUBATE CODE STATUS Chest x-ray in a.m. We will continue to follow I, the cosigning physician, performed a history & physical examination of the patient. Lungs sounds with crackles in the bilateral bases. Maintaining O2 saturations in the 90s on 15 L high flow nasal cannula. I discussed the asses sment and plan of care with my nurse practitioner, Argenis Spear. I attest to the above note as dictated by her.
[2021-06-07 12:24] LABS: Glucose,Whole Blood 129 mg/dL (75-99)
[2021-06-07] MEDS: ALBUTEROL HFA INHALER INHALATION PRN ×2 (15:39→19:31)
[2021-06-07 16:29] LABS: Glucose,Whole Blood 152 mg/dL (75-99)
[2021-06-07] MEDS: SODIUM CHLORIDE 0.9% 1,000 ML IV SCH (17:06)
[2021-06-07 20:44] LABS: Glucose,Whole Blood 135 mg/dL (75-99)
[2021-06-07] MEDS: DONEPEZIL 10 MG TAB PO SCH (21:00)
[2021-06-07] MEDS: ATORVASTATIN 80 MG TAB PO SCH (21:00)
[2021-06-07] MEDS: SERTRALINE 25 MG TAB PO SCH (21:01)
[2021-06-08 06:33] LABS: Glucose,Whole Blood 149 mg/dL (75-99)
[2021-06-08] MEDS: INSULIN ASPART (NovoLOG) 100 UNIT/ML VIAL SQ SCH ×4 (06:38→20:21)
[2021-06-08] MEDS: PANTOPRAZOLE 40 MG TABLET PO SCH (06:38)
[2021-06-08] MEDS: ALBUTEROL HFA INHALER INHALATION PRN ×2 (07:27→15:23)
--- NOTE | 2021-06-08 07:57 | XR ---
EXAMINATION TYPE: XR chest 1V portable DATE OF EXAM: 06/08/2021 COMPARISON: 06/06/2021 HISTORY: 85 years Male. STUDY INDICATION GIVEN: CoVID pneumonia . TECHNIQUE: AP chest radiograph IMPRESSION: Mild interval decrease in bilateral left greater than right airspace opacities and moderate-severe in terstitial edema. No pneumothorax or large pleural effusion. Stable cardiomediastinal silhouette. Osseous structures are also stable in appearance.
--- NOTE | 2021-06-08 08:17 | P.PN ---
Subjective Progress Note Date: 06/07/21 Progress Note Date: 06/07/21 HISTORY OF PRESENT ILLNESS: This is an 85-year-old white [place] male with a previous medical history significant for coronary artery disease status post PCI of the LCx back in 2019, hypertension and hypertensive cardio vascular disease, hyperlipidemia, ALLERGIC rhinitis, enlarged prostate, history of ALLERGIC rhinitis, vascular dementia, patient presented to the emergency department at [facility] yesterday after he was evaluated few days ago with positive Covid 19 infection and he was sent home with supportive care patient was not hypoxemic at that time, patient apparently fell last night and couldn't get up because of generalized weakness he ended up coming back to the hospital with increased shortness breath associated with increased and weakness he became quite hypoxemic with oxygen saturation at 89% on room air so he was admitted to the hospital for evaluation and treatment for COVID-19 pneumonia, patient underwent x-rays of the pelvis that did not show any evidence of acute fracture, patient underwent computed tomography scan of the head in the cervical spine that showed anterolisthesis of C4-C5 and severe degenerative disc disease of C5 C6 C6 and 7, without acute fracture, patient 12-lead EKG did not show evidence of acute ST-T wave changes, chest x-ray initially showed worsening infiltrate this was followed by CTA of the chest because of elevated d-dimer and elevated inflammatory markers and the patient was negative for pulmonary as well as a however it did show significant diffuse interstitial infiltrate suggestive of Covid 19 pneumonia, patient will be started on Remdesivir 200 mg loading dose followed by 100 mg daily for the next 5 days. 05/26: Patient apparently didn't sleep last night despite use of Xanax. We will add in Seroquel 12.5 mg twice daily., Heart rate 68, blood pressure 150/65, pul se ox 90% on 4 L nasal cannula. WBC 8.8, hemoglobin 12.5, platelet count 244. Electrolytes are normal. BUN 33 creatinine 1. Blood sugar 139. C-reactive protein 7.3. Blood cultures no growth at 24 hours 2 specimens. Patient has been seen by pulmonary medicine and continued on Remdesivir, Decadron, Lovenox and vitamin supplements. Patient has also been seen and followed by cardiology, atenolol on hold his heart rate has been in the 60s and occasionally in the 40s at night, cardiology has signed off. 05/27: Seen today in follow-up on the [facility] floor. His mental status is somewhat improved from yesterday after Seroquel was started. He is able to answer questions appropriately. He states that his breathing is better. He is on a nonrebreather with a pulse ox of 98% which will be weaned down today. Patient denies nausea or vomiting, not much appetite. ekg monitor tech has been sinus bradycardia with occasional trigeminy. Cardiology to be notified. Patient has been afebrile, heart rate 54, blood pressure 155/66. Patient's grandson is also hospitalized a few doors down from the patient. 05/28: A is seen today in follow-up. His mental status seems to be improved today. Patient went into A. fib with RVR with heart rate in the 110s and 120s, transferred to the cardiac stepdown unit. Cardizem drip currently at 5 mg per hour and patient has been started on heparin drip as well. Cardiology has plans for eliquis 5 mg twice daily and begin metoprolol to wean off Cardizem. TSH normal at 2.490. Patient remains afebrile. Pulse ox is 89 and 93% on 5 L nasal cannula. Repeat blood work reveals WBC 9.8, hemoglobin 12.5, platelet count 223. D-dimer 7.5. Electrolytes and renal function normal. LDH 345. 05/29: Patient is on 6 L nasal cannula with pulse ox 94%. He has been afebrile, heart rate 75, blood pressure 140/63, patient transition to sinus rhythm around midnight. Repeat blood work reveals WBC 12, hemoglobin 12.5, platelet count 220. Cardiology has started the patient on eliquis and continued Lopressor 12.5 g twice daily. Patient is continued on Remdesivir which will be completed today, dexamethasone 6 mg oral daily, vitamin supplements and eliquis. One dose of IV Lasix 20 mg ordered. 05/30: Patient is laying down in bed he is requiring about 5 L nasal cannula his current oxygenation is 94%, uses chest x-ray that did show worsening infiltrate, I started the patient on Zosyn 3.375 g IV piggyback every 6 hours, continue current pulmonary toileting, continue to monitor the patient, patient did respond to the Lasix yesterday and he is feeling much better today than yesterday he has no audible wheezes at this time. 05/31: Patient is sitting up in bed in no apparent distress, he continues to be on a nonrebreather mask, his oxygen above 93%, he denies any chest pain he denies any coughing of phlegm production, his monitor showing H her fibrillation with controlled rate, continue with the patient on Eliquis, continue patient on metoprolol, monitor the patient very closely continue IV antibiotic in the form of Zosyn, physical therapy evaluation, patient will likely require subacute rehabilitation. 06/01: Patient is laying down in bed in moderate respiratory distress he continues to require 15L , continues to be on Zosyn 3.375 g IV piggyback every 8 hours, for which is interested continue them dictation, [facility], monitor the patient very closely, spoke with his son-in-law over the phone as his daughter was asleep, and updated of the current situation of the patient plan of care. 06/02: Patient was transferred into the intensive care unit, he has a sitter at the bedside. Patient is currently on 15 L high flow nasal cannula and nonrebreather which she has been pulling off. Pulse ox 94% and drops down to 85 with eating. Temperature max 100.1, heart rate 64, blood pressure 160/53. Respiratory rate 29. Patient continues to be confused. His poor appetite and protein supplement added. Repeat blood work reveals WBC 11.1, hemoglobin 12.6. Electrolytes are normal, creatinine 0.91. Blood sugars are running between 142 and 154. Liver function tests are normal. C-reactive protein 16.2. D-dimer 4.14. 06/03: Patient remains in the intensive care unit. He is currently on oxygen high flow nasal cannula 10-12 L without nonrebreather and maintaining pulse ox of 89-92%. Patient is afebrile, heart rate in the 60s and 70s, blood pressure 134/76. Repeat blood work reveals WBC 13.2, hemoglobin 12.8. Electrolytes normal. BUN 39 creatinine 0.93. Blood sugars are running between 158 and 262 with improvement this morning. Repeat chest x-ray reveals bilateral multifocal and confluent opacities consistent with Covid19. No significant change. 06/04: Patient continues to be maintained in the intensive care unit. He is currently on nasal cannula with pulse ox of 89%, high flow nasal cannula 15 L. He is also on nonrebreather when this remains on. Patient does take off his oxygen he desaturates quickly. He is complaining of generalized pain and Tylenol is being evident. ekg monitor tech is sinus rhythm with bigeminy. Repeat blood work reveals WBC 14.6, hemoglobin 12.9. Creatinine 0.94. Blood sugars are running between 118 and 159. He is continued on eliquis, vitamin supplements, dexamethasone and Zosyn. 06/05: Patient remains in intensive care unit, currently on high flow nasal cannula at 15 L. He is not requiring nonrebreather but pulse ox is dropped when nasal cannula was not in place. Patient remains confused but seems to be more alert today and interactive. He denies having any chest pain or shortness of breath. He is afebrile, heart rate 69, blood pressure 132/60, pulse ox 88-95% on 15 L nasal cannula. WBC 14.5, hemoglobin 12.4. Creatinine 0.79. Blood sugars are running between 173 and 240. 06/06: Patient has been afebrile, heart rate 71, respiratory rate 14-30. Blood pressure 160/87. Repeat blood work reveals WBC 16.6, hemoglobin 12.5, creatinine 0.75. Blood sugars are running between 141 and 170. Patient remains in the intensive care unit. Pulse ox is 90% on 12 L high flow nasal cannula. Patient is eating well including taking protein drinks. Patient remains confused but is awake and alert. Patient is continued on eliquis, dexamethasone, vitamin supplements, IV Zosyn and followed closely by pulmonary medicine 06/07: Patient sitting up in bed he continues to require quite a bit of oxygen at this time, his he denies any chest pain he continues to have occasional cough, he has no abdominal pain, he has very poor appetite, he appears to be depressed, he continues to be in ICU, he would be maintained in the same management, he is full code without intubation. REVIEW OF SYSTEMS: Constitutional: No documented fever, no chills, no night sweats. No weight change. positive for weakness,positive for fatigue no lethargy. No daytime sleepiness. HEENT: Denies headache. No blurred vision or double vision, no loss of vision. No loss of Hearing, no ringing in the ears, no dizziness. No nasal drainage or congestion. No epistaxis. No sore throat. Lungs: positive for shortness of breath, positive for cough, no sputum production. No wheezing. Reports dyspnea with activity. Cardiovascular: No chest pain, no lower extremity edema. No palpitations. No paroxysmal nocturnal dyspnea. No orthopnea. No lightheadedness or dizziness. No syncopal episodes. New onset atrial fibrillation Abdominal: Denies abdominal pain. No nausea, vomiting. No diarrhea. No constipation. No bloody or tarry stools reports loss of appetite. Genitourinary: No dysuria, increased frequency, urgency. No urinary retention. Musculoskeletal: positive for myalgias. Noted generalized muscle weakness, no gait dysfunction, positive for falls. No back pain. positive for neck pain. Integumentary: No wounds, no lesions. No rash or pruritus. No unusual bruising. Neurologic: No aphasia. No facial droop. Noted change in mentation but is at baseline due to underlying dementia. No head injury. No headache. No paralysis. No paresthesia. Psychiatric: Positive for depression. No anxiety. Endocrine: No abnormal blood sugars. PHYSICAL EXAMINATION: General: 85-year-old male sitting up in ICU bed and appears to be in no acute distress at rest. Patient is on 12 L high flow nasal cannula. HEENT: Head is atraumatic, normocephalic, pupils were equal round, sclera nonicteric, conjunctivae were pale, mucous membranes of the mouth are somewhat dry. Neck: Supple, no JVP, normal carotid upstroke bilaterally, no lymphadenopathy. Chest: Decreased breath sounds at the bases, few rhonchi, no extremity wheezes, no chest wall tenderness, no intercostal retractions. Heart: First heart sound is normal, second heart sounds normal, regular rhythm, there is systolic ejection murmur 2/6 located in the left sternal border, irregularly irregular due to atrial fibrillation. Abdomen: Soft, nontender, nondistended, positive bowel sounds, there is no hepatosplenomegaly. Extremities: There is no edema no calf tenderness DP +2 bilaterally. Neurologic examination: Patient is awake and alert and oriented x2, patient moves all his extremities, muscle power 4/5 in upper and lower extremities bilaterally. ASSESSMENT AND PLAN: 1. COVID-19 pneumonia possible bacterial pneumonia with acute hypoxic respiratory failure. Patient is currently on 12 L high flow nasal cannula without nonrebreather. Continue Decadron 6 mg IV push every 12 hours, vitamin C 1000 mg every day, vitamin D 1000 units once every day as well as zinc 220 mg orally once every day, Remdesivir course completed, pulmonary consultation appreciated, continue droplet precautions as well as eye protection, continue Zosyn 3.375 g IV piggyback every 8 hours, check portable chest x-ray. 2. Generalized weakness with fall likely related to COVID-19 pneumonia. We will continue with the treatment as in previous paragraph. Physical therapy ev aluation. 3. New onset atrial fibrillation, paroxysmal atrial fibrillation. Continue patient on metoprolol 12.5 mg orally twice every day as well as Eliquis 5 mg orally twice every day. 4. CAD post-PCI of the LCx. Plavix 75 mg orally once every day, continue metoprolol 12.5 mg orally twice every day, continue atorvastatin 80 mg once every day. 5. Hypertension and hypertensive cardiovascular disease. Continue patient on lisinopril 10 mg orally once every day, continue metoprolol 12.5 mg orally twice every day. 6. Hyperlipidemia. Continue patient on atorvastatin 80 mg orally once every day. 7. ALLERGIC rhinitis. Continue Zyrtec 10 mg once every day as well as Flonase nasal spray 1 puff in each nostril twice every day. 8. Vascular dementia. Continue donepezil 10 mg orally once every day. 9. Enlarged prostate. Continue Flomax 0.4 mg orally once every day as well as finasteride 5 mg once every day. 10. Depression with psychotic features. Continue patient on Zoloft and increase the dose to 50 mg every day continue Seroquel 12.5 mg orally twice every day monitor the patient very closely. 11. DVT prophylaxis. continue patient on Eliquis 5 mg orally twice every day. 12. GI prophylaxis. Continue Protonix 40 mg every day. 13. Patient is full code with no intubation. 14. Likely will require subacute rehabilitation. Objective - Vital Signs Vital signs: Vital Signs Temp 98.1 F 06/07/21 06:00 Pulse 61 06/07/21 06:00 Resp 23 06/07/21 02:00 BP 136/66 06/07/21 02:00 Pulse Ox 92 L 06/07/21 08:10 Intake & Output 06/06/21 06/07/21 06/07/21 18:59 06:59 18:59 Intake Total 0 Balance 0 Intake: IV 0 Sodium Chloride 0.9% 1, 0 000 ml @ 20 mls/hr IV . Q24H [facility] Rx#:[id number] Other: Voiding Method Urinal # Voids 0 - Labs CBC & Chem 7: 06/06/21 03:54 06/06/21 03:54 Labs: Abnormal Lab Results - Last 24 Hours (Table) 06/06/21 06/07/21 06/07/21 Range/Units 20:54 07:05 07:09 POC Glucose (mg/dL) 172 H 148 H 150 H (75-99) mg/dL
[2021-06-08] MEDS: CHOLECALCIFEROL 25 MCG (1000 IU) TABLET PO SCH (09:50)
[2021-06-08] MEDS: APIXABAN 5 MG TAB PO SCH ×2 (09:50→20:22)
[2021-06-08] MEDS: LORATADINE 10 MG TAB PO SCH (09:51)
[2021-06-08] MEDS: ASCORBIC ACID 500 MG TAB PO SCH ×2 (09:51→20:22)
[2021-06-08] MEDS: METOPROLOL TARTRATE 12.5 MG TAB PO SCH ×2 (09:51→20:22)
[2021-06-08] MEDS: CLOPIDOGREL 75 MG TAB PO SCH (09:51)
[2021-06-08] MEDS: TAMSULOSIN 0.4 MG CAP.ER.24H PO SCH (09:52)
[2021-06-08] MEDS: FINASTERIDE 5 MG TAB PO SCH (09:52)
[2021-06-08] MEDS: lisinopriL 10 MG TAB PO SCH (09:52)
[2021-06-08] MEDS: ZINC SULFATE 220 MG CAP PO SCH (09:52)
[2021-06-08] MEDS: QUEtiapine 25 MG TAB PO SCH ×2 (09:53→20:23)
[2021-06-08] MEDS: DEXAMETHASONE SOD PHOSPHATE 10 MG/ML 1 ML VIAL IVP SCH ×2 (09:59→20:22)
--- NOTE | 2021-06-08 10:14 | P.PN ---
Subjective Progress Note Date: 06/08/21 Progress Note Date: 06/08/21 HISTORY OF PRESENT ILLNESS: This is an 85-year-old white [place] male with a previous medical history significant for coronary artery disease status post PCI of the LCx back in 2019, hypertension and hypertensive cardio vascular disease, hyperlipidemia, ALLERGIC rhinitis, enlarged prostate, history of ALLERGIC rhinitis, vascular dementia, patient presented to the emergency department at [facility] yesterday after he was evaluated few days ago with positive Covid 19 infection and he was sent home with supportive care patient was not hypoxemic at that time, patient apparently fell last night and couldn't get up because of generalized weakness he ended up coming back to the hospital with increased shortness breath associated with increased and weakness he became quite hypoxemic with oxygen saturation at 89% on room air so he was admitted to the hospital for evaluation and treatment for COVID-19 pneumonia, patient underwent x-rays of the pelvis that did not show any evidence of acute fracture, patient underwent computed tomography scan of the head in the cervical spine that showed anterolisthesis of C4-C5 and severe degenerative disc disease of C5 C6 C6 and 7, without acute fracture, patient 12-lead EKG did not show evidence of acute ST-T wave changes, chest x-ray initially showed worsening infiltrate this was followed by CTA of the chest because of elevated d-dimer and elevated inflammatory markers and the patient was negative for pulmonary as well as a however it did show significant diffuse interstitial infiltrate suggestive of Covid 19 pneumonia, patient will be started on Remdesivir 200 mg loading dose followed by 100 mg daily for the next 5 days. 05/26: Patient apparently didn't sleep last night despite use of Xanax. We will add in Seroquel 12.5 mg twice daily., Heart rate 68, blood pressure 150/65, pul se ox 90% on 4 L nasal cannula. WBC 8.8, hemoglobin 12.5, platelet count 244. Electrolytes are normal. BUN 33 creatinine 1. Blood sugar 139. C-reactive protein 7.3. Blood cultures no growth at 24 hours 2 specimens. Patient has been seen by pulmonary medicine and continued on Remdesivir, Decadron, Lovenox and vitamin supplements. Patient has also been seen and followed by cardiology, atenolol on hold his heart rate has been in the 60s and occasionally in the 40s at night, cardiology has signed off. 05/27: Seen today in follow-up on the [facility] floor. His mental status is somewhat improved from yesterday after Seroquel was started. He is able to answer questions appropriately. He states that his breathing is better. He is on a nonrebreather with a pulse ox of 98% which will be weaned down today. Patient denies nausea or vomiting, not much appetite. cutter grinder has been sinus bradycardia with occasional trigeminy. Cardiology to be notified. Patient has been afebrile, heart rate 54, blood pressure 155/66. Patient's grandson is also hospitalized a few doors down from the patient. 05/28: A is seen today in follow-up. His mental status seems to be improved today. Patient went into A. fib with RVR with heart rate in the 110s and 120s, transferred to the cardiac stepdown unit. Cardizem drip currently at 5 mg per hour and patient has been started on heparin drip as well. Cardiology has plans for eliquis 5 mg twice daily and begin metoprolol to wean off Cardizem. TSH normal at 2.490. Patient remains afebrile. Pulse ox is 89 and 93% on 5 L nasal cannula. Repeat blood work reveals WBC 9.8, hemoglobin 12.5, platelet count 223. D-dimer 7.5. Electrolytes and renal function normal. LDH 345. 05/29: Patient is on 6 L nasal cannula with pulse ox 94%. He has been afebrile, heart rate 75, blood pressure 140/63, patient transition to sinus rhythm around midnight. Repeat blood work reveals WBC 12, hemoglobin 12.5, platelet count 220. Cardiology has started the patient on eliquis and continued Lopressor 12.5 g twice daily. Patient is continued on Remdesivir which will be completed today, dexamethasone 6 mg oral daily, vitamin supplements and eliquis. One dose of IV Lasix 20 mg ordered. 05/30: Patient is laying down in bed he is requiring about 5 L nasal cannula his current oxygenation is 94%, uses chest x-ray that did show worsening infiltrate, I started the patient on Zosyn 3.375 g IV piggyback every 6 hours, continue current pulmonary toileting, continue to monitor the patient, patient did respond to the Lasix yesterday and he is feeling much better today than yesterday he has no audible wheezes at this time. 05/31: Patient is sitting up in bed in no apparent distress, he continues to be on a nonrebreather mask, his oxygen above 93%, he denies any chest pain he denies any coughing of phlegm production, his monitor showing H her fibrillation with controlled rate, continue with the patient on Eliquis, continue patient on metoprolol, monitor the patient very closely continue IV antibiotic in the form of Zosyn, physical therapy evaluation, patient will likely require subacute rehabilitation. 06/01: Patient is laying down in bed in moderate respiratory distress he continues to require 15L , continues to be on Zosyn 3.375 g IV piggyback every 8 hours, for which is interested continue them dictation, he has been seeing pulwoman's hospital medicine as well, monitor the patient very closely, spoke with his son-in-law over the phone as his daughter was asleep, and updated of the current situation of the patient plan of care. 06/02: Patient was transferred into the intensive care unit, he has a sitter at the bedside. Patient is currently on 15 L high flow nasal cannula and nonrebreather which she has been pulling off. Pulse ox 94% and drops down to 85 with eating. Temperature max 100.1, heart rate 64, blood pressure 160/53. Respiratory rate 29. Patient continues to be confused. His poor appetite and protein supplement added. Repeat blood work reveals WBC 11.1, hemoglobin 12.6. Electrolytes are normal, creatinine 0.91. Blood sugars are running between 142 and 154. Liver function tests are normal. C-reactive protein 16.2. D-dimer 4.14. 06/03: Patient remains in the intensive care unit. He is currently on oxygen high flow nasal cannula 10-12 L without nonrebreather and maintaining pulse ox of 89-92%. Patient is afebrile, heart rate in the 60s and 70s, blood pressure 134/76. Repeat blood work reveals WBC 13.2, hemoglobin 12.8. Electrolytes normal. BUN 39 creatinine 0.93. Blood sugars are running between 158 and 262 with improvement this morning. Repeat chest x-ray reveals bilateral multifocal and confluent opacities consistent with Covid19. No significant change. 06/04: Patient continues to be maintained in the intensive care unit. He is currently on nasal cannula with pulse ox of 89%, high flow nasal cannula 15 L. He is also on nonrebreather when this remains on. Patient does take off his oxygen he desaturates quickly. He is complaining of generalized pain and Tylenol is being evident. cutter grinder is sinus rhythm with bigeminy. Repeat blood work reveals WBC 14.6, hemoglobin 12.9. Creatinine 0.94. Blood sugars are running between 118 and 159. He is continued on eliquis, vitamin supplements, dexamethasone and Zosyn. 06/05: Patient remains in intensive care unit, currently on high flow nasal cannula at 15 L. He is not requiring nonrebreather but pulse ox is dropped when nasal cannula was not in place. Patient remains confused but seems to be more alert today and interactive. He denies having any chest pain or shortness of breath. He is afebrile, heart rate 69, blood pressure 132/60, pulse ox 88-95% on 15 L nasal cannula. WBC 14.5, hemoglobin 12.4. Creatinine 0.79. Blood sugars are running between 173 and 240. 06/06: Patient has been afebrile, heart rate 71, respiratory rate 14-30. Blood pressure 160/87. Repeat blood work reveals WBC 16.6, hemoglobin 12.5, creatinine 0.75. Blood sugars are running between 141 and 170. Patient remains in the intensive care unit. Pulse ox is 90% on 12 L high flow nasal cannula. Patient is eating well including taking protein drinks. Patient remains confused but is awake and alert. Patient is continued on eliquis, dexamethasone, vitamin supplements, IV Zosyn and followed closely by pulmonary medicine 06/07: Patient sitting up in bed he continues to require quite a bit of oxygen at this time, his he denies any chest pain he continues to have occasional cough, he has no abdominal pain, he has very poor appetite, he appears to be depressed, he continues to be in ICU, he would be maintained in the same management, he is full code without intubation. 06/08: Patient sitting up in bed continues to be on 12 L nasal cannula, occasional cough, continues to be short of breath, continues to have poor ap petite, he appears depressed as yesterday, continue current treatment plan, continue supportive care, continue full code, no intubation. REVIEW OF SYSTEMS: Constitutional: No documented fever, no chills, no night sweats. No weight change. positive for weakness,positive for fatigue no lethargy. No daytime sleepiness. HEENT: Denies headache. No blurred vision or double vision, no loss of vision. No loss of Hearing, no ringing in the ears, no dizziness. No nasal drainage or congestion. No epistaxis. No sore throat. Lungs: positive for shortness of breath, positive for cough, no sputum production. No wheezing. Reports dyspnea with activity. Cardiovascular: No chest pain, no lower extremity edema. No palpitations. No paroxysmal nocturnal dyspnea. No orthopnea. No lightheadedness or dizziness. No syncopal episodes. New onset atrial fibrillation Abdominal: Denies abdominal pain. No nausea, vomiting. No diarrhea. No constipation. No bloody or tarry stools reports loss of appetite. Genitourinary: No dysuria, increased frequency, urgency. No urinary retention. Musculoskeletal: positive for myalgias. Noted generalized muscle weakness, no gait dysfunction, positive for falls. No back pain. positive for neck pain. Integumentary: No wounds, no lesions. No rash or pruritus. No unusual bruising. Neurologic: No aphasia. No facial droop. Noted change in mentation but is at baseline due to underlying dementia. No head injury. No headache. No paralysis. No paresthesia. Psychiatric: Positive for depression. No anxiety. Endocrine: No abnormal blood sugars. PHYSICAL EXAMINATION: General: 85-year-old male sitting up in ICU bed and appears to be in no acute distress at rest. Patient is on 12 L high flow nasal cannula. HEENT: Head is atraumatic, normocephalic, pupils were equal round, sclera nonicteric, conjunctivae were pale, mucous membranes of the mouth are somewhat dry. Neck: Supple, no JVP, normal carotid upstroke bilaterally, no lymphadenopathy. Chest: Decreased breath sounds at the bases, few rhonchi, no extremity wheezes, no chest wall tenderness, no intercostal retractions. Heart: First heart sound is normal, second heart sounds normal, regular rhythm, there is systolic ejection murmur 2/6 located in the left sternal border, ir regularly irregular due to atrial fibrillation. Abdomen: Soft, nontender, nondistended, positive bowel sounds, there is no hepatosplenomegaly. Extremities: There is no edema no calf tenderness DP +2 bilaterally. Neurologic examination: Patient is awake and alert and oriented x2, patient moves all his extremities, muscle power 4/5 in upper and lower extremities bilaterally. ASSESSMENT AND PLAN: 1. COVID-19 pneumonia possible bacterial pneumonia with acute hypoxic respiratory failure. Patient is currently on 12 L high flow nasal cannula without nonrebreather. Continue Decadron 6 mg IV push every 12 hours, vitamin C 1000 mg every day, vitamin D 1000 units once every day as well as zinc 220 mg orally once every day, Remdesivir course completed, pulmonary consultation appreciated, continue droplet precautions as well as eye protection, continue Zosyn 3.375 g IV piggyback every 8 hours, check portable chest x-ray. 2. Generalized weakness with fall likely related to COVID-19 pneumonia. We will continue with the treatment as in previous paragraph. Physical therapy evaluation. 3. New onset atrial fibrillation, paroxysmal atrial fibrillation. Continue patient on metoprolol 12.5 mg orally twice every day as well as Eliquis 5 mg orally twice every day. 4. CAD post-PCI of the LCx. Plavix 75 mg orally once every day, continue metoprolol 12.5 mg orally twice every day, continue atorvastatin 80 mg once every day. 5. Hypertension and hypertensive cardiovascular disease. Continue patient on lisinopril 10 mg orally once every day, continue metoprolol 12.5 mg orally twice every day. 6. Hyperlipidemia. Continue patient on atorvastatin 80 mg orally once every day. 7. ALLERGIC rhinitis. Continue Zyrtec 10 mg once every day as well as Flonase nasal spray 1 puff in each nostril twice every day. 8. Vascular dementia. Continue donepezil 10 mg orally once every day. 9. Enlarged prostate. Continue Flomax 0.4 mg orally once every day as well as finasteride 5 mg once every day. 10. Depression with psychotic features. Continue patient on Zoloft and increas e the dose to 50 mg every day continue Seroquel 12.5 mg orally twice every day monitor the patient very closely. 11. DVT prophylaxis. continue patient on Eliquis 5 mg orally twice every day. 12. GI prophylaxis. Continue Protonix 40 mg every day. 13. Patient is full code with no intubation. 14. Likely will require subacute rehabilitation. Objective - Vital Signs Vital signs: Vital Signs Temp 97.9 F 06/08/21 05:20 Pulse 60 06/08/21 05:20 Resp 25 H 06/08/21 05:20 BP 144/73 06/08/21 05:20 Pulse Ox 92 L 06/08/21 05:20 Intake & Output 06/07/21 06/08/21 06/08/21 18:59 06:59 18:59 Intake Total 0 Output Total 300 Balance -300 Intake: IV 0 Sodium Chloride 0.9% 1, 0 000 ml @ 20 mls/hr IV . Q24H [facility] Rx#:[id number] Output: Urine 300 Other: Voiding Method Urinal Urinal # Voids 3 - Labs CBC & Chem 7: 06/06/21 03:54 06/06/21 03:54 Labs: Abnormal Lab Results - Last 24 Hours (Table) 06/07/21 06/07/21 06/07/21 Range/Units 12:23 16:27 20:43 POC Glucose (mg/dL) 129 H 152 H 135 H (75-99) mg/dL 06/08/21 Range/Units 06:32 POC Glucose (mg/dL) 149 H (75-99) mg/dL
[2021-06-08 13:42] LABS: Glucose,Whole Blood 142 mg/dL (75-99)
--- NOTE | 2021-06-08 14:14 | P.PN ---
Subjective Progress Note Date: 06/08/21 Principal diagnosis: Acute hypoxic respiratory failure secondary COVID-19 pneumonia 05/31/2021, the patient is resting comfortably in bed. He had to be placed on a nonrebreather facemask and his pulse ox is currently around 93%. Despite the switch, the patient's breathing is nonlabored. She is resting comfortably in bed. Noted earlier to this, the patient was on 5 L of Oxymizer by nasal cannula. I was told that he took his oxygen overnight and he desaturated significantly and following that he was placed on nonrebreather facemask. A repeat chest x-ray was done today and this was completed. Earlier chest x-rays and I feel that the findings or worsen worsening consolidation of the right lateral chest area and left perihilar area and this goes along with his worsen ing in his oxygenation. Hemodynamically, the patient remains stable. He did have a temperature of 100.3 yesterday and currently is afebrile. His respiratory rate is in the mid tens and the patient is not having any labored breathing at this point in time. His communicating. He has occasional cough. The patient remains on Zosyn as empiric antibiotic coverage. The patient remains on Decadron 6 mg by mouth daily. The patient remains on Eliquis for long-term anticoagulation. On 06/01/2021, I'm seeing this patient for a follow-up. The patient is confused. The patient is hallucinating. He is restless. He continues to follow of his 100% on a beta facemask which is at 15 L. His breathing is comfortable. He is not labored in his breathing. Nevertheless, while off the oxygen, he desaturates. He is quite lethargic yet arousable and he communicates. Denies having any chest pain. No reported fever. No labs from today and the labs are all pending from now. In terms of treatment, the patient remains on Decadron 6 mg by mouth daily. The patient remains on IV Zosyn as empiric antibiotic coverage. The patient remains on long-term and to coagulation with Eliquis at a dose of 5 mg by mouth twice a day. The patient has dementia and the patient is currently on Aricept. Repeat chest x-ray shows progressive worsening in his COVID 19 related pneumonia with dense consolidations bilaterally more so on the right. There is a progressive worsening in his x-ray findings since 05/29/2021. This coincides or correlates with his worsening clinical status and worsening oxygenation. I was informed by the nursing staff that the primary care physician is O discussed CODE STATUS with the family including the daughter and the CODE STATUS has remained full at this point in time. Reevaluated today on 06/02/2021, patient remains in the ICU, patient is confused, he is on 15 L high flow nasal cannula and nonrebreather mask. O2 saturation is marginal. Remains on Decadron, he is also on Zosyn and on Eliquis. Patient is complaining of difficulty breathing, but he seems to be in no form of distress, he is quite confused, WBC count is 11.1 hemoglobin is 12.6, d-dimer is 4.14. Electrolytes are normal renal profile is normal. Chest x-ray continues to show scattered areas of infiltrates and consolidations bilaterally. C-reactive protein is 16.2. Reevaluated today on 06/03/2021, patient remains in the ICU, on 10 L high flow nasal cannula, patient is basically about the same. Does not seem to be in distress, however his O2 saturation is marginal, patient is quite confused, and I believe he has profound underlying dementia. Remains on the COVID-19 cocktail, remains on Decadron, he is also on Eliquis, BC is relatively normal electrolytes are normal renal profile is normal, chest x-ray continues show bilateral interstitial infiltrates. Consistent with COVID-19 pneumonia. Patient actually has multifocal confluent opacities Reevaluated today on 06/04/21, patient remains in the ICU, remains on 10 L high flow nasal cannula, and he is also on a nonrebreather mask. He desaturates easily upon removing his non-rebreather mask. Patient remains confused intermittently. Labs were basically unremarkable. CBC showed a bit of leukocytosis with WBC count of 14.6 hemoglobin 12.9 electrolytes are normal renal profile is normal blood sugar is 216. Remains empirically on Zosyn. Patient remains on the COVID-19 cocktail, not a candidate for remdesivir or baricitinib Reevaluated today on 06/05/2021, patient remains in the ICU, he is sitting at a bedside chair, on 12 L high flow nasal cannula, seems to be a bit more appropriate today, less confused. Patient denies being short of breath, denies any chest pain, denies any cough or wheezing. Chest x-ray continues to show diffuse bilateral infiltrates. Not much of the changes noted on the chest x- ray. His basic metabolic profile is normal. CBC is normal. No inflammatory markers were ordered today. The patient is seen today 06/06/2021 in follow-up in the intensive care unit. He remains awake and alert. He is on 12 L high flow nasal cannula with O2 saturations at 93%. Dry nonproductive cough. Using a bit easier today compared to yesterday. Less confused. Chest x-ray reveals stable cardiomegaly. Stable bilateral CoVID pneumonia. Blood cultures revealed no growth. White count 16.6. Hemoglobin 12.5. Sodium 134. Potassium 4.0. Creatinine 0.75. He remains on Decadron, Eliquis, vitamin supplements. Antibiotics in the form of Zosyn. The patient is seen today 06/07/2021 in follow-up in the intensive care unit. He is currently resting fairly comfortably in bed. He is more confused at night. Still confused this morning. No IV fluids running. He is still on 15 L high flow nasal cannula. Being titrated down as tolerated. Afebrile. Hemodynamically stable. The glucose 150. He remains anticoagulated with Eliquis, continue on Decadron, vitamin supplements. Zosyn discontinued per medicine. The patient is seen today 06/08/2021 in follow-up in the intensive care unit. He remains a MedSurg overflow. He is stable. He still on 15 L high flow nasal cannula. He's been off the nonrebreather for longer periods of time. As x-ray shows some mild decrease in the bilateral left greater than right airspace opacities with moderate to severe interstitial edema. No evidence of pn eumothorax or large effusions. Still episodes of confusion. Blood glucose 142. He remains anticoagulated with Eliquis. Continued on Decadron, vitamin supplements. 0.9 normal saline at KVO. Objective - Vital Signs Vital signs: Vital Signs Temp 97.6 F 06/08/21 10:00 Pulse 73 06/08/21 10:00 Resp 18 06/08/21 10:00 BP 141/65 06/08/21 10:00 Pulse Ox 89 L 06/08/21 10:00 Intake & Output 06/07/21 06/08/21 06/08/21 18:59 06:59 18:59 Intake Total 0 Output Total 300 Balance -300 Intake: IV 0 Sodium Chloride 0.9% 1, 0 000 ml @ 20 mls/hr IV . Q24H [facility] Rx#:[id number] Output: Urine 300 Other: Voiding Method Urinal Urinal Urinal # Voids 3 - Exam GENERAL EXAM: Alert, confused 85-year-old gentleman, on 15 L high flow nasal cannula, fairly comfortable in no apparent distress. HEAD: Normocephalic. EYES: Normal reaction of pupils, equal size. NOSE: Clear with pink turbinates. THROAT: No erythema or exudates. NECK: No masses, no JVD. CHEST: No chest wall deformity. LUNGS: Equal air entry with crackles in the bilateral posterior bases. CVS: S1 and S2 normal with no audible murmur, regular rhythm. ABDOMEN: No hepatosplenomegaly, normal bowel sounds, no guarding or rigidity. SPINE: No scoliosis or deformity SKIN: No rashes CENTRAL NERVOUS SYSTEM: No focal deficits, tone is normal in all 4 extremities. EXTREMITIES: There is no peripheral edema. No clubbing, no cyanosis. Peripheral pulses are intact. - Labs CBC & Chem 7: 06/06/21 03:54 06/06/21 03:54 Labs: Abnormal Lab Results - Last 24 Hours (Table) 06/07/21 06/07/21 06/08/21 Range/Units 16:27 20:43 06:32 POC Glucose (mg/dL) 152 H 135 H 149 H (75-99) mg/dL 06/08/21 Range/Units 13:40 POC Glucose (mg/dL) 142 H (75-99) mg/dL Assessment and Plan Assessment: 1 Acute hypoxemic respiratory failure secondary to coronavirus associated pneumonia. The patient completed Remdesivir. 2 Elevated inflammatory markers secondary to coronavirus infection. 3 History of hyperlipidemia. 4 History of hypertension. 5 History of myocardial infarction. 6 BPH. 7 CAD, status post cardiac catheterization with stent. 8 Dementia. 9 Paroxysmal atrial fibrillation, controlled rate and the patient is on long- term medical evaluation with Eliquis. Plan: The patient was seen and evaluated by Dr. Smith Chest x-ray reviewed Titrate down the FiO2 as tolerated Med/surg overflow Continue Decadron, Eliquis, vitamin supplements DO NOT INTUBATE CODE STATUS We will continue to follow I, the cosigning physician, performed a history & physical examination of the patient. Lungs sounds with crackles in the bilateral bases. Maintaining O2 saturations in the 90s on 15 L high flow nasal cannula. I discussed the assessment and plan of care with my nurse practitioner, Argenis Spear. I attest to the above note as dictated by her.
[2021-06-08] MEDS: SODIUM CHLORIDE 0.9% 1,000 ML IV SCH (17:21)
[2021-06-08 17:35] LABS: Glucose,Whole Blood 167 mg/dL (75-99)
[2021-06-08 20:09] LABS: Glucose,Whole Blood 204 mg/dL (75-99)
[2021-06-08] MEDS: ATORVASTATIN 80 MG TAB PO SCH (20:22)
[2021-06-08] MEDS: ACETAMINOPHEN TAB 325 MG TAB PO PRN (20:22)
[2021-06-08] MEDS: DONEPEZIL 10 MG TAB PO SCH (20:23)
[2021-06-08] MEDS: SERTRALINE 50 MG TAB PO SCH (20:24)
[2021-06-09 04:02] LABS: Basophils % (A) 0 %; Eosinophils % (A) 0 %; HCT 40.4 % (39.0-53.0); HGB 13.3 gm/dL (13.0-17.5); Lymphocytes # (A) 0.4 k/uL (1.0-4.8); Lymphocytes % (A) 3 %; MCH 30.3 pg (25.0-35.0); MCHC 32.9 g/dL (31.0-37.0); MCV 92.1 fL (80.0-100.0); Mean Platelet Volume 8.2; Monocytes # (A) 0.4 k/uL (0-1.0); Monocytes % (A) 3 %; Neutrophils # (A) 15.4 k/uL (1.3-7.7); Neutrophils % (A) 94 %; Platelet Count 232 k/uL (150-450); RBC 4.38 m/uL (4.30-5.90); RDW 13.2 % (11.5-15.5); WBC 16.3 k/uL (3.8-10.6)
[2021-06-09 04:11] LABS: ALT 15 U/L (4-49); AST 26 U/L (17-59); African American GFR (CKD) >90 (>60 ml/min/1.73 sqM); Albumin 2.6 g/dL (3.5-5.0); Alkaline Phosphatase 71 U/L (38-126); Anion Gap 3 mmol/L; Blood Urea Nitrogen 28 mg/dL (9-20); C Reactive Protein 6.3 mg/dL (<1.0); Calcium 8.8 mg/dL (8.4-10.2); Carbon Dioxide 29 mmol/L (22-30); Chloride 102 mmol/L (98-107); Glucose 175 mg/dL (74-99); LDH 1147 U/L (313-618); Non-African American GFR(CKD) 82 (>60 ml/min/1.73 sqM); Potassium 4.5 mmol/L (3.5-5.1); Sodium 134 mmol/L (137-145); Total Bilirubin 0.6 mg/dL (0.2-1.3); Total Protein 5.6 g/dL (6.3-8.2)
[2021-06-09 06:53] LABS: Glucose,Whole Blood 169 mg/dL (75-99)
[2021-06-09] MEDS: INSULIN ASPART (NovoLOG) 100 UNIT/ML VIAL SQ SCH ×4 (06:54→20:39)
[2021-06-09] MEDS: PANTOPRAZOLE 40 MG TABLET PO SCH (06:55)
[2021-06-09] MEDS: ZINC SULFATE 220 MG CAP PO SCH (08:58)
[2021-06-09] MEDS: ASCORBIC ACID 500 MG TAB PO SCH ×2 (08:58→20:39)
[2021-06-09] MEDS: LORATADINE 10 MG TAB PO SCH (08:58)
[2021-06-09] MEDS: QUEtiapine 25 MG TAB PO SCH ×2 (08:58→20:39)
[2021-06-09] MEDS: CHOLECALCIFEROL 25 MCG (1000 IU) TABLET PO SCH (08:58)
[2021-06-09] MEDS: CLOPIDOGREL 75 MG TAB PO SCH (08:58)
[2021-06-09] MEDS: lisinopriL 10 MG TAB PO SCH (08:58)
[2021-06-09] MEDS: FINASTERIDE 5 MG TAB PO SCH (08:59)
[2021-06-09] MEDS: METOPROLOL TARTRATE 12.5 MG TAB PO SCH ×2 (08:59→20:38)
[2021-06-09] MEDS: DEXAMETHASONE SOD PHOSPHATE 10 MG/ML 1 ML VIAL IVP SCH ×2 (08:59→20:38)
[2021-06-09] MEDS: APIXABAN 5 MG TAB PO SCH ×2 (08:59→20:38)
[2021-06-09] MEDS: TAMSULOSIN 0.4 MG CAP.ER.24H PO SCH (08:59)
--- NOTE | 2021-06-09 10:11 | P.PN ---
Subjective Progress Note Date: 06/09/21 Principal diagnosis: Dyspnea, hypoxia, COVID-19 pneumonia There is evaluation of 05/26/2021, I'm seeing this patient for a follow-up. Is an 85-year-old male patient with known history of dementia. He was hospitalized with Coumadin. Pneumonia the patient diffuse bilateral pulmonary infiltrates. He is currently on IV Decadron and the patient was started on of the severe ass ociated his loading dose yesterday and today is day #2. He remains on oxygen at 4 L. His LDH level is low. Pro-calcitonin level is not elevated. Chest x-ray showing diffuse bilateral pulmonary infiltrates. He is also known to have comorbidities including hypertension, hyperlipidemia, CAD, BPH, previous history of PCI and stenting and he is a former smoker. He is afebrile. D-dimer is not elevated. White cell count at 8.8. Hemoglobin is at 12.5. No other significant abnormalities in his electrolytes. He was having some difficulties in falling sleep yesterday and the patient was given Seroquel 12.5 mg overnight and twice a day. Otherwise, no other significant events. He is confused. He is breathing is nonlabored. Pulse ox on room air is still under 90%. This is a vaccinated individual. 05/27/2021, the patient is being seen for a follow-up. The patient was hospitalized for overnight. His pneumonia and the patient had diffuse bilateral pulmonary infiltrates. The patient was treated with Decadron and Remdesivir and today is day #3 of treatment. He remains on oxygen and currently is on nonrebreather and his oxidation is gotten worse since yesterday. Note that yesterday during my earlier evaluation, he was only on 4 L of oxygen by nasal cannula. He remains afebrile. On 100% nonrebreather facemask, his pulse ox is up to 97%. Note that he had to be gradually increased on his oxygen flow. As stated he was on 4 L and he was brought up to 5 L and later on high flow oxygen and now is on a nonrebreather facemask. His LDH level from yesterday was 867. His blood work shows a sodium of 139 potassium of 4.3, bicarb of 23, normal renal function with a creatinine of 1.0. His white cell count is at 8.8 with a hemoglobin of 12.5. He is having occasional an ongoing dry cough. He remains on Decadron 6 mg daily. He is on third day of Remdesivir. Neurologically, there is confused. No agitation. His alert and oriented 1. His d-dimer was at 1.75 from 05/24/2021. On 05/28/2021 patient seen in follow-up on selective care unit, patient has been transferred to [facility]. related to going into [facility] with RVR, he was started on Cardizem infusion for rate control, and heparin infusion for anticoagulation. Patient is currently resting comfortably in bed, mildly dyspneic, he has removed his oxygen, and his from her pulse ox is 81%. He was placed back on 2 L of oxygen, and his pulse ox came up to 88-90%. He is afebrile, lung sounds reveal bibasilar crackles, today's chest x-ray shows bilateral multifocal confluent reticulonodular opacities, with no significant change from most recent studies. Patient remains on Decadron 6 mg daily, heparin infusion is being converted to oral anticoagulation in the form of Eliquis, and she is on Remdesivir, day 4 of treatment On today's evaluation on 05/29/2021 patient seen in follow-up on selective care unit, he is sitting comfortably in bed, he is currently on 6 L of oxygen pulse ox is 94%, breathing comfortably, vital signs have been stable, patient has converted to sinus rhythm, heparin drip has been discontinued, patient has been started on Eliquis for anticoagulation, and metoprolol 12.5 mg twice daily. Cardiology is following, as given a dose of Lasix yesterday, his IV fluids have been stopped to KVO, patient has been tolerating oral intake, no nausea or vomiting. No new chest x-ray today, he will be completing his Remdesivir course today, he also remains on Decadron and COVID-19 vitamins. His lab 7 reviewed, blood blood cell count is 12, hemoglobin is 12.5, BMP results are still pending today, inflammatory markers were improving on yesterday's labs. Pro-calcitonin level was 0.96, suggesting possibility of underlying bacterial infection. Occasional cough, no phlegm production. Blood culture has shown no growth. On 05/30/2021 patient seen in follow-up on selective care unit, he is resting comfortably in bed, in no acute distress, he is currently on 6 L of oxygen his pulse ox is 90%, denies any respiratory difficulty, occasional cough, no complaint of chest discomfort, yesterday he received a dose of IV Lasix 20 mg, and -190 mL net fluid balance over the last 24 hours, the exact Balance is not available to us as the patient has been using the urinal, and has been incontinent as well. No new chest x-ray, his last chest x-ray from yesterday showed worsening peripheral infiltrates. Today we will give the patient another dose of Lasix, his proBNP level came back elevated at 6730. No lower extremity edema, patient has converted to sinus mechanism, he is currently on Eliquis for anticoagulation, and has been started on Lopressor 12.5 milligram twice daily. Decadron is at 6 mg daily. He is also on Zosyn for empiric antibiotic coverage view of elevated pro-calcitonin of 0.96. On 06/09/2001 patient seen in follow-up in intensive care unit, he is resting comfortably in bed, he is currently on 15 L high flow nasal cannula and usually she does were nonrebreather mask as well, breathing comfortably, appears to be in no acute respiratory distress tox on 15 L is 95%, he is afebrile, hemodynamically he is stable. He is not on any IV fluids, he is in sinus mechanism with a controlled rate. Yesterday's chest x-ray showed mild interval decrease in the bilateral left greater than right airspace opacities in moderate to severe interstitial edema, no evidence of pneumothorax or pleural effusion. His labs have been reviewed, white blood cell count is 16.3, hemoglobin is 13.3, Demer is improving and is down to 2.2, sodium is 134, the rest of electrolytes are within normal limits, BUN is 28 creatinine 0.79, LDH is 1147, actually increased from previous value of 805 from 06/01/2021, and CRP is 6.3, proved from 16.2 on 06/02/2021. She and continues on Eliquis 5 mg twice daily, he is on COVID-19 vitamins, and dexamethasone 6 mg twice daily. Tolerating oral intake, no nausea vomiting or diarrhea. Objective - Vital Signs Vital signs: Vital Signs Temp 98.9 F 06/09/21 06:00 Pulse 64 06/09/21 06:00 Resp 22 06/09/21 06:00 BP 159/85 06/09/21 02:00 Pulse Ox 95 06/09/21 06:00 Intake & Output 06/08/21 06/09/21 06/09/21 18:59 06:59 18:59 Intake Total 300 150 Output Total 750 Balance -450 150 Intake: IV 0 0 Sodium Chloride 0.9% 1, 0 0 000 ml @ 20 mls/hr IV . [facility] Rx#:[id number] Oral 300 150 Output: Urine 750 Other: Voiding Method Urinal Urinal # Voids 4 3 - Exam GENERAL EXAM: Alert, confused very pleasant 85-year-old white male, 15 L high flow nasal cannula and her percent nonrebreather mask pulse ox of 95% HEAD: Normocephalic/atraumatic. EYES: Normal reaction of pupils, equal size. Conjunctiva pink, sclera white. NOSE: Clear with pink turbinates. THROAT: No erythema or exudates. NECK: No masses, no JVD, no thyroid enlargement, no adenopathy. CHEST: No chest wall deformity. Symmetrical expansion. LUNGS: Equal air entry with basilar crackles CVS: Irregular rate and rhythm, normal S1 and S2, no gallops, no murmurs, no rubs ABDOMEN: Soft, nontender. No hepatosplenomegaly, normal bowel sounds, no guarding or rigidity. EXTREMITIES: No clubbing, no edema, no cyanosis, 2+ pulses and upper and lower extremities. MUSCULOSKELETAL: Muscle strength and tone normal. SPINE: No scoliosis or deformity SKIN: No rashes CENTRAL NERVOUS SYSTEM: Alert and oriented -3. No focal deficits, tone is normal in all 4 extremities. PSYCHIATRIC: Alert and oriented -3. Appropriate affect. Intact judgment and insight. - Labs CBC & Chem 7: 06/09/21 03:24 06/09/21 03:24 Labs: Abnormal Lab Results - Last 24 Hours (Table) 06/08/21 06/08/21 06/08/21 Range/Units 13:40 17:34 20:08 WBC (3.8-10.6) k/uL Neutrophils # (1.3-7.7) k/uL Lymphocytes # (1.0-4.8) k/uL D-Dimer (<0.60) mg/L FEU Sodium (137-145) mmol/L BUN (9-20) mg/dL Glucose (74-99) mg/dL POC Glucose (mg/dL) 142 H 167 H 204 H (75-99) mg/dL Lactate Dehydrogenase (313-618) U/L C-Reactive Protein (<1.0) mg/dL Total Protein (6.3-8.2) g/dL Albumin (3.5-5.0) g/dL 06/09/21 06/09/21 06/09/21 Range/Units 03:24 03:24 03:24 WBC 16.3 H (3.8-10.6) k/uL Neutrophils # 15.4 H (1.3-7.7) k/uL Lymphocytes # 0.4 L (1.0-4.8) k/uL D-Dimer 2.20 H (<0.60) mg/L FEU Sodium 134 L (137-145) mmol/L BUN 28 H (9-20) mg/dL Glucose 175 H (74-99) mg/dL POC Glucose (mg/dL) (75-99) mg/dL Lactate Dehydrogenase 1147 H (313-618) U/L C-Reactive Protein 6.3 H (<1.0) mg/dL Total Protein 5.6 L (6.3-8.2) g/dL Albumin 2.6 L (3.5-5.0) g/dL 06/09/21 Range/Units 06:51 WBC (3.8-10.6) k/uL Neutrophils # (1.3-7.7) k/uL Lymphocytes # (1.0-4.8) k/uL D-Dimer (<0.60) mg/L FEU Sodium (137-145) mmol/L BUN (9-20) mg/dL Glucose (74-99) mg/dL POC Glucose (mg/dL) 169 H (75-99) mg/dL Lactate Dehydrogenase (313-618) U/L C-Reactive Protein (<1.0) mg/dL Total Protein (6.3-8.2) g/dL Albumin (3.5-5.0) g/dL Assessment and Plan Plan: #1. Acute hypoxemic respiratory failure secondary to coronavirus associated pneumonia. Received Remdesivir which was started on 05/25/2021, remains on Decadron 6 mg twice daily, was not a candidate for Baricitinib in view of elevated pro-calcitonin and possibility of underlying bacterial infection #2. Elevated inflammatory markers secondary to coronavirus infection. LDH improved and it worsened again, CRP is improving #3. History of hyperlipidemia. #4. History of hypertension. #5. History of myocardial infarction. #6. BPH. #7. CAD, status post cardiac catheterization with stent. #8. History of dementia. #9. A. fib with RVR, converted to sinus rhythm, currently on Eliquis, and remains in sinus rhythm #10. Acute exacerbation of CHF, fluid overload, EF is unknown #11. Rule out possibility of underlying secondary bacterial infection, in view of elevated pro-calcitonin, possibly related to aspiration, patient has been e mpirically covered with Zosyn Plan: Continue current medical treatment Continue Decadron Continue oral anticoagulation Weaning FiO2 to maintain O2 saturations at 88-90% encourage the patient to sit up in a chair, do deep breathing and coughing Obtain up inflammatory markers tomorrow His chest x-ray has been reviewed showing mild interval improvement in the right airspace opacity Obtain follow-up labs including CBC and CMP I performed a history & physical examination of the patient and discussed their management with my nurse practitioner, Bre De Leon. I reviewed the nurse practitioner's note and agree with the documented findings and plan of care. Lung sounds are positive fordiminished breath sounds throughout the lung [place]. The findings and the impression was discussed with the patient. I attest to the documentation by the nurse practitioner. Time with Patient: Less than 30
[2021-06-09 11:27] LABS: Glucose,Whole Blood 133 mg/dL (75-99)
--- NOTE | 2021-06-09 15:41 | P.PN ---
Subjective Progress Note Date: 06/09/21 HISTORY OF PRESENT ILLNESS: This is an 85-year-old white [place] male with a previous medical history sig nificant for coronary artery disease status post PCI of the LCx back in 2019, hypertension and hypertensive cardio vascular disease, hyperlipidemia, ALLERGIC rhinitis, enlarged prostate, history of ALLERGIC rhinitis, vascular dementia, patient presented to the emergency department at [facility] yesterday after he was evaluated few days ago with positive Covid 19 infection and he was sent home with supportive care patient was not hypoxemic at that time, patient apparently fell last night and couldn't get up because of generalized weakness he ended up coming back to the hospital with increased shortness breath associated with increased and weakness he became quite hypoxemic with oxygen saturation at 89% on room air so he was admitted to the hospital for evaluation and treatment for COVID-19 pneumonia, patient underwent x-rays of the pelvis that did not show any evidence of acute fracture, patient underwent computed tomography scan of the head in the cervical spine that showed anterolisthesis of C4-C5 and severe degenerative disc disease of C5 C6 C6 and 7, without acute frac ture, patient 12-lead EKG did not show evidence of acute ST-T wave changes, chest x-ray initially showed worsening infiltrate this was followed by CTA of the chest because of elevated d-dimer and elevated inflammatory markers and the patient was negative for pulmonary as well as a however it did show significant diffuse interstitial infiltrate suggestive of Covid 19 pneumonia, patient will be started on Remdesivir 200 mg loading dose followed by 100 mg daily for the next 5 days. 05/26: Patient apparently didn't sleep last night despite use of Xanax. We will add in Seroquel 12.5 mg twice daily., Heart rate 68, blood pressure 150/65, pulse ox 90% on 4 L nasal cannula. WBC 8.8, hemoglobin 12.5, platelet count 244. Electrolytes are normal. BUN 33 creatinine 1. Blood sugar 139. C-reactive protein 7.3. Blood cultures no growth at 24 hours 2 specimens. Patient has been seen by pulmonary medicine and continued on Remdesivir, Decadron, Lovenox and vitamin supplements. Patient has also been seen and followed by cardiology, atenolol on hold his heart rate has been in the 60s and occasionally in the 40s at night, cardiology has signed off. 05/27: Seen today in follow-up on the [facility] floor. His mental status is somewhat improved from yesterday after Seroquel was started. He is able to answer questions appropriately. He states that his breathing is better. He is on a nonrebreather with a pulse ox of 98% which will be weaned down today. Patient denies nausea or vomiting, not much appetite. 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 Cardiology to be notified. Patient has been afebrile, heart rate 54, blood pressure 155/66. Patient's grandson is also hospitalized a few doors down from the patient. 05/28: A is seen today in follow-up. His mental status seems to be improved today. Patient went into A. fib with RVR with heart rate in the 110s and 120s, transferred to the cardiac stepdown unit. Cardizem drip currently at 5 mg per hour and patient has been started on heparin drip as well. Cardiology has plans for eliquis 5 mg twice daily and begin metoprolol to wean off Cardizem. TSH normal at 2.490. Patient remains afebrile. Pulse ox is 89 and 93% on 5 L nasal cannula. Repeat blood work reveals WBC 9.8, hemoglobin 12.5, platelet count 223. D-dimer 7.5. Electrolytes and renal function normal. LDH 345. 05/29: Patient is on 6 L nasal cannula with pulse ox 94%. He has been afebrile, heart rate 75, blood pressure 140/63, patient transition to sinus rhythm around midnight. Repeat blood work reveals WBC 12, hemoglobin 12.5, platelet count 220. Cardiology has started the patient on eliquis and continued Lopressor 12.5 g twice daily. Patient is continued on Remdesivir which will be completed today, dexamethasone 6 mg oral daily, vitamin supplements and eliquis. One dose of IV Lasix 20 mg ordered. 05/30: Patient is laying down in bed he is requiring about 5 L nasal cannula his current oxygenation is 94%, uses chest x-ray that did show worsening infiltrate, I started the patient on Zosyn 3.375 g IV piggyback every 6 hours, continue current pulmonary toileting, continue to monitor the patient, patient did r espond to the Lasix yesterday and he is feeling much better today than yesterday he has no audible wheezes at this time. 05/31: Patient is sitting up in bed in no apparent distress, he continues to be on a nonrebreather mask, his oxygen above 93%, he denies any chest pain he denies any coughing of phlegm production, his monitor showing H her fibrillation with controlled rate, continue with the patient on Eliquis, continue patient on metoprolol, monitor the patient very closely continue IV antibiotic in the form of Zosyn, physical therapy evaluation, patient will likely require subacute rehabilitation. 06/01: Patient is laying down in bed in moderate respiratory distress he continues to require 15L , continues to be on Zosyn 3.375 g IV piggyback every 8 hours, for which is interested continue them dictation, he has been seeing pulmonary medicine as well, monitor the patient very closely, spoke with his son-in-law over the phone as his daughter was asleep, and updated of the current situation of the patient plan of care. 06/02: Patient was transferred into the intensive care unit, he has a sitter at the bedside. Patient is currently on 15 L high flow nasal cannula and nonrebreather which she has been pulling off. Pulse ox 94% and drops down to 85 with eating. Temperature max 100.1, heart rate 64, blood pressure 160/53. Respiratory rate 29. Patient continues to be confused. His poor appetite and protein supplement added. Repeat blood work reveals WBC 11.1, hemoglobin 12.6. Electrolytes are normal, creatinine 0.91. Blood sugars are running between 142 and 154. Liver function tests are normal. C-reactive protein 16.2. D-dimer 4.14. 06/03: Patient remains in the intensive care unit. He is currently on oxygen high flow nasal cannula 10-12 L without nonrebreather and maintaining pulse ox of 89-92%. Patient is afebrile, heart rate in the 60s and 70s, blood pressure 134/76. Repeat blood work reveals WBC 13.2, hemoglobin 12.8. Electrolytes normal. BUN 39 creatinine 0.93. Blood sugars are running between 158 and 262 with improvement this morning. Repeat chest x-ray reveals bilateral multifocal and confluent opacities consistent with Covid19. No significant change. 06/04: Patient continues to be maintained in the intensive care unit. He is currently on nasal cannula with pulse ox of 89%, high flow nasal cannula 15 L. He is also on nonrebreather when this remains on. Patient does take off his oxygen he desaturates quickly. He is complaining of generalized pain and Tylenol is being evident. premium card cancellation clerk is sinus rhythm with bigeminy. Repeat blood work reveals WBC 14.6, hemoglobin 12.9. Creatinine 0.94. Blood sugars are running between 118 and 159. He is continued on eliquis, vitamin supplements, dexamethasone and Zosyn. 06/05: Patient remains in intensive care unit, currently on high flow nasal cannula at 15 L. He is not requiring nonrebreather but pulse ox is dropped when nasal cannula was not in place. Patient remains confused but seems to be more alert today and interactive. He denies having any chest pain or shortness of breath. He is afebrile, heart rate 69, blood pressure 132/60, pulse ox 88-95% on 15 L nasal cannula. WBC 14.5, hemoglobin 12.4. Creatinine 0.79. Blood sugars are running between 173 and 240. 06/06: Patient has been afebrile, heart rate 71, respiratory rate 14-30. Blood pressure 160/87. Repeat blood work reveals WBC 16.6, hemoglobin 12.5, creatinine 0.75. Blood sugars are running between 141 and 170. Patient remains in the intensive care unit. Pulse ox is 90% on 12 L high flow nasal cannula. Patient is eating well including taking protein drinks. Patient remains confused but is awake and alert. Patient is continued on eliquis, dexamethasone, vitamin supplements, IV Zosyn and followed closely by pulmonary medicine 06/07: Patient sitting up in bed he continues to require quite a bit of oxygen at this time, his he denies any chest pain he continues to have occasional co ugh, he has no abdominal pain, he has very poor appetite, he appears to be depressed, he continues to be in ICU, he would be maintained in the same management, he is full code without intubation. 06/08: Patient sitting up in bed continues to be on 12 L nasal cannula, occasional cough, continues to be short of breath, continues to have poor appetite, he appears depressed as yesterday, continue current treatment plan, continue supportive care, continue full code, no intubation. 06/09: Patient remains in intensive care unit. He is on nonrebreather/hypopnea nasal cannula 15 L of pulse ox anywhere from 86% to 95%. Heart rate is in the 50s and 60s, blood pressure 159/85. Repeat blood work reveals WBC 16.3. D- dimer is 2.2. Creatinine 0.79. Capillary blood glucose running anywhere between 142 and 204. Liver function tests are normal. LDH 1147. C-reactive protein 6.3. Chest x-ray from yesterday reveals decrease in bilateral left greater than right airspace opacities in moderate severe interstitial edema. Patient is continued on vitamin supplements, eliquis, dexamethasone. He has completed a course of Remdesivir. REVIEW OF SYSTEMS: Constitutional: No documented fever, no chills, no night sweats. No weight change. positive for weakness,positive for fatigue no lethargy. No daytime sleepiness. HEENT: Denies headache. No blurred vision or double vision, no loss of vision. No loss of Hearing, no ringing in the ears, no dizziness. No nasal drainage or congestion. No epistaxis. No sore throat. Lungs: positive for shortness of breath, positive for cough, no sputum p roduction. No wheezing. Reports dyspnea with activity. Cardiovascular: No chest pain, no lower extremity edema. No palpitations. No paroxysmal nocturnal dyspnea. No orthopnea. No lightheadedness or dizziness. No syncopal episodes. New onset atrial fibrillation Abdominal: Denies abdominal pain. No nausea, vomiting. No diarrhea. No constipation. No bloody or tarry stools reports loss of appetite. Genitourinary: No dysuria, increased frequency, urgency. No urinary retention. Musculoskeletal: positive for myalgias. Noted generalized muscle weakness, no gait dysfunction, positive for falls. No back pain. positive for neck pain. Integumentary: No wounds, no lesions. No rash or pruritus. No unusual bruising. Neurologic: No aphasia. No facial droop. Noted change in mentation but is at baseline due to underlying dementia. No head injury. No headache. No paralysis. No paresthesia. Psychiatric: Positive for depression. No anxiety. Endocrine: No abnormal blood sugars. PHYSICAL EXAMINATION: General: 85-year-old male sitting up in ICU bed and appears to be in no acute distress at rest. Patient is on 12 L high flow nasal cannula. HEENT: Head is atraumatic, normocephalic, pupils were equal round, sclera nonicteric, conjunctivae were pale, mucous membranes of the mouth are somewhat dry. Neck: Supple, no JVP, normal carotid upstroke bilaterally, no lymphadenopathy. Chest: Decreased breath sounds at the bases, few rhonchi, no extremity wheezes, no chest wall tenderness, no intercostal retractions. Heart: First heart sound is normal, second heart sounds normal, regular rhythm, there is systolic ejection murmur 2/6 located in the left sternal border, irr egularly irregular due to atrial fibrillation. Abdomen: Soft, nontender, nondistended, positive bowel sounds, there is no hepatosplenomegaly. Extremities: There is no edema no calf tenderness DP +2 bilaterally. Neurologic examination: Patient is awake and alert and oriented x2, patient moves all his extremities, muscle power 4/5 in upper and lower extremities bilaterally. ASSESSMENT AND PLAN: 1. COVID-19 pneumonia possible bacterial pneumonia with acute hypoxic respiratory failure. Patient is currently on 12 L high flow nasal cannula without nonrebreather. Continue Decadron 6 mg IV push every 12 hours, vitamin C 1000 mg every day, vitamin D 1000 units once every day as well as zinc 220 mg orally once every day, Remdesivir course completed, pulmonary consultation appreciated, continue droplet precautions as well as eye protection, continue Zosyn 3.375 g IV piggyback every 8 hours, check portable chest x-ray. 2. Generalized weakness with fall likely related to COVID-19 pneumonia. We will continue with the treatment as in previous paragraph. Physical therapy evaluation. 3. New onset atrial fibrillation, paroxysmal atrial fibrillation. Continue patient on metoprolol 12.5 mg orally twice every day as well as Eliquis 5 mg orally twice every day. 4. CAD post-PCI of the LCx. Plavix 75 mg orally once every day, continue metoprolol 12.5 mg orally twice every day, continue atorvastatin 80 mg once every day. 5. Hypertension and hypertensive cardiovascular disease. Continue patient on lisinopril 10 mg orally once every day, continue metoprolol 12.5 mg orally twice every day. 6. Hyperlipidemia. Continue patient on atorvastatin 80 mg orally once every day. 7. ALLERGIC rhinitis. Continue Zyrtec 10 mg once every day as well as Flonase nasal spray 1 puff in each nostril twice every day. 8. Vascular dementia. Continue donepezil 10 mg orally once every day. 9. Enlarged prostate. Continue Flomax 0.4 mg orally once every day as well as finasteride 5 mg once every day. 10. Depression with psychotic features. Continue patient on Zoloft and increase the dose to 50 mg every day continue Seroquel 12.5 mg orally twice every day monitor the patient very closely. 11. DVT prophylaxis. continue patient on Eliquis 5 mg orally twice every day. 12. GI prophylaxis. Continue Protonix 40 mg every day. 13. Patient is full code with no intubation. 14. Likely will require subacute rehabilitation. Family is planning to return home with VNA. Impression and plan of care have been directed as dictated by the signing physician. Rupali Brannon nurse practitioner acting as scribe for signing physician. Objective - Vital Signs Vital signs: Vital Signs Temp 98.9 F 06/09/21 06:00 Pulse 64 06/09/21 06:00 Resp 22 06/09/21 06:00 BP 159/85 06/09/21 02:00 Pulse Ox 95 06/09/21 06:00 Intake & Output 06/08/21 06/09/21 06/09/21 18:59 06:59 18:59 Intake Total 300 150 Output Total 750 Balance -450 150 Intake: IV 0 0 Sodium Chloride 0.9% 1, 0 0 000 ml @ 20 mls/hr IV . Q24H [facility] Rx#:[id number] Oral 300 150 Output: Urine 750 Other: Voiding Method Urinal Urinal # Voids 4 3 - Labs CBC & Chem 7: 06/09/21 03:24 06/09/21 03:24 Labs: Abnormal Lab Results - Last 24 Hours (Table) 06/08/21 06/08/21 06/08/21 Range/Units 13:40 17:34 20:08 WBC (3.8-10.6) k/uL Neutrophils # (1.3-7.7) k/uL Lymphocytes # (1.0-4.8) k/uL D-Dimer (<0.60) mg/L FEU Sodium (137-145) mmol/L BUN (9-20) mg/dL Glucose (74-99) mg/dL POC Glucose (mg/dL) 142 H 167 H 204 H (75-99) mg/dL Lactate Dehydrogenase (313-618) U/L C-Reactive Protein (<1.0) mg/dL Total Protein (6.3-8.2) g/dL Albumin (3.5-5.0) g/dL 06/09/21 06/09/21 06/09/21 Range/Units 03:24 03:24 03:24 WBC 16.3 H (3.8-10.6) k/uL Neutrophils # 15.4 H (1.3-7.7) k/uL Lymphocytes # 0.4 L (1.0-4.8) k/uL D-Dimer 2.20 H (<0.60) mg/L FEU Sodium 134 L (137-145) mmol/L BUN 28 H (9-20) mg/dL Glucose 175 H (74-99) mg/dL POC Glucose (mg/dL) (75-99) mg/dL Lactate Dehydrogenase 1147 H (313-618) U/L C-Reactive Protein 6.3 H (<1.0) mg/dL Total Protein 5.6 L (6.3-8.2) g/dL Albumin 2.6 L (3.5-5.0) g/dL 06/09/21 Range/Units 06:51 WBC (3.8-10.6) k/uL Neutrophils # (1.3-7.7) k/uL Lymphocytes # (1.0-4.8) k/uL D-Dimer (<0.60) mg/L FEU Sodium (137-145) mmol/L BUN (9-20) mg/dL Glucose (74-99) mg/dL POC Glucose (mg/dL) 169 H (75-99) mg/dL Lactate Dehydrogenase (313-618) U/L C-Reactive Protein (<1.0) mg/dL Total Protein (6.3-8.2) g/dL Albumin (3.5-5.0) g/dL
[2021-06-09 16:30] LABS: Glucose,Whole Blood 158 mg/dL (75-99)
[2021-06-09] MEDS: SODIUM CHLORIDE 0.9% 1,000 ML IV SCH (19:00)
[2021-06-09 20:34] LABS: Glucose,Whole Blood 251 mg/dL (75-99)
[2021-06-09] MEDS: ATORVASTATIN 80 MG TAB PO SCH (20:38)
[2021-06-09] MEDS: SERTRALINE 50 MG TAB PO SCH (20:39)
[2021-06-09] MEDS: DONEPEZIL 10 MG TAB PO SCH (20:39)
[2021-06-10 04:08] LABS: Basophils % (A) 0 %; Eosinophils # (A) 0.2 k/uL (0-0.7); Eosinophils % (A) 1 %; HCT 37.1 % (39.0-53.0); HGB 12.2 gm/dL (13.0-17.5); Lymphocytes # (A) 0.4 k/uL (1.0-4.8); Lymphocytes % (A) 2 %; MCH 30.5 pg (25.0-35.0); MCV 92.5 fL (80.0-100.0); Mean Platelet Volume 8.3; Monocytes # (A) 0.4 k/uL (0-1.0); Monocytes % (A) 2 %; Neutrophils # (A) 16.1 k/uL (1.3-7.7); Neutrophils % (A) 94 %; Platelet Count 224 k/uL (150-450); RBC 4.01 m/uL (4.30-5.90); RDW 13.4 % (11.5-15.5); WBC 17.1 k/uL (3.8-10.6)
[2021-06-10 04:31] LABS: ALT 13 U/L (4-49); AST 24 U/L (17-59); African American GFR (CKD) >90 (>60 ml/min/1.73 sqM); Albumin 2.4 g/dL (3.5-5.0); Alkaline Phosphatase 68 U/L (38-126); Anion Gap 1 mmol/L; Blood Urea Nitrogen 29 mg/dL (9-20); C Reactive Protein 6.8 mg/dL (<1.0); Calcium 8.7 mg/dL (8.4-10.2); Carbon Dioxide 31 mmol/L (22-30); Chloride 101 mmol/L (98-107); Glucose 160 mg/dL (74-99); LDH 1124 U/L (313-618); Non-African American GFR(CKD) 84 (>60 ml/min/1.73 sqM); Potassium 4.6 mmol/L (3.5-5.1); Sodium 133 mmol/L (137-145); Total Bilirubin 0.5 mg/dL (0.2-1.3); Total Protein 5.3 g/dL (6.3-8.2)
[2021-06-10 06:52] LABS: Glucose,Whole Blood 158 mg/dL (75-99)
[2021-06-10] MEDS: INSULIN ASPART (NovoLOG) 100 UNIT/ML VIAL SQ SCH ×4 (06:54→21:17)
[2021-06-10] MEDS: PANTOPRAZOLE 40 MG TABLET PO SCH (06:54)
--- NOTE | 2021-06-10 08:19 | XR ---
EXAMINATION TYPE: XR chest 1V portable DATE OF EXAM: 06/10/2021 HISTORY: Shortness of breath. COMPARISON: 06/08/2021 TECHNIQUE: Single view of the chest is submitted. FINDINGS: Demonstrated are scattered senescent parenchymal change. Diffuse patchy bilateral infiltrates persist unchanged. The heart is stable. Hilar and mediastinal structures are within normal limits. Degenerative changes are seen of the dorsal spine. IMPRESSION: 1. Stable chest
[2021-06-10] MEDS: lisinopriL 10 MG TAB PO SCH (09:41)
[2021-06-10] MEDS: CHOLECALCIFEROL 25 MCG (1000 IU) TABLET PO SCH (09:41)
[2021-06-10] MEDS: QUEtiapine 25 MG TAB PO SCH ×2 (09:41→21:17)
[2021-06-10] MEDS: FINASTERIDE 5 MG TAB PO SCH (09:41)
[2021-06-10] MEDS: ASCORBIC ACID 500 MG TAB PO SCH ×2 (09:42→21:17)
[2021-06-10] MEDS: METOPROLOL TARTRATE 12.5 MG TAB PO SCH ×2 (09:42→21:17)
[2021-06-10] MEDS: LORATADINE 10 MG TAB PO SCH (09:42)
[2021-06-10] MEDS: ZINC SULFATE 220 MG CAP PO SCH (09:42)
[2021-06-10] MEDS: CLOPIDOGREL 75 MG TAB PO SCH (09:42)
[2021-06-10] MEDS: TAMSULOSIN 0.4 MG CAP.ER.24H PO SCH (09:42)
[2021-06-10] MEDS: APIXABAN 5 MG TAB PO SCH ×2 (09:42→21:17)
[2021-06-10] MEDS: dexAMETHasone 2 MG TAB PO SCH (09:42)
--- NOTE | 2021-06-10 11:31 | P.PN ---
Subjective Progress Note Date: 06/10/21 Principal diagnosis: Dyspnea, hypoxia, COVID-19 pneumonia There is evaluation of 05/26/2021, I'm seeing this patient for a follow-up. Is an 85-year-old male patient with known history of dementia. He was hospitalized with Coumadin. Pneumonia the patient diffuse bilateral pulmonary infiltrates. He is currently on IV Decadron and the patient was started on of the severe ass ociated his loading dose yesterday and today is day #2. He remains on oxygen at 4 L. His LDH level is low. Pro-calcitonin level is not elevated. Chest x-ray showing diffuse bilateral pulmonary infiltrates. He is also known to have comorbidities including hypertension, hyperlipidemia, CAD, BPH, previous history of PCI and stenting and he is a former smoker. He is afebrile. D-dimer is not elevated. White cell count at 8.8. Hemoglobin is at 12.5. No other significant abnormalities in his electrolytes. He was having some difficulties in falling sleep yesterday and the patient was given Seroquel 12.5 mg overnight and twice a day. Otherwise, no other significant events. He is confused. He is breathing is nonlabored. Pulse ox on room air is still under 90%. This is a vaccinated individual. 05/27/2021, the patient is being seen for a follow-up. The patient was hospitalized for overnight. His pneumonia and the patient had diffuse bilateral pulmonary infiltrates. The patient was treated with Decadron and Remdesivir and today is day #3 of treatment. He remains on oxygen and currently is on nonrebreather and his oxidation is gotten worse since yesterday. Note that yesterday during my earlier evaluation, he was only on 4 L of oxygen by nasal cannula. He remains afebrile. On 100% nonrebreather facemask, his pulse ox is up to 97%. Note that he had to be gradually increased on his oxygen flow. As stated he was on 4 L and he was brought up to 5 L and later on high flow oxygen and now is on a nonrebreather facemask. His LDH level from yesterday was 867. His blood work shows a sodium of 139 potassium of 4.3, bicarb of 23, normal renal function with a creatinine of 1.0. His white cell count is at 8.8 with a hemoglobin of 12.5. He is having occasional an ongoing dry cough. He remains on Decadron 6 mg daily. He is on third day of Remdesivir. Neurologically, there is confused. No agitation. His alert and oriented 1. His d-dimer was at 1.75 from 05/24/2021. On 05/28/2021 patient seen in follow-up on selective care unit, patient has been transferred to [facility]. related to going into [facility] with RVR, he was started on Cardizem infusion for rate control, and heparin infusion for anticoagulation. Patient is currently resting comfortably in bed, mildly dyspneic, he has removed his oxygen, and his from her pulse ox is 81%. He was placed back on 2 L of oxygen, and his pulse ox came up to 88-90%. He is afebrile, lung sounds reveal bibasilar crackles, today's chest x-ray shows bilateral multifocal confluent reticulonodular opacities, with no significant change from most recent studies. Patient remains on Decadron 6 mg daily, heparin infusion is being converted to oral anticoagulation in the form of Eliquis, and she is on Remdesivir, day 4 of treatment On today's evaluation on 05/29/2021 patient seen in follow-up on selective care unit, he is sitting comfortably in bed, he is currently on 6 L of oxygen pulse ox is 94%, breathing comfortably, vital signs have been stable, patient has converted to sinus rhythm, heparin drip has been discontinued, patient has been started on Eliquis for anticoagulation, and metoprolol 12.5 mg twice daily. Cardiology is following, as given a dose of Lasix yesterday, his IV fluids have been stopped to KVO, patient has been tolerating oral intake, no nausea or vomiting. No new chest x-ray today, he will be completing his Remdesivir course today, he also remains on Decadron and COVID-19 vitamins. His lab 7 reviewed, blood blood cell count is 12, hemoglobin is 12.5, BMP results are still pending today, inflammatory markers were improving on yesterday's labs. Pro-calcitonin level was 0.96, suggesting possibility of underlying bacterial infection. Occasional cough, no phlegm production. Blood culture has shown no growth. On 05/30/2021 patient seen in follow-up on selective care unit, he is resting comfortably in bed, in no acute distress, he is currently on 6 L of oxygen his pulse ox is 90%, denies any respiratory difficulty, occasional cough, no complaint of chest discomfort, yesterday he received a dose of IV Lasix 20 mg, and -190 mL net fluid balance over the last 24 hours, the exact Balance is not available to us as the patient has been using the urinal, and has been incontinent as well. No new chest x-ray, his last chest x-ray from yesterday showed worsening peripheral infiltrates. Today we will give the patient another dose of Lasix, his proBNP level came back elevated at 6730. No lower extremity edema, patient has converted to sinus mechanism, he is currently on Eliquis for anticoagulation, and has been started on Lopressor 12.5 milligram twice daily. Decadron is at 6 mg daily. He is also on Zosyn for empiric antibiotic coverage view of elevated pro-calcitonin of 0.96. On 06/09/2001 patient seen in follow-up in intensive care unit, he is resting comfortably in bed, he is currently on 15 L high flow nasal cannula and usually she does were nonrebreather mask as well, breathing comfortably, appears to be in no acute respiratory distress tox on 15 L is 95%, he is afebrile, hemodynamically he is stable. He is not on any IV fluids, he is in sinus mechanism with a controlled rate. Yesterday's chest x-ray showed mild interval decrease in the bilateral left greater than right airspace opacities in moderate to severe interstitial edema, no evidence of pneumothorax or pleural effusion. His labs have been reviewed, white blood cell count is 16.3, hemoglobin is 13.3, Demer is improving and is down to 2.2, sodium is 134, the rest of electrolytes are within normal limits, BUN is 28 creatinine 0.79, LDH is 1147, actually increased from previous value of 805 from 06/01/2021, and CRP is 6.3, proved from 16.2 on 06/02/2021. She and continues on Eliquis 5 mg twice daily, he is on COVID-19 vitamins, and dexamethasone 6 mg twice daily. Tolerating oral intake, no nausea vomiting or diarrhea. On 06/10/2021 patient seen in follow-up in intensive care unit, he is currently just on 15 L per high flow nasal cannula, he is not using the nonrebreather mask, his pulse ox is 87-92%, breathing comfortably, she is resting comfortably, has no specific complaints, no running IVs, he is tolerating oral intake, no nausea or vomiting no abdominal pain, chest x-ray has been reviewed showing diffuse patchy bilateral infiltrates, similar to his previous chest x-ray. Mane bhatt's labs have been reviewed, his white blood cell, and 17.1, hemoglobin is 12.2, sodium is 133, potassium is 4.6, B1 is 29 creatinine 0.75, d-dimer is 2.78. LDH and CRP are stable. Objective - Vital Signs Vital signs: Vital Signs Temp 98.0 F 06/10/21 06:00 Pulse 67 06/10/21 06:00 Resp 22 06/10/21 06:00 BP 155/78 06/10/21 06:00 Pulse Ox 87 L 06/10/21 06:00 Intake & Output 06/09/21 06/10/21 06/10/21 18:59 06:59 18:59 Intake Total 360 Output Total 300 Balance 360 -300 Weight 72.6 kg Intake: Oral 360 Output: Urine 300 Other: Voiding Method Urinal Urinal # Voids 3 # Bowel Movements 1 - Exam GENERAL EXAM: Alert, confused very pleasant 85-year-old white male, 15 L high flow nasal cannula, breathing comfortably, and pulse ox is ranging between 87- 94% HEAD: Normocephalic/atraumatic. EYES: Normal reaction of pupils, equal size. Conjunctiva pink, sclera white. NOSE: Clear with pink turbinates. THROAT: No erythema or exudates. NECK: No masses, no JVD, no thyroid enlargement, no adenopathy. CHEST: No chest wall deformity. Symmetrical expansion. LUNGS: Equal air entry with basilar crackles CVS: Irregular rate and rhythm, normal S1 and S2, no gallops, no murmurs, no rubs ABDOMEN: Soft, nontender. No hepatosplenomegaly, normal bowel sounds, no guarding or rigidity. EXTREMITIES: No clubbing, no edema, no cyanosis, 2+ pulses and upper and lower extremities. MUSCULOSKELETAL: Muscle strength and tone normal. SPINE: No scoliosis or deformity SKIN: No rashes CENTRAL NERVOUS SYSTEM: Alert and oriented -3. No focal deficits, tone is normal in all 4 extremities. PSYCHIATRIC: Alert and oriented -3. Appropriate affect. Intact judgment and insight. - Labs CBC & Chem 7: 06/10/21 03:25 06/10/21 03:25 Labs: Abnormal Lab Results - Last 24 Hours (Table) 06/09/21 06/09/21 06/09/21 Range/Units 11: 16:28 20:32 WBC (3.8-10.6) k/uL RBC (4.30-5.90) m/uL Hgb (13.0-17.5) gm/dL Hct (39.0-53.0) % Neutrophils # (1.3-7.7) k/uL Lymphocytes # (1.0-4.8) k/uL D-Dimer (<0.60) mg/L FEU Sodium (137-145) mmol/L Carbon Dioxide (22-30) mmol/L BUN (9-20) mg/dL Glucose (74-99) mg/dL POC Glucose (mg/dL) 133 H 158 H 251 H (75-99) mg/dL Lactate Dehydrogenase (313-618) U/L C-Reactive Protein (<1.0) mg/dL Total Protein (6.3-8.2) g/dL Albumin (3.5-5.0) g/dL 06/10/21 06/10/21 06/10/21 Range/Units 03:25 03:25 03:25 WBC 17.1 H (3.8-10.6) k/uL RBC 4.01 L (4.30-5.90) m/uL Hgb 12.2 L (13.0-17.5) gm/dL Hct 37.1 L (39.0-53.0) % Neutrophils # 16.1 H (1.3-7.7) k/uL Lymphocytes # 0.4 L (1.0-4.8) k/uL D-Dimer 2.78 H (<0.60) mg/L FEU Sodium 133 L (137-145) mmol/L Carbon Dioxide 31 H (22-30) mmol/L BUN 29 H (9-20) mg/dL Glucose 160 H (74-99) mg/dL POC Glucose (mg/dL) (75-99) mg/dL Lactate Dehydrogenase 1124 H (313-618) U/L C-Reactive Protein 6.8 H (<1.0) mg/dL Total Protein 5.3 L (6.3-8.2) g/dL Albumin 2.4 L (3.5-5.0) g/dL 06/10/21 Range/Units 06:50 WBC (3.8-10.6) k/uL RBC (4.30-5.90) m/uL Hgb (13.0-17.5) gm/dL Hct (39.0-53.0) % Neutrophils # (1.3-7.7) k/uL Lymphocytes # (1.0-4.8) k/uL D-Dimer (<0.60) mg/L FEU Sodium (137-145) mmol/L Carbon Dioxide (22-30) mmol/L BUN (9-20) mg/dL Glucose (74-99) mg/dL POC Glucose (mg/dL) 158 H (75-99) mg/dL Lactate Dehydrogenase (313-618) U/L C-Reactive Protein (<1.0) mg/dL Total Protein (6.3-8.2) g/dL Albumin (3.5-5.0) g/dL Assessment and Plan Plan: #1. Acute hypoxemic respiratory failure secondary to coronavirus associated pneumonia. Received Remdesivir which was started on 05/25/2021, remains on Decadron 6 mg twice daily, was not a candidate for Baricitinib in view of elevated pro-calcitonin and possibility of underlying bacterial infection #2. Elevated inflammatory markers secondary to coronavirus infection. LDH improved and it worsened again, CRP is improving #3. History of hyperlipidemia. #4. History of hypertension. #5. History of myocardial infarction. #6. BPH. #7. CAD, status post cardiac catheterization with stent. #8. History of dementia. #9. A. fib with RVR, converted to sinus rhythm, currently on Eliquis, and remains in sinus rhythm #10. Acute exacerbation of CHF, fluid overload, EF is unknown #11. Rule out possibility of underlying secondary bacterial infection, in view of elevated pro-calcitonin, possibly related to aspiration, patient has been empirically covered with Zosyn Plan: Continue weaning FiO2 to keep O2 saturation at 87-90% Patient currently down to 15 L per high flow nasal cannula, not using nonrebreather mask Continue current medical treatment Continue Decadron Continue oral anticoagulation encourage the patient to sit up in a chair, do deep breathing and coughing Laboratory markers have been reviewed and are stable on today's labs as well as chest x-ray findings Patient can be transferred out of intensive care unit to medical surgical floor without telemetry today I performed a history & physical examination of the patient and discussed their management with my nurse practitioner, Bre De Leon. I reviewed the nurse practitioner's note and agree with the documented findings and plan of care. Lung sounds are positive fordiminished breath sounds throughout the lung [place]. The findings and the impression was discussed with the patient. I attest to the documentation by the nurse practitioner. Time with Patient: Less than 30
[2021-06-10 11:41] LABS: Glucose,Whole Blood 200 mg/dL (75-99)
--- NOTE | 2021-06-10 12:30 | P.PN ---
Subjective Progress Note Date: 06/10/21 HISTORY OF PRESENT ILLNESS: This is an 85-year-old white [place] male with a previous medical history sig nificant for coronary artery disease status post PCI of the LCx back in 2019, hypertension and hypertensive cardio vascular disease, hyperlipidemia, ALLERGIC rhinitis, enlarged prostate, history of ALLERGIC rhinitis, vascular dementia, patient presented to the emergency department at [facility] yesterday after he was evaluated few days ago with positive Covid 19 infection and he was sent home with supportive care patient was not hypoxemic at that time, patient apparently fell last night and couldn't get up because of generalized weakness he ended up coming back to the hospital with increased shortness breath associated with increased and weakness he became quite hypoxemic with oxygen saturation at 89% on room air so he was admitted to the hospital for evaluation and treatment for COVID-19 pneumonia, patient underwent x-rays of the pelvis that did not show any evidence of acute fracture, patient underwent computed tomography scan of the head in the cervical spine that showed anterolisthesis of C4-C5 and severe degenerative disc disease of C5 C6 C6 and 7, without acute frac ture, patient 12-lead EKG did not show evidence of acute ST-T wave changes, chest x-ray initially showed worsening infiltrate this was followed by CTA of the chest because of elevated d-dimer and elevated inflammatory markers and the patient was negative for pulmonary as well as a however it did show significant diffuse interstitial infiltrate suggestive of Covid 19 pneumonia, patient will be started on Remdesivir 200 mg loading dose followed by 100 mg daily for the next 5 days. 05/26: Patient apparently didn't sleep last night despite use of Xanax. We will add in Seroquel 12.5 mg twice daily., Heart rate 68, blood pressure 150/65, pulse ox 90% on 4 L nasal cannula. WBC 8.8, hemoglobin 12.5, platelet count 244. Electrolytes are normal. BUN 33 creatinine 1. Blood sugar 139. C-reactive protein 7.3. Blood cultures no growth at 24 hours 2 specimens. Patient has been seen by pulmonary medicine and continued on Remdesivir, Decadron, Lovenox and vitamin supplements. Patient has also been seen and followed by cardiology, atenolol on hold his heart rate has been in the 60s and occasionally in the 40s at night, cardiology has signed off. 05/27: Seen today in follow-up on the [facility] floor. His mental status is somewhat improved from yesterday after Seroquel was started. He is able to answer questions appropriately. He states that his breathing is better. He is on a nonrebreather with a pulse ox of 98% which will be weaned down today. Patient denies nausea or vomiting, not much appetite. cardiac monitor technician has been sinus bradycardia with occasional trigeminy. Cardiology to be notified. Patient has been afebrile, heart rate 54, blood pressure 155/66. Patient's grandson is also hospitalized a few doors down from the patient. 05/28: A is seen today in follow-up. His mental status seems to be improved today. Patient went into A. fib with RVR with heart rate in the 110s and 120s, transferred to the cardiac stepdown unit. Cardizem drip currently at 5 mg per hour and patient has been started on heparin drip as well. Cardiology has plans for eliquis 5 mg twice daily and begin metoprolol to wean off Cardizem. TSH normal at 2.490. Patient remains afebrile. Pulse ox is 89 and 93% on 5 L nasal cannula. Repeat blood work reveals WBC 9.8, hemoglobin 12.5, platelet count 223. D-dimer 7.5. Electrolytes and renal function normal. LDH 345. 05/29: Patient is on 6 L nasal cannula with pulse ox 94%. He has been afebrile, heart rate 75, blood pressure 140/63, patient transition to sinus rhythm around midnight. Repeat blood work reveals WBC 12, hemoglobin 12.5, platelet count 220. Cardiology has started the patient on eliquis and continued Lopressor 12.5 g twice daily. Patient is continued on Remdesivir which will be completed today, dexamethasone 6 mg oral daily, vitamin supplements and eliquis. One dose of IV Lasix 20 mg ordered. 05/30: Patient is laying down in bed he is requiring about 5 L nasal cannula his current oxygenation is 94%, uses chest x-ray that did show worsening infiltrate, I started the patient on Zosyn 3.375 g IV piggyback every 6 hours, continue current pulmonary toileting, continue to monitor the patient, patient did r espond to the Lasix yesterday and he is feeling much better today than yesterday he has no audible wheezes at this time. 05/31: Patient is sitting up in bed in no apparent distress, he continues to be on a nonrebreather mask, his oxygen above 93%, he denies any chest pain he denies any coughing of phlegm production, his monitor showing H her fibrillation with controlled rate, continue with the patient on Eliquis, continue patient on metoprolol, monitor the patient very closely continue IV antibiotic in the form of Zosyn, physical therapy evaluation, patient will likely require subacute rehabilitation. 06/01: Patient is laying down in bed in moderate respiratory distress he continues to require 15L , continues to be on Zosyn 3.375 g IV piggyback every 8 hours, for which is interested continue them dictation, he has been seeing pulmonary medicine as well, monitor the patient very closely, spoke with his son-in-law over the phone as his daughter was asleep, and updated of the current situation of the patient plan of care. 06/02: Patient was transferred into the intensive care unit, he has a sitter at the bedside. Patient is currently on 15 L high flow nasal cannula and nonrebreather which she has been pulling off. Pulse ox 94% and drops down to 85 with eating. Temperature max 100.1, heart rate 64, blood pressure 160/53. Respiratory rate 29. Patient continues to be confused. His poor appetite and protein supplement added. Repeat blood work reveals WBC 11.1, hemoglobin 12.6. Electrolytes are normal, creatinine 0.91. Blood sugars are running between 142 and 154. Liver function tests are normal. C-reactive protein 16.2. D-dimer 4.14. 06/03: Patient remains in the intensive care unit. He is currently on oxygen high flow nasal cannula 10-12 L without nonrebreather and maintaining pulse ox of 89-92%. Patient is afebrile, heart rate in the 60s and 70s, blood pressure 134/76. Repeat blood work reveals WBC 13.2, hemoglobin 12.8. Electrolytes normal. BUN 39 creatinine 0.93. Blood sugars are running between 158 and 262 with improvement this morning. Repeat chest x-ray reveals bilateral multifocal and confluent opacities consistent with Covid19. No significant change. 06/04: Patient continues to be maintained in the intensive care unit. He is currently on nasal cannula with pulse ox of 89%, high flow nasal cannula 15 L. He is also on nonrebreather when this remains on. Patient does take off his oxygen he desaturates quickly. He is complaining of generalized pain and Tylenol is being evident. cardiac monitor technician is sinus rhythm with bigeminy. Repeat blood work reveals WBC 14.6, hemoglobin 12.9. Creatinine 0.94. Blood sugars are running between 118 and 159. He is continued on eliquis, vitamin supplements, dexamethasone and Zosyn. 06/05: Patient remains in intensive care unit, currently on high flow nasal cannula at 15 L. He is not requiring nonrebreather but pulse ox is dropped when nasal cannula was not in place. Patient remains confused but seems to be more alert today and interactive. He denies having any chest pain or shortness of breath. He is afebrile, heart rate 69, blood pressure 132/60, pulse ox 88-95% on 15 L nasal cannula. WBC 14.5, hemoglobin 12.4. Creatinine 0.79. Blood sugars are running between 173 and 240. 06/06: Patient has been afebrile, heart rate 71, respiratory rate 14-30. Blood pressure 160/87. Repeat blood work reveals WBC 16.6, hemoglobin 12.5, creatinine 0.75. Blood sugars are running between 141 and 170. Patient remains in the intensive care unit. Pulse ox is 90% on 12 L high flow nasal cannula. Patient is eating well including taking protein drinks. Patient remains confused but is awake and alert. Patient is continued on eliquis, dexamethasone, vitamin supplements, IV Zosyn and followed closely by pulmonary medicine 06/07: Patient sitting up in bed he continues to require quite a bit of oxygen at this time, his he denies any chest pain he continues to have occasional co ugh, he has no abdominal pain, he has very poor appetite, he appears to be depressed, he continues to be in ICU, he would be maintained in the same management, he is full code without intubation. 06/08: Patient sitting up in bed continues to be on 12 L nasal cannula, occasional cough, continues to be short of breath, continues to have poor appetite, he appears depressed as yesterday, continue current treatment plan, continue supportive care, continue full code, no intubation. 06/09: Patient remains in intensive care unit. He is on nonrebreather/hypopnea nasal cannula 15 L of pulse ox anywhere from 86% to 95%. Heart rate is in the 50s and 60s, blood pressure 159/85. Repeat blood work reveals WBC 16.3. D- dimer is 2.2. Creatinine 0.79. Capillary blood glucose running anywhere between 142 and 204. Liver function tests are normal. LDH 1147. C-reactive protein 6.3. Chest x-ray from yesterday reveals decrease in bilateral left greater than right airspace opacities in moderate severe interstitial edema. Patient is continued on vitamin supplements, eliquis, dexamethasone. He has completed a course of Remdesivir. 06/10: Remains in the intensive care unit. He is currently on high flow nasal cannula at 15 L with pulse ox of 87 and 92%. His breath, heart rate 67, blood pressure 155/78. Repeat blood work reveals d-dimer 2.78, LDH 1124, CRP 6.8. Chest x-ray is stable findings. Patient is followed by auto service mechanic with plan to wean FiO2 to keep O2 saturation 87-90% and patient was cleared for transfer out of the intensive care unit to [facility] without telemetry. REVIEW OF SYSTEMS: Constitutional: No documented fever, no chills, no night sweats. No weight change. positive for weakness,positive for fatigue no lethargy. No daytime sleepiness. HEENT: Denies headache. No blurred vision or double vision, no loss of vision. No loss of Hearing, no ringing in the ears, no dizziness. No nasal drainage or congestion. No epistaxis. No sore throat. Lungs: positive for shortness of breath, positive for cough, no sputum production. No wheezing. Reports dyspnea with activity. Cardiovascular: No chest pain, no lower extremity edema. No palpitations. No paroxysmal nocturnal dyspnea. No orthopnea. No lightheadedness or dizziness. No syncopal episodes. New onset atrial fibrillation Abdominal: Denies abdominal pain. No nausea, vomiting. No diarrhea. No constipation. No bloody or tarry stools reports loss of appetite. Genitourinary: No dysuria, increased frequency, urgency. No urinary retention. Musculoskeletal: positive for myalgias. Noted generalized muscle weakness, no gait dysfunction, positive for falls. No back pain. positive for neck pain. Integumentary: No wounds, no lesions. No rash or pruritus. No unusual bruising. Neurologic: No aphasia. No facial droop. Noted change in mentation but is at baseline due to underlying dementia. No head injury. No headache. No paralysis. No paresthesia. Psychiatric: Positive for depression. No anxiety. Endocrine: Noted abnormal blood sugars. PHYSICAL EXAMINATION: General: 85-year-old male sitting up in ICU bed and appears to be in no acute distress at rest. Patient is on 15 L high flow nasal cannula patient appears to be comfortable at rest.. HEENT: Head is atraumatic, normocephalic, pupils were equal round, sclera nonicteric, conjunctivae were pale, mucous membranes of the mouth are somewhat dry. Neck: Supple, no JVP, normal carotid upstroke bilaterally, no lymphadenopathy. Chest: Decreased breath sounds at the bases, few rhonchi, no extremity wheezes, no chest wall tenderness, no intercostal retractions. Heart: First heart sound is normal, second heart sounds normal, regular rhythm, there is systolic ejection murmur 2/6 located in the left sternal border, irregularly irregular due to atrial fibrillation. Abdomen: Soft, nontender, nondistended, positive bowel sounds, there is no hepatosplenomegaly. Extremities: There is no edema no calf tenderness DP +2 bilaterally. Neurologic examination: Patient is awake and alert and oriented x2, patient moves all his extremities, muscle power 4/5 in upper and lower extremities bilaterally. ASSESSMENT AND PLAN: 1. COVID-19 pneumonia possible bacterial pneumonia with acute hypoxic respiratory failure. Patient is currently on 15 L high flow nasal cannula without nonrebreather. Continue Decadron 6 mg IV push every 12 hours, vitamin C 1000 mg every day, vitamin D 1000 units once every day as well as zinc 220 mg orally once every day, Remdesivir course completed, pulmonary consultation appreciated, continue droplet precautions as well as eye protection, continue Zosyn 3.375 g IV piggyback every 8 hours, transfer out of the intensive care unit to [facility] floor without telemetry.. 2. Generalized weakness with fall likely related to COVID-19 pneumonia. We will continue with the treatment as in previous paragraph. Physical therapy evaluation. 3. New onset atrial fibrillation, paroxysmal atrial fibrillation. Continue patient on metoprolol 12.5 mg orally twice every day as well as Eliquis 5 mg orally twice every day. 4. CAD post-PCI of the LCx. Plavix 75 mg orally once every day, continue metoprolol 12.5 mg orally twice every day, continue atorvastatin 80 mg once every day. 5. Hypertension and hypertensive cardiovascular disease. Continue patient on lisinopril 10 mg orally once every day, continue metoprolol 12.5 mg orally twice every day. 6. Hyperlipidemia. Continue patient on atorvastatin 80 mg orally once every day. 7. ALLERGIC rhinitis. Continue Zyrtec 10 mg once every day as well as Flonase nasal spray 1 puff in each nostril twice every day. 8. Vascular dementia. Continue donepezil 10 mg orally once every day. 9. Enlarged prostate. Continue Flomax 0.4 mg orally once every day as well as finasteride 5 mg once every day. 10. Depression with psychotic features. Continue patient on Zoloft and increase the dose to 50 mg every day continue Seroquel 12.5 mg orally twice every day monitor the patient very closely. 11. DVT prophylaxis. continue patient on Eliquis 5 mg orally twice every day. 12. GI prophylaxis. Continue Protonix 40 mg every day. 13. Patient is full code with no intubation. 14. Likely will require subacute rehabilitation. Family is planning to return home with VNA. Impression and plan of care have been directed as dictated by the signing physician. Rupali Brannon nurse practitioner acting as scribe for signing katie pascual. Objective - Vital Signs Vital signs: Vital Signs Temp 98.0 F 06/10/21 06:00 Pulse 67 06/10/21 06:00 Resp 22 06/10/21 06:00 BP 155/78 06/10/21 06:00 Pulse Ox 87 L 06/10/21 06:00 Intake & Output 06/09/21 06/10/21 06/10/21 18:59 06:59 18:59 Intake Total 360 Output Total 300 Balance 360 -300 Weight 72.6 kg Intake: Oral 360 Output: Urine 300 Other: Voiding Method Urinal Urinal # Voids 3 # Bowel Movements 1 - Labs CBC & Chem 7: 06/10/21 03:25 06/10/21 03:25 Labs: Abnormal Lab Results - Last 24 Hours (Table) 06/09/21 06/09/21 06/09/21 Range/Units 11:25 16:28 20:32 WBC (3.8-10.6) k/uL RBC (4.30-5.90) m/uL Hgb (13.0-17.5) gm/dL Hct (39.0-53.0) % Neutrophils # (1.3-7.7) k/uL Lymphocytes # (1.0-4.8) k/uL D-Dimer (<0.60) mg/L FEU Sodium (137-145) mmol/L Carbon Dioxide (22-30) mmol/L BUN (9-20) mg/dL Glucose (74-99) mg/dL POC Glucose (mg/dL) 133 H 158 H 251 H (75-99) mg/dL Lactate Dehydrogenase (313-618) U/L C-Reactive Protein (<1.0) mg/dL Total Protein (6.3-8.2) g/dL Albumin (3.5-5.0) g/dL 06/10/21 06/10/21 06/10/21 Range/Units 03:25 03:25 03:25 WBC 17.1 H (3.8-10.6) k/uL RBC 4.01 L (4.30-5.90) m/uL Hgb 12.2 L (13.0-17.5) gm/dL Hct 37.1 L (39.0-53.0) % Neutrophils # 16.1 H (1.3-7.7) k/uL Lymphocytes # 0.4 L (1.0-4.8) k/uL D-Dimer 2.78 H (<0.60) mg/L FEU Sodium 133 L (137-145) mmol/L Carbon Dioxide 31 H (22-30) mmol/L BUN 29 H (9-20) mg/dL Glucose 160 H (74-99) mg/dL POC Glucose (mg/dL) (75-99) mg/dL Lactate Dehydrogenase 1124 H (313-618) U/L C-Reactive Protein 6.8 H (<1.0) mg/dL Total Protein 5.3 L (6.3-8.2) g/dL Albumin 2.4 L (3.5-5.0) g/dL 06/10/21 Range/Units 06:50 WBC (3.8-10.6) k/uL RBC (4.30-5.90) m/uL Hgb (13.0-17.5) gm/dL Hct (39.0-53.0) % Neutrophils # (1.3-7.7) k/uL Lymphocytes # (1.0-4.8) k/uL D-Dimer (<0.60) mg/L FEU Sodium (137-145) mmol/L Carbon Dioxide (22-30) mmol/L BUN (9-20) mg/dL Glucose (74-99) mg/dL POC Glucose (mg/dL) 158 H (75-99) mg/dL Lactate Dehydrogenase (313-618) U/L C-Reactive Protein (<1.0) mg/dL Total Protein (6.3-8.2) g/dL Albumin (3.5-5.0) g/dL
[2021-06-10] MEDS: SODIUM CHLORIDE 0.9% 1,000 ML IV SCH (16:37)
[2021-06-10 21:08] LABS: Glucose,Whole Blood 260 mg/dL (75-99)
[2021-06-10] MEDS: ATORVASTATIN 80 MG TAB PO SCH (21:17)
[2021-06-10] MEDS: SERTRALINE 50 MG TAB PO SCH (21:17)
[2021-06-10] MEDS: DONEPEZIL 10 MG TAB PO SCH (21:17)
[2021-06-10] MEDS: DILTIAZEM 125 MG in SODIUM CHLORIDE 0.9% 100 ML IV SCH (22:53)
[2021-06-11 06:48] LABS: Glucose,Whole Blood 159 mg/dL (75-99)
[2021-06-11] MEDS: PANTOPRAZOLE 40 MG TABLET PO SCH (06:50)
[2021-06-11] MEDS: INSULIN ASPART (NovoLOG) 100 UNIT/ML VIAL SQ SCH ×4 (06:50→22:29)
[2021-06-11] MEDS: ASCORBIC ACID 500 MG TAB PO SCH ×2 (08:42→21:55)
[2021-06-11] MEDS: dexAMETHasone 2 MG TAB PO SCH (08:42)
[2021-06-11] MEDS: ZINC SULFATE 220 MG CAP PO SCH (08:42)
[2021-06-11] MEDS: QUEtiapine 25 MG TAB PO SCH ×2 (08:42→21:54)
[2021-06-11] MEDS: FINASTERIDE 5 MG TAB PO SCH (08:42)
[2021-06-11] MEDS: TAMSULOSIN 0.4 MG CAP.ER.24H PO SCH (08:43)
[2021-06-11] MEDS: lisinopriL 10 MG TAB PO SCH (08:43)
[2021-06-11] MEDS: APIXABAN 5 MG TAB PO SCH ×2 (08:43→21:55)
[2021-06-11] MEDS: CLOPIDOGREL 75 MG TAB PO SCH (08:43)
[2021-06-11] MEDS: METOPROLOL TARTRATE 12.5 MG TAB PO SCH ×2 (08:43→21:54)
[2021-06-11] MEDS: LORATADINE 10 MG TAB PO SCH (08:43)
[2021-06-11] MEDS: CHOLECALCIFEROL 25 MCG (1000 IU) TABLET PO SCH (08:43)
[2021-06-11 12:07] LABS: Glucose,Whole Blood 203 mg/dL (75-99)
--- NOTE | 2021-06-11 12:34 | P.PN ---
Subjective Progress Note Date: 06/11/21 Principal diagnosis: Acute hypoxic respiratory failure secondary COVID-19 pneumonia 05/31/2021, the patient is resting comfortably in bed. He had to be placed on a nonrebreather facemask and his pulse ox is currently around 93%. Despite the switch, the patient's breathing is nonlabored. She is resting comfortably in bed. Noted earlier to this, the patient was on 5 L of Oxymizer by nasal cannula. I was told that he took his oxygen overnight and he desaturated significantly and following that he was placed on nonrebreather facemask. A repeat chest x-ray was done today and this was completed. Earlier chest x-rays and I feel that the findings or worsen worsening consolidation of the right lateral chest area and left perihilar area and this goes along with his worsen ing in his oxygenation. Hemodynamically, the patient remains stable. He did have a temperature of 100.3 yesterday and currently is afebrile. His respiratory rate is in the mid tens and the patient is not having any labored breathing at this point in time. His communicating. He has occasional cough. The patient remains on Zosyn as empiric antibiotic coverage. The patient remains on Decadron 6 mg by mouth daily. The patient remains on Eliquis for long-term anticoagulation. On 06/01/2021, I'm seeing this patient for a follow-up. The patient is confused. The patient is hallucinating. He is restless. He continues to follow of his 100% on a beta facemask which is at 15 L. His breathing is comfortable. He is not labored in his breathing. Nevertheless, while off the oxygen, he desaturates. He is quite lethargic yet arousable and he communicates. Denies having any chest pain. No reported fever. No labs from today and the labs are all pending from now. In terms of treatment, the patient remains on Decadron 6 mg by mouth daily. The patient remains on IV Zosyn as empiric antibiotic coverage. The patient remains on long-term and to coagulation with Eliquis at a dose of 5 mg by mouth twice a day. The patient has dementia and the patient is currently on Aricept. Repeat chest x-ray shows progressive worsening in his COVID 19 related pneumonia with dense consolidations bilaterally more so on the right. There is a progressive worsening in his x-ray findings since 05/29/2021. This coincides or correlates with his worsening clinical status and worsening oxygenation. I was informed by the nursing staff that the primary care physician is O discussed CODE STATUS with the family including the daughter and the CODE STATUS has remained full at this point in time. Reevaluated today on 06/02/2021, patient remains in the ICU, patient is confused, he is on 15 L high flow nasal cannula and nonrebreather mask. O2 saturation is marginal. Remains on Decadron, he is also on Zosyn and on Eliquis. Patient is complaining of difficulty breathing, but he seems to be in no form of distress, he is quite confused, WBC count is 11.1 hemoglobin is 12.6, d-dimer is 4.14. Electrolytes are normal renal profile is normal. Chest x-ray continues to show scattered areas of infiltrates and consolidations bilaterally. C-reactive protein is 16.2. Reevaluated today on 06/03/2021, patient remains in the ICU, on 10 L high flow nasal cannula, patient is basically about the same. Does not seem to be in distress, however his O2 saturation is marginal, patient is quite confused, and I believe he has profound underlying dementia. Remains on the COVID-19 cocktail, remains on Decadron, he is also on Eliquis, BC is relatively normal electrolytes are normal renal profile is normal, chest x-ray continues show bilateral interstitial infiltrates. Consistent with COVID-19 pneumonia. Patient actually has multifocal confluent opacities Reevaluated today on 06/04/21, patient remains in the ICU, remains on 10 L high flow nasal cannula, and he is also on a nonrebreather mask. He desaturates easily upon removing his non-rebreather mask. Patient remains confused intermittently. Labs were basically unremarkable. CBC showed a bit of leukocytosis with WBC count of 14.6 hemoglobin 12.9 electrolytes are normal renal profile is normal blood sugar is 216. Remains empirically on Zosyn. Patient remains on the COVID-19 cocktail, not a candidate for remdesivir or baricitinib Reevaluated today on 06/05/2021, patient remains in the ICU, he is sitting at a bedside chair, on 12 L high flow nasal cannula, seems to be a bit more appropriate today, less confused. Patient denies being short of breath, denies any chest pain, denies any cough or wheezing. Chest x-ray continues to show diffuse bilateral infiltrates. Not much of the changes noted on the chest x- ray. His basic metabolic profile is normal. CBC is normal. No inflammatory markers were ordered today. The patient is seen today 06/06/2021 in follow-up in the intensive care unit. He remains awake and alert. He is on 12 L high flow nasal cannula with O2 saturations at 93%. Dry nonproductive cough. Using a bit easier today compared to yesterday. Less confused. Chest x-ray reveals stable cardiomegaly. Stable bilateral CoVID pneumonia. Blood cultures revealed no growth. White count 16.6. Hemoglobin 12.5. Sodium 134. Potassium 4.0. Creatinine 0.75. He remains on Decadron, Eliquis, vitamin supplements. Antibiotics in the form of Zosyn. The patient is seen today 06/07/2021 in follow-up in the intensive care unit. He is currently resting fairly comfortably in bed. He is more confused at night. Still confused this morning. No IV fluids running. He is still on 15 L high flow nasal cannula. Being titrated down as tolerated. Afebrile. Hemodynamically stable. The glucose 150. He remains anticoagulated with Eliquis, continue on Decadron, vitamin supplements. Zosyn discontinued per medicine. The patient is seen today 06/08/2021 in follow-up in the intensive care unit. He remains a MedSurg overflow. He is stable. He still on 15 L high flow nasal cannula. He's been off the nonrebreather for longer periods of time. As x-ray shows some mild decrease in the bilateral left greater than right airspace opacities with moderate to severe interstitial edema. No evidence of pn eumothorax or large effusions. Still episodes of confusion. Blood glucose 142. He remains anticoagulated with Eliquis. Continued on Decadron, vitamin supplements. 0.9 normal saline at KVO. On 06/09/2001 patient seen in follow-up in intensive care unit, he is resting comfortably in bed, he is currently on 15 L high flow nasal cannula and usually she does were nonrebreather mask as well, breathing comfortably, appears to be in no acute respiratory distress tox on 15 L is 95%, he is afebrile, hemodynamically he is stable. He is not on any IV fluids, he is in sinus mechanism with a controlled rate. Yesterday's chest x-ray showed mild interval decrease in the bilateral left greater than right airspace opacities in moderate to severe interstitial edema, no evidence of pneumothorax or pleural effusion. His labs have been reviewed, white blood cell count is 16.3, hemoglobin is 13.3, Demer is improving and is down to 2.2, sodium is 134, the rest of electrolytes are within normal limits, BUN is 28 creatinine 0.79, LDH is 1147, actually increased from previous value of 805 from 06/01/2021, and CRP is 6.3, proved from 16.2 on 06/02/2021. She and continues on Eliquis 5 mg twice daily, he is on COVID-19 vitamins, and dexamethasone 6 mg twice daily. Tolerating oral intake, no nausea vomiting or diarrhea. On 06/10/2021 patient seen in follow-up in intensive care unit, he is currently just on 15 L per high flow nasal cannula, he is not using the nonrebreather mask, his pulse ox is 87-92%, breathing comfortably, she is resting comfortably, has no specific complaints, no running IVs, he is tolerating oral intake, no nausea or vomiting no abdominal pain, chest x-ray has been reviewed showing diffuse patchy bilateral infiltrates, similar to his previous chest x-ray. Today's labs have been reviewed, his white blood cell, and 17.1, hemoglobin is 12.2, sodium is 133, potassium is 4.6, B1 is 29 creatinine 0.75, d-dimer is 2.78. LDH and CRP are stable. The patient is seen today 06/11/2021 in follow-up in the intensive care unit. He is currently resting fairly comfortably in bed. Awake, alert, confused to time and place. He has required increasing oxygen requirements. He is now on AirVo high flow oxygen at 60 L/m 94% FiO2. He does require an additional nonrebreather mask to maintain O2 saturations in the upper 80s and lower 90s. He did have episodes of atrial fibrillation with rapid ventricular response. Initiated on a Cardizem drip at 5 mg per hour. He remains anticoagulated with Eliquis. He is continued on bronchodilators, Decadron. His appetite is poor. Recent chest x-ray continues to show bilateral patchy airspace disease. Blood glucose 203. Objective - Vital Signs Vital signs: Vital Signs Temp 98.8 F 06/11/21 08:00 Pulse 104 H 06/11/21 11:00 Resp 22 06/11/21 11:00 BP 72/58 06/11/21 11:00 Pulse Ox 94 L 06/11/21 11:00 Intake & Output 06/10/21 06/11/21 06/11/21 18:59 06:59 18:59 Intake Total 240 8.083 0 Output Total 300 450 Balance -60 -441.917 0 Weight 69.6 kg Intake: Intake, IV Titration 8.083 0 Amount Diltiazem 125 mg In 8.083 0 Sodium Chloride 0.9% 100 ml @ Per Protocol IV .Q0M [facility] Rx#:[id number] Oral 240 Output: Urine 300 450 Other: Voiding Method Urinal Urinal Urinal # Voids 2 - Exam GENERAL EXAM: Alert, confused 85-year-old gentleman, on AirVo high flow oxygen at 60 L and 94% FiO2 along with a nonrebreather mask, fairly comfortable in no apparent distress. HEAD: Normocephalic. EYES: Normal reaction of pupils, equal size. NOSE: Clear with pink turbinates. THROAT: No erythema or exudates. NECK: No masses, no JVD. CHEST: No chest wall deformity. LUNGS: Equal air entry with crackles in the bilateral posterior bases. CVS: S1 and S2 normal with no audible murmur, regular rhythm. ABDOMEN: No hepatosplenomegaly, normal bowel sounds, no guarding or rigidity. SPINE: No scoliosis or deformity SKIN: No rashes CENTRAL NERVOUS SYSTEM: No focal deficits, tone is normal in all 4 extremities. EXTREMITIES: There is no peripheral edema. No clubbing, no cyanosis. Peripheral pulses are intact. - Labs CBC & Chem 7: 06/10/21 03:25 06/10/21 03:25 Labs: Abnormal Lab Results - Last 24 Hours (Table) 06/10/21 06/11/21 06/11/21 Range/Units 21:05 06:46 12:06 POC Glucose (mg/dL) 260 H 159 H 203 H (75-99) mg/dL Assessment and Plan Assessment: 1 Acute hypoxemic respiratory failure secondary to coronavirus associated pneumonia. The patient completed Remdesivir. T&A require higher oxygen supplementation. Now on AirVo high flow oxygen at 60 L/m and 94% FiO2. Also requiring nonrebreather mask when not eating. 2 Elevated inflammatory markers secondary to coronavirus infection. 3 History of hyperlipidemia. 4 History of hypertension. 5 History of myocardial infarction. 6 BPH. 7 CAD, status post cardiac catheterization with stent. 8 Dementia. 9 Paroxysmal atrial fibrillation, episodes of RVR currently on a Cardizem drip and the patient is on long-term medical evaluation with Eliquis. Plan: The patient was seen and evaluated by Dr. Stoll Worsening oxygen requirements Early on AirVo high flow oxygen at 60 L and 94% FiO2 plus a nonrebreather mask Continue Decadron, Eliquis, vitamin supplements Appetite remains poor Add 0.9 normal saline at 75 mL per hour Prognosis remains quite guarded DO NOT INTUBATE CODE STATUS We will continue to follow I, the cosigning physician, performed a history & physical examination of the patient. Lungs sounds with crackles in the bilateral bases. Maintaining O2 saturations in the 90s on AirVo high flow oxygen at 60 L/m 94% FiO2 plus a nonrebreather mask. I discussed the assessment and plan of care with my nurse practitioner, Argenis Spear. I attest to the above note as dictated by her.
[2021-06-11] MEDS: SODIUM CHLORIDE 0.9% 1,000 ML IV SCH (14:48)
[2021-06-11 16:56] LABS: Glucose,Whole Blood 203 mg/dL (75-99)
--- NOTE | 2021-06-11 17:27 | P.PN ---
Subjective Progress Note Date: 06/11/21 Progress Note Date: 06/10/21 HISTORY OF PRESENT ILLNESS: This is an 85-year-old white [place] male with a previous medical history significant for coronary artery disease status post PCI of the LCx back in 2019, hypertension and hypertensive cardio vascular disease, hyperlipidemia, ALLERGIC rhinitis, enlarged prostate, history of ALLERGIC rhinitis, vascular dementia, patient presented to the emergency department at [facility] yesterday after he was evaluated few days ago with positive Covid 19 infection and he was sent home with supportive care patient was not hypoxemic at that time, patient apparently fell last night and couldn't get up because of generalized weakness he ended up coming back to the hospital with increased shortness breath associated with increased and weakness he became quite hypoxemic with oxygen saturation at 89% on room air so he was admitted to the hospital for evaluation and treatment for COVID-19 pneumonia, patient underwent x-rays of the pelvis that did not show any evidence of acute fracture, patient underwent computed tomography scan of the head in the cervical spine that showed anterolisthesis of C4-C5 and severe degenerative disc disease of C5 C6 C6 and 7, without acute fracture, patient 12-lead EKG did not show evidence of acute ST-T wave changes, chest x-ray initially showed worsening infiltrate this was followed by CTA of the chest because of elevated d-dimer and elevated inflammatory markers and the patient was negative for pulmonary as well as a however it did show significant diffuse interstitial infiltrate suggestive of Covid 19 pneumonia, patient will be started on Remdesivir 200 mg loading dose followed by 100 mg daily for the next 5 days. 05/26: Patient apparently didn't sleep last night despite use of Xanax. We will add in Seroquel 12.5 mg twice daily., Heart rate 68, blood pressure 150/65, pul se ox 90% on 4 L nasal cannula. WBC 8.8, hemoglobin 12.5, platelet count 244. Electrolytes are normal. BUN 33 creatinine 1. Blood sugar 139. C-reactive protein 7.3. Blood cultures no growth at 24 hours 2 specimens. Patient has been seen by pulmonary medicine and continued on Remdesivir, Decadron, Lovenox and vitamin supplements. Patient has also been seen and followed by cardiology, atenolol on hold his heart rate has been in the 60s and occasionally in the 40s at night, cardiology has signed off. 05/27: Seen today in follow-up on the [facility] floor. His mental status is somewhat improved from yesterday after Seroquel was started. He is able to answer questions appropriately. He states that his breathing is better. He is on a nonrebreather with a pulse ox of 98% which will be weaned down today. Patient denies nausea or vomiting, not much appetite. playground monitor has been sinus bradycardia with occasional trigeminy. Cardiology to be notified. Patient has been afebrile, heart rate 54, blood pressure 155/66. Patient's grandson is also hospitalized a few doors down from the patient. 05/28: A is seen today in follow-up. His mental status seems to be improved today. Patient went into A. fib with RVR with heart rate in the 110s and 120s, transferred to the cardiac stepdown unit. Cardizem drip currently at 5 mg per hour and patient has been started on heparin drip as well. Cardiology has plans for eliquis 5 mg twice daily and begin metoprolol to wean off Cardizem. TSH normal at 2.490. Patient remains afebrile. Pulse ox is 89 and 93% on 5 L nasal cannula. Repeat blood work reveals WBC 9.8, hemoglobin 12.5, platelet count 223. D-dimer 7.5. Electrolytes and renal function normal. LDH 345. 05/29: Patient is on 6 L nasal cannula with pulse ox 94%. He has been afebrile, heart rate 75, blood pressure 140/63, patient transition to sinus rhythm around midnight. Repeat blood work reveals WBC 12, hemoglobin 12.5, platelet count 220. Cardiology has started the patient on eliquis and continued Lopressor 12.5 g twice daily. Patient is continued on Remdesivir which will be completed today, dexamethasone 6 mg oral daily, vitamin supplements and eliquis. One dose of IV Lasix 20 mg ordered. 05/30: Patient is laying down in bed he is requiring about 5 L nasal cannula his current oxygenation is 94%, uses chest x-ray that did show worsening infiltrate, I started the patient on Zosyn 3.375 g IV piggyback every 6 hours, continue current pulmonary toileting, continue to monitor the patient, patient did respond to the Lasix yesterday and he is feeling much better today than yesterday he has no audible wheezes at this time. 05/31: Patient is sitting up in bed in no apparent distress, he continues to be on a nonrebreather mask, his oxygen above 93%, he denies any chest pain he denies any coughing of phlegm production, his monitor showing H her fibrillation with controlled rate, continue with the patient on Eliquis, continue patient on metoprolol, monitor the patient very closely continue IV antibiotic in the form of Zosyn, physical therapy evaluation, patient will likely require subacute rehabilitation. 06/01: Patient is laying down in bed in moderate respiratory distress he continues to require 15L , continues to be on Zosyn 3.375 g IV piggyback every 8 hours, for which is interested continue them dictation, [facility], monitor the patient very closely, spoke with his son-in-law over the phone as his daughter was asleep, and updated of the current situation of the patient plan of care. 06/02: Patient was transferred into the intensive care unit, he has a sitter at the bedside. Patient is currently on 15 L high flow nasal cannula and nonrebreather which she has been pulling off. Pulse ox 94% and drops down to 85 with eating. Temperature max 100.1, heart rate 64, blood pressure 160/53. Respiratory rate 29. Patient continues to be confused. His poor appetite and protein supplement added. Repeat blood work reveals WBC 11.1, hemoglobin 12.6. Electrolytes are normal, creatinine 0.91. Blood sugars are running between 142 and 154. Liver function tests are normal. C-reactive protein 16.2. D-dimer 4.14. 06/03: Patient remains in the intensive care unit. He is currently on oxygen high flow nasal cannula 10-12 L without nonrebreather and maintaining pulse ox of 89-92%. Patient is afebrile, heart rate in the 60s and 70s, blood pressure 134/76. Repeat blood work reveals WBC 13.2, hemoglobin 12.8. Electrolytes normal. BUN 39 creatinine 0.93. Blood sugars are running between 158 and 262 with improvement this morning. Repeat chest x-ray reveals bilateral multifocal and confluent opacities consistent with Covid19. No significant change. 06/04: Patient continues to be maintained in the intensive care unit. He is currently on nasal cannula with pulse ox of 89%, high flow nasal cannula 15 L. He is also on nonrebreather when this remains on. Patient does take off his oxygen he desaturates quickly. He is complaining of generalized pain and Tylenol is being evident. playground monitor is sinus rhythm with bigeminy. Repeat blood work reveals WBC 14.6, hemoglobin 12.9. Creatinine 0.94. Blood sugars are running between 118 and 159. He is continued on eliquis, vitamin supplements, dexamethasone and Zosyn. 06/05: Patient remains in intensive care unit, currently on high flow nasal cannula at 15 L. He is not requiring nonrebreather but pulse ox is dropped when nasal cannula was not in place. Patient remains confused but seems to be more alert today and interactive. He denies having any chest pain or shortness of breath. He is afebrile, heart rate 69, blood pressure 132/60, pulse ox 88-95% on 15 L nasal cannula. WBC 14.5, hemoglobin 12.4. Creatinine 0.79. Blood sugars are running between 173 and 240. 06/06: Patient has been afebrile, heart rate 71, respiratory rate 14-30. Blood pressure 160/87. Repeat blood work reveals WBC 16.6, hemoglobin 12.5, creatinine 0.75. Blood sugars are running between 141 and 170. Patient remains in the intensive care unit. Pulse ox is 90% on 12 L high flow nasal cannula. Patient is eating well including taking protein drinks. Patient remains confused but is awake and alert. Patient is continued on eliquis, dexamethasone, vitamin supplements, IV Zosyn and followed closely by pulmonary medicine 06/07: Patient sitting up in bed he continues to require quite a bit of oxygen at this time, his he denies any chest pain he continues to have occasional cough, he has no abdominal pain, he has very poor appetite, he appears to be depressed, he continues to be in ICU, he would be maintained in the same management, he is full code without intubation. 06/08: Patient sitting up in bed continues to be on 12 L nasal cannula, occasional cough, continues to be short of breath, continues to have poor ap petite, he appears depressed as yesterday, continue current treatment plan, continue supportive care, continue full code, no intubation. 06/09: Patient remains in intensive care unit. He is on nonrebreather/hypopnea nasal cannula 15 L of pulse ox anywhere from 86% to 95%. Heart rate is in the 50s and 60s, blood pressure 159/85. Repeat blood work reveals WBC 16.3. D- dimer is 2.2. Creatinine 0.79. Capillary blood glucose running anywhere between 142 and 204. Liver function tests are normal. LDH 1147. C-reactive protein 6.3. Chest x-ray from yesterday reveals decrease in bilateral left greater than right airspace opacities in moderate severe interstitial edema. Patient is continued on vitamin supplements, eliquis, dexamethasone. He has completed a course of Remdesivir. 06/10: Remains in the intensive care unit. He is currently on high flow nasal cannula at 15 L with pulse ox of 87 and 92%. His breath, heart rate 67, blood pressure 155/78. Repeat blood work reveals d-dimer 2.78, LDH 1124, CRP 6.8. Chest x-ray is stable findings. Patient is followed by pilot captain with plan to wean FiO2 to keep O2 saturation 87-90% and patient was cleared for transfer out of the intensive care unit to [facility] without telemetry. 06/11: Patient underwent atrial fibrillation with rapid ventricular response yesterday he was started on a Cardizem drip at 5 mg per hour, he has been maintained on metoprolol 12.5 mg orally twice every day, continues to require 15 L nasal cannula, chest x-ray continues to show: Pneumonia, patient continues to be depressed, is satting between 87 and 92%, REVIEW OF SYSTEMS: Constitutional: No documented fever, no chills, no night sweats. No weight change. positive for weakness,positive for fatigue no lethargy. No daytime sleepiness. HEENT: Denies headache. No blurred vision or double vision, no loss of vision. No loss of Hearing, no ringing in the ears, no dizziness. No nasal drainage or congestion. No epistaxis. No sore throat. Lungs: positive for shortness of breath, positive for cough, no sputum production. No wheezing. Reports dyspnea with activity. Cardiovascular: No chest pain, no lower extremity edema. No palpitations. No paroxysmal nocturnal dyspnea. No orthopnea. No lightheadedness or dizziness. No syncopal episodes. New onset atrial fibrillation Abdominal: Denies abdominal pain. No nausea, vomiting. No diarrhea. No constipation. No bloody or tarry stools reports loss of appetite. Genitourinary: No dysuria, increased frequency, urgency. No urinary retention. Musculoskeletal: positive for myalgias. Noted generalized muscle weakness, no gait dysfunction, positive for falls. No back pain. positive for neck pain. Integumentary: No wounds, no lesions. No rash or pruritus. No unusual bruisi ng. Neurologic: No aphasia. No facial droop. Noted change in mentation but is at baseline due to underlying dementia. No head injury. No headache. No paralysis. No paresthesia. Psychiatric: Positive for depression. No anxiety. Endocrine: Noted abnormal blood sugars. PHYSICAL EXAMINATION: General: 85-year-old male sitting up in ICU bed and appears to be in no acute distress at rest. Patient is on 15 L high flow nasal cannula patient appears to be comfortable at rest.. HEENT: Head is atraumatic, normocephalic, pupils were equal round, sclera nonicteric, conjunctivae were pale, mucous membranes of the mouth are somewhat dry. Neck: Supple, no JVP, normal carotid upstroke bilaterally, no lymphadenopathy. Chest: Decreased breath sounds at the bases, few rhonchi, no extremity wheezes, no chest wall tenderness, no intercostal retractions. Heart: First heart sound is normal, second heart sounds normal, regular rhythm, there is systolic ejection murmur 2/6 located in the left sternal border, irregularly irregular due to atrial fibrillation. Abdomen: Soft, nontender, nondistended, positive bowel sounds, there is no hepatosplenomegaly. Extremities: There is no edema no calf tenderness DP +2 bilaterally. Neurologic examination: Patient is awake and alert and oriented x2, patient moves all his extremities, muscle power 4/5 in upper and lower extremities bilaterally. ASSESSMENT AND PLAN: 1. COVID-19 pneumonia possible bacterial pneumonia with acute hypoxic respiratory failure. Patient is currently on 15 L high flow nasal cannula without nonrebreather. Continue Decadron 6 mg IV push every 12 hours, vitamin C 1000 mg every day, vitamin D 1000 units once every day as well as zinc 220 mg orally once every day, Remdesivir course completed, pulmonary consultation appreciated, continue droplet precautions as well as eye protection, continue Zosyn 3.375 g IV piggyback every 8 hours, transfer out of the intensive care unit to MedSurg floor without telemetry.. 2. Generalized weakness with fall likely related to COVID-19 pneumonia. We will continue with the treatment as in previous paragraph. Physical therapy evaluation. 3. New onset atrial fibrillation, paroxysmal atrial fibrillation. Continue patient on metoprolol 12.5 mg orally twice every day as well as Eliquis 5 mg orally twice every day continue Cardizem drip 5 mg an hour. , 4. CAD post-PCI of the LCx. Plavix 75 mg orally once every day, continue metoprolol 12.5 mg orally twice every day, continue atorvastatin 80 mg once every day. 5. Hypertension and hypertensive cardiovascular disease. Continue patient on lisinopril 10 mg orally once every day, continue metoprolol 12.5 mg orally twice every day. 6. Hyperlipidemia. Continue patient on atorvastatin 80 mg orally once every day. 7. ALLERGIC rhinitis. Continue Zyrtec 10 mg once every day as well as Flonase nasal spray 1 puff in each nostril twice every day. 8. Vascular dementia. Continue donepezil 10 mg orally once every day. 9. Enlarged prostate. Continue Flomax 0.4 mg orally once every day as well as finasteride 5 mg once every day. 10. Depression with psychotic features. Continue patient on Zoloft and i ncrease the dose to 50 mg every day continue Seroquel 12.5 mg orally twice every day monitor the patient very closely. 11. DVT prophylaxis. continue patient on Eliquis 5 mg orally twice every day. 12. GI prophylaxis. Continue Protonix 40 mg every day. 13. Patient is full code with no intubation. 14. Likely will require subacute rehabilitation. Family is planning to return home with VNA. Objective - Vital Signs Vital signs: Vital Signs Temp 98.8 F 06/11/21 08:00 Pulse 104 H 06/11/21 11:00 Resp 22 06/11/21 11:00 BP 72/58 06/11/21 11:00 Pulse Ox 94 L 06/11/21 11:00 Intake & Output 06/10/21 06/11/21 06/11/21 18:59 06:59 18:59 Intake Total 240 8.083 0 Output Total 300 450 Balance -60 -441.917 0 Weight 69.6 kg Intake: Intake, IV Titration 8.083 0 Amount Diltiazem 125 mg In 8.083 0 Sodium Chloride 0.9% 100 ml @ Per Protocol IV .Q0M [facility] Rx#:[id number] Oral 240 Output: Urine 300 450 Other: Voiding Method Urinal Urinal Urinal # Voids 2 - Labs CBC & Chem 7: 06/10/21 03:25 06/10/21 03:25 Labs: Abnormal Lab Results - Last 24 Hours (Table) 06/10/21 06/11/21 06/11/21 Range/Units 21:05 06:46 12:06 POC Glucose (mg/dL) 260 H 159 H 203 H (75-99) mg/dL
[2021-06-11] MEDS: ATORVASTATIN 80 MG TAB PO SCH (21:55)
[2021-06-11] MEDS: DONEPEZIL 10 MG TAB PO SCH (21:55)
[2021-06-11] MEDS: SERTRALINE 50 MG TAB PO SCH (21:55)
[2021-06-11 22:25] LABS: Glucose,Whole Blood 154 mg/dL (75-99)
[2021-06-12] MEDS: DILTIAZEM 125 MG in SODIUM CHLORIDE 0.9% 100 ML IV SCH ×2 (03:24→12:10)
[2021-06-12 04:18] LABS: Basophils % (A) 0 %; Eosinophils # (A) 0.1 k/uL (0-0.7); Eosinophils % (A) 0 %; HCT 34.8 % (39.0-53.0); HGB 11.4 gm/dL (13.0-17.5); Lymphocytes # (A) 0.5 k/uL (1.0-4.8); Lymphocytes % (A) 3 %; MCH 30.4 pg (25.0-35.0); MCHC 32.6 g/dL (31.0-37.0); MCV 93.1 fL (80.0-100.0); Mean Platelet Volume 8.3; Monocytes # (A) 0.4 k/uL (0-1.0); Monocytes % (A) 3 %; Neutrophils % (A) 94 %; Platelet Count 198 k/uL (150-450); RBC 3.74 m/uL (4.30-5.90); RDW 13.5 % (11.5-15.5)
[2021-06-12 04:43] LABS: African American GFR (CKD) >90 (>60 ml/min/1.73 sqM); Anion Gap 3 mmol/L; Blood Urea Nitrogen 35 mg/dL (9-20); Calcium 8.5 mg/dL (8.4-10.2); Carbon Dioxide 27 mmol/L (22-30); Chloride 106 mmol/L (98-107); Glucose 128 mg/dL (74-99); Non-African American GFR(CKD) 81 (>60 ml/min/1.73 sqM); Potassium 3.7 mmol/L (3.5-5.1); Sodium 136 mmol/L (137-145)
[2021-06-12] MEDS ORDERED: Potassium Replacement Protocol 1 EACH MISC MISCELLANE PRN (05:31)
[2021-06-12] MEDS ORDERED: POTASSIUM CHLORIDE ER 20 MEQ TAB.ER PO SCH (07:00)
--- NOTE | 2021-06-12 07:31 | XR ---
EXAMINATION TYPE: XR chest 1V DATE OF EXAM: 06/12/2021 CLINICAL HISTORY: Difficulty breathing and covid pneumonia progress study. TECHNIQUE: Single AP portable upright view of the chest is obtained. COMPARISON: Chest x-ray from 2 days earlier and older studies FINDINGS: Bilateral multifocal and confluent opacities greatest in the periphery redemonstrated. Sta ble mild cardiomegaly with atherosclerotic and ectatic thoracic aorta. Surgical changes bilateral laura ulders are partially imaged. Underlying scoliosis and degenerative changes redemonstrated. IMPRESSION: Bilateral multifocal and confluent opacities consistent with known covid-19 infection are redemonstrated. No significant change from most recent x-ray.
[2021-06-12 08:24] LABS: Glucose,Whole Blood 149 mg/dL (75-99)
[2021-06-12] MEDS: INSULIN ASPART (NovoLOG) 100 UNIT/ML VIAL SQ SCH ×4 (09:51→22:26)
[2021-06-12] MEDS: lisinopriL 10 MG TAB PO SCH ×2 (09:51→16:00)
[2021-06-12] MEDS: dexAMETHasone 2 MG TAB PO SCH ×2 (09:51→15:29)
[2021-06-12] MEDS: CHOLECALCIFEROL 25 MCG (1000 IU) TABLET PO SCH ×2 (09:51→15:29)
[2021-06-12] MEDS: LORATADINE 10 MG TAB PO SCH (09:51)
[2021-06-12] MEDS: METOPROLOL TARTRATE 12.5 MG TAB PO SCH (09:51)
[2021-06-12] MEDS: APIXABAN 5 MG TAB PO SCH ×2 (09:51→22:09)
[2021-06-12] MEDS: ASCORBIC ACID 500 MG TAB PO SCH ×3 (09:51→22:09)
[2021-06-12] MEDS: CLOPIDOGREL 75 MG TAB PO SCH (09:51)
[2021-06-12] MEDS: PANTOPRAZOLE 40 MG TABLET PO SCH ×2 (09:52→16:01)
[2021-06-12] MEDS: ZINC SULFATE 220 MG CAP PO SCH ×2 (09:52→15:29)
[2021-06-12] MEDS: TAMSULOSIN 0.4 MG CAP.ER.24H PO SCH ×2 (09:52→15:29)
[2021-06-12] MEDS: QUEtiapine 25 MG TAB PO SCH ×2 (09:52→22:09)
[2021-06-12] MEDS: FINASTERIDE 5 MG TAB PO SCH (09:52)
[2021-06-12] MEDS: SODIUM CHLORIDE 0.9% 1,000 ML IV SCH (10:22)
[2021-06-12 11:41] LABS: Glucose,Whole Blood 214 mg/dL (75-99)
--- NOTE | 2021-06-12 12:31 | P.PN ---
Subjective Progress Note Date: 06/12/21 Principal diagnosis: Respiratory failure. The patient is seen today 06/07/2021 in follow-up in the intensive care unit. He is currently resting fairly comfortably in bed. He is more confused at night. Still confused this morning. No IV fluids running. He is still on 15 L high flow nasal cannula. Being titrated down as tolerated. Afebrile. Hemodynamically stable. The glucose 150. He remains anticoagulated with Eliquis, continue on Decadron, vitamin supplements. Zosyn discontinued per medicine. The patient is seen today 06/08/2021 in follow-up in the intensive care unit. He remains a MedSurg overflow. He is stable. He still on 15 L high flow nasal cannula. He's been off the nonrebreather for longer periods of time. As x-ray shows some mild decrease in the bilateral left greater than right airspace opacities with moderate to severe interstitial edema. No evidence of pneumothorax or large effusions. Still episodes of confusion. Blood glucose 142. He remains anticoagulated with Eliquis. Continued on Decadron, vitamin supplements. 0.9 normal saline at KVO. On 06/09/2001 patient seen in follow-up in intensive care unit, he is resting comfortably in bed, he is currently on 15 L high flow nasal cannula and usually she does were nonrebreather mask as well, breathing comfortably, appears to be in no acute respiratory distress tox on 15 L is 95%, he is afebrile, hemodynamically he is stable. He is not on any IV fluids, he is in sinus mechanism with a controlled rate. Yesterday's chest x-ray showed mild interval decrease in the bilateral left greater than right airspace opacities in moderate to severe interstitial edema, no evidence of pneumothorax or pleural effusion. His labs have been reviewed, white blood cell count is 16.3, hemoglobin is 13.3, Demer is improving and is down to 2.2, sodium is 134, the rest of electrolytes are within normal limits, BUN is 28 creatinine 0.79, LDH is 1147, actually increased from previous value of 805 from 06/01/2021, and CRP is 6.3, proved from 16.2 on 06/02/2021. She and continues on Eliquis 5 mg twice daily, he is on COVID-19 vitamins, and dexamethasone 6 mg twice daily. Tolerating oral i ntake, no nausea vomiting or diarrhea. On 06/10/2021 patient seen in follow-up in intensive care unit, he is currently just on 15 L per high flow nasal cannula, he is not using the nonrebreather mask , his pulse ox is 87-92%, breathing comfortably, she is resting comfortably, has no specific complaints, no running IVs, he is tolerating oral intake, no nausea or vomiting no abdominal pain, chest x-ray has been reviewed showing diffuse patchy bilateral infiltrates, similar to his previous chest x-ray. Today's labs have been reviewed, his white blood cell, and 17.1, hemoglobin is 12.2, sodium is 133, potassium is 4.6, B1 is 29 creatinine 0.75, d-dimer is 2.78. LDH and CRP are stable. The patient is seen today 06/11/2021 in follow-up in the intensive care unit. He is currently resting fairly comfortably in bed. Awake, alert, confused to time and place. He has required increasing oxygen requirements. He is now on AirVo high flow oxygen at 60 L/m 94% FiO2. He does require an additional nonrebreather mask to maintain O2 saturations in the upper 80s and lower 90s. He did have episodes of atrial fibrillation with rapid ventricular response. Initiated on a Cardizem drip at 5 mg per hour. He remains anticoagulated with Eliquis. He is continued on bronchodilators, Decadron. His appetite is poor. Recent chest x-ray continues to show bilateral patchy airspace disease. Blood g lucose 203. Progress note dated 06/12/2021. The patient is again seen in the intensive care unit, room 255. The patient unfortunately seems of taken a turn for the worse. He is now on Cardizem 10 mg an hour for atrial fibrillation. Yesterday he was on 5 mg. Is getting saline at 75 mL an hour. In addition, he was changed from AIRVO, the BiPAP, with settings of 14/6 and 100%. It appears that his respiratory status is worsening. White count 15, hemoglobin 11.4, hematocrit 34.8, platelet count normal. Sodium 136, potassium 3.7, chlorides 106, CO2 27, anion gap 3, BUN 35, and creatinine 0.81. Chest x-ray continues to show diffuse bilateral infiltrates, consistent with coronavirus pneumonia. Objective - Vital Signs Vital signs: Vital Signs Temp 98.7 F 06/12/21 08:00 Pulse 71 06/12/21 11:00 Resp 27 H 06/12/21 11:00 BP 130/59 06/12/21 11:00 Pulse Ox 87 L 06/12/21 11:00 Intake & Output 06/11/21 06/12/21 06/12/21 18:59 06:59 18:59 Intake Total 481.167 220.75 612.667 Output Total 150 100 100 Balance 331.167 120.75 512.667 Weight 69 kg Intake: IV 75 525 Sodium Chloride 0.9% 1, 75 525 000 ml @ 75 mls/hr IV . [id number] SARAH Rx#:[id number] Intake, IV Titration 46.167 70.75 87.667 Amount Diltiazem 125 mg In 46.167 70.75 87.667 Sodium Chloride 0.9% 100 ml @ Per Protocol IV .Q0M SARAH Rx#:[id number] Oral 360 150 Output: Urine 150 100 100 Other: Voiding Method Urinal Urinal Urinal # Bowel Movements 1 1 - Exam Mildly tachypnea, lethargic, BiPAP mask in place. HEENT examination is grossly unremarkable. Neck supple. Full range of motion. No adenopathy thyromegaly or neck vein distention. Cardiovascular examination reveals regular rhythm rate. S1-S2 normal. No S3 or S4. No discernible murmur noted. Heart rate 103 bpm. Heart sounds are distant. Lungs reveal diffuse coarse rhonchi bilaterally. No wheezes. Bibasilar crackles are noted. Breath sounds are equal bilaterally. The patient does not take deep breaths. Abdomen soft bowel sounds are heard. No masses or tenderness. Extremities are intact. No cyanosis clubbing or edema. Skin is without rash or lesion. Neurologic examination is unchanged. - Labs CBC & Chem 7: 06/12/21 03:26 06/12/21 03:26 Labs: Abnormal Lab Results - Last 24 Hours (Table) 06/11/21 06/11/21 06/12/21 Range/Units 16:54 22:23 03:26 WBC 15.0 H (3.8-10.6) k/uL RBC 3.74 L (4.30-5.90) m/uL Hgb 11.4 L (13.0-17.5) gm/dL Hct 34.8 L (39.0-53.0) % Neutrophils # 14.0 H (1.3-7.7) k/uL Lymphocytes # 0.5 L (1.0-4.8) k/uL Sodium (137-145) mmol/L BUN (9-20) mg/dL Glucose (74-99) mg/dL POC Glucose (mg/dL) 203 H 154 H (75-99) mg/dL 06/12/21 06/12/21 06/12/21 Range/Units 03:26 08:22 11:39 WBC (3.8-10.6) k/uL RBC (4.30-5.90) m/uL Hgb (13.0-17.5) gm/dL Hct (39.0-53.0) % Neutrophils # (1.3-7.7) k/uL Lymphocytes # (1.0-4.8) k/uL Sodium 136 L (137-145) mmol/L BUN 35 H (9-20) mg/dL Glucose 128 H (74-99) mg/dL POC Glucose (mg/dL) 149 H 214 H (75-99) mg/dL Assessment and Plan Assessment: Acute hypoxemic respiratory failure secondary to coronavirus associated pneumonia. Elevated inflammatory markers secondary to coronavirus infection. History of hyperlipidemia. History of hypertension. History of myocardial infarction. BPH. CAD, status post cardiac catheterization with stent. Dementia. Plan: Plan dated 05/25/2021. The patient was given Decadron, and Lovenox, at usual doses. The patient is also given vitamin C, vitamin D3, and zinc. Because it appears that his sy mptoms have been present for less than 7 days, and he is on less than or equal to 6 L of nasal O2, the patient will be given REM. We'll continue to follow make recommendations where appropriate. The patient's prognosis is guarded. It's difficult to get any history from the patient as he is quite demented. The patient's grandson is in the hospital coronavirus associated pneumonia and much more severe hypoxemic respiratory failure. Plan dated 06/12/2021. The patient continues to be in the intensive care unit, room 255. The patient is a DO NOT INTUBATE patient. His oxygenation has clearly worsened. When I saw him back on May 25, he was on 6 L nasal cannula. Currently, he is been i ncreased to BiPAP, at 14/6 and 100%. He is getting Cardizem 10 mg an hour for his atrial fibrillation/RVR. In addition he is getting vitamin C, vitamin D3, and zinc, as well as Decadron. In addition, patient is chronically on Eliquis. Overall prognosis remains poor. We'll continue to follow make recommendations where appropriate. Time with Patient: Greater than 30
[2021-06-12] MEDS: LORazepam 2 MG/ML INJ IV PRN ×2 (12:46→22:37)
[2021-06-12] MEDS: METOPROLOL TARTRATE 25 MG TAB PO SCH ×2 (16:00→22:26)
[2021-06-12] MEDS: MORPHINE SULFATE 2 MG/ML SYRINGE IVP PRN ×2 (17:45→21:13)
--- NOTE | 2021-06-12 21:26 | P.PN ---
Subjective This is a pleasant 85 years old male with multiple medical problems including dementia and hypertension presents because of respiratory difficulty secondary to bilateral call with infection and hypoxia. Today patient is seen and examined in the ICU. Patient oxygen saturation worsened today and he was placed on BiPAP this morning however he feels generally okay, his sitting in chair severe distress. only mild distress. and he can hold conversation. hemodynamically stable. labs reviewed showing leukocytosis of 15 k. also ldh high at 1124 and c-reactive protein hives 6.8. currently he is on multiple vitamins, dexamethasone, eliquis, normal sinus 75 mm per hour cardizem drip at 10 mg per hour while he continued on home dose of physical and metoprolol 25 mg 3 times a day. Objective - Vital Signs Vital signs: Vital Signs Temp 98.7 F 06/12/21 08:00 Pulse 71 06/12/21 11:00 Resp 27 H 06/12/21 11:00 BP 130/59 06/12/21 11:00 Pulse Ox 87 L 06/12/21 11:00 Intake & Output 06/11/21 06/12/21 06/12/21 18:59 06:59 18:59 Intake Total 481.167 220.75 525 Output Total 150 100 100 Balance 331.167 120.75 425 Weight 69 kg Intake: IV 75 525 Sodium Chloride 0.9% 1, 75 525 000 ml @ 75 mls/hr IV . [id number] SARAH Rx#:[id number] Intake, IV Titration 46.167 70.75 Amount Diltiazem 125 mg In 46.167 70.75 Sodium Chloride 0.9% 100 ml @ Per Protocol IV .Q0M SARAH Rx#:[id number] Oral 360 150 Output: Urine 150 100 100 Other: Voiding Method Urinal Urinal Urinal # Bowel Movements 1 1 - Exam GENERAL: The patient is alert and oriented x3, not in any acute distress. Well developed, well nourished. HEENT: Pupils are round and equally reacting to light. EOMI. No scleral icterus. No conjunctival pallor. Normocephalic, atraumatic. No pharyngeal erythema. No thyromegaly. CARDIOVASCULAR: S1 and S2 present. No murmurs, rubs, or gallops. -PULMONARY: Chest is clear to auscultation, no wheezing or crackles. On BiPAP ABDOMEN: Soft, nontender, nondistended, normoactive bowel sounds. No palpable organomegaly. MUSCULOSKELETAL: No joint swelling or deformity. EXTREMITIES: No cyanosis, clubbing, or pedal edema. NEUROLOGICAL: Gross neurological examination did not reveal any focal deficits. SKIN: No rashes. no petechiae. - Labs CBC & Chem 7: 06/12/21 03:26 06/12/21 03:26 Labs: Abnormal Lab Results - Last 24 Hours (Table) 06/11/21 06/11/21 06/11/21 Range/Units 12:06 16:54 22:23 WBC (3.8-10.6) k/uL RBC (4.30-5.90) m/uL Hgb (13.0-17.5) gm/dL Hct (39.0-53.0) % Neutrophils # (1.3-7.7) k/uL Lymphocytes # (1.0-4.8) k/uL Sodium (137-145) mmol/L BUN (9-20) mg/dL Glucose (74-99) mg/dL POC Glucose (mg/dL) 203 H 203 H 154 H (75-99) mg/dL 06/12/21 06/12/21 06/12/21 Range/Units 03:26 03:26 08:22 WBC 15.0 H (3.8-10.6) k/uL RBC 3.74 L (4.30-5.90) m/uL Hgb 11.4 L (13.0-17.5) gm/dL Hct 34.8 L (39.0-53.0) % Neutrophils # 14.0 H (1.3-7.7) k/uL Lymphocytes # 0.5 L (1.0-4.8) k/uL Sodium 136 L (137-145) mmol/L BUN 35 H (9-20) mg/dL Glucose 128 H (74-99) mg/dL POC Glucose (mg/dL) 149 H (75-99) mg/dL Assessment and Plan Assessment: Bilateral covid pneumonia Acute hypoxic respiratory failure Increase inflammatory markers Hypertension Dementia Plan: This is a pleasant 85 years old male who presents with Covid and hypoxia. Today he was placed on BiPAP Continue with multiple vitamin C, D and zinc. Continue with dexamethasone He is on Eliquis and metoprolol and Cardizem drip for A. fib and RVR Pulmonary consult Continue gentle hydration Labs and medication were reviewed.. Continue same treatment. Continue with symptomatic treatment. Resume home medication. Monitor lytes and vitals. DVT and GI prophylaxis. Further recommendationsas per clinical course of the patient DVT prophylaxis: Eliquis GI Prophylaxis: Pepcid PT/OT: Pending Prognosis is guarded
[2021-06-12 22:08] LABS: Glucose,Whole Blood 167 mg/dL (75-99)
[2021-06-12] MEDS: SERTRALINE 50 MG TAB PO SCH (22:09)
[2021-06-12] MEDS: DONEPEZIL 10 MG TAB PO SCH (22:09)
[2021-06-12] MEDS: ATORVASTATIN 80 MG TAB PO SCH (22:09)
[2021-06-13] MEDS: MORPHINE SULFATE 2 MG/ML SYRINGE IVP PRN ×5 (00:37→15:54)
[2021-06-13] MEDS: LORazepam 2 MG/ML INJ IV PRN ×2 (04:44→11:43)
[2021-06-13 05:54] LABS: Basophils % (A) 0 %; Eosinophils % (A) 0 %; HCT 35.3 % (39.0-53.0); HGB 11.1 gm/dL (13.0-17.5); Lymphocytes # (A) 0.2 k/uL (1.0-4.8); Lymphocytes % (A) 1 %; MCH 29.9 pg (25.0-35.0); MCHC 31.5 g/dL (31.0-37.0); MCV 94.7 fL (80.0-100.0); Mean Platelet Volume 8.6; Monocytes # (A) 0.5 k/uL (0-1.0); Monocytes % (A) 3 %; Neutrophils # (A) 17.9 k/uL (1.3-7.7); Neutrophils % (A) 96 %; Platelet Count 216 k/uL (150-450); RBC 3.73 m/uL (4.30-5.90); RDW 13.6 % (11.5-15.5); WBC 18.7 k/uL (3.8-10.6)
[2021-06-13 06:10] LABS: Calcium 8.6 mg/dL (8.4-10.2); Potassium 4.2 mmol/L (3.5-5.1)
[2021-06-13] MEDS: PANTOPRAZOLE 40 MG TABLET PO SCH (06:11)
[2021-06-13 07:04] LABS: Glucose,Whole Blood 157 mg/dL (75-99)
[2021-06-13] MEDS: DILTIAZEM 125 MG in SODIUM CHLORIDE 0.9% 100 ML IV SCH (07:05)
[2021-06-13] MEDS: INSULIN ASPART (NovoLOG) 100 UNIT/ML VIAL SQ SCH ×2 (07:05→12:16)
--- NOTE | 2021-06-13 08:13 | XR ---
EXAMINATION TYPE: XR chest 1V portable DATE OF EXAM: 06/13/2021 CLINICAL HISTORY: Difficulty breathing progress study. TECHNIQUE: Single AP portable semiupright view of the chest is obtained. COMPARISON: Chest x-ray from one day earlier and older studies. FINDINGS: Bilateral multifocal and confluent opacities greatest in the periphery redemonstrated. Sta ble mild cardiomegaly with atherosclerotic and ectatic thoracic aorta. Surgical changes bilateral laura ulders are partially imaged. Underlying scoliosis and degenerative spurring in the spine redemonstrat ed. IMPRESSION: Bilateral multifocal and confluent opacities consistent with known covid-19 infection and /or developing ARDS are redemonstrated. Findings more prominent or worsened in the right lung base fr om one day earlier.
[2021-06-13 11:32] LABS: Glucose,Whole Blood 162 mg/dL (75-99)
[2021-06-13 11:41] VITALS: BMI 24.5
[2021-06-13 14:25] VITALS: BP 95/51; PULSE 77; RESP 16; TEMP 99
--- NOTE | 2021-06-13 15:16 | P.PN ---
Subjective Progress Note Date: 06/13/21 Principal diagnosis: Acute hypoxic respiratory failure secondary COVID-19 pneumonia 05/31/2021, the patient is resting comfortably in bed. He had to be placed on a nonrebreather facemask and his pulse ox is currently around 93%. Despite the switch, the patient's breathing is nonlabored. She is resting comfortably in bed. Noted earlier to this, the patient was on 5 L of Oxymizer by nasal cannula. I was told that he took his oxygen overnight and he desaturated significantly and following that he was placed on nonrebreather facemask. A repeat chest x-ray was done today and this was completed. Earlier chest x-rays and I feel that the findings or worsen worsening consolidation of the right lateral chest area and left perihilar area and this goes along with his worsen ing in his oxygenation. Hemodynamically, the patient remains stable. He did have a temperature of 100.3 yesterday and currently is afebrile. His respiratory rate is in the mid tens and the patient is not having any labored breathing at this point in time. His communicating. He has occasional cough. The patient remains on Zosyn as empiric antibiotic coverage. The patient remains on Decadron 6 mg by mouth daily. The patient remains on Eliquis for long-term anticoagulation. On 06/01/2021, I'm seeing this patient for a follow-up. The patient is confused. The patient is hallucinating. He is restless. He continues to follow of his 100% on a beta facemask which is at 15 L. His breathing is comfortable. He is not labored in his breathing. Nevertheless, while off the oxygen, he desaturates. He is quite lethargic yet arousable and he communicates. Denies having any chest pain. No reported fever. No labs from today and the labs are all pending from now. In terms of treatment, the patient remains on Decadron 6 mg by mouth daily. The patient remains on IV Zosyn as empiric antibiotic coverage. The patient remains on long-term and to coagulation with Eliquis at a dose of 5 mg by mouth twice a day. The patient has dementia and the patient is currently on Aricept. Repeat chest x-ray shows progressive worsening in his COVID 19 related pneumonia with dense consolidations bilaterally more so on the right. There is a progressive worsening in his x-ray findings since 05/29/2021. This coincides or correlates with his worsening clinical status and worsening oxygenation. I was informed by the nursing staff that the primary care physician is O discussed CODE STATUS with the family including the daughter and the CODE STATUS has remained full at this point in time. Reevaluated today on 06/02/2021, patient remains in the ICU, patient is confused, he is on 15 L high flow nasal cannula and nonrebreather mask. O2 saturation is marginal. Remains on Decadron, he is also on Zosyn and on Eliquis. Patient is complaining of difficulty breathing, but he seems to be in no form of distress, he is quite confused, WBC count is 11.1 hemoglobin is 12.6, d-dimer is 4.14. Electrolytes are normal renal profile is normal. Chest x-ray continues to show scattered areas of infiltrates and consolidations bilaterally. C-reactive protein is 16.2. Reevaluated today on 06/03/2021, patient remains in the ICU, on 10 L high flow nasal cannula, patient is basically about the same. Does not seem to be in distress, however his O2 saturation is marginal, patient is quite confused, and I believe he has profound underlying dementia. Remains on the COVID-19 cocktail, remains on Decadron, he is also on Eliquis, BC is relatively normal electrolytes are normal renal profile is normal, chest x-ray continues show bilateral interstitial infiltrates. Consistent with COVID-19 pneumonia. Patient actually has multifocal confluent opacities Reevaluated today on 06/04/21, patient remains in the ICU, remains on 10 L high flow nasal cannula, and he is also on a nonrebreather mask. He desaturates easily upon removing his non-rebreather mask. Patient remains confused intermittently. Labs were basically unremarkable. CBC showed a bit of leukocytosis with WBC count of 14.6 hemoglobin 12.9 electrolytes are normal renal profile is normal blood sugar is 216. Remains empirically on Zosyn. Patient remains on the COVID-19 cocktail, not a candidate for remdesivir or baricitinib Reevaluated today on 06/05/2021, patient remains in the ICU, he is sitting at a bedside chair, on 12 L high flow nasal cannula, seems to be a bit more appropriate today, less confused. Patient denies being short of breath, denies any chest pain, denies any cough or wheezing. Chest x-ray continues to show diffuse bilateral infiltrates. Not much of the changes noted on the chest x- ray. His basic metabolic profile is normal. CBC is normal. No inflammatory markers were ordered today. The patient is seen today 06/06/2021 in follow-up in the intensive care unit. He remains awake and alert. He is on 12 L high flow nasal cannula with O2 saturations at 93%. Dry nonproductive cough. Using a bit easier today compared to yesterday. Less confused. Chest x-ray reveals stable cardiomegaly. Stable bilateral CoVID pneumonia. Blood cultures revealed no growth. White count 16.6. Hemoglobin 12.5. Sodium 134. Potassium 4.0. Creatinine 0.75. He remains on Decadron, Eliquis, vitamin supplements. Antibiotics in the form of Zosyn. The patient is seen today 06/07/2021 in follow-up in the intensive care unit. He is currently resting fairly comfortably in bed. He is more confused at night. Still confused this morning. No IV fluids running. He is still on 15 L high flow nasal cannula. Being titrated down as tolerated. Afebrile. Hemodynamically stable. The glucose 150. He remains anticoagulated with Eliquis, continue on Decadron, vitamin supplements. Zosyn discontinued per medicine. The patient is seen today 06/08/2021 in follow-up in the intensive care unit. He remains a MedSurg overflow. He is stable. He still on 15 L high flow nasal cannula. He's been off the nonrebreather for longer periods of time. As x-ray shows some mild decrease in the bilateral left greater than right airspace opacities with moderate to severe interstitial edema. No evidence of pn eumothorax or large effusions. Still episodes of confusion. Blood glucose 142. He remains anticoagulated with Eliquis. Continued on Decadron, vitamin supplements. 0.9 normal saline at KVO. On 06/09/2001 patient seen in follow-up in intensive care unit, he is resting comfortably in bed, he is currently on 15 L high flow nasal cannula and usually she does were nonrebreather mask as well, breathing comfortably, appears to be in no acute respiratory distress tox on 15 L is 95%, he is afebrile, hemodynamically he is stable. He is not on any IV fluids, he is in sinus mechanism with a controlled rate. Yesterday's chest x-ray showed mild interval decrease in the bilateral left greater than right airspace opacities in moderate to severe interstitial edema, no evidence of pneumothorax or pleural effusion. His labs have been reviewed, white blood cell count is 16.3, hemoglobin is 13.3, Demer is improving and is down to 2.2, sodium is 134, the rest of electrolytes are within normal limits, BUN is 28 creatinine 0.79, LDH is 1147, actually increased from previous value of 805 from 06/01/2021, and CRP is 6.3, proved from 16.2 on 06/02/2021. She and continues on Eliquis 5 mg twice daily, he is on COVID-19 vitamins, and dexamethasone 6 mg twice daily. Tolerating oral intake, no nausea vomiting or diarrhea. On 06/10/2021 patient seen in follow-up in intensive care unit, he is currently just on 15 L per high flow nasal cannula, he is not using the nonrebreather mask, his pulse ox is 87-92%, breathing comfortably, she is resting comfortably, has no specific complaints, no running IVs, he is tolerating oral intake, no nausea or vomiting no abdominal pain, chest x-ray has been reviewed showing diffuse patchy bilateral infiltrates, similar to his previous chest x-ray. Today's labs have been reviewed, his white blood cell, and 17.1, hemoglobin is 12.2, sodium is 133, potassium is 4.6, B1 is 29 creatinine 0.75, d-dimer is 2.78. LDH and CRP are stable. The patient is seen today 06/11/2021 in follow-up in the intensive care unit. He is currently resting fairly comfortably in bed. Awake, alert, confused to time and place. He has required increasing oxygen requirements. He is now on AirVo high flow oxygen at 60 L/m 94% FiO2. He does require an additional nonrebreather mask to maintain O2 saturations in the upper 80s and lower 90s. He did have episodes of atrial fibrillation with rapid ventricular response. Initiated on a Cardizem drip at 5 mg per hour. He remains anticoagulated with Eliquis. He is continued on bronchodilators, Decadron. His appetite is poor. Recent chest x-ray continues to show bilateral patchy airspace disease. Blood glucose 203. The patient is seen today 06/13/2021 in follow-up in the intensive care unit. He remains BiPAP dependent currently at 14/6 and 100% FiO2. 0.9 normal saline at 75 ML's per hour. He has been made a DO NOT RESUSCITATE/DO NOT INTUBATE CODE STATUS. His O2 saturations have been in the low 80s high 70s. He is minimally responsive at this point. As x-ray continues to show bilateral multifocal and confluent opacities consistent with COVID-19 pneumonia with developing ARDS. Slightly worse especially on the right today compared to yesterday. White count 18.7. Hemoglobin 11.1. Lymphocytes 0.2. Sodium 138. Potassium 4.2. Bicarb 20. Creatinine 1.01. Glucose 155. He remains on Decadron, vitamin supplements. He is on Eliquis anticoagulation. Objective - Vital Signs Vital signs: Vital Signs Temp 99.0 F 06/13/21 14:24 Pulse 77 06/13/21 14:24 Resp 16 06/13/21 14:24 BP 95/51 06/13/21 14:24 Pulse Ox 77 L 06/13/21 14:24 Intake & Output 06/12/21 06/13/21 06/13/21 18:59 06:59 18:59 Intake Total 939.834 772.833 Output Total 100 125 Balance 839.834 772.833 -125 Weight 75.3 kg 75.3 kg Intake: IV 825 675 Sodium Chloride 0.9% 1, 825 675 000 ml @ 75 mls/hr IV . [id number] SARAH Rx#:[id number] Intake, IV Titration 114.834 97.833 Amount Diltiazem 125 mg In 114.834 97.833 Sodium Chloride 0.9% 100 ml @ Per Protocol IV .Q0M SARAH Rx#:[id number] Output: Urine 100 125 Other: Voiding Method Urinal External Catheter External Catheter # Voids 0 0 # Bowel Movements 1 - Exam GENERAL EXAM: Arousable 85-year-old gentleman, on BiPAP 14/6 and 100% FiO2 HEAD: Normocephalic. EYES: Normal reaction of pupils, equal size. NOSE: Clear with pink turbinates. THROAT: No erythema or exudates. NECK: No masses, no JVD. CHEST: No chest wall deformity. LUNGS: Equal air entry with crackles in the bilateral posterior bases. CVS: S1 and S2 normal with no audible murmur, regular rhythm. ABDOMEN: No hepatosplenomegaly, normal bowel sounds, no guarding or rigidity. SPINE: No scoliosis or deformity SKIN: No rashes CENTRAL NERVOUS SYSTEM: No focal deficits, tone is normal in all 4 extremities. EXTREMITIES: There is no peripheral edema. No clubbing, no cyanosis. Peripheral pulses are intact. - Labs CBC & Chem 7: 06/13/21 05:08 06/13/21 05:06 Labs: Abnormal Lab Results - Last 24 Hours (Table) 06/12/21 06/13/21 06/13/21 Range/Units 22:05 05:06 05:08 WBC 18.7 H (3.8-10.6) k/uL RBC 3.73 L (4.30-5.90) m/uL Hgb 11.1 L (13.0-17.5) gm/dL Hct 35.3 L (39.0-53.0) % Neutrophils # 17.9 H (1.3-7.7) k/uL Lymphocytes # 0.2 L (1.0-4.8) k/uL Chloride 108 H (98-107) mmol/L Carbon Dioxide 20 L (22-30) mmol/L BUN 41 H (9-20) mg/dL Glucose 155 H (74-99) mg/dL POC Glucose (mg/dL) 167 H (75-99) mg/dL 06/13/21 06/13/21 Range/Units 07:02 11:31 WBC (3.8-10.6) k/uL RBC (4.30-5.90) m/uL Hgb (13.0-17.5) gm/dL Hct (39.0-53.0) % Neutrophils # (1.3-7.7) k/uL Lymphocytes # (1.0-4.8) k/uL Chloride (98-107) mmol/L Carbon Dioxide (22-30) mmol/L BUN (9-20) mg/dL Glucose (74-99) mg/dL POC Glucose (mg/dL) 157 H 162 H (75-99) mg/dL Assessment and Plan Assessment: 1 Acute hypoxemic respiratory failure secondary to coronavirus associated pneumonia. The patient completed Remdesivir. Currently on BiPAP 14/600% FiO2 2 Elevated inflammatory markers secondary to coronavirus infection. 3 History of hyperlipidemia. 4 History of hypertension. 5 History of myocardial infarction. 6 BPH. 7 CAD, status post cardiac catheterization with stent. 8 Dementia. 9 Paroxysmal atrial fibrillation, episodes of RVR currently on a Cardizem drip and the patient is on long-term medical evaluation with Eliquis. Plan: The patient was seen and evaluated by Dr. Stoll Now on BiPAP 14/600% FiO2 Continue Decadron, Eliquis, vitamin supplements Appetite remains poor Add 0.9 normal saline at 75 mL per hour Prognosis remains poor DO NOT RESUSCITATE/DO NOT INTUBATE CODE STATUS Family is considering comfort care I, the cosigning physician, performed a history & physical examination of the patient. Lungs sounds with crackles in the bilateral bases. Maintaining O2 saturations in the 80s on BiPAP 14/6 and 100% FiO2. I discussed the assessment and plan of care with my nurse practitioner, Argenis Spear. I attest to the above note as dictated by her.
[2021-06-13] MEDS ORDERED: ATROPINE OPHTH SOLN 1% 5ML BTL SUBLINGUAL PRN (16:37)
[2021-06-13] MEDS ORDERED: LORazepam 2 MG/ML INJ IV PRN (16:37)
[2021-06-13] MEDS ORDERED: MORPHINE SULFATE (100 MG/2 ML) 100 MG in SODIUM CHLORIDE 0.9% 100 ML IV SCH (17:30)
--- NOTE | 2021-06-13 19:17 | P.PN ---
Subjective This is a pleasant 85 years old male with multiple medical problems including dementia and hypertension presents because of respiratory difficulty secondary to bilateral call with infection and hypoxia. Today patient is seen and examined in the ICU. Patient oxygen saturation worsened today and he was placed on BiPAP this morning however he feels generally okay, his sitting in chair severe distress. only mild distress. and he can hold conversation. hemodynamically stable. labs reviewed showing leukocytosis of 15 k. also ldh high at 1124 and c-reactive protein hives 6.8. currently he is on multiple vitamins, dexamethasone, eliquis, normal sinus 75 mm per hour cardizem drip at 10 mg per hour while he continued on home dose of physical and metoprolol 25 mg 3 times a day. 06/13/2021 Patient seen by me this morning, he was still on BiPAP looks confused and his sitting or 146 with FiO2 of 100% he was still getting Cardizem drip at 10 mg/h. Patient showing worsening of physical pneumonia despite all the treatment received. Chest x-ray showing bilateral multifocal and confluent opacity consistent with known COVID-19 infection and/or developing ARDS R redemonstrated. Findings more prominent or worsened in the right lung base from one day earlier. It looks like family are considering comfort care measures Objective - Vital Signs Vital signs: Vital Signs Temp 99.0 F 06/13/21 14:24 Pulse 77 06/13/21 14:24 Resp 16 06/13/21 14:24 BP 95/51 06/13/21 14:24 Pulse Ox 77 L 06/13/21 14:24 Intake & Output 06/13/21 06/13/21 06/14/21 06:59 18:59 06:59 Intake Total 772.833 Output Total 125 Balance 772.833 -125 Weight 75.3 kg 75.3 kg Intake: IV 675 Sodium Chloride 0.9% 1, 675 000 ml @ 75 mls/hr IV . [id number] SARAH Rx#:[id number] Intake, IV Titration 97.833 Amount Diltiazem 125 mg In 97.833 Sodium Chloride 0.9% 100 ml @ Per Protocol IV .Q0M SARAH Rx#:[id number] Output: Urine 125 Other: Voiding Method External Catheter External Catheter # Voids 0 0 - Exam -GENERAL: The patient is on BiPAP and difficult to assess. He looks confused, Well developed, well nourished. HEENT: Pupils are round and equally reacting to light. EOMI. No scleral icterus. No conjunctival pallor. Normocephalic, atraumatic. No pharyngeal erythema. No thyromegaly. CARDIOVASCULAR: S1 and S2 present. No murmurs, rubs, or gallops. -PULMONARY: Chest is clear to auscultation, no wheezing or crackles. On BiPAP ABDOMEN: Soft, nontender, nondistended, normoactive bowel sounds. No palpable organomegaly. MUSCULOSKELETAL: No joint swelling or deformity. EXTREMITIES: No cyanosis, clubbing, or pedal edema. NEUROLOGICAL: Gross neurological examination did not reveal any focal deficits. SKIN: No rashes. no petechiae. - Labs CBC & Chem 7: 06/13/21 05:08 06/13/21 05:06 Labs: Abnormal Lab Results - Last 24 Hours (Table) 06/12/21 06/13/21 06/13/21 Range/Units 22:05 05:06 05:08 WBC 18.7 H (3.8-10.6) k/uL RBC 3.73 L (4.30-5.90) m/uL Hgb 11.1 L (13.0-17.5) gm/dL Hct 35.3 L (39.0-53.0) % Neutrophils # 17.9 H (1.3-7.7) k/uL Lymphocytes # 0.2 L (1.0-4.8) k/uL Chloride 108 H (98-107) mmol/L Carbon Dioxide 20 L (22-30) mmol/L BUN 41 H (9-20) mg/dL Glucose 155 H (74-99) mg/dL POC Glucose (mg/dL) 167 H (75-99) mg/dL 06/13/21 06/13/21 Range/Units 07:02 11:31 WBC (3.8-10.6) k/uL RBC (4.30-5.90) m/uL Hgb (13.0-17.5) gm/dL Hct (39.0-53.0) % Neutrophils # (1.3-7.7) k/uL Lymphocytes # (1.0-4.8) k/uL Chloride (98-107) mmol/L Carbon Dioxide (22-30) mmol/L BUN (9-20) mg/dL Glucose (74-99) mg/dL POC Glucose (mg/dL) 157 H 162 H (75-99) mg/dL Assessment and Plan Assessment: Bilateral covid pneumonia Acute hypoxic respiratory failure, need and BiPAP therapy Increase inflammatory markers Hypertension Dementia Plan: This is a pleasant 85 years old male who presents with Covid and hypoxia. Today he was placed on BiPAP Continue with multiple vitamin C, D and zinc. Continue with dexamethasone He is on Eliquis and metoprolol and Cardizem drip for A. fib and RVR Pulmonary consult Family are considering comfort care per their discussion with critical care team Labs and medication were reviewed.. Continue same treatment. Continue with symptomatic treatment. Resume home medication. Monitor lytes and vitals. DVT and GI prophylaxis. Further recommendations as per clinical course of the patient DVT prophylaxis: Eliquis GI Prophylaxis: Pepcid PT/OT: Pending Prognosis is guarded
== END 2021-06-13 17:00 | disposition expired | DRG 177 ==
LOC: EC 12:21 → 4SSUR 15:47 → 3SCARD 05-28 07:59 → 2SICU 06-01 10:46 → 3SCARD 06-13 14:05
PROVIDERS: ADMIT Internal Medicine; ATTEND Internal Medicine
PROC: 8E0ZXY6 Isolation (ICD-10-PCS; 2021-05-24)
PROC: 3E0333Z Introduction of Anti-inflammatory into Peripheral Vein, Percutaneous Approach (ICD-10-PCS; 2021-05-24)
PROC: XW033E5 Introduction of Remdesivir Anti-infective into Peripheral Vein, Percutaneous Approach, New Technology Group 5 (ICD-10-PCS; principal; 2021-05-25)
PROC: 5A0955A Assistance with Respiratory Ventilation, Greater than 96 Consecutive Hours, High Flow/Velocity Cannula (ICD-10-PCS; 2021-06-02)
PROC: 5A09457 Assistance with Respiratory Ventilation, 24-96 Consecutive Hours, Continuous Positive Airway Pressure (ICD-10-PCS; 2021-06-12)
DX: U07.1 COVID-19 (principal); J96.21 Acute and chronic respiratory failure with hypoxia; J12.82 Pneumonia due to coronavirus disease 2019; F32.3 Major depressive disorder, single episode, severe with psychotic features; N40.0 Benign prostatic hyperplasia without lower urinary tract symptoms; W19.XXXA Unspecified fall, initial encounter; Z66 Do not resuscitate; Z78.9 Other specified health status; E78.5 Hyperlipidemia, unspecified; F01.50 Vascular dementia, unspecified severity, without behavioral disturbance, psychotic disturbance, mood disturbance, and anxiety; I25.10 Atherosclerotic heart disease of native coronary artery without angina pectoris; I11.9 Hypertensive heart disease without heart failure; I25.2 Old myocardial infarction; I48.0 Paroxysmal atrial fibrillation; Z51.5 Encounter for palliative care; J30.9 Allergic rhinitis, unspecified; Z79.01 Long term (current) use of anticoagulants; Z79.02 Long term (current) use of antithrombotics/antiplatelets; Z79.82 Long term (current) use of aspirin; Z79.899 Other long term (current) drug therapy; Z80.0 Family history of malignant neoplasm of digestive organs; Z82.49 Family history of ischemic heart disease and other diseases of the circulatory system; Z82.5 Family history of asthma and other chronic lower respiratory diseases; Z83.3 Family history of diabetes mellitus; Z87.891 Personal history of nicotine dependence; Z91.81 History of falling; Z95.5 Presence of coronary angioplasty implant and graft; Z96.611 Presence of right artificial shoulder joint; Z96.612 Presence of left artificial shoulder joint; R00.1 Bradycardia, unspecified
CPT/HCPCS: 36415; 70450; 71045; 71046; 71275; 72125; 72170; 80048; 80053; 81001; 82728; 83605; 83615; 83735; 83880; 84132; 84145; 84443; 85025; 85027; 85379; 85610; 85730; 86140; 87040; 87635; 93005; 94640; 94660; 94760; 96361; 96374; 99291